=== PATIENT | male | born 1995 | race Caucasian/White ===

== ENCOUNTER 2019-08-15 15:42 | Emergency (ER) | payer OTHER ==
--- OUTSIDE RECORDS SUMMARY | 2019-08-15 15:51 | XMS REPORT | Continuity of Care Document ---
:1995 Author Organization [facility] Care Team Providers Name Role Phone [facility] Unavailable Unavailable Problems Problem Status Onset Classification Date Comments Source Date Reported Pseudomonas Active Problem 01/19/2016 Pedi infection in Infect conditions Disease of classified [place] elsewhere and of unspecified site Methicillin Active Problem 01/19/2016 Pedi resistant Infect Staphylococcus Disease of aureus [place] Pilonidal cyst Active Problem 01/19/2016 Pedi with abscess [facility] [place] Other chronic Active Problem 01/19/2016 Pedi postoperative pain [facility] [place] Other atopic Active Problem 01/19/2016 Pedi dermatitis and Infect related conditions [facility] of [place] Open wound of Active Problem 01/19/2016 Pedi buttock, Infect complicated [facility] of [place] Cutaneous abscess Active Problem 01/19/2016 Pedi of buttock Infect [facility] [place] Open wound of Active Problem 01/19/2016 Pedi buttock, without Infect mention of Disease of complication [place] Pilonidal cyst Active Problem 01/19/2016 Pedi with abscess Infect [facility] [place] Klebsiella Active Problem 01/19/2016 Pedi pneumoniae Infect infection [facility] [place] Cellulitis and Active Problem 01/19/2016 Pedi abscess of buttock Infect [facility] [place] Medications Medication Details Route Status Patient Ordering Order Source Instructions Provider Date Augmentin 1 tablet PO Active 500 mg PO Three [facility] 09/17/20 Pedi times a day 14 [facility] [place] Paxil Unknown NA Active [facility] [place] Celexa Unknown NA Active [facility] [place] Seroquel Unknown NA Active [facility] [place] Augmentin Unknown NA Active [facility] [place] Clonidine HCl Unknown NA Active [facility] [place] Citalopram Unknown NA Active [facility] Hydrobromide [facility] [place] Doxepin HCl Unknown NA Active [facility] [place] BuPROPion HCl Unknown NA Active [facility] [place] Quetiapine Unknown NA Active [facility] Fumarate [facility] [place] Allergies, Adverse Reactions, Alerts Substance Category Reaction Severity Reaction Status Date Comments Source type Reported N.K.D.A. Adverse Info Not Adverse Active Pedi Reaction Available Reaction 6 [facility] [place] Immunizations No Data Provided for This Section Results No Data Provided for This Section Pathology Reports No Data Provided for This Section Diagnostic Reports No Data Provided for This Section Consultation Notes No Data Provided for This Section Discharge Summaries No Data Provided for This Section History and Physicals No Data Provided for This Section Vital Signs Vital Sign Value Date Comments Source Weight 323 01/16/2016 Pedi [facility] [place] Height 68 01/16/2016 Pedi [facility] [place] Temperature Oral (F) 98 F 01/16/2016 Pedi [facility] [place] Heart Rate 128 01/16/2016 Pedi [facility] [place] Weight 295 08/07/2015 Pedi [facility] [place] Height 68 08/07/2015 Pedi [facility] [place] Temperature Oral (F) 98 F 08/07/2015 Pedi [facility] [place] Heart Rate 108 08/07/2015 Pedi [facility] [place] Weight 263 01/13/2015 Pedi [facility] [place] Height 68 01/13/2015 Pedi [facility] [place] Temperature Oral (F) 97.6 F 01/13/2015 Pedi [facility] [place] Heart Rate 101 01/13/2015 Pedi [facility] [place] Weight 260 01/02/2015 Pedi [facility] [place] Height 68 01/02/2015 Pedi [facility] [place] Temperature Oral (F) 97.8 F 01/02/2015 Pedi [facility] [place] Heart Rate 102 01/02/2015 Pedi [facility] [place] Weight 247.2 10/22/2014 Pedi [facility] [place] Height 66 10/22/2014 Pedi [facility] [place] Temperature Oral (F) 97.5 F 10/22/2014 Pedi [facility] [place] Weight 248 10/09/2014 Pedi [facility] [place] Height 66 10/09/2014 Pedi [facility] [place] Temperature Oral (F) 97.6 F 10/09/2014 Pedi [facility] [place] Heart Rate 77 10/09/2014 Pedi [facility] [place] Weight 245 09/24/2014 Pedi [facility] [place] Height 66 09/24/2014 Pedi [facility] [place] Temperature Oral (F) 98.9 F 09/24/2014 Pedi [facility] [place] Heart Rate 91 09/24/2014 Pedi [facility] [place] Weight 241 09/18/2014 Pedi [facility] [place] Height 66 09/18/2014 Pedi [facility] [place] Temperature Oral (F) 97.6 F 09/18/2014 Pedi [facility] [place] Heart Rate 89 09/18/2014 Pedi [facility] [place] Weight 241 09/11/2014 Pedi [facility] [place] Height 66 09/11/2014 Pedi [facility] [place] Temperature Oral (F) 97.5 F 09/11/2014 Pedi [facility] [place] Heart Rate 81 09/11/2014 Pedi [facility] [place] Encounters Location Location Encounter Encounter Reason Attending ADM DC Status Source Details Type Number For Provider Date Date Visit Pediatric Unknown [id number] 09/11 09/11 Pedi Infectious ef6-4ba4- Infect Disease [id number] [facility] [id number] [facility] Unknown [id number] 09/11 09/11 Pedi Infectious p7n-7l87-3 Infect Disease [id number] [facility] [id number] of [facility] Unknown [id number] 09/11 09/11 Pedi Infectious 8i8-8zdr-2 Infect Disease d75-2sip3g [facility] [id number] of [facility] Unknown [id number] 09/11 09/11 Pedi Infectious 930-4e88- Infect Disease [id number] [facility] [id number] of [facility] Unknown [id number] 09/11 09/11 Pedi Infectious 10f-4643-a /2013 Infect Disease 00f-7bab3c [facility] [id number] of [facility] Unknown [id number] 09/11 09/11 Pedi Infectious dfa-488e- Infect Disease 686-a84a04 [facility] [id number] of [facility] Unknown [id number] 09/11 09/11 Pedi Infectious 9h8-0909-f /2013 Infect Disease ff1-92b48f [facility] [id number] of [facility] Unknown [id number] 09/11 09/11 Pedi Infectious 7r0-94kb-7 Infect Disease p87-b2p44f [facility] 210cda of [facility] Unknown [id number] 09/11 09/11 Pedi Infectious 7w0-76s2-b /2013 Infect Disease p05-m6rl34 [facility] [id number] of [facility] Unknown [id number] 09/11 09/11 Pedi Infectious 3r4-4368-1 /2013 Infect Disease z25-9457uz [facility] [id number] of [facility] Unknown [id number] 09/11 09/11 Pedi Infectious 391-4f25-a /2013 Infect Disease 285-uq0011 [facility] [id number] of [facility] Unknown [id number] 09/11 09/11 Pedi Infectious 971-446c-8 Infect Disease 814-4dbacf [facility] [id number] of [facility] Unknown [id number] 09/11 09/11 Pedi Infectious 0j9-8x90-f /2013 Infect Disease 35a-xe315a [facility] [id number] of [facility] Unknown [id number] 09/11 09/11 Pedi Infectious 56e-4a56-a /2013 Infect Disease 714-g0o139 [facility] [id number] of [facility] Provider [id number] 09/17 09/17 Pedi Infectious told 740-4185- /2013 Infect Disease patient to fc7-5c1330 [facility] call [id number] of [facility] Provider [id number] 09/17 09/17 Pedi Infectious told q71-0n1n-8 Infect Disease patient to c7s-64kj50 [facility] call [id number] of [facility] Provider [id number] 09/17 09/17 Pedi Infectious told z55-1941-h /2013 Infect Disease patient to 215-b796e2 [facility] call [id number] of [facility] Provider [id number] 09/17 09/17 Pedi Infectious told y50-0kdb-1 /2013 Infect Disease patient to 2fd-4ag458 [facility] call [id number] of [facility] Test [id number] 09/17 09/17 Pedi Infectious results 940-4cf0-b /2013 Infect Disease bbd-052dd4 [facility] [id number] of [facility] Test [id number] 09/17 09/17 Pedi Infectious results 39a-4529-a /2013 Infect Disease j5x-27c6dx [facility] [id number] of [facility] Test [id number] 09/17 09/17 Pedi Infectious results 298-418a-a /2013 Infect Disease 45d-qm4195 [facility] [id number] of [facility] Test [id number] 09/17 09/17 Pedi Infectious results 4c9-06i3-v /2013 Infect Disease fd6-4906f2 [facility] [id number] [facility] Provider [id number] 09/17 09/17 Pedi Infectious told bd5-4b86-8 /2013 Infect Disease patient to 650-4ad6f4 [facility] call [id number] of [facility] Provider [id number] 09/17 09/17 Pedi Infectious told 868-4bf8- Infect Disease patient to 5be-4t1779 [facility] call [id number] of [facility] Provider [id number] 09/17 09/17 Pedi Infectious told 824-463f-a /2013 Infect Disease patient to 30f-8e64cb [facility] call [id number] of [facility] Provider [id number] 09/17 09/17 Pedi Infectious told 40f-4dfa-9 /2013 Infect Disease patient to 567-91f06a [facility] call [id number] of [facility] Provider [id number] 09/17 09/17 Pedi Infectious told 513-46d1-a /2013 Infect Disease patient to 147-9g0793 [facility] call [id number] of [facility] Provider [id number] 09/17 09/17 Pedi Infectious told c81-43r7-k /2013 Infect Disease patient to 558-[id number] [facility] call [id number] of [facility] Provider [id number] 09/17 09/17 Pedi Infectious told m0j-8q0b-2 /2013 Infect Disease patient to cb5-5o4105 [facility] call [id number] of [facility] Provider [id number] 09/17 09/17 Pedi Infectious told g7u-635c-f /2013 Infect Disease patient to be5-5241a1 [facility] call 8caceb of [facility] Provider [id number] 09/17 09/17 Pedi Infectious told 6ea-4f71-b /2013 Infect Disease patient to 54b-010c78 [facility] call [id number] of [facility] Provider [id number] 09/17 09/17 Pedi Infectious told 439-49f6- Infect Disease patient to fe3-k1470u [facility] call [id number] of [facility] Test [id number] 09/17 09/17 Pedi Infectious results r71-1835-p /2013 Infect Disease afa-0ef54a [facility] [id number] [facility] Test [id number] 09/17 09/17 Pedi Infectious results 744-4d7f-a /2013 Infect Disease 509-7350cc [facility] [id number] of [facility] Test [id number] 09/17 09/17 Pedi Infectious results 321-4105-a /2013 Infect Disease 033-5fc2a4 [facility] [id number] [facility] Test [id number] 09/17 09/17 Pedi Infectious results fd7-4768-b /2013 Infect Disease 34c-5314cd [facility] [id number] [facility] Test [id number] 09/17 09/17 Pedi Infectious results 747-490c-8 /2013 Infect Disease c0d-595233 [facility] [id number] [facility] Test [id number] 09/17 09/17 Pedi Infectious results 7o5-0090-1 /2013 Infect Disease i60-9tw4x8 [facility] [id number] [facility] Test [id number] 09/17 09/17 Pedi Infectious results r15-8c8n-g /2013 Infect Disease 432-849e0f [facility] [id number] [facility] Test [id number] 09/17 09/17 Pedi Infectious results 7r9-8447-2 /2013 Infect Disease cca-59edf5 [facility] [id number] [facility] Test [id number] 09/17 09/17 Pedi Infectious results dd1-4c00-8 /2013 Infect Disease 23e-70d07e [facility] [id number] of [facility] Test [id number] 09/17 09/17 Pedi Infectious results c42-29l0-f /2013 Infect Disease 8n0-f6w076 [facility] [id number] [facility] Follow-Up [id number] 09/18 09/18 Pedi Infectious Pilonidal 00b-4b97-a /2013 Infect Disease Cyst 34f-bc1cc5 [facility] [id number] [facility] Follow-Up [id number] 09/18 09/18 Pedi Infectious [place] ca6-471b-a /2013 Infect Disease Cyst 8c2-dr092o [facility] [id number] of [facility] Follow-Up [id number] 09/18 09/18 Pedi Infectious [place] c9d-0qav-4 /2013 Infect Disease Cyst 3k3-g09f32 [facility] [id number] [facility] Follow-Up [id number] 09/18 09/18 Pedi Infectious [place] r8r-517e-r /2013 Infect Disease Cyst 433-75cb33 [facility] [id number] [facility] Follow-Up [id number] 09/18 09/18 Pedi Infectious [place] g40-6271-1 /2013 Infect Disease Cyst 846-70492s [facility] [id number] [facility] Follow-Up [id number] 09/18 09/18 Pedi Infectious [place] 5z8-0689-7 /2013 Infect Disease Cyst eb2-a2d1d4 [facility] [id number] [facility] Follow-Up [id number] 09/18 09/18 Pedi Infectious [place] 709-41ab-b /2013 Infect Disease Cyst 690-a2a3e7 [facility] [id number] [facility] Follow-Up [id number] 09/18 09/18 Pedi Infectious [place] 145-41c4-b /2013 Infect Disease Cyst 98c-82c78f [facility] [id number] [facility] Follow-Up [id number] 09/18 09/18 Pedi Infectious [place] 16f-4422-a /2013 Infect Disease Cyst 53a-3b5dfc [facility] [id number] [facility] Follow-Up [id number] 09/18 09/18 Pedi Infectious [place] 98d-4b19-b /2013 Infect Disease Cyst 846-f15e95 [facility] [id number] [facility] Follow-Up [id number] 09/18 09/18 Pedi Infectious [place] cf3-4a2f-b /2013 Infect Disease Cyst aa5-48a13b [facility] [id number] [facility] Follow-Up [id number] 09/24 09/24 Pedi Infectious [place] v7e-9x50-j /2013 Infect Disease Cyst 1s1-3ng143 [facility] [id number] [facility] Follow-Up [id number] 09/24 09/24 Pedi Infectious [place] bc0-4c7b-9 /2013 Infect Disease Cyst 83a-439572 [facility] [id number] [facility] Follow-Up [id number] 09/24 09/24 Pedi Infectious [place] 786-4d38-b /2013 Infect Disease Cyst 00a-9f5fa2 [facility] [id number] [facility] Follow-Up [id number] 09/24 09/24 Pedi Infectious [place] 171-4d6a-b /2013 Infect Disease Cyst 922-589061 [facility] [id number] [facility] Follow-Up [id number] 09/24 09/24 Pedi Infectious [place] 2k2-4za7-3 /2013 Infect Disease Cyst 528-7f2ac2 [facility] [id number] [facility] Follow-Up [id number] 09/24 09/24 Pedi Infectious [place] 0g6-306j-q /2013 Infect Disease Cyst 80e-1bbfcb [facility] [id number] [facility] Follow-Up [id number] 09/24 09/24 Pedi Infectious [place] 994-4c53-9 /2013 Infect Disease Cyst 6de-f4ed9e [facility] [id number] [facility] Follow-Up [id number] 09/24 09/24 Pedi Infectious [place] ed8-4e55-b /2013 Infect Disease Cyst 376-777cde [facility] [id number] [facility] Follow-Up [id number] 09/24 09/24 Pedi Infectious [place] 24b-451a-8 /2013 Infect Disease Cyst 82c-662bd2 [facility] [id number] of [facility] Follow-Up [id number] 09/24 09/24 Pedi Infectious [place] 8ed-4898-b /2013 Infect Disease Cyst cee-oaf504 [facility] [id number] of [facility] Follow-Up [id number] 09/24 09/24 Pedi Infectious [place] 26d-400d-a /2013 Infect Disease Cyst 7z8-4486aq [facility] [id number] [facility] Follow-Up [id number] 10/09 10/09 Pedi Infectious [place] ca5-4f38-8 /2013 Infect Disease Cyst 73a-1b7d56 [facility] [id number] of [facility] Follow-Up [id number] 10/09 10/09 Pedi Infectious [place] 636-40e6-9 /2013 Infect Disease Cyst 947-e3748q [facility] [id number] [facility] Follow-Up [id number] 10/09 10/09 Pedi Infectious [place] 66c-4459-a /2013 Infect Disease Cyst p51-175975 [facility] [id number] of [facility] Follow-Up [id number] 10/09 10/09 Pedi Infectious [place] u8t-116f-1 /2013 Infect Disease Cyst w20-l75967 [facility] [id number] of [facility] Follow-Up [id number] 10/09 10/09 Pedi Infectious [place] 2dd-467d-8 Infect Disease Cyst 6i2-751174 [facility] [id number] of [facility] Follow-Up [id number] 10/09 10/09 Pedi Infectious [place] 201-45fb-b /2013 Infect Disease Cyst 2b1-2n7t36 [facility] [id number] [facility] Follow-Up [id number] 10/09 10/09 Pedi Infectious [place] u4w-9v07-r /2013 Infect Disease Cyst bed-8fceb1 [facility] [id number] [facility] Follow-Up [id number] 10/09 10/09 Pedi Infectious [place] 0h7-7h5b-4 Infect Disease Cyst x2p-xo1278 [facility] [id number] of [facility] Follow-Up [id number] 10/09 10/09 Pedi Infectious [place] o8c-2705-h /2013 Infect Disease Cyst bc1-612e32 [facility] [id number] [facility] Follow-Up [id number] 10/09 10/09 Pedi Infectious [place] 9ed-4f4b-8 /2013 Infect Disease Cyst 2fb-43eadf [facility] [id number] of [facility] Follow-Up [id number] 10/09 10/09 Pedi Infectious [place] 3g6-8z91-9 /2013 Infect Disease Cyst c46-59158a [facility] [id number] [facility] WOUNDCARE [id number] 10/22 10/22 Pedi Infectious 5z8-7c01-6 /2013 Infect Disease 48c-693443 [facility] [id number] [facility] [id number] 10/22 10/22 Pedi Infectious 442-4426-9 /2013 Infect Disease u4p-1k6hw4 [facility] [id number] [facility] [id number] 10/22 10/22 Pedi Infectious ba4-494c-b /2013 Infect Disease 92f-341790 [facility] [id number] [facility] [id number] 10/22 10/22 Pedi Infectious afc-4b99-b /2013 Infect Disease 449-4770ae [facility] [id number] [facility] [id number] 10/22 10/22 Pedi Infectious cf9-4283-a /2013 Infect Disease ee3-f10d09 [facility] [id number] [facility] [id number] 10/22 10/22 Pedi Infectious q76-9681-d /2013 Infect Disease 6ad-048b69 [facility] [id number] [facility] [id number] 10/22 10/22 Pedi Infectious ec0-4282-8 /2013 Infect Disease c5m-6sq0m7 [facility] [id number] [facility] [id number] 10/22 10/22 Pedi Infectious bad-4c5d-a /2013 Infect Disease 731-w3138z [facility] [id number] [facility] FU - [id number] 11/19 11/19 Pedi Infectious PILONIDAL 9h3-06zp-9 /2013 Infect Disease CYST 7b8-02a550 [facility] [id number] [facility] FU - [id number] 11/19 11/19 Pedi Infectious PILONIDAL fa6-4c63-8 /2013 Infect Disease CYST 573-fbe18e [facility] [id number] [facility] FU - [id number] 11/19 11/19 Pedi Infectious PILONIDAL 2ac-4955-a /2013 Infect Disease CYST 318-2e93c3 [facility] [id number] [facility] FU - [id number] 11/19 11/19 Pedi Infectious PILONIDAL f46-9j97-j /2013 Infect Disease CYST 5v6-7v6458 [facility] [id number] [facility] FU - [id number] 11/19 11/19 Pedi Infectious PILONIDAL 7o0-4m93-k /2013 Infect Disease CYST 093-a1a61a [facility] [id number] [facility] FU - [id number] 11/19 11/19 Pedi Infectious PILONIDAL 115-444f-b /2013 Infect Disease CYST 1bc-f1s429 [facility] [id number] [facility] FU - [id number] 11/19 11/19 Pedi Infectious PILONIDAL 6ea-40c8-b /2013 Infect Disease CYST 754-37b94e [facility] [id number] [facility] FU - [id number] 11/19 11/19 Pedi Infectious PILONIDAL 643-4d47-b /2013 Infect Disease CYST 8y5-5l6rh0 [facility] [id number] [facility] Unknown [id number] 12/11 12/11 Pedi Infectious 490-456d-9 /2014 Infect Disease e95-83k4h2 [facility] [id number] [facility] Unknown [id number] 12/11 12/11 Pedi Infectious 50b-42a1-a /2014 Infect Disease 995-za159r [facility] [id number] [facility] Unknown [id number] 01/14 01/14 Pedi Infectious de7-4c4f- Infect Disease 945-2aebd0 [facility] [id number] [facility] Unknown [id number] 12/11 12/11 Pedi Infectious 4r4-02n9-0 Infect Disease 920-4oi157 [facility] [id number] [facility] Unknown [id number] 12/11 12/11 Pedi Infectious f2m-610f-4 Infect Disease ab2-8e65d9 [facility] [id number] [facility] Unknown [id number] 12/11 12/11 Pedi Infectious 459-43f5- Infect Disease aee-33b8fd [facility] [id number] [facility] Follow-Up [id number] 01/02 01/02 Pedi Infectious [place] af5-4ef1-b /2014 Infect Disease cyst 55f-37b0d6 [facility] [id number] [facility] Follow-Up [id number] 01/02 01/02 Pedi Infectious [place] 140-43fd- Infect Disease cyst 364-2311e8 [facility] [id number] [facility] Follow-Up [id number] 01/02 01/02 Pedi Infectious [place] ddb-4f8b- Infect Disease cyst j9t-q482t9 [facility] [id number] of [facility] Follow-Up [id number] 01/02 01/02 Pedi Infectious [place] cad-4517-9 /2014 Infect Disease cyst n29-ha7y41 [facility] [id number] [facility] Follow-Up [id number] 01/02 01/02 Pedi Infectious [place] 766-43da-a /2014 Infect Disease cyst c23-3ed4e4 [facility] [id number] of [facility] Follow-Up [id number] 01/13 01/13 Pedi Infectious [place] s98-296t-o /2014 Infect Disease cyst 9w9-406070 [facility] [id number] of [facility] Follow-Up [id number] 01/13 01/13 Pedi Infectious [place] 7j6-4a09-i /2014 Infect Disease cyst z5k-2f4ji7 [facility] [id number] [facility] Follow-Up [id number] 01/13 01/13 Pedi Infectious [place] 614-46ec-b /2014 Infect Disease cyst 01b-79ea4a [facility] [id number] [facility] Follow-Up [id number] 01/13 01/13 Pedi Infectious [place] 51e-414e-8 /2014 Infect Disease cyst 7k8-456i77 [facility] [id number] of [facility] Follow-Up [id number] 01/13 01/13 Pedi Infectious [place] 876-4809-b /2014 Infect Disease cyst a80-18hm52 [facility] [id number] of [facility] Follow-Up [id number] 01/21 01/21 Pedi Infectious ea9-4042-a /2014 Infect Disease z29-10756b [facility] [id number] [facility] Follow-Up [id number] 01/21 01/21 Pedi Infectious 05f-4638-9 /2014 Infect Disease k5k-vb16v6 [facility] [id number] [facility] Follow-Up [id number] 02/04 02/04 Pedi Infectious [place] daf-45f8-9 /2014 Infect Disease cyst 4fe-656efd [facility] [id number] of [facility] Follow-Up [id number] 02/04 02/04 Pedi Infectious [place] ba7-4a1b-b /2014 Infect Disease cyst 32e-bsj698 [facility] [id number] [facility] Follow-Up [id number] 02/18 02/18 Pedi Infectious [place] m58-3886-w /2014 Infect Disease cyst and 904-d7331t [facility]ists [facility] [id number] of [facility] Follow-Up [id number] 02/18 02/18 Pedi Infectious [place] 52c-475a-8 /2014 Infect Disease cyst and 91d-448a54 [facility] Laser hair [id number] of [facility] Pediatric Follow-Up [id number] 05/06 05/06 Pedi Infectious Pilonidal [id number] /2014 Infect Disease cyst [id number] [facility] [id number] of [facility] Pediatric Follow-Up [id number] 05/06 05/06 Pedi Infectious Pilonidal [id number] /2014 Infect Disease cyst [id number] [facility] [id number] of [facility] Pediatric Test [id number] 05/12 05/12 Pedi Infectious results [id number] /2014 Infect Disease [id number] [facility] [id number] of [facility] Pediatric Test [id number] 05/12 05/12 Pedi Infectious results [id number] /2014 Infect Disease [id number] [facility] [id number] of [facility] Pediatric Follow-Up [id number] 05/16 05/16 Pedi Infectious Pilonidal [id number] /2014 Infect Disease Cyst [id number] [facility] [id number] of [facility] Pediatric Follow-Up [id number] 05/16 05/16 Pedi Infectious Pilonidal [id number] /2014 Infect Disease Cyst [id number] [facility] [id number] of [facility] Pediatric Follow-Up [id number] 05/26 05/26 Pedi Infectious Pilonidal [id number] /2014 Infect Disease cyst [id number] [facility] [id number] of [facility] Pediatric Follow-Up [id number] 05/26 05/26 Pedi Infectious Pilonidal [id number] /2014 Infect Disease cyst [id number] [facility] [id number] of [facility] Pediatric Follow-Up [id number] 07/10 07/10 Pedi Infectious Pilonidal [id number] /2014 Infect Disease cyst [id number] [facility] [id number] of [facility] Pediatric Follow-Up [id number] 07/10 07/10 Pedi Infectious Pilonidal [id number]- Infect Disease cyst [id number] [facility] [id number] of [facility] Pediatric Follow-Up [id number] 08/07 08/07 Pedi Infectious Pilonidal [id number]- Infect Disease cyst [id number] [facility] [id number] of [facility] Pediatric Follow-Up [id number] 08/07 08/07 Pedi Infectious Pilonidal [id number] /2014 Infect Disease cyst [id number] [facility] [id number] [facility] Pediatric Test [id number] 08/11 08/11 Pedi Infectious results [id number] Infect Disease [id number] [facility] [id number] of [facility] Pediatric Test [id number] 08/11 08/11 Pedi Infectious results [id number]- Infect Disease [id number] [facility] [id number] of [facility] Pediatric Follow-Up [id number] 01/16 01/16 Pedi Infectious - Check [id number] /2015 Infect Disease wound [id number] [facility] [id number] of [facility] Procedures No Data Provided for This Section Assessment and Plan No Data Provided for This Section Plan of Care No Data Provided for This Section Social History Social History Date Source Social History ElementQualifiersDate Reported 01/18/2016 Pedi Infect Disease of Tobacco Use: [place] . Are you a: never smoker Jan 18, 2016 Family History Value Date Source QualifierDescriptionCommentDate Reported 08/09/2015 Pedi Infect Disease of Maternal Grandmother [place] Comment not available Aug 07, 2015 Paternal Grandmother Comment not available Aug 07, 2015 Siblings Comment not available Aug 07, 2015 Maternal Grandfather Comment not available Aug 07, 2015 Children Comment not available Aug 07, 2015 Father Comment not available Aug 07, 2015 Paternal Grandfather Comment not available Aug 07, 2015 Mother Comment not available Aug 07, 2015 Other: Comment not available Aug 07, 2015 Advance Directives No Data Provided for This Section Functional Status No Data Provided for This Section
--- OUTSIDE RECORDS SUMMARY | 2019-08-15 15:52 | XMS REPORT ---
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 Are you a: never smoker Sep 24, 2014 Summary Purpose eClinicalWorks Submission
--- OUTSIDE RECORDS SUMMARY | 2019-08-15 15:52 | XMS REPORT ---
:1995 Author Organization eClinicalWorks Care Team Providers Name Role Phone Raphael Lacey Provider Role Unavailable Allergies, Adverse Reactions, Alerts Substance Reaction Event Type N.K.D.A. Info Not Available Non Drug Allergy Encounters Encounter Location Date Follow-Up Pilonidal Cyst [facility] Sep 24, 2014 of [facility] Follow-Up Pilonidal Cyst [facility] Sep 18, 2014 of [facility] Follow-Up Pilonidal Cyst [facility] Oct 09, 2014 of [facility] Unknown [facility] Sep 11, 2014 of [facility] Provider told patient to call [facility] Aug of [facility] Test results [facility] Sep 17, 2014 of [facility] Problems Problem Type Condition ICD-9 Code Onset Dates Condition Status Assessment Other atopic dermatitis and 691.8 Active related conditions Assessment Methicillin resistant 041.12 Active Staphylococcus aureus Assessment Other chronic postoperative pain 338.28 Active Problem Pilonidal cyst with abscess 685.0 Active Problem Pseudomonas infection in 041.7 Active conditions classified elsewhere and of unspecified site Problem Other atopic dermatitis and 691.8 Active related conditions Assessment Pilonidal cyst with abscess 685.0 Active Assessment Pseudomonas infection in 041.7 Active conditions classified elsewhere and of unspecified site Problem Methicillin resistant 041.12 Active Staphylococcus aureus Problem Other chronic postoperative pain 338.28 Active Medications Medication Code System Code Instructions Start Date End Date Status Dosage Paxil MEDISPAN [id number] Active Unknown Celexa MEDISPAN [id number] Active Unknown Augmentin MEDISPAN [id number] Active Unknown Seroquel MEDISPAN [id number] Active Unknown Social History Social History Element Qualifiers Date Reported Tobacco Use: . Are you a: never smoker Oct 10, 2014 Vital Signs Date/Time: Sep 18, 2014 Weight 241 lbs Height 66 in Temperature 97.6 F Cardiac Monitoring Heart Rate 89 /min Summary Purpose eClinicalWorks Submission
--- OUTSIDE RECORDS SUMMARY | 2019-08-15 15:52 | XMS REPORT ---
:1995 Author Organization eClinicalWorks Care Team Providers Name Role Phone Deepthi Raphael Provider Role Unavailable Encounters Encounter Location [...] Problem Other chronic postoperative pain 338.28 Active Social History Social History Element Qualifiers Date Reported Tobacco Use: . Are you a: never smoker Sep 24, 2014 Summary Purpose eClinicalWorks Submission
--- OUTSIDE RECORDS SUMMARY | 2019-08-15 15:52 | XMS REPORT ---
:1995 Author Organization eClinicalWorks Care Team Providers Name Role Phone LaceyRaphael hilario Provider Role Unavailable Allergies, Adverse Reactions, Alerts Substance Reaction Event Type N.K.D.A. Info Not Available Non Drug Allergy Encounters Encounter Location Date Follow-Up Pilonidal Cyst [facility] Sep 24, 2014 of [facility] Follow-Up Pilonidal Cyst [facility] Sep 18, 2014 of [facility] Follow-Up Pilonidal Cyst [facility] Oct 09, 2014 of [facility] FU - PILONIDAL CYST [facility] Nov 19, 2014 of [facility] Unknown [facility] Sep 11, 2014 of [facility] Provider told patient to call [facility] Aug of [facility] Test results [facility] Sep 17, 2014 of [facility] Oct 22, 2014 of [facility] Problems Problem Type Condition ICD-9 Code Onset Dates Condition Status Assessment Pilonidal cyst with abscess 685.0 Active Social History Social History Element Qualifiers Date Reported Tobacco Use: . Are you a: never smoker Nov 24, 2014 Summary Purpose eClinicalWorks Submission
--- OUTSIDE RECORDS SUMMARY | 2019-08-15 15:52 | XMS REPORT ---
[...] ICD-9 Code Onset Dates Condition Status Problem Pilonidal cyst with abscess 685.0 Active Problem Pseudomonas infection in 041.7 Active conditions classified elsewhere and of unspecified site Problem Other atopic dermatitis and 691.8 Active related conditions Assessment Pilonidal cyst with abscess 685.0 Active Assessment Other chronic postoperative pain 338.28 Active Problem Methicillin resistant 041.12 Active Staphylococcus aureus Problem Other chronic postoperative pain 338.28 Active Medications Medication Code System Code Instructions Start Date End Date Status Dosage Paxil MEDISPAN [id number] Active Unknown Celexa MEDISPAN [id number] Active Unknown Seroquel MEDISPAN [id number] Active Unknown Social History Social History Element Qualifiers Date Reported Tobacco Use: . Are you a: never smoker Oct 10, 2014 Vital Signs Date/Time: Oct 09, 2014 Weight 248 lbs Height 66 in Temperature 97.6 F Cardiac Monitoring Heart Rate 77 /min Summary Purpose eClinicalWorks Submission
--- OUTSIDE RECORDS SUMMARY | 2019-08-15 15:52 | XMS REPORT ---
[...] atopic dermatitis and 691.8 Active related conditions Problem Pilonidal cyst with abscess 685.0 Active [...] Instructions Start Date End Date Status Dosage Celexa MEDISPAN [id number] Active Unknown -01 Paxil MEDISPAN [address] Active Unknown -13 Augmentin MEDISPAN [address] 500 mg PO Three Sep 17, Oct 01, Active 1 tablet -20 times a day 2013 2013 Seroquel MEDISPAN [address] Active Unknown -10 Social History Social History Element Qualifiers Date Reported Tobacco Use: . Are you a: never smoker Oct 10, 2014 Vital Signs Date/Time: Sep 24, 2014 Weight 245 lbs Height 66 in Temperature 98.9 F Cardiac Monitoring Heart Rate 91 /min Summary Purpose eClinicalWorks Submission
--- OUTSIDE RECORDS SUMMARY | 2019-08-15 15:52 | XMS REPORT ---
[...] you a: never smoker Nov 24, 2014 Vital Signs Date/Time: Oct 22, 2014 Weight 247.2 lbs Height 66 in Temperature 97.5 F Summary Purpose eClinicalWorks Submission
--- OUTSIDE RECORDS SUMMARY | 2019-08-15 15:52 | XMS REPORT ---
:1995 Author Organization eClinicalWorks Care Team Providers Name Role Phone Raphael Lacey Provider Role Unavailable Allergies, Adverse Reactions, Alerts Substance Reaction Event Type N.K.D.A. Info Not Available Non Drug Allergy Encounters Encounter Location Date Unknown [facility] Sep 11, 2014 of [facility] Provider told patient to call [facility] Aug of [facility] Test results [facility] Sep 17, 2014 of [facility] Problems Problem Type Condition ICD-9 Code Onset Dates Condition Status Assessment Other chronic postoperative pain 338.28 Active Problem Pseudomonas infection in 041.7 Active conditions classified elsewhere and of unspecified site Problem Methicillin resistant 041.12 Active Staphylococcus aureus Problem Pilonidal cyst with abscess 685.0 Active Assessment Pseudomonas infection in 041.7 Active conditions classified elsewhere and of unspecified site Assessment Methicillin resistant 041.12 Active Staphylococcus aureus Problem Other chronic postoperative pain 338.28 Active Assessment Pilonidal cyst with abscess 685.0 Active Medications Medication Code System Code Instructions Start Date End Date Status Dosage Paxil MEDISPAN [id number] Active Unknown Celexa MEDISPAN [address]-57 Active Unknown Seroquel MEDISPAN [id number] Active Unknown Social History Social History Element Qualifiers Date Reported Tobacco Use: . Are you a: never smoker Sep 24, 2014 Vital Signs Date/Time: Sep 11, 2014 Weight 241 lbs Height 66 in Temperature 97.5 F Cardiac Monitoring Heart Rate 81 /min Summary Purpose eClinicalWorks Submission
--- OUTSIDE RECORDS SUMMARY | 2019-08-15 15:52 | XMS REPORT ---
:1995 Author Organization [employer] Care Team Providers Name Role Phone Raphael Lacey Provider Role Unavailable Encounters Encounter Location Date Follow-Up Pilonidal Cyst [...] Specialists Oct 22, 2014 of [facility] Unknown [facility] Dec 11, 2014 of [facility] Social History Social History Element Qualifiers Date Reported Tobacco Use: . Are you a: never smoker Nov 24, 2014 Summary Purpose [employer] Submission
--- OUTSIDE RECORDS SUMMARY | 2019-08-15 15:53 | XMS REPORT ---
:1995 Author Organization eClinicalWorks Care Team Providers Name Role Phone Raphael Lacey Provider Role Unavailable Allergies, Adverse Reactions, Alerts Substance Reaction Event Type N.K.D.A. Info Not Available Non Drug Allergy Encounters Encounter Location Date Follow-Up Pilonidal Cyst Pediatric Infect[facility] Sep 24, 2014 [facility] Follow-Up Pilonidal Cyst [facility] Oct 09, 2014 [facility] FU - PILONIDAL CYST Pediatric Infectious [facility] Nov 19, 2014 [facility] Pediatric Infectious Disease Oct 22, 2014 [facility] Unknown Pediatric Infectious Disease Sep 11, 2014 [facility] Provider told patient to call Pediatric Infectious Disease Sep 17, 2014 [facility] Test results Pediatric Infectious Disease Sep 17, 2014 [facility] Follow-Up Pilonidal cyst Pediatric Infectious Disease Jan 13, 2015 [facility]ists [facility] Test results Pediatric Infectious Disease Aug 11, 2015 [facility] Follow-Up Pilonidal cyst Pediatric Infectious Disease Aug 07, 2015 Specialists [facility] Unknown Pediatric Infectious Disease Dec 11, 2014 [facility] Follow-Up Pilonidal Cyst Pediatric Infectious Disease Sep 18, 2014 [facility] Follow-Up Pilonidal Cyst Pediatric Infectious Disease May 16, 2015 [facility] Follow-Up Pilonidal cyst Pediatric Infectious Disease May 26, 2015 [facility] Follow-Up Pilonidal cyst Pediatric Infectious Disease May 06, 2015 [facility]ists [facility] Test results Pediatric Infectious Disease May 12, 2015 [facility] Follow-Up Pilonidal cyst Pediatric Infectious Disease February 04, 2015 [facility]ists [facility] Follow-Up Pilonidal cyst and Laser Pediatric Infectious Disease February 18, 2015 hair removal tx [facility] Follow-Up Pilonidal cyst Pediatric Infectious Disease Jan 02, 2015 [facility] Follow-Up Pediatric Infectious Disease Jan 21, 2015 [facility] Follow-Up Pilonidal cyst Pediatric Infectious Disease Jul 10, 2015 Specialists [facility] Problems Problem Type Condition ICD-9 Code Onset Dates Condition Status Problem Methicillin resistant 041.12 Active Staphylococcus aureus Problem Pilonidal cyst with abscess 685.0 Active Problem Pseudomonas infection in 041.7 Active conditions classified elsewhere and of unspecified site Problem Cutaneous abscess of buttock L02.31 Active Problem Open wound of buttock, without 877.0 Active mention of complication Problem Pilonidal cyst with abscess L05.01 Active Problem Open wound of buttock, 877.1 Active complicated Problem Other atopic dermatitis and 691.8 Active related conditions Problem Klebsiella pneumoniae infection 041.3 Active Problem Cellulitis and abscess of 682.5 Active buttock Assessment Cutaneous abscess of buttock L02.31 Active Assessment Open wound of buttock, 877.1 Active complicated Assessment Pilonidal cyst with abscess L05.01 Active Problem Other chronic postoperative pain 338.28 Active Medications Medication Code System Code Instructions Start Date End Date Status Dosage Paxil MEDISPAN [address]- Active Unknown 13 Clonidine HCl MEDISPAN [address]- Active Unknown 10 Celexa MEDISPAN [address]- Active Unknown 01 Seroquel MEDISPAN [address]- Active Unknown 10 Social History Social History Element Qualifiers Date Reported Tobacco Use: . Are you a: never smoker Aug 08, 2015 Family history Qualifier Description Comment Date Reported Maternal Grandmother Comment not available Aug 07, 2015 Paternal [...] Other: Comment not available Aug 07, 2015 Vital Signs Date/Time: Aug 07, 2015 Weight 295 lbs Height 68 in Temperature 98 F Cardiac Monitoring Heart Rate 108 /min Summary Purpose eClinicalWorks Submission
--- OUTSIDE RECORDS SUMMARY | 2019-08-15 15:53 | XMS REPORT ---
:1995 Author [facility] Address [address] [place] [address] [address] Care Team Providers Name Role Phone ISI AMATO Unavailable Unavailable Problems This patient has no known problems. Allergies, Adverse Reactions, Alerts This patient has no known allergies or adverse reactions. Medications This patient has no known medications. Encounters Start End Encounter Admission Attending Care Care Encounter Date/Time Date/Time Type Type Clinicians Facility Department ID 2018-01-02 2018-02-11 Outpatient ISI CATES [facility] [id number] 12:57:00 23:59:00 PT
--- OUTSIDE RECORDS SUMMARY | 2019-08-15 15:53 | XMS REPORT ---
[...] Specialists Nov 19, 2014 of [facility] Oct 22, 2014 of [facility] Unknown [facility] Sep 11, 2014 of [facility] Follow-Up Pilonidal cyst [facility] Jan 02, 2015 of [facility] Provider told patient to call [facility] Aug of [facility] Test results [facility] Sep 17, 2014 of [facility] Follow-Up Pilonidal cyst [facility] Jan 13, 2015 of [facility] Unknown [facility] Dec 11, 2014 of [facility] Follow-Up Pilonidal Cyst [facility] Sep 18, 2014 of [facility] Problems Problem Type [...] Date End Date Status Dosage Paxil MEDISPAN [id number] Active Unknown Celexa MEDISPAN [address]-10 Active Unknown Augmentin MEDISPAN [address]-87 Active Unknown Seroquel MEDISPAN [address]-13 Active Unknown Social History Social History Element Qualifiers Date Reported Tobacco Use: . Are you a: never smoker Jan 13, 2015 Vital Signs Date/Time: Sep 18, 2014 Weight 241 lbs Height 66 in Temperature 97.6 F Cardiac Monitoring Heart Rate 89 /min Summary Purpose eClinicalWorks Submission
--- OUTSIDE RECORDS SUMMARY | 2019-08-15 15:53 | XMS REPORT ---
[...] May 12, 2015 [facility] Follow-Up - Check wound Pediatric Infectious Disease Jan 16, 2016 [facility] Follow-Up Pilonidal cyst Pediatric [...] Pediatric Infectious Disease Jul 10, 2015 [facility]ists [facility] Problems Problem Type Condition [...] and abscess of 682.5 Active buttock Assessment Open wound of buttock, 877.1 Active complicated Assessment Pilonidal cyst with abscess L05.01 Active Problem Other chronic postoperative pain 338.28 Active Medications Medication Code System Code Instructions Start Date End Date Status D[facility] [address] Unknown 8[facility]10 [facility] 76461-861 Active Unknown Hydrobromide 1-01 Doxepin HCl [facility] 00289-774 Active Unknown 3-00 BuPROPion HCl [facility] 84530-588 Active Unknown 3-01 Quetiapine [facility] 70981-333 Active Unknown Fumarate 1-20 Social History Social History Element Qualifiers Date Reported Tobacco Use: . Are you a: never smoker Jan 18, 2016 Vital Signs Date/Time: Jan 16, 2016 Weight 323 lbs Height 68 in Temperature 98 F Cardiac Monitoring Heart Rate 128 /min Summary Purpose eClinicalWorks Submission
--- OUTSIDE RECORDS SUMMARY | 2019-08-15 15:53 | XMS REPORT ---
[...] Pilonidal cyst with abscess 685.0 Active Assessment Open wound of buttock, 877.1 Active complicated Problem Methicillin resistant 041.12 Active Staphylococcus aureus Problem Other chronic postoperative pain 338.28 Active Medications Medication Code System Code Instructions Start Date End Date Status Dosage Seroquel MEDISPAN [address]- Active Unknown 10 Clonidine HCl MEDISPAN [address]- Active Unknown 10 Celexa MEDISPAN [address]- Active Unknown 01 Paxil MEDISPAN [address]- Active Unknown 13 Social History Social History Element Qualifiers Date Reported Tobacco Use: . Are you a: never smoker Jan 13, 2015 Vital Signs Date/Time: Jan 02, 2015 Weight 260 lbs Height 68 in Temperature 97.8 F Cardiac Monitoring Heart Rate 102 /min Summary Purpose eClinicalWorks Submission
--- OUTSIDE RECORDS SUMMARY | 2019-08-15 15:53 | XMS REPORT ---
[...] ICD-9 Code Onset Dates Condition Status Assessment Open wound of buttock, 877.1 Active complicated Problem Other atopic dermatitis and 691.8 Active related conditions Problem Pilonidal cyst with abscess 685.0 Active Problem Open wound of buttock, 877.1 Active complicated Problem Other chronic postoperative pain 338.28 Active Assessment Pilonidal cyst with abscess 685.0 Active Problem Pseudomonas infection in 041.7 Active conditions classified elsewhere and of unspecified site Problem Methicillin resistant 041.12 Active Staphylococcus aureus Medications Medication Code System Code Instructions Start Date End Date Status Dosage Clonidine HCl MEDISPAN [address]- Active Unknown 10 Paxil MEDISPAN [address]- Active Unknown 13 Seroquel MEDISPAN [address]- Active Unknown 10 Celexa MEDISPAN [address]- Active Unknown 01 Social History Social History Element Qualifiers Date Reported Tobacco Use: . Are you a: never smoker Jan 13, 2015 Vital Signs Date/Time: Jan 13, 2015 Weight 263 lbs Height 68 in Temperature 97.6 F Cardiac Monitoring Heart Rate 101 /min Summary Purpose eClinicalWorks Submission
[2019-08-15] MEDS ORDERED: NA CHLORIDE 0.9% 1,000 ML ONE (17:33)
[2019-08-15] MEDS ORDERED: KETOROLAC 30 MG/ML INJ ONE (17:33)
[2019-08-15 17:48] LABS: Absolute Lymphocytes (CBC) 1.3 K/uL (0.7-4.9); Basophils % 0.9 % (0-1.3); Hematocrit 40.3 % (39.6-49.0); Lymphocytes % 27.2 % (15.3-44.8); MPV 7.3 fL (7.6-11.3); RBC Red Blood Cell Count 4.84 M/uL (4.33-5.43)
[2019-08-15 17:50] LABS: Protime INR 1.04
[2019-08-15 18:00] LABS: ALT/SGPT 70 U/L (12-78); AST/SGOT 23 U/L (15-37); Albumin 3.8 g/dL (3.4-5.0); Alkaline Phosphatase 126 U/L (45-117); BUN Blood Urea Nitrogen 10 mg/dL (7-18); Bicarbonate 28 mmol/L (21-32); Bilirubin Direct 0.2 mg/dL (0-0.2); Bilirubin Total 0.6 mg/dL (0.2-1.0); Glucose Level 92 mg/dL (74-106); NT PRO-BNP 170 pg/mL (<125); Potassium 4.2 mmol/L (3.5-5.1); Protein, Total 7.1 g/dL (6.4-8.2); Sodium Level 141 mmol/L (136-145); Troponin (Emerg Dept Use Only) < 0.02 ng/mL (0.0-0.045)
[2019-08-15] MEDS ORDERED: ONDANSETRON 4 MG/2 ML VIAL ONE (18:06)
[2019-08-15] MEDS ORDERED: MORPHINE 4 MG/ML SYR ONE (18:06)
[2019-08-15] MEDS ORDERED: FENTANYL CITR 100 MCG/2 ML ONE (19:07)
--- NOTE | 2019-08-15 19:13 | RAD REPORT ---
EXAM DESCRIPTION: RAD - Chest Pa And Lat (2 Views) - 08/15/2019 6:20 pm CLINICAL HISTORY: back pain;Chest pain COMPARISON: July 2017 TECHNIQUE: PA and lateral views of the chest were obtained. FINDINGS: The lungs are clear. Heart size is normal and central vasculature is within normal limit s. No pleural effusion or pneumothorax seen. No acute bony finding noted. No aortic abnormality. IMPRESSION: No acute cardiopulmonary process.
--- NOTE | 2019-08-15 19:16 | RAD REPORT ---
EXAM DESCRIPTION: CT - Thorax W/ Con - 08/15/2019 7:09 pm CLINICAL HISTORY: Back pain, chest pain COMPARISON: Chest exam same date TECHNIQUE: Dynamically enhanced 5 mm thick images of the chest were obtained during administration o f 100 mL non-ionic IV contrast. All CT scans are performed using dose optimization technique as appropriate and may include automated exposure control or mA/KV adjustment according to patient size. FINDINGS: No mass or infiltrate in the lung parenchyma. No pleural thickening or pleural effusion. N o pneumothorax. No chest wall mass or abnormal axillary lymphadenopathy. No abnormal mediastinal or hilar mass or lymphadenopathy seen. No acute bone finding. No soft tissue abnormality seen. IMPRESSION: Negative contrast enhanced CT chest examination.
--- NOTE | 2019-08-15 19:32 | ER ---
Nurse's Notes [facility] Name: Keo Hardin Age: 24 yrs Sex: Male : 1995 Arrival Date: 08/15/2019 Time: 15:44 Bed 13 Private MD: Adam Nicolas R Diagnosis: Other chest pain;Pain in thoracic spine Presentation: 08/15 16:07 Presenting complaint: Mid back pain x 6 months, worse over last 3 days. Denies injury. hb Transition of care: patient was not received from another setting of care. Onset of symptoms is unknown. Risk Assessment: Do you want to hurt yourself or someone else? Patient reports no desire to harm self or others. Initial Sepsis Screen: Does the patient meet any 2 criteria? No. Patient's initial sepsis screen is negative. Does the patient have a suspected source of infection? No. Patient's initial sepsis screen is negative. Care prior to arrival: None. 16:07 Method Of Arrival: Ambulatory hb 16:07 Acuity: ROBERTH 4 hb 17:18 Acuity: ROBERTH 3 iw Historical: - Allergies: 16:08 Haldol; hb - Immunization history:: Adult Immunizations up to date. - Social history:: Smoking status: Patient/guardian denies using tobacco. - Ebola Screening: : No symptoms or risks identified at this time. Screenin:03 Abuse screen: Denies threats or abuse. Denies injuries from another. Nutritional iw screening: No deficits noted. Tuberculosis screening: No symptoms or risk factors identified. Fall Risk None identified. Assessment: 17:01 General: Appears uncomfortable, Behavior is cooperative, anxious. Pain: Complains of iw pain in thoracic area. Neuro: Level of Consciousness is awake, alert, obeys commands, Oriented to person, place, time, situation, Moves all extremities. Full function. Cardiovascular: Patient's skin is warm and dry. Respiratory: Respiratory effort is even, unlabored, Respiratory pattern is regular. Derm: Skin is intact, is healthy with good turgor. Musculoskeletal: Range of motion: intact in all extremities, Reports pain in back Denies weakness in right leg and left leg. 17:01 Cardiovascular: Reports chest pain, shortness of breath, Heart tones S1 S2 present. iw 17:19 Reassessment: pt c/o pain to upper mid back, denies chest pain at this time, states he iw had chest pain two nights ago and was seen at [facility] and had labs and EKG done, was told that his heart was fine and that he was having a panic attack, pt has hx of anxiety and panic attacks, when asked about his pain pt repeatedly states to me that he has pain radiating from top of back to mid back along spine, states that he was seen at Dr. Lechuga's office today and had out patient xray ordered but he could not take the pain any longer, states that Dr. Lechuga refused to write home a prescription for methocarbamol because it was a narcotic so patient decided to sign into ER. 18:30 Reassessment: Patient appears in no apparent distress at this time. Patient and/or ph family updated on plan of care and expected duration. Pain level reassessed. Patient is alert, oriented x 3, equal unlabored respirations, skin warm/dry/pink. Pt continues to c/o pain in back radiating to chest, ERP notified, see MAR. 19:20 Reassessment: Patient returned from CT, states pain to mid back. General: Behavior is lp1 anxious. Pain: Complains of pain in back Pain currently is 8 out of 10 on a pain scale. Respiratory: Respiratory effort is even, unlabored. 20:05 Reassessment: Patient states immediate relief from medication administered; Mother lp1 arriving to take patient home Patient states feeling better. Patient states symptoms have improved. Vital Signs: 16:08 BP 158 / 105; Pulse 104; Resp 18; Temp 97.7; Pulse Ox 100% on R/A; Weight 149.69 kg; hb Height 5 ft. 8 in. (172.72 cm); Pain 9/10; 17:24 BP 153 / 103; Pulse 102; Resp 18 S; iw 17:25 BP 158 / 83; Pulse 98; Resp 18 S; Pulse Ox 98% on R/A; Pain 9/10; iw 18:53 BP 102 / 68; Pulse 104; Resp 20; Temp 98.6(O); Pulse Ox 97% on R/A; mh5 19:20 BP 135 / 75; Pulse 104; Resp 18; Pulse Ox 97% on R/A; Pain 8/10; lp1 20:05 BP 143 / 77; Pulse 101; Resp 17; Pulse Ox 96% on R/A; Pain 2/10; lp1 16:08 Body Mass Index 50.18 (149.69 kg, 172.72 cm) hb ED Course: 15:44 Patient arrived in ED. rg4 15:44 Adam Nicolas MD is Private Physician. rg4 16:08 Triage completed. hb 16:08 Arm band placed on. hb 16:55 Wilber Whaley PA is PHCP. cp 16:55 Hema Bradford MD is Attending Physician. cp 17:01 Quita Pablo, WILL is Primary Nurse. iw 17:24 Patient has correct armband on for positive identification. Bed in low position. Call mh5 light in reach. Side rails up X2. desk monitor on. Pulse ox on. NIBP on. 17:24 Missed attempt(s): 20 gauge in right antecubital area. mh5 17:30 EKG done, by registered veterinary technician. reviewed by Wilber HIGGINBOTHAM. sm3 18:21 XRAY Chest Pa And Lat (2 Views) In Process Unspecified. EDMS 18:[address] via wheelchair. jg6 19:09 CT completed. Patient tolerated procedure well. Patient moved back from CT. vm2 19:17 CT Chest W/ Con In Process Unspecified. EDMS 19:30 Adam Nicolas MD is Referral Physician. cp 20:07 No provider procedures requiring assistance completed. IV discontinued, No lp1 redness/swelling at site. Pressure dressing applied. Administered Medications: 17:38 Drug: NS 0.9% 1000 ml Route: IV; Rate: 1 bolus; Site: right antecubital; iw 20:08 Follow up: IV Status: IV converted to saline lock; IV Intake: 800ml lp1 17:38 Drug: TORadol 30 mg Route: IVP; Site: right antecubital; iw 18:19 Follow up: Response: No adverse reaction; Pain is unchanged, physician notified ph 18:10 Drug: Zofran 4 mg Route: IVP; Site: right antecubital; ph 19:21 Follow up: Response: No adverse reaction; Nausea is decreased ph 18:12 Drug: morphine 4 mg {Note: RASS 1.} Route: IVP; Site: right antecubital; ph 18:40 Follow up: Response: No adverse reaction; Pain is unchanged, physician notified; RASS: ph Restless (+1) 19:18 Drug: fentaNYL (PF) 25 mcg {Note: RASS 1.} Route: IVP; Site: right antecubital; lp1 20:07 Follow up: Response: Marked relief of symptoms; Pain is decreased; RASS: Alert and Calm lp1 (0) Intake: 20:08 IV: 800ml; Total: 800ml. lp1 Outcome: 19:31 Discharge ordered by MD. cp 20:07 Discharged to home ambulatory, with family. lp1 20:07 Condition: good 20:07 Discharge instructions given to patient, Instructed on discharge instructions, follow up and referral plans. medication usage, Demonstrated understanding of instructions, follow-up care, medications, Prescriptions given X 2. 20:08 Patient left the ED. lp1 Signatures: Dispatcher [employer] EDMS Quita Pablo RN RN iw Rebeca Wilde RN RN lp1 Leslie Albarado RN RN ph Wilber Whaley, Victoria Flores cp, RN RN hb Garcia, Rubi rg4 Nina Moncada 5 Emilie Michele 2 Josy Raymundo 3 Silviano, Mariel zaidi6 Corrections: (The following items were deleted from the chart) 17:19 17:01 Musculoskeletal: Range of motion: intact in all extremities, Reports pain in back iw iw 17:19 17:18 Cardiovascular: Reports chest pain, shortness of breath, Heart tones S1 S2 iw present iw 17:39 17:25 BP 158 / 83; Pulse 101bpm; Resp 21bpm; Pulse Ox 98% RA; mh5 iw 18:19 18:12 morphine 4 mg IVP in right antecubital ph ph 18:55 18:53 BP 102 / 68; Pulse 104bpm; Resp 20bpm; Pulse Ox 97% RA; mh5 mh5
--- NOTE | 2019-08-15 19:33 | EDPHYS ---
Physician Documentation [facility] Name: Keo Hardin Age: 24 yrs Sex: Male : 1995 Arrival Date: 08/15/2019 Time: 15:44 Bed 13 Private MD: Adam Nicolas R ED Physician Hema Bradford HPI: 08/15 17:05 This 24 yrs old Male presents to ER via Ambulatory with complaints of Back cp Pain. 17:05 The patient presents with pain pain. The symptoms are located in the right subscapular cp area and right mid back. Onset: The symptoms/episode began/occurred 6 month(s) ago, and became worse 3 day(s) ago. The pain radiates to the right lower chest. Associated signs and symptoms: Pertinent negatives: abdominal pain, fever, weakness. Modifying factors: the patient symptoms are aggravated by movement, deep inspiration. Historical: - Allergies: 16:08 Haldol; hb - Immunization history:: Adult Immunizations up to date. - Social history:: Smoking status: Patient/guardian denies using tobacco. - Ebola Screening: : No symptoms or risks identified at this time. ROS: 17:10 Constitutional: Negative for body aches, chills, fever, poor PO intake. cp 17:10 Eyes: Negative for injury, pain, redness, and discharge. cp 17:10 ENT: Negative for drainage from ear(s), ear pain, sore throat, difficulty swallowing, difficulty handling secretions. 17:10 Cardiovascular: Positive for chest pain, Negative for edema. 17:10 Respiratory: Negative for cough, wheezing. 17:10 Abdomen/GI: Negative for abdominal pain, nausea, vomiting, and diarrhea. 17:10 Back: Positive for pain at rest, pain with movement, of the right subscapular area and right mid back. 17:10 : Negative for urinary symptoms. 17:10 Skin: Negative for cellulitis, rash. 17:10 Neuro: Negative for altered mental status, headache, syncope, weakness. 17:10 All other systems are negative. Exam: 17:15 Constitutional: The patient appears in no acute distress, alert, awake, cp non-diaphoretic, non-toxic, well developed, well nourished, obese, uncomfortable. 17:15 Head/Face: Normocephalic, atraumatic. cp 17:15 Eyes: Periorbital structures: appear normal, Conjunctiva: normal, no exudate, no injection, Sclera: no appreciated abnormality, Lids and lashes: appear normal, bilaterally. 17:15 ENT: External ear(s): are unremarkable, Ear canal(s): are normal, clear, TM's: are normal, no evidence of bulging, no erythema, Nose: is normal, Mouth: is normal, Posterior pharynx: is normal, airway is patent, no erythema, no exudate. 17:15 Chest/axilla: Inspection: normal, Palpation: is normal, no crepitus, no tenderness. 17:15 Cardiovascular: Rate: tachycardic, Rhythm: regular, Edema: is not appreciated, JVD: is not appreciated. 17:15 Respiratory: the patient does not display signs of respiratory distress, Respirations: labored breathing, is not present, shallow respirations, that is moderate, Breath sounds: decreased breath sounds, are not appreciated, stridor, is not appreciated, wheezing: is not appreciated. 17:15 Abdomen/GI: Inspection: obese Bowel sounds: active, all quadrants, Palpation: abdomen is soft and non-tender, in all quadrants, rebound tenderness, is not appreciated, voluntary guarding, is not appreciated, involuntary guarding, is not appreciated. 17:15 Back: pain, that is severe, of the right subscapular area and right mid back, ROM is painful, with all movement. 17:15 Skin: no rash present. 17:15 Neuro: Orientation: to person, place \T\ time. Mentation: is normal, Cerebellar function: is grossly normal, Motor: moves all fours, strength is normal, Sensation: is normal. 17:35 ECG was reviewed by the Attending Physician. cp Vital Signs: 16:08 BP 158 / 105; Pulse 104; Resp 18; Temp 97.7; Pulse Ox 100% on R/A; Weight 149.69 kg; hb Height 5 ft. 8 in. (172.72 cm); Pain 9/10; 17:24 BP 153 / 103; Pulse 102; Resp 18 S; iw 17:25 BP 158 / 83; Pulse 98; Resp 18 S; Pulse Ox 98% on R/A; Pain 9/10; iw 18:53 BP 102 / 68; Pulse 104; Resp 20; Temp 98.6(O); Pulse Ox 97% on R/A; mh5 19:20 BP 135 / 75; Pulse 104; Resp 18; Pulse Ox 97% on R/A; Pain 8/10; lp1 20:05 BP 143 / 77; Pulse 101; Resp 17; Pulse Ox 96% on R/A; Pain 2/10; lp1 16:08 Body Mass Index 50.18 (149.69 kg, 172.72 cm) hb MDM: 17:00 Patient medically screened. cp 18:00 Differential diagnosis: ruptured disc, spinal injury, sprain, Ureterolithiasis cp vertebral fracture, pulmonary embolism, pneumonia, pleurisy. 19:30 Data reviewed: vital signs, nurses notes, lab test result(s), EKG, radiologic studies, cp CT scan, plain films. 19:30 Test interpretation: by ED physician or midlevel provider: ECG, plain radiologic cp studies, chest xray negative for infiltrates. 08/15 17:02 Order name: NT PRO-BNP; Complete Time: 18:03 cp 08/15 17:02 Order name: Basic Metabolic Panel; Complete Time: 18:03 cp 08/15 17:02 Order name: CBC with Diff; Complete Time: 18:03 cp 18 18:03 Interpretation: Normal except: MPV 7.3. cp 08/15 17:02 Order name: LFT's; Complete Time: 18:03 cp 08/15 17:02 Order name: PT-INR; Complete Time: 18:03 cp 18 17:02 Order name: Troponin (emerg Dept Use Only); Complete Time: 18:03 cp 08/15 17:02 Order name: D-Dimer; Complete Time: 18:03 cp 18 18:04 Order name: XRAY Chest Pa And Lat (2 Views); Complete Time: 19:51 cp 08/15 18:51 Order name: CT Chest W/ Con; Complete Time: 19:51 cp 08/15 17:02 Order name: EKG; Complete Time: 17:04 cp 18 17:02 Order name: Cardiac monitoring; Complete Time: 17:27 cp 18 17:02 Order name: EKG - Nurse/Tech; Complete Time: 17:39 cp 08/15 17:02 Order name: IV Saline Lock; Complete Time: 17:39 cp 09/18 17:02 Order name: Labs collected and sent; Complete Time: 17:39 cp /18 17:02 Order name: O2 Per Protocol; Complete Time: 17:39 cp 09/18 17:02 Order name: O2 Sat Monitoring; Complete Time: 17:39 cp EC:35 Rate is 101 beats/min. Rhythm is regular. KS interval is normal. QRS interval is cp normal. QT interval is normal. T waves are Inverted in lead III. Interpreted by me. Reviewed by me. Administered Medications: 17:38 Drug: NS 0.9% 1000 ml Route: IV; Rate: 1 bolus; Site: right antecubital; iw 20:08 Follow up: IV Status: IV converted to saline lock; IV Intake: 800ml lp1 17:38 Drug: TORadol 30 mg Route: IVP; Site: right antecubital; iw 18:19 Follow up: Response: No adverse reaction; Pain is unchanged, physician notified ph 18:10 Drug: Zofran 4 mg Route: IVP; Site: right antecubital; ph 19:21 Follow up: Response: No adverse reaction; Nausea is decreased ph 18:12 Drug: morphine 4 mg {Note: RASS 1.} Route: IVP; Site: right antecubital; ph 18:40 Follow up: Response: No adverse reaction; Pain is unchanged, physician notified; RASS: ph Restless (+1) 19:18 Drug: fentaNYL (PF) 25 mcg {Note: RASS 1.} Route: IVP; Site: right antecubital; lp1 20:07 Follow up: Response: Marked relief of symptoms; Pain is decreased; RASS: Alert and Calm lp1 (0) Disposition: 08/16 08:56 Co-signature as Attending Physician, Hema Bradford MD I agree with the assessment and kdr plan of care. Disposition: 08/15/19 19:31 Discharged to Home. Impression: Other chest pain, Pain in thoracic spine. - Condition is Stable. - Discharge Instructions: Back Pain, Adult, Nonspecific Chest Pain. - Prescriptions for Cyclobenzaprine 10 mg Oral Tablet - take 1 tablet by ORAL route every 8 hours As needed no driving while taking medication; 20 tablet. Diclofenac Sodium 75 mg Oral Tablet Sustained Release - take 1 tablet by ORAL route 2 times per day; 30 tablet. - Medication Reconciliation Form, Thank You Letter, Antibiotic Education, Prescription Opioid Use form. - Follow up: Adam Nicolas MD; When: 1 - 2 days; Reason: Recheck today's complaints. - Problem is an ongoing problem. - Symptoms have improved. Signatures: Dispatcher [employer] EDMS Hema Bradford MD MD [facility] Quita Pablo RN RN iw Rebeca Wilde RN RN lp1 Leslie Albarado RN RN ph Wilber Whaley PA PA cp Victoria Magana RN RN Corrections: (The following items were deleted from the chart) 08/15 20:08 19:31 08/15/2019 19:31 Discharged to Home. Impression: Other chest pain; Pain in lp1 thoracic spine. Condition is Stable. Forms are Medication Reconciliation Form, Thank You Letter, Antibiotic Education, Prescription Opioid Use. Follow up: Adam Nicolas; When: 1 - 2 days; Reason: Recheck today's complaints. Problem is an ongoing problem. Symptoms have improved. cp
[2019-08-16 00:54] VITALS: TEMP 98.6
[2019-08-16 00:56] VITALS: BP 143/77; O2SAT 96
--- NOTE | 2019-08-17 10:38 | EKG ---
Test Date: 2019-08-15 Test Time: 17:26:40 County Judge: N[place]ST[place] MEASUREMENT RESULTS: Intervals: Rate: 101 MN: 122 QRSD: 94 QT: 354 QTc: 459 [place]: P: 30 MN: 122 QRS: 116 T: -12 INTERPRETIVE STATEMENTS: Sinus tachycardia Right axis deviation Cannot rule out Inferior infarct, age undetermined Abnormal ECG Compared to ECG 01/15/2018 18:12:29 Myocardial infarct finding now present Sinus rhythm no longer present Electronically Signed On 08-17-19 10:32:15 CDT by Kelechi Banegas
== END 2019-08-15 20:08 | disposition home or self-care (01) ==
LOC: ER 15:42
DX: R07.89 Other chest pain (principal); Z88.5 Allergy status to narcotic agent
CPT/HCPCS: 96361; 93005; 85025; 80048; 36415; 85610; 85379; 80076; 84484; 83880; 71260; 71046; 96375; 96374; 99285; Q9967; J3010; J7030; J2405

== ENCOUNTER 2019-08-17 19:51 | Emergency (ER) | payer OTHER ==
--- OUTSIDE RECORDS SUMMARY | 2019-08-17 19:55 | XMS REPORT ---
[...] Date End Date Status Dosage Paxil MEDISPAN [id number] Active Unknown Celexa MEDISPAN [id number] Active Unknown Seroquel MEDISPAN [id number] Active Unknown Social History Social History Element Qualifiers Date Reported Tobacco Use: . Are you a: never smoker Sep 24, 2014 Vital Signs Date/Time: Sep 11, 2014 Weight 241 lbs Height 66 in Temperature 97.5 F Cardiac Monitoring Heart Rate 81 /min Summary Purpose eClinicalWorks Submission
--- OUTSIDE RECORDS SUMMARY | 2019-08-17 19:55 | XMS REPORT | Continuity of Care Document ---
:1995 Author Organization [facility] Care Team Providers Name Role Phone [facility] Unavailable Unavailable Problems Problem Status Onset Classification Date Comments Source Date Reported Pseudomonas Active Problem 01/19/2016 Pedi infection in Infect conditions Disease of classified [place] elsewhere and of unspecified site Methicillin Active Problem 01/19/2016 Pedi resistant Infect Staphylococcus Disease of aureus [place] Pilonidal cyst Active Problem 01/19/2016 Pedi with abscess [facility] [place] Other chronic Active Problem 01/19/2016 Pedi postoperative pain [facility] [place] Other atopic Active Problem 01/19/2016 Pedi dermatitis and Infect related conditions [facility] [place] Open wound of Active Problem 01/19/2016 Pedi buttock, Infect complicated [facility] [place] Cutaneous abscess Active Problem 01/19/2016 Pedi of buttock [facility] [place] Open wound of Active Problem 01/19/2016 Pedi buttock, without Infect mention of Disease of complication [place] Pilonidal cyst Active Problem 01/19/2016 Pedi with abscess [facility] [place] Klebsiella Active Problem 01/19/2016 Pedi pneumoniae Infect infection [facility] [place] Cellulitis and Active Problem 01/19/2016 Pedi abscess of buttock [facility] [place] Medications Medication Details Route Status Patient Ordering Order Source Instructions Provider Date Augmentin 1 tablet PO Active 500 mg PO Three Lacey 09/17/20 Pedi times a day 14 [facility] [place] Paxil Unknown NA Active [facility] [place] Celexa Unknown NA Active [facility] [place] Seroquel Unknown NA Active [facility] [place] Augmentin Unknown NA Active [facility] [place] Clonidine HCl Unknown NA Active [facility] [place] Citalopram Unknown NA Active [facility] Hydrobromide [facility] [place] Doxepin HCl Unknown NA Active [facility] [place] BuPROPion HCl Unknown NA Active [facility] [place] Quetiapine Unknown NA Active [facility] Fumarate [facility] [place] Allergies, Adverse Reactions, Alerts Substance Category Reaction Severity Reaction Status Date Comments Source type Reported N.K.D.A. Adverse Info Not Adverse Active Pedi Reaction Available Reaction 6 [facility] [place] Immunizations No Data Provided for This Section [...] Weight 323 01/16/2016 Pedi [facility] [place] Height 68 01/16/2016 Pedi [facility] [place] Temperature Oral (F) 98 F 01/16/2016 Pedi [facility] [place] Heart Rate 128 01/16/2016 Pedi [facility] [place] Weight 295 08/07/2015 Pedi [facility] [place] Height 68 08/07/2015 Pedi [facility] [place] Temperature Oral (F) 98 F 08/07/2015 Pedi [facility] [place] Heart Rate 108 08/07/2015 Pedi [facility] [place] Weight 263 01/13/2015 Pedi [facility] [place] Height 68 01/13/2015 Pedi [facility] [place] Temperature Oral (F) 97.6 F 01/13/2015 Pedi [facility] [place] Heart Rate 101 01/13/2015 Pedi [facility] [place] Weight 260 01/02/2015 Pedi [facility] [place] Height 68 01/02/2015 Pedi [facility] [place] Temperature Oral (F) 97.8 F 01/02/2015 Pedi [facility] [place] Heart Rate 102 01/02/2015 Pedi [facility] [place] Weight 247.2 10/22/2014 Pedi [facility] [place] Height 66 10/22/2014 Pedi [facility] [place] Temperature Oral (F) 97.5 F 10/22/2014 Pedi [facility] [place] Weight 248 10/09/2014 Pedi [facility] [place] Height 66 10/09/2014 Pedi [facility] [place] Temperature Oral (F) 97.6 F 10/09/2014 Pedi [facility] [place] Heart Rate 77 10/09/2014 Pedi [facility] [place] Weight 245 09/24/2014 Pedi [facility] [place] Height 66 09/24/2014 Pedi [facility] [place] Temperature Oral (F) 98.9 F 09/24/2014 Pedi [facility] [place] Heart Rate 91 09/24/2014 Pedi [facility] [place] Weight 241 09/18/2014 Pedi [facility] [place] Height 66 09/18/2014 Pedi [facility] [place] Temperature Oral (F) 97.6 F 09/18/2014 Pedi [facility] [place] Heart Rate 89 09/18/2014 Pedi [facility] [place] Weight 241 09/11/2014 Pedi [facility] [place] Height 66 09/11/2014 Pedi [facility] [place] Temperature Oral (F) 97.5 F 09/11/2014 Pedi [facility] [place] Heart Rate 81 09/11/2014 Pedi [facility] [place] Encounters Location Location Encounter Encounter Reason Attending ADM DC Status Source Details Type Number For Provider Date Date Visit Pediatric Unknown [id number] 09/11 09/11 Pedi Infectious ef6-4ba4- Infect Disease [id number] [facility] [id number] [facility] Unknown [id number] 09/11 09/11 Pedi Infectious q5h-2o79-5 Infect Disease [id number] [facility] [id number] of [facility] Unknown [id number] 09/11 09/11 Pedi Infectious 6w9-2nzi-5 Infect Disease [id number] [facility] [id number] [facility] Unknown [id number] 09/11 09/11 Pedi Infectious 930-4e88- Infect Disease [id number] [facility] [id number] of [facility] Unknown [id number] 09/11 09/11 Pedi Infectious 10f-4643-a /2013 Infect Disease 00f-7bab3c [facility] [id number] of [facility] Unknown [id number] 09/11 09/11 Pedi Infectious dfa-488e- Infect Disease 686-a84a04 [facility] [id number] of [facility] Unknown [id number] 09/11 09/11 Pedi Infectious 3h3-1030-q /2013 Infect Disease ff1-92b48f [facility] [id number] of [facility] Unknown [id number] 09/11 09/11 Pedi Infectious 7d8-98kv-9 Infect Disease a40-c4g77y [facility] 210cda of [facility] Unknown [id number] 09/11 09/11 Pedi Infectious 6a2-49h9-x /2013 Infect Disease q80-e2pw17 [facility] [id number] [facility] Unknown [id number] 09/11 09/11 Pedi Infectious 8u5-9866-6 /2013 Infect Disease d16-5897im [facility] [id number] [facility] Unknown [id number] 09/11 09/11 Pedi Infectious 391-4f25-a /2013 Infect Disease 285-zj2746 [facility] 005af3 of [facility] Unknown [id number] 09/11 09/11 Pedi Infectious 971-446c-8 Infect Disease 814-4dbacf [facility] [id number] [facility] Unknown [id number] 09/11 09/11 Pedi Infectious 5x7-6r14-y /2013 Infect Disease 35a-tp309i [facility] [id number] of [facility] Unknown [id number] 09/11 09/11 Pedi Infectious 56e-4a56-a /2013 Infect Disease 714-z2u739 [facility] [id number] of [facility] Provider [id number] 09/17 09/17 Pedi Infectious told [id number]- /2013 Infect Disease patient to fc7-6o9427 [facility] call [id number] of [facility] Provider [id number] 09/17 09/17 Pedi Infectious told m74-5k2f-4 Infect Disease patient to m8q-09ne53 [facility] call [id number] of [facility] Provider [id number] 09/17 09/17 Pedi Infectious told a91-9279-v /2013 Infect Disease patient to 215-b796e2 [facility] call [id number] of [facility] Provider [id number] 09/17 09/17 Pedi Infectious told r65-5mcu-7 /2013 Infect Disease patient to 2fd-9ll848 [facility] call [id number] of [facility] Test [id number] 09/17 09/17 Pedi Infectious results 940-4cf0-b /2013 Infect Disease bbd-052dd4 [facility] d0018d [facility] Test [id number] 09/17 09/17 Pedi Infectious results 39a-4529-a /2013 Infect Disease z1h-42r4ma [facility] [id number] of [facility] Test [id number] 09/17 09/17 Pedi Infectious results 298-418a-a /2013 Infect Disease 45d-ea6300 [facility] [id number] [facility] Test [id number] 09/17 09/17 Pedi Infectious results 8y8-55a2-w /2013 Infect Disease fd6-4906f2 [facility] [id number] of [facility] Provider [id number] 09/17 09/17 Pedi Infectious told bd5-4b86-8 /2013 Infect Disease patient to 650-4ad6f4 [facility] call [id number] of [facility] Provider [id number] 09/17 09/17 Pedi Infectious told 868-4bf8- Infect Disease patient to 5be-3u1697 [facility] call [id number] of [facility] Provider [id number] 09/17 09/17 Pedi Infectious told 824-463f-a /2013 Infect Disease patient to 30f-8e64cb [facility] call [id number] of [facility] Provider [id number] 09/17 09/17 Pedi Infectious told 40f-4dfa-9 /2013 Infect Disease patient to 567-91f06a [facility] call [id number] of [facility] Provider [id number] 09/17 09/17 Pedi Infectious told 513-46d1-a /2013 Infect Disease patient to 147-3w8949 [facility] call [id number] of [facility] Provider [id number] 09/17 09/17 Pedi Infectious told x13-07y1-c /2013 Infect Disease patient to 558-j9292c [facility] call a884af of [facility] Provider [id number] 09/17 09/17 Pedi Infectious told s5y-5f2s-9 /2013 Infect Disease patient to cb5-0z9548 [facility] call [id number] of [facility] Provider [id number] 09/17 09/17 Pedi Infectious told j4w-081u-c /2013 Infect Disease patient to be5-5241a1 [facility] call 8caceb of [facility] Provider [id number] 09/17 09/17 Pedi Infectious told 6ea-4f71-b /2013 Infect Disease patient to 54b-010c78 [facility] call [id number] of [facility] Provider [id number] 09/17 09/17 Pedi Infectious told 439-49f6- Infect Disease patient to fe3-x7156h [facility] call [id number] of [facility] Test [id number] 09/17 09/17 Pedi Infectious results j38-3800-w /2013 Infect Disease afa-0ef54a [facility] c30f53 [facility] Test [id number] 09/17 09/17 Pedi Infectious results 744-4d7f-a /2013 Infect Disease 509-7350cc [facility] 1c6b2b of [facility] Test [id number] 09/17 09/17 Pedi Infectious results 321-4105-a /2013 Infect Disease 033-5fc2a4 [facility] [id number] [facility] Test [id number] 09/17 09/17 Pedi Infectious results fd7-4768-b /2013 Infect Disease 34c-5314cd [facility] [id number] [facility] Test [id number] 09/17 09/17 Pedi Infectious results 747-490c-8 /2013 Infect Disease y6x-275828 [facility] 76e9dc [facility] Test [id number] 09/17 09/17 Pedi Infectious results 3i3-9064-1 /2013 Infect Disease w90-9ta0w6 [facility] 30c1bf [facility] Test [id number] 09/17 09/17 Pedi Infectious results l95-5v9v-d /2013 Infect Disease 432-849e0f [facility] [id number] [facility] Test [id number] 09/17 09/17 Pedi Infectious results 0y3-3460-8 /2013 Infect Disease cca-59edf5 [facility] [id number] [facility] Test [id number] 09/17 09/17 Pedi Infectious results dd1-4c00-8 /2013 Infect Disease 23e-70d07e [facility] [id number] of [facility] Test [id number] 09/17 09/17 Pedi Infectious results t62-43p9-q /2013 Infect Disease 4x6-o2s533 [facility] [id number] of [facility] Follow-Up [id number] 09/18 09/18 Pedi Infectious Pilonidal 00b-4b97-a /2013 Infect Disease Cyst 34f-bc1cc5 [facility] [id number] [facility] Follow-Up [id number] 09/18 09/18 Pedi Infectious [place] ca6-471b-a /2013 Infect Disease Cyst 9i1-db542l [facility] [id number] of [facility] Follow-Up [id number] 09/18 09/18 Pedi Infectious [place] h6f-0rat-1 /2013 Infect Disease Cyst 8b0-r35l40 [facility] [id number] [facility] Follow-Up [id number] 09/18 09/18 Pedi Infectious [place] f9j-318d-j /2013 Infect Disease Cyst 433-75cb33 [facility] [id number] [facility] Follow-Up [id number] 09/18 09/18 Pedi Infectious [place]ilon[place] f74-5546-1 /2013 Infect Disease Cyst 846-46606g [facility] [id number] [facility] Follow-Up [id number] 09/18 09/18 Pedi Infectious [place]ilon[place] 9m0-6789-4 /2013 Infect Disease Cyst eb2-a2d1d4 [facility] [id number] [facility] Follow-Up [id number] 09/18 09/18 Pedi Infectious Pilon[place] 709-41ab-b /2013 Infect Disease Cyst 690-a2a3e7 [facility] [id number] [facility] Follow-Up [id number] 09/18 09/18 Pedi Infectious [place]ilon[place] 145-41c4-b /2013 Infect Disease Cyst 98c-82c78f [facility] a78b9c [facility] Follow-Up [id number] 09/18 09/18 Pedi Infectious Pilonidal 16f-4422-a /2013 Infect Disease Cyst 53a-3b5dfc [facility] [id number] [facility] Follow-Up [id number] 09/18 09/18 Pedi Infectious [place]ilon[place] 98d-4b19-b /2013 Infect Disease Cyst 846-f15e95 [facility] [id number] [facility] Follow-Up [id number] 09/18 09/18 Pedi Infectious [place] cf3-4a2f-b /2013 Infect Disease Cyst aa5-48a13b [facility] [id number] [facility] Follow-Up [id number] 09/24 09/24 Pedi Infectious [place]ilon[place] n7x-5r25-g /2013 Infect Disease Cyst 4j8-2kv319 [facility] [id number] [facility] Follow-Up [id number] 09/24 09/24 Pedi Infectious [place] bc0-4c7b-9 /2013 Infect Disease Cyst 83a-363810 [facility] [id number] of [facility] Follow-Up [id number] 09/24 09/24 Pedi Infectious Pilonidal 786-4d38-b /2013 Infect Disease Cyst 00a-9f5fa2 [facility] [id number] [facility] Follow-Up [id number] 09/24 09/24 Pedi Infectious Pilonidal 171-4d6a-b /2013 Infect Disease Cyst 922-217610 [facility] 0667fa [facility] Follow-Up [id number] 09/24 09/24 Pedi Infectious [place]ilon[place] 6j6-1hu5-6 /2013 Infect Disease Cyst 528-7f2ac2 [facility] [id number] [facility] Follow-Up [id number] 09/24 09/24 Pedi Infectious [place] 0a5-226n-u /2013 Infect Disease Cyst 80e-1bbfcb [facility] [id number] [facility] Follow-Up [id number] 09/24 09/24 Pedi Infectious [place]ilon[place] 994-4c53-9 /2013 Infect Disease Cyst 6de-f4ed9e [facility] [id number] [facility] Follow-Up [id number] 09/24 09/24 Pedi Infectious [place] ed8-4e55-b /2013 Infect Disease Cyst 376-777cde [facility] [id number] [facility] Follow-Up [id number] 09/24 09/24 Pedi Infectious [place] 24b-451a-8 /2013 Infect Disease Cyst 82c-662bd2 [facility] [id number] of [facility] Follow-Up [id number] 09/24 09/24 Pedi Infectious [place]ilon[place] 8ed-4898-b /2013 Infect Disease Cyst cee-ckr726 [facility] [id number] of [facility] Follow-Up [id number] 09/24 09/24 Pedi Infectious Pilon[place] 26d-400d-a /2013 Infect Disease Cyst 5w3-5318ky [facility] [address] [facility] Follow-Up [id number] 10/09 10/09 Pedi Infectious [place] ca5-4f38-8 /2013 Infect Disease Cyst 73a-1b7d56 [facility] [id number] of [facility] Follow-Up [id number] 10/09 10/09 Pedi Infectious [place] 636-40e6-9 /2013 Infect Disease Cyst 947-l0293f [facility] [id number] of [facility] Follow-Up [id number] 10/09 10/09 Pedi Infectious [place]ilon[place] 66c-4459-a /2013 Infect Disease Cyst n59-195155 [facility] 77d7f1 [facility] Follow-Up [id number] 10/09 10/09 Pedi Infectious [place] k9n-073e-6 /2013 Infect Disease Cyst x12-z86079 [facility] [id number] of [facility] Follow-Up [id number] 10/09 10/09 Pedi Infectious [place] 2dd-467d-8 Infect Disease Cyst 3b6-495190 [facility] [id number] [facility] Follow-Up [id number] 10/09 10/09 Pedi Infectious [place]ilon[place] 201-45fb-b /2013 Infect Disease Cyst 7h6-8r8y36 [facility] [id number] [facility] Follow-Up [id number] 10/09 10/09 Pedi Infectious [place] f3i-3u59-t /2013 Infect Disease Cyst bed-8fceb1 [facility] [id number] [facility] Follow-Up [id number] 10/09 10/09 Pedi Infectious [place] 0l9-2k9p-1 Infect Disease Cyst b2c-dn8066 [facility] [id number] of [facility] Follow-Up [id number] 10/09 10/09 Pedi Infectious [place] e4l-0618-x /2013 Infect Disease Cyst bc1-612e32 [facility] [id number] [facility] Follow-Up [id number] 10/09 10/09 Pedi Infectious [place] 9ed-4f4b-8 /2013 Infect Disease Cyst 2fb-43eadf [facility] [id number] [facility] Follow-Up [id number] 10/09 10/09 Pedi Infectious [place] 1z8-6o57-3 /2013 Infect Disease Cyst u82-83350o [facility] [id number] [facility] [id number] 10/22 10/22 Pedi Infectious 8b2-2f82-1 /2013 Infect Disease 48c-736909 [facility] [id number] [facility] [id number] 10/22 10/22 Pedi Infectious 442-4426-9 /2013 Infect Disease l2r-5s2js0 [facility] [id number] of [facility] [id number] 10/22 10/22 Pedi Infectious ba4-494c-b /2013 Infect Disease 92f-702132 [facility] [id number] [facility] [id number] 10/22 10/22 Pedi Infectious afc-4b99-b /2013 Infect Disease 449-4770ae [facility] [id number] [facility] [id number] 10/22 10/22 Pedi Infectious cf9-4283-a /2013 Infect Disease ee3-f10d09 [facility] [id number] [facility] [id number] 10/22 10/22 Pedi Infectious c34-6410-j /2013 Infect Disease 6ad-048b69 [facility] [id number] [facility] [id number] 10/22 10/22 Pedi Infectious ec0-4282-8 /2013 Infect Disease d2t-1pu1h5 [facility] [id number] [facility] [id number] 10/22 10/22 Pedi Infectious bad-4c5d-a /2013 Infect Disease 731-i9284v [facility] [id number] [facility] FU - [id number] 11/19 11/19 Pedi Infectious PILONIDAL 3i1-90qz-2 /2013 Infect Disease CYST 9u9-14n762 [facility] [id number] [facility] FU - [id number] 11/19 11/19 Pedi Infectious PILONIDAL fa6-4c63-8 /2013 Infect Disease CYST 573-fbe18e [facility] [id number] [facility] FU - [id number] 11/19 11/19 Pedi Infectious PILONIDAL 2ac-4955-a /2013 Infect Disease CYST 318-2e93c3 [facility] [id number] [facility] FU - [id number] 11/19 11/19 Pedi Infectious PILONIDAL d08-6y93-u /2013 Infect Disease CYST 6v5-6n7089 [facility] [id number] [facility] FU - [id number] 11/19 11/19 Pedi Infectious PILONIDAL 2r3-0n56-u /2013 Infect Disease CYST 093-a1a61a [facility] [id number] [facility] FU - [id number] 11/19 11/19 Pedi Infectious PILONIDAL 115-444f-b /2013 Infect Disease CYST 1bc-i9o129 [facility] [id number] [facility] FU - [id number] 11/19 11/19 Pedi Infectious PILONIDAL 6ea-40c8-b /2013 Infect Disease CYST 754-37b94e [facility] [id number] [facility] FU - [id number] 11/19 11/19 Pedi Infectious PILONIDAL 643-4d47-b /2013 Infect Disease CYST 4d8-5e3bq6 [facility] [id number] [facility] Unknown [id number] 12/11 12/11 Pedi Infectious 490-456d-9 /2014 Infect Disease w10-62c4i0 [facility] [id number] [facility] Unknown [id number] 12/11 12/11 Pedi Infectious 50b-42a1-a /2014 Infect Disease 995-bp769o [facility] eda22c [facility] Unknown [id number] 01/14 01/14 Pedi Infectious de7-4c4f- Infect Disease 945-2aebd0 [facility] [id number] [facility] Unknown [id number] 12/11 12/11 Pedi Infectious 2r9-56i4-5 Infect Disease 920-4pk526 [facility] [id number] [facility] Unknown [id number] 12/11 12/11 Pedi Infectious b3e-241n-5 Infect Disease ab2-8e65d9 [facility] [id number] [facility] Unknown [id number] 12/11 12/11 Pedi Infectious 459-43f5- Infect Disease aee-33b8fd [facility] [id number] [facility] Follow-Up [id number] 01/02 01/02 Pedi Infectious [place]ilon[place] af5-4ef1-b /2014 Infect Disease cyst 55f-37b0d6 [facility] [id number] of [facility] Follow-Up [id number] 01/02 01/02 Pedi Infectious [place] 140-43fd- Infect Disease cyst 364-2311e8 [facility] [id number] [facility] Follow-Up [id number] 01/02 01/02 Pedi Infectious [place] ddb-4f8b- Infect Disease cyst q8x-r780o9 [facility] [id number] of [facility] Follow-Up [id number] 01/02 01/02 Pedi Infectious [place] cad-4517-9 /2014 Infect Disease cyst c54-ef3r18 [facility] fcf10e of [facility] Follow-Up [id number] 01/02 01/02 Pedi Infectious [place] 766-43da-a /2014 Infect Disease cyst c99-0mp2p4 [facility] [id number] of [facility] Follow-Up [id number] 01/13 01/13 Pedi Infectious [place] n52-134i-a /2014 Infect Disease cyst 5u6-473502 [facility] [id number] of [facility] Follow-Up [id number] 01/13 01/13 Pedi Infectious [place] 3f2-9g35-q /2014 Infect Disease cyst i6a-4q4kg1 [facility] 86d7be [facility] Follow-Up [id number] 01/13 01/13 Pedi Infectious [place] 614-46ec-b /2014 Infect Disease cyst 01b-79ea4a [facility] d88ab6 [facility] Follow-Up [id number] 01/13 01/13 Pedi Infectious [place] 51e-414e-8 /2014 Infect Disease cyst 1y1-632s18 [facility] [id number] of [facility] Follow-Up [id number] 01/13 01/13 Pedi Infectious [place] 876-4809-b /2014 Infect Disease cyst q40-46nr00 [facility] [id number] of [facility] Follow-Up [id number] 01/21 01/21 Pedi Infectious ea9-4042-a /2014 Infect Disease n63-75346a [facility] [id number] [facility] Follow-Up [id number] 01/21 01/21 Pedi Infectious 05f-4638-9 /2014 Infect Disease a9u-up94y7 [facility] [id number] [facility] Follow-Up [id number] 02/04 02/04 Pedi Infectious [place] daf-45f8-9 /2014 Infect Disease cyst 4fe-656efd [facility] [id number] of [facility] Follow-Up [id number] 02/04 02/04 Pedi Infectious [place] ba7-4a1b-b /2014 Infect Disease cyst 32e-egn827 [facility] [id number] [facility] Follow-Up [id number] 02/18 02/18 Pedi Infectious [place] l58-1501-w /2014 Infect Disease cyst and 904-k7596y [facility] [id number] of [facility] Follow-Up [id number] 02/18 02/18 Pedi Infectious [place] 52c-475a-8 /2014 Infect Disease cyst and 91d-448a54 [facility] 82bc6e of [facility] Follow-Up [id number] 05/06 05/06 Pedi Infectious [place] db3-4de1-9 /2014 Infect Disease cyst 1ad-46327u [facility] [id number] [facility] Follow-Up [id number] 05/06 05/06 Pedi Infectious [place] acd-4a74-b /2014 Infect Disease cyst w5t-4j5huj [facility] a7d91b of [facility] Test [id number] 05/12 05/12 Pedi Infectious results h9r-3nqx-5 /2014 Infect Disease 4u1-9fo660 [facility] [id number] [facility] Test [id number] 05/12 05/12 Pedi Infectious results 456-4523-a /2014 Infect Disease 2a8-8a78u4 [facility] b4d2ca of [facility] Follow-Up [id number] 05/16 05/16 Pedi Infectious [place] z1n-221a-b /2014 Infect Disease Cyst 5j4-vv4j20 [facility] [id number] of [facility] Follow-Up [id number] 05/16 05/16 Pedi Infectious [place] bc3-451c-a /2014 Infect Disease Cyst 4s3-3lv88o [facility] 768ba6 [facility] [facility] [id number] 05/26 05/26 Pedi Infectious Pilonidal [id number] /2014 Infect Disease cyst [id number] [facility] [id number] of [facility] [id number] 05/26 05/26 Pedi Infectious Pilonidal [id number] /2014 Infect Disease cyst [id number] [facility] [id number] of [facility] [id number] 07/10 07/10 Pedi Infectious Pilonidal [id number] /2014 Infect Disease cyst [id number] [facility] [id number] of [facility] [id number] 07/10 07/10 Pedi Infectious Pilonidal [id number]- Infect Disease cyst [id number] [facility] [id number] of [facility] [id number] 08/07 08/07 Pedi Infectious Pilonidal [id number] Infect Disease cyst [id number] [facility] [id number] of [facility] [id number] 08/07 08/07 Pedi Infectious Pilonidal [id number] /2014 Infect Disease cyst [id number] [facility] [id number] [facility] Test [id number] 08/11 08/11 Pedi Infectious results [id number] Infect Disease [id number] [facility] [id number] of [facility] Test [id number] 08/11 08/11 Pedi Infectious results [id number]- Infect Disease [id number] [facility] [id number] of [facility] [id number] 01/16 01/16 Pedi Infectious - Check [id number] /2015 Infect Disease wound [id number] [facility] [id number] of [facility] Procedures No Data Provided for This Section Assessment and Plan No Data Provided for This Section Plan of Care No Data Provided for This Section Social History Social History Date Source Social History ElementQualifiersDate Reported 01/18/2016 Pedi Infect Disease of Tobacco Use: [place] . Are you a: never smoker Jan 18, 2016 Family History Value Date Source QualifierDescriptionCommentDate Reported 08/09/2015 Pedi Infect Disease of Maternal Grandmother [place] Comment not available Aug 07, 2015 Paternal [...]
--- OUTSIDE RECORDS SUMMARY | 2019-08-17 19:55 | XMS REPORT ---
[...] Date End Date Status Dosage Paxil MEDISPAN [id number] Active Unknown Celexa MEDISPAN [id number] Active Unknown Augmentin MEDISPAN [id number] Active Unknown Seroquel MEDISPAN [id number] Active Unknown Social History Social History Element Qualifiers Date Reported Tobacco Use: . Are you a: never smoker Oct 10, 2014 Vital Signs Date/Time: Sep 18, 2014 Weight 241 lbs Height 66 in Temperature 97.6 F Cardiac Monitoring Heart Rate 89 /min Summary Purpose eClinicalWorks Submission
--- OUTSIDE RECORDS SUMMARY | 2019-08-17 19:55 | XMS REPORT ---
[...] Date End Date Status Dosage Paxil MEDISPAN [id number] Active Unknown Celexa MEDISPAN [id number] Active Unknown Seroquel MEDISPAN [id number] Active Unknown Social History Social History Element Qualifiers Date Reported Tobacco Use: . Are you a: never smoker Oct 10, 2014 Vital Signs Date/Time: Oct 09, 2014 Weight 248 lbs Height 66 in Temperature 97.6 F Cardiac Monitoring Heart Rate 77 /min Summary Purpose eClinicalWorks Submission
--- OUTSIDE RECORDS SUMMARY | 2019-08-17 19:55 | XMS REPORT ---
[...] Date End Date Status Dosage Celexa MEDISPAN [id number] Active Unknown -01 Paxil MEDISPAN [id number] Active Unknown -13 Augmentin MEDISPAN [address] 500 mg PO Three Sep 17, Oct 01, Active 1 tablet -20 times a day 2013 2013 Seroquel MEDISPAN [address] Active Unknown -10 Social History Social History Element Qualifiers Date Reported Tobacco Use: . Are you a: never smoker Oct 10, 2014 Vital Signs Date/Time: Sep 24, 2014 Weight 245 lbs Height 66 in Temperature 98.9 F Cardiac Monitoring Heart Rate 91 /min Summary Purpose eClinicalWorks Submission
--- OUTSIDE RECORDS SUMMARY | 2019-08-17 19:55 | XMS REPORT ---
[...] Date End Date Status Dosage Augmentin MEDISPAN [id number] 500 mg PO Three Sep 17, Oct 01, Active 1 tablet -20 times a day 2013 2013 Social History Social History Element Qualifiers Date Reported Tobacco Use: . Are you a: never smoker Sep 24, 2014 Summary Purpose eClinicalWorks Submission
--- OUTSIDE RECORDS SUMMARY | 2019-08-17 19:56 | XMS REPORT ---
[...] Date End Date Status Dosage Clonidine HCl [facility] [id number] Active Unknown 8-10 [facility] 47242-341 Active Unknown Hydrobromide 1-01 Doxepin HCl [facility] 86222-786 Active Unknown 3-00 BuPROPion HCl [facility] 69619-139 Active Unknown 3-01 Quetiapine [facility] 25684-870 Active Unknown Fumarate 1-20 Social History Social History Element Qualifiers Date Reported Tobacco Use: . Are you a: never smoker Jan 18, 2016 Vital Signs Date/Time: Jan 16, 2016 Weight 323 lbs Height 68 in Temperature 98 F Cardiac Monitoring Heart Rate 128 /min Summary Purpose eClinicalWorks Submission
--- OUTSIDE RECORDS SUMMARY | 2019-08-17 19:56 | XMS REPORT ---
[...] Date End Date Status Dosage Seroquel MEDISPAN [address]- Active Unknown 10 Clonidine HCl MEDISPAN [address]- Active Unknown 10 Celexa MEDISPAN [address]- Active Unknown 01 Paxil MEDISPAN [address]- Active Unknown 13 Social History Social History Element Qualifiers Date Reported Tobacco Use: . Are you a: never smoker Jan 13, 2015 Vital Signs Date/Time: Jan 02, 2015 Weight 260 lbs Height 68 in Temperature 97.8 F Cardiac Monitoring Heart Rate 102 /min Summary Purpose eClinicalWorks Submission
--- OUTSIDE RECORDS SUMMARY | 2019-08-17 19:56 | XMS REPORT ---
:1995 Author Organization [employer] Care Team Providers Name Role Phone Raphael [...] never smoker Nov 24, 2014 Summary Purpose [employer] Submission
--- OUTSIDE RECORDS SUMMARY | 2019-08-17 19:56 | XMS REPORT ---
:1995 [facility] Address [address] [place] [address] [address] Care Team Providers Name Role Phone ISI AMTAO Unavailable Unavailable Problems This patient has no known problems. Allergies, Adverse Reactions, Alerts This patient has no known allergies or adverse reactions. Medications This patient has no known medications. Encounters Start End Encounter Admission Attending Care Care Encounter Date/Time Date/Time Type Type Clinicians Facility Department ID 2018-01-02 2018-02-11 Outpatient ISI [facility] [id number] 12:57:00 23:59:00 PT
--- OUTSIDE RECORDS SUMMARY | 2019-08-17 19:56 | XMS REPORT ---
[...] Date End Date Status Dosage Paxil MEDISPAN [id number] Active Unknown Celexa MEDISPAN [id number] Active Unknown Augmentin MEDISPAN [id number] Active Unknown Seroquel MEDISPAN [id number] Active Unknown Social History Social History Element Qualifiers Date Reported Tobacco Use: . Are you a: never smoker Jan 13, 2015 Vital Signs Date/Time: Sep 18, 2014 Weight 241 lbs Height 66 in Temperature 97.6 F Cardiac Monitoring Heart Rate 89 /min Summary Purpose eClinicalWorks Submission
--- OUTSIDE RECORDS SUMMARY | 2019-08-17 19:56 | XMS REPORT ---
[...] End Date Status Dosage Clonidine HCl MEDISPAN [address]- Active Unknown 10 Paxil MEDISPAN [address]- Active Unknown 13 Seroquel MEDISPAN [address]- Active Unknown 10 Celexa MEDISPAN [address]- Active Unknown 01 Social History Social History Element Qualifiers Date Reported Tobacco Use: . Are you a: never smoker Jan 13, 2015 Vital Signs Date/Time: Jan 13, 2015 Weight 263 lbs Height 68 in Temperature 97.6 F Cardiac Monitoring Heart Rate 101 /min Summary Purpose eClinicalWorks Submission
--- OUTSIDE RECORDS SUMMARY | 2019-08-17 19:56 | XMS REPORT ---
[...] Date End Date Status Dosage Paxil MEDISPAN [address]- Active Unknown 13 Clonidine HCl MEDISPAN [address]- Active Unknown 10 Celexa MEDISPAN [address]- Active Unknown 01 Seroquel MEDISPAN [address]- Active Unknown 10 Social History Social History [...]
[2019-08-17] MEDS ORDERED: FENTANYL CITR 100 MCG/2 ML ONE ×2 (20:33→21:03)
--- NOTE | 2019-08-17 20:48 | ER ---
Nurse's Notes [facility] Name: Keo Hardin Age: 24 yrs Sex: Male : 1995 Arrival Date: 08/17/2019 Time: 19:52 Bed 5 Private MD: Diagnosis: Back Pain Presentation: 08/17 20:06 Presenting complaint: Patient states: Back pain for the past months. States he was seen aj1 in this ER for the same complaint 2 night ago. He followed up with his PCP who said he was going to check with his insurance to try to schedule a MRI but he is still having pain. Denies any injury to his back. Transition of care: patient was not received from another setting of care. Onset of symptoms was 2018. Risk Assessment: Do you want to hurt yourself or someone else? Patient reports no desire to harm self or others. Initial Sepsis Screen: Does the patient meet any 2 criteria? No. Patient's initial sepsis screen is negative. Does the patient have a suspected source of infection? No. Patient's initial sepsis screen is negative. Care prior to arrival: None. 20:06 Method Of Arrival: Ambulatory aj1 20:06 Acuity: ROBERTH 4 aj1 Triage Assessment: 20:08 General: Appears uncomfortable, Behavior is anxious, crying, restless. Pain: Complains aj1 of pain in back. Neuro: Level of Consciousness is awake, alert, obeys commands. Cardiovascular: Patient's skin is warm and dry. Respiratory: Airway is patent Respiratory effort is even, unlabored, Respiratory pattern is regular, symmetrical. Musculoskeletal: Range of motion: intact in all extremities. Historical: - Allergies: 20:08 Haldol; aj1 - Home Meds: 20:08 Clonazepam Oral [Active]; clonidine HCl 0.2 mg Oral tab 1 tab nightly [Active]; doxepin aj1 100 mg Oral cap 2 cap once daily [Active]; Effexor Oral [Active]; lisinopril Oral [Active]; Omeprazole Oral [Active]; Seroquel 100 mg Oral tab 1 tab daily [Active]; Wellbutrin 450 mg Oral tab 1 tab daily [Active]; - PMHx: 20:08 Anxiety; Depression; MRSA; aj1 - Immunization history:: Flu vaccine is up to date. - Social history:: Smoking status: Patient/guardian denies using tobacco. - Ebola Screening: : Patient denies travel to an Ebola-affected area in the 21 days before illness onset. Screenin:19 Abuse screen: Denies threats or abuse. Denies injuries from another. Nutritional cc3 screening: No deficits noted. Tuberculosis screening: No symptoms or risk factors identified. Fall Risk Ambulatory Aid- None/Bed Rest/Nurse Assist (0 pts). Gait- Normal/Bed Rest/Wheelchair (0 pts) Mental Status- Oriented to own ability (0 pts). Assessment: 20:19 General: Appears in no apparent distress. uncomfortable, Behavior is cooperative, cc3 appropriate for age, anxious. Pain: Complains of pain in left mid back and thoracic area Quality of pain is described as aching. Neuro: Level of Consciousness is awake, alert, obeys commands, Oriented to person, place, time, situation, Appropriate for age. Cardiovascular: Denies chest pain, Capillary refill < 3 seconds Patient's skin is warm and dry. Respiratory: Airway is patent Respiratory effort is even, unlabored, Respiratory pattern is regular, symmetrical. GI: Abdomen is round obese. : No signs and/or symptoms were reported regarding the genitourinary system. EENT: No signs and/or symptoms were reported regarding the EENT system. Derm: Skin is intact, is healthy with good turgor, Skin is pink, warm \T\ dry. normal. Musculoskeletal: Circulation, motion, and sensation intact. Range of motion: intact in all extremities. 20:45 Reassessment: Patient and/or family updated on plan of care and expected duration. Pain cc3 level reassessed. Patient is alert, oriented x 3, equal unlabored respirations, skin warm/dry/pink. CADY Galvan already spoke with the patient's father over the phone and discharged the patient home but when explained to the patient that he's being discharged he became agitated threw his phone on wall and he moved and picked up his bed, charge nurse Hazel and CADY Galvan aware. CADY Galvan said he'll order for another Fentanyl shot. 21:14 Reassessment: Patient appears in no apparent distress at this time. Patient and/or cc3 family updated on plan of care and expected duration. Pain level reassessed. Patient is alert, oriented x 3, equal unlabored respirations, skin warm/dry/pink. Patient discharged home, no prescriptions given. No IV cannula in situ. Patient left ER vitally stable and ambulatory in steady gait. When asked how is his pain the patient didn't answer and walked out, FOOTBALL SCOUT Mandy informed. Vital Signs: 20:08 BP 148 / 108; Pulse 106; Resp 20; Temp 97.6; Pulse Ox 99% on R/A; Weight 149.69 kg (R); aj1 Height 5 ft. 8 in. (172.72 cm) (R); Pain 10/10; 21:00 BP 140 / 87; Pulse 98; Resp 18 S; Pulse Ox 99% on R/A; cc3 20:08 Body Mass Index 50.18 (149.69 kg, 172.72 cm) aj1 ED Course: 19:52 Patient arrived in ED. cl3 20:08 Triage completed. aj1 20:08 Arm band placed on Patient placed in an exam room. aj1 20:11 Rafat Galvan NP is PHCP. pm1 20:11 Wilber Blake MD is Attending Physician. pm1 20:19 Yomaira Lopes is Primary Nurse. cc3 20:19 Patient has correct armband on for positive identification. Bed in low position. Call cc3 light in reach. Side rails up X 1. Pulse ox on. NIBP on. 20:40 Adam Nicolas MD is Referral Physician. pm1 21:15 No provider procedures requiring assistance completed. Patient did not have IV access cc3 during this emergency room visit. Administered Medications: 20:30 Drug: fentaNYL (PF) 25 mcg {Note: RASS 0.} Route: IM; Site: right deltoid; cc3 20:45 Follow up: Response: No adverse reaction; Pain is unchanged, physician notified cc3 20:45 Follow up: Response: RASS: Alert and Calm (0) cc3 20:50 Drug: fentaNYL (PF) 25 mcg Route: IM; Site: left deltoid; cc3 21:14 Follow up: Response: No adverse reaction; Pain is decreased cc3 21:14 Follow up: Response: RASS: Alert and Calm (0) cc3 Outcome: 20:47 Discharge ordered by . pm1 21:14 Patient left the ED. cc3 21:14 Discharged to home ambulatory. cc3 21:14 Condition: stable 21:14 Discharge instructions given to patient, Instructed on discharge instructions, follow up and referral plans. Demonstrated understanding of instructions, follow-up care. Signatures: Sandra Oh RN RN aj1 Rafat Galvan, CADY FOOTBALL SCOUT pm1 Yomaira Lopes cc3 Alex Villalba cl3 Corrections: (The following items were deleted from the chart) 23:18 20:45 Reassessment: Patient and/or family updated on plan of care and expected cc3 duration. Pain level reassessed. Patient is alert, oriented x 3, equal unlabored respirations, skin warm/dry/pink. CADY Galvan already spoke with the patient's father over the phone and discharged the patient home but when explained to the patient that he's being discharged he became agitated, charge nurse Hazel and CADY Galvan aware. CADY Galvan said he'll order for another Fentanyl shot cc3 23:21 21:15 Reassessment: Patient appears in no apparent distress at this time. Patient cc3 and/or family updated on plan of care and expected duration. Pain level reassessed. Patient is alert, oriented x 3, equal unlabored respirations, skin warm/dry/pink. Patient discharged home, no prescriptions given. No IV cannula in situ. Patient left ER vitally stable and ambulatory in steady gait. When asked how is his pain the patient didn't answer and walked out, CADY Galvan informed. cc3
--- NOTE | 2019-08-17 20:48 | EDPHYS ---
Physician Documentation [facility] Name: Keo Hardin Age: 24 yrs Sex: Male : 1995 Arrival Date: 08/17/2019 Time: 19:52 Bed 5 Private MD: ED Physician Wilber Blake HPI: 08/17 20:27 This 24 yrs old Male presents to ER via Ambulatory with complaints of Back pm1 Pain. 20:27 The patient presents with pain to middle of his back. The symptoms are located in the pm1 thoracic area. Onset: The symptoms/episode began/occurred 6 month(s) ago. The pain does not radiate. Associated signs and symptoms: Pertinent negatives: chest pain, fever, nausea, numbness, tingling, weakness, shortness of breath. The problem was sustained from unknown cause. Modifying factors: The patient symptoms are alleviated by fentanyl at last ER visit. Reports that it made him feel like a new man. Severity of symptoms: in the emergency department the symptoms are actually worse. The patient has been recently seen by a physician: the patient's primary care provider, Dr. Nicolas earlier today, with similar presenting complaints, Ordered MRI of back. Patient was seen by his PCP today for thoracic back pain for the past 6 months. Reports worse the past few days. Was seen here in the ER 2 days ago for the same complaint and discharged to home. Patient followed up with PCP today and MRI of back was ordered. Historical: - Allergies: 20:08 Haldol; aj1 - Home Meds: 20:08 Clonazepam Oral [Active]; clonidine HCl 0.2 mg Oral tab 1 tab nightly [Active]; doxepin aj1 100 mg Oral cap 2 cap once daily [Active]; Effexor Oral [Active]; lisinopril Oral [Active]; Omeprazole Oral [Active]; Seroquel 100 mg Oral tab 1 tab daily [Active]; Wellbutrin 450 mg Oral tab 1 tab daily [Active]; - PMHx: 20:08 Anxiety; Depression; MRSA; aj1 - Immunization history:: Flu vaccine is up to date. - Social history:: Smoking status: Patient/guardian denies using tobacco. - Ebola Screening: : Patient denies travel to an Ebola-affected area in the 21 days before illness onset. ROS: 20:27 Constitutional: Negative for fever, chills, and weight loss, Eyes: Negative for injury, pm1 pain, redness, and discharge, ENT: Negative for injury, pain, and discharge, Neck: Negative for injury, pain, and swelling, Cardiovascular: Negative for chest pain, palpitations, and edema, Respiratory: Negative for shortness of breath, cough, wheezing, and pleuritic chest pain, Abdomen/GI: Negative for abdominal pain, nausea, vomiting, diarrhea, and constipation. 20:27 : Negative for injury, bleeding, discharge, and swelling, MS/Extremity: Negative for injury and deformity, Skin: Negative for injury, rash, and discoloration, Neuro: Negative for headache, weakness, numbness, tingling, and seizure. 20:27 Back: Positive for of the thoracic area, pain. Exam: 20:27 Constitutional: This is a well developed, well nourished patient who is awake, alert, pm1 and in no acute distress. Head/Face: Normocephalic, atraumatic. Neck: Trachea midline, no thyromegaly or masses palpated, and no cervical lymphadenopathy. Supple, full range of motion without nuchal rigidity, or vertebral point tenderness. No Meningismus. Chest/axilla: Normal chest wall appearance and motion. Nontender with no deformity. No lesions are appreciated. Cardiovascular: Regular rate and rhythm with a normal S1 and S2. No gallops, murmurs, or rubs. Normal PMI, no JVD. No pulse deficits. Respiratory: Lungs have equal breath sounds bilaterally, clear to auscultation and percussion. No rales, rhonchi or wheezes noted. No increased work of breathing, no retractions or nasal flaring. Abdomen/GI: Soft, non-tender, with normal bowel sounds. No distension or tympany. No guarding or rebound. No evidence of tenderness throughout. Skin: Warm, dry with normal turgor. Normal color with no rashes, no lesions, and no evidence of cellulitis. 20:27 MS/ Extremity: Pulses equal, no cyanosis. Neurovascular intact. Full, normal range of motion. 20:27 Back: normal spinal alignment noted, muscle spasm, is appreciated in the left mid back, no vertebral spinous tenderness present. 20:27 Neuro: Orientation: is normal, Motor: is normal, strength is normal, bilateral great toe plantar and dorsiflexion intact with 5/5 strength, Sensation: is normal, no obvious gross deficits. Vital Signs: 20:08 BP 148 / 108; Pulse 106; Resp 20; Temp 97.6; Pulse Ox 99% on R/A; Weight 149.69 kg (R); aj1 Height 5 ft. 8 in. (172.72 cm) (R); Pain 10/10; 21:00 BP 140 / 87; Pulse 98; Resp 18 S; Pulse Ox 99% on R/A; cc3 20:08 Body Mass Index 50.18 (149.69 kg, 172.72 cm) aj1 MDM: 20:15 Patient medically screened. [facility] 20:30 Data reviewed: vital signs. Data interpreted: Pulse oximetry: on room air is 99 %. pm1 Interpretation: normal. 20:39 Counseling: I had a detailed discussion with the patient and/or guardian regarding: the pm1 historical points, exam findings, and any diagnostic results supporting the discharge/admit diagnosis, the need for outpatient follow up, PCP or neurosurgery for MRI and further evaluation and treatment. 21:00 ED course: Patient ordered additional pain medication because he reported no pm1 improvement. Patient was frustrated with initial fentanyl not providing any pain relief so he lifted the stretcher off the ground and threw it to the side . 23:49 ED course: Patient called the ER and talked to the charge nurse after being discharge a pm1 few hours ago complaining that the pain medications were given intramuscularly instead of intravenous and "are slowly seeping into his system" as a result. Administered Medications: 20:30 Drug: fentaNYL (PF) 25 mcg {Note: RASS 0.} Route: IM; Site: right deltoid; cc3 20:45 Follow up: Response: No adverse reaction; Pain is unchanged, physician notified cc3 20:45 Follow up: Response: RASS: Alert and Calm (0) cc3 20:50 Drug: fentaNYL (PF) 25 mcg Route: IM; Site: left deltoid; cc3 21:14 Follow up: Response: No adverse reaction; Pain is decreased cc3 21:14 Follow up: Response: RASS: Alert and Calm (0) cc3 Disposition: 08/17/19 20:47 Discharged to Home. Impression: Back Pain. - Condition is Stable. - Discharge Instructions: Back Pain, Adult. - Medication Reconciliation Form, Thank You Letter, Antibiotic Education, Prescription Opioid Use form. - Follow up: Emergency Department; When: As needed; Reason: Worsening of condition. Follow up: Adam Nicolas MD; When: 2 - 3 days; Reason: Recheck today's complaints, Continuance of care, Re-evaluation by your physician. - Problem is new. - Symptoms have improved. Addendum: 08/20/2019 09:16 Co-signature as Attending Physician, Wilber Blake MD I agree with the assessment and c dunne plan of care. Signatures: Sandra Oh, RN RN aj1 Wilber Blake MD MD cha Marinas, Patrick, UNDERGROUND ROOF BOLTER UNDERGROUND ROOF BOLTER pm1 Yomaira Lopes cc3 Corrections: (The following items were deleted from the chart) 08/17 21:14 20:47 08/17/2019 20:47 Discharged to Home. Impression: Back Pain. Condition is Stable. cc3 Forms are Medication Reconciliation Form, Thank You Letter, Antibiotic Education, Prescription Opioid Use. Follow up: Emergency Department; When: As needed; Reason: Worsening of condition. Follow up: Adam Nicolas; When: 2 - 3 days; Reason: Recheck today's complaints, Continuance of care, Re-evaluation by your physician. Problem is new. Symptoms have improved. pm1
[2019-08-17 22:07] VITALS: BP 148/108; TEMP 97.6; O2SAT 99
== END 2019-08-17 21:14 | disposition home or self-care (01) ==
LOC: ER 19:51
DX: M54.9 Dorsalgia, unspecified (principal); F41.9 Anxiety disorder, unspecified; F32.9 Major depressive disorder, single episode, unspecified; Z88.5 Allergy status to narcotic agent
CPT/HCPCS: 96372; 99283; J3010

== ENCOUNTER 2019-08-20 08:57 | Observation (INO) | payer OTHER ==
--- OUTSIDE RECORDS SUMMARY | 2019-08-20 09:07 | XMS REPORT | Continuity of Care Document ---
:1995 Author Organization [facility] Care Team Providers Name Role Phone [facility] Unavailable Unavailable Problems Problem Status Onset Classification Date Comments Source Date Reported Pseudomonas Active Problem 01/19/2016 Pedi infection in Infect conditions Disease of classified [place] elsewhere and of unspecified site Methicillin Active Problem 01/19/2016 Pedi resistant Infect Staphylococcus Disease of aureus [place] Pilonidal cyst Active Problem 01/19/2016 Pedi with abscess [facility] [place] Other chronic Active Problem 01/19/2016 Pedi postoperative pain [facility] [place] Other atopic Active Problem 01/19/2016 Pedi dermatitis and Infect related conditions [facility] of [place] Open wound of Active Problem 01/19/2016 Pedi buttock, Infect complicated [facility] [place] Cutaneous abscess Active Problem 01/19/2016 Pedi of buttock Infect [facility] [place] Open wound of Active Problem 01/19/2016 Pedi buttock, without Infect mention of Disease of complication [place] Pilonidal cyst Active Problem 01/19/2016 Pedi with abscess [facility] [place] Klebsiella Active Problem 01/19/2016 Pedi pneumoniae Infect infection [facility] [place] Cellulitis and Active Problem 01/19/2016 Pedi abscess of buttock [facility] [place] Medications Medication Details Route Status Patient Ordering Order Source Instructions Provider Date Augmentin 1 tablet PO Active 500 mg PO Three L[facility] 09/17/20 Pedi times a day 14 [facility] [place] Paxil Unknown NA Active [facility] [place] Celexa Unknown NA Active [facility] [place] Seroquel Unknown NA Active [facility] [place] Augmentin Unknown NA Active [facility] [place] Clonidine HCl Unknown NA Active [facility] [place] Citalopram Unknown NA Active [facility] Hydrobromide [facility] [place] Doxepin HCl Unknown NA Active [facility] [place] BuPROPion HCl Unknown NA Active [facility] [place] Quetiapine Unknown NA Active [facility] Fumarate [facility] [place] Allergies, Adverse Reactions, Alerts Substance Category Reaction Severity Reaction Status Date Comments Source type Reported N.K.D.A. Adverse Info Not Adverse Active Pedi Reaction Available Reaction 6 [facility] [place] Immunizations No Data Provided for This Section [...] Weight 323 01/16/2016 Pedi [facility] [place] Height 68 01/16/2016 [facility] [place] Temperature Oral (F) 98 F 01/16/2016 [facility] [place] Heart Rate 128 01/16/2016 [facility] [place] Weight 295 08/07/2015 [facility]i [facility] [place] Height 68 08/07/2015 Pedi [facility] [place] Temperature Oral (F) 98 F 08/07/2015 Ped[facility] [place] Heart Rate 108 08/07/2015 Ped[facility] [place] Weight 263 01/13/2015 Ped[facility] [place] Height 68 01/13/2015 Ped[facility] [place] Temperature Oral (F) 97.6 F 01/13/2015 Pedi [facility] [place] Heart Rate 101 01/13/2015 Ped[facility] [place] Weight 260 01/02/2015 Pedi [facility] [place] Height 68 01/02/2015 [facility] [place] Temperature Oral (F) 97.8 F 01/02/2015 Pedi [facility] [place] Heart Rate 102 01/02/2015 Pedi [facility] [place] Weight 247.2 10/22/2014 Pedi [facility] [place] Height 66 10/22/2014 Pedi [facility] [place] Temperature Oral (F) 97.5 F 10/22/2014 Pedi [facility] [place] Weight 248 10/09/2014 Pedi [facility] [place] Height 66 10/09/2014 Pedi [facility] [place] Temperature Oral (F) 97.6 F 10/09/2014 Pedi [facility] [place] Heart Rate 77 10/09/2014 Pedi [facility] [place] Weight 245 09/24/2014 Pedi [facility] [place] Height 66 09/24/2014 Pedi [facility] [place] Temperature Oral (F) 98.9 F 09/24/2014 Pedi [facility] [place] Heart Rate 91 09/24/2014 Pedi [facility] [place] Weight 241 09/18/2014 Pedi [facility] [place] Height 66 09/18/2014 Pedi [facility] [place] Temperature Oral (F) 97.6 F 09/18/2014 Pedi [facility] [place] Heart Rate 89 09/18/2014 Pedi [facility] [place] Weight 241 09/11/2014 Pedi [facility] [place] Height 66 09/11/2014 Pedi [facility] [place] Temperature Oral (F) 97.5 F 09/11/2014 Pedi [facility] [place] Heart Rate 81 09/11/2014 Pedi [facility] [place] Encounters Location Location Encounter Encounter Reason Attending ADM DC Status Source Details Type Number For Provider Date Date Visit Pediatric Unknown [id number] 09/11 09/11 Pedi Infectious ef6-4ba4- Infect Disease [id number] [facility] [id number] [facility] Pediatric Unknown [id number] 09/11 09/11 Pedi Infectious d9k-4u05-3 Infect Disease [id number] [facility] [id number] of [facility] Pediatric Unknown [id number] 09/11 09/11 Pedi Infectious 6x4-5viq-9 Infect Disease k35-2cxv1g [facility] [id number] [facility] Pediatric Unknown [id number] 09/11 09/11 Pedi Infectious 930-4e88- Infect Disease [id number] [facility] [id number] [facility] Unknown [id number] 09/11 09/11 Pedi Infectious 10f-4643-a /2013 Infect Disease 00f-7bab3c [facility] [id number] of [facility] Unknown [id number] 09/11 09/11 Pedi Infectious dfa-488e- Infect Disease 686-a84a04 [facility] [id number] of [facility] Pediatric Unknown [id number] 09/11 09/11 Pedi Infectious 1b4-7091-k /2013 Infect Disease ff1-92b48f [facility] [id number] of [facility] Unknown [id number] 09/11 09/11 Pedi Infectious 8n8-59dg-1 Infect Disease r60-f8z58c [facility] 210cda [facility] Unknown [id number] 09/11 09/11 Pedi Infectious 0j5-63d5-n /2013 Infect Disease o96-i0iu17 [facility] [id number] of [facility] Pediatric Unknown [id number] 09/11 09/11 Pedi Infectious 8y2-8338-9 /2013 Infect Disease m46-1008cc [facility] [id number] [facility] Pediatric Unknown [id number] 09/11 09/11 Pedi Infectious 391-4f25-a /2013 Infect Disease 285-zb9664 [facility] [id number] [facility] Pediatric Unknown [id number] 09/11 09/11 Pedi Infectious 971-446c-8 Infect Disease 814-4dbacf [facility] [id number] [facility] Pediatric Unknown [id number] 09/11 09/11 Pedi Infectious 9l8-7h80-b /2013 Infect Disease 35a-th800x [facility] [id number] [facility] Unknown [id number] 09/11 09/11 Pedi Infectious 56e-4a56-a /2013 Infect Disease 714-k1d083 [facility] [id number] [facility] Pediatric Provider [id number] 09/17 09/17 Pedi Infectious told 740-4185- /2013 Infect Disease patient to fc7-7i1573 [facility] call [id number] of [facility] Pediatric Provider [id number] 09/17 09/17 Pedi Infectious told r25-7l4t-2 Infect Disease patient to i3y-40iw25 [facility] call [id number] of [facility] Provider [id number] 09/17 09/17 Pedi Infectious told i32-5005-h /2013 Infect Disease patient to 215-b796e2 [facility] call [id number] of [facility] Provider [id number] 09/17 09/17 Pedi Infectious told f86-6wcz-0 /2013 Infect Disease patient to 2fd-5oq064 [facility] call [id number] of [facility] Pediatric Test [id number] 09/17 09/17 Pedi Infectious results 940-4cf0-b /2013 Infect Disease bbd-052dd4 [facility] [id number] [facility] Test [id number] 09/17 09/17 Pedi Infectious results 39a-4529-a /2013 Infect Disease y4c-71f4jx [facility] [id number] of [facility] Test [id number] 09/17 09/17 Pedi Infectious results 298-418a-a /2013 Infect Disease 45d-nf4207 [facility] is833b [facility] Pediatric Test [id number] 09/17 09/17 Pedi Infectious results 9m7-00f7-u /2013 Infect Disease fd6-4906f2 [facility] [id number] [facility] Provider [id number] 09/17 09/17 Pedi Infectious told bd5-4b86-8 /2013 Infect Disease patient to 650-4ad6f4 [facility] call [id number] of [facility] Provider [id number] 09/17 09/17 Pedi Infectious told 868-4bf8- Infect Disease patient to 5be-3v9426 [facility] call [id number] of [facility] Provider [id number] 09/17 09/17 Pedi Infectious told 824-463f-a /2013 Infect Disease patient to 30f-8e64cb [facility] call [id number] [facility] Provider [id number] 09/17 09/17 Pedi Infectious told 40f-4dfa-9 /2013 Infect Disease patient to 567-91f06a [facility] call [id number] of [facility] Provider [id number] 09/17 09/17 Pedi Infectious told 513-46d1-a /2013 Infect Disease patient to 147-3e3951 [facility] call [id number] of [facility] Provider [id number] 09/17 09/17 Pedi Infectious told w05-77s7-l /2013 Infect Disease patient to 558-x8925f [facility] call [id number] of [facility] Provider [id number] 09/17 09/17 Pedi Infectious told m5p-5m6w-2 /2013 Infect Disease patient to cb5-4m2606 [facility] call [id number] [facility] Provider [id number] 09/17 09/17 Pedi Infectious told g8r-453g-h /2013 Infect Disease patient to be5-5241a1 [facility] call 8caceb of [facility] Provider [id number] 09/17 09/17 Pedi Infectious told 6ea-4f71-b /2013 Infect Disease patient to 54b-010c78 [facility] call [id number] of [facility] Provider [id number] 09/17 09/17 Pedi Infectious told 439-49f6- Infect Disease patient to fe3-c8242m [facility] call [id number] of [facility] Test [id number] 09/17 09/17 Pedi Infectious results z44-3140-c /2013 Infect Disease afa-0ef54a [facility] c30f53 [facility] Pediatric Test [id number] 09/17 09/17 Pedi Infectious results 744-4d7f-a /2013 Infect Disease 509-7350cc [facility] 1c6b2b of [facility] Pediatric Test [id number] 09/17 09/17 Pedi Infectious results 321-4105-a /2013 Infect Disease 033-5fc2a4 [facility] [id number] [facility] Pediatric Test [id number] 09/17 09/17 Pedi Infectious results fd7-4768-b /2013 Infect Disease 34c-5314cd [facility] [id number] [facility] Pediatric Test [id number] 09/17 09/17 Pedi Infectious results 747-490c-8 /2013 Infect Disease z2r-994623 [facility] 76e9dc [facility] Pediatric Test [id number] 09/17 09/17 Pedi Infectious results 3c6-4234-3 /2013 Infect Disease t22-1po2m4 [facility] 30c1bf [facility] Pediatric Test [id number] 09/17 09/17 Pedi Infectious results h83-5h4x-j /2013 Infect Disease 432-849e0f [facility] [id number] [facility] Pediatric Test [id number] 09/17 09/17 Pedi Infectious results 4y1-6808-8 /2013 Infect Disease cca-59edf5 [facility] [id number] [facility] Test [id number] 09/17 09/17 Pedi Infectious results dd1-4c00-8 /2013 Infect Disease 23e-70d07e [facility] [id number] [facility] Pediatric Test [id number] 09/17 09/17 Pedi Infectious results q85-50p6-c /2013 Infect Disease 7l0-l5g468 [facility] [id number] [facility] Pediatric Follow-Up [id number] 09/18 09/18 Pedi Infectious Pilonidal 00b-4b97-a /2013 Infect Disease Cyst 34f-bc1cc5 [facility] [id number] [facility] Follow-Up [id number] 09/18 09/18 Pedi Infectious Pilonidal ca6-471b-a /2013 Infect Disease Cyst 8g4-cl589q [facility] [id number] of [facility] Pediatric Follow-Up [id number] 09/18 09/18 Pedi Infectious [place] y1e-0hno-1 /2013 Infect Disease Cyst 7m6-s28j97 [facility] [id number] [facility] Pediatric Follow-Up [id number] 09/18 09/18 Pedi Infectious [place]ilon[place] u1e-316c-f /2013 Infect Disease Cyst 433-75cb33 [facility] [id number] [facility] Pediatric Follow-Up [id number] 09/18 09/18 Pedi Infectious Pilon[place] p61-2704-4 /2013 Infect Disease Cyst 846-21051i [facility] [id number] [facility] Follow-Up [id number] 09/18 09/18 Pedi Infectious [place] 0k0-8380-4 /2013 Infect Disease Cyst eb2-a2d1d4 [facility] [id number] [facility] Follow-Up [id number] 09/18 09/18 Pedi Infectious [place]ilon[place] 709-41ab-b /2013 Infect Disease Cyst 690-a2a3e7 [facility] [id number] [facility] Follow-Up [id number] 09/18 09/18 Pedi Infectious [place]ilon[place] 145-41c4-b /2013 Infect Disease Cyst 98c-82c78f [facility] a78b9c [facility] Follow-Up [id number] 09/18 09/18 Pedi Infectious Pilonidal 16f-4422-a /2013 Infect Disease Cyst 53a-3b5dfc [facility] [id number] [facility] Follow-Up [id number] 09/18 09/18 Pedi Infectious [place] 98d-4b19-b /2013 Infect Disease Cyst 846-f15e95 [facility] 3fe27a [facility] Follow-Up [id number] 09/18 09/18 Pedi Infectious [place] cf3-4a2f-b /2013 Infect Disease Cyst aa5-48a13b [facility] 3abe4f [facility] Follow-Up [id number] 09/24 09/24 Pedi Infectious [place] l9e-6k96-v /2013 Infect Disease Cyst 3q2-4ff290 [facility] [id number] [facility] Follow-Up [id number] 09/24 09/24 Pedi Infectious [place] bc0-4c7b-9 /2013 Infect Disease Cyst 83a-375529 [facility] [id number] [facility] Follow-Up [id number] 09/24 09/24 Pedi Infectious [place]ilon[place] 786-4d38-b /2013 Infect Disease Cyst 00a-9f5fa2 [facility] 79d40a [facility] Follow-Up [id number] 09/24 09/24 Pedi Infectious Pilonidal 171-4d6a-b /2013 Infect Disease Cyst 922-417528 [facility] 0667fa [facility] Follow-Up [id number] 09/24 09/24 Pedi Infectious [place] 8q6-9mh9-3 /2013 Infect Disease Cyst 528-7f2ac2 [facility] [id number] [facility] Follow-Up [id number] 09/24 09/24 Pedi Infectious [place] 6u2-452d-r /2013 Infect Disease Cyst 80e-1bbfcb [facility] [id number] [facility] Follow-Up [id number] 09/24 09/24 Pedi Infectious [place]ilon[place] 994-4c53-9 /2013 Infect Disease Cyst 6de-f4ed9e [facility] 8ae54d [facility] Follow-Up [id number] 09/24 09/24 Pedi Infectious [place] ed8-4e55-b /2013 Infect Disease Cyst 376-777cde [facility] [id number] [facility] Follow-Up [id number] 09/24 09/24 Pedi Infectious [place]ilon[place] 24b-451a-8 /2013 Infect Disease Cyst 82c-662bd2 [facility] [id number] [facility] Follow-Up [id number] 09/24 09/24 Pedi Infectious [place]ilon[place] 8ed-4898-b /2013 Infect Disease Cyst cee-qwp137 [facility] [id number] [facility] Follow-Up [id number] 09/24 09/24 Pedi Infectious [place]ilon[place] 26d-400d-a /2013 Infect Disease Cyst 3s5-8471xg [facility] 6596ce [facility] Pediatric Follow-Up [id number] 10/09 10/09 Pedi Infectious [place]ilon[place] ca5-4f38-8 /2013 Infect Disease Cyst 73a-1b7d56 [facility] [id number] of [facility] Follow-Up [id number] 10/09 10/09 Pedi Infectious [place]ilon[place] 636-40e6-9 /2013 Infect Disease Cyst 947-p6867i [facility] [id number] [facility] Follow-Up [id number] 10/09 10/09 Pedi Infectious [place]ilon[place] 66c-4459-a /2013 Infect Disease Cyst a75-182952 [facility] 77d7f1 [facility] Follow-Up [id number] 10/09 10/09 Pedi Infectious [place] p5b-221r-8 /2013 Infect Disease Cyst d57-m25433 [facility] c8f2cd of [facility] Follow-Up [id number] 10/09 10/09 Pedi Infectious [place] 2dd-467d-8 Infect Disease Cyst 3o6-199246 [facility] [id number] [facility] Follow-Up [id number] 10/09 10/09 Pedi Infectious [place]ilon[place] 201-45fb-b /2013 Infect Disease Cyst 9u6-7x9x01 [facility] [id number] [facility] Pediatric Follow-Up [id number]-8 10/09 10/09 Pedi Infectious [place] q8g-9r56-e /2013 Infect Disease Cyst bed-8fceb1 [facility] [id number] [facility] Pediatric Follow-Up deedeae2-4 10/09 10/09 Pedi Infectious [place] 9e7-2v1j-3 Infect Disease Cyst g1k-qe1254 [facility] [id number] [facility] Follow-Up [id number] 10/09 10/09 Pedi Infectious [place] j5h-3876-h /2013 Infect Disease Cyst bc1-612e32 [facility] [id number] [facility] Pediatric Follow-Up [id number] 10/09 10/09 Pedi Infectious [place] 9ed-4f4b-8 /2013 Infect Disease Cyst 2fb-43eadf [facility] [id number] [facility] Pediatric Follow-Up [id number] 10/09 10/09 Pedi Infectious [place] 7t2-8k74-9 /2013 Infect Disease Cyst w03-53498g [facility] [id number] [facility] WOUNDCARE [id number] 10/22 10/22 Pedi Infectious 8g3-4m76-6 /2013 Infect Disease 48c-334692 [facility] [id number] [facility] WOUNDCARE [id number] 10/22 10/22 Pedi Infectious 442-4426-9 /2013 Infect Disease w8c-0s4be4 [facility] [id number] [facility] WOUNDCARE [id number] 10/22 10/22 Pedi Infectious ba4-494c-b /2013 Infect Disease 92f-571784 [facility] [id number] [facility] WOUNDCARE [id number] 10/22 10/22 Pedi Infectious afc-4b99-b /2013 Infect Disease 449-4770ae [facility] [id number] [facility] WOUNDCARE [id number] 10/22 10/22 Pedi Infectious cf9-4283-a /2013 Infect Disease ee3-f10d09 [facility] [id number] [facility] WOUNDCARE [id number] 10/22 10/22 Pedi Infectious k54-4717-d /2013 Infect Disease 6ad-048b69 [facility] [id number] [facility] WOUNDCARE [id number] 10/22 10/22 Pedi Infectious ec0-4282-8 /2013 Infect Disease f3a-1wm4q7 [facility] [id number] [facility] WOUNDCARE [id number] 10/22 10/22 Pedi Infectious bad-4c5d-a /2013 Infect Disease 731-g4080c [facility] [id number] [facility] FU - [id number] 11/19 11/19 Pedi Infectious PILONIDAL 0b3-81az-3 /2013 Infect Disease CYST 6q7-30k483 [facility] [id number] [facility] FU - [id number] 11/19 11/19 Pedi Infectious PILONIDAL fa6-4c63-8 /2013 Infect Disease CYST 573-fbe18e [facility] [id number] [facility] FU - [id number] 11/19 11/19 Pedi Infectious PILONIDAL 2ac-4955-a /2013 Infect Disease CYST 318-2e93c3 [facility] [id number] [facility] FU - [id number] 11/19 11/19 Pedi Infectious PILONIDAL t83-3c01-q /2013 Infect Disease CYST 2a4-8m5568 [facility] [id number] [facility] FU - [id number] 11/19 11/19 Pedi Infectious PILONIDAL 2d4-9w87-k /2013 Infect Disease CYST 093-a1a61a [facility] [id number] [facility] FU - [id number] 11/19 11/19 Pedi Infectious PILONIDAL 115-444f-b /2013 Infect Disease CYST 1bc-g1e581 [facility] [id number] [facility] FU - [id number] 11/19 11/19 Pedi Infectious PILONIDAL 6ea-40c8-b /2013 Infect Disease CYST 754-37b94e [facility] [id number] [facility] FU - [id number]-6 11/19 11/19 Pedi Infectious PILONIDAL 643-4d47-b /2013 Infect Disease CYST 4s7-0x7cl8 [facility] [id number] [facility] Unknown [id number] 12/11 12/11 Pedi Infectious 490-456d-9 /2014 Infect Disease d65-80n4a9 [facility] [id number] [facility] Unknown [id number] 12/11 12/11 Pedi Infectious 50b-42a1-a /2014 Infect Disease 995-gy375g [facility] [id number] [facility] Unknown [id number] 01/14 01/14 Pedi Infectious de7-4c4f- Infect Disease 945-2aebd0 [facility] [id number] [facility] Unknown [id number] 12/11 12/11 Pedi Infectious 9c1-56f3-4 Infect Disease 920-6cr602 [facility] [id number] [facility] Unknown [id number] 12/11 12/11 Pedi Infectious n8s-949z-5 Infect Disease ab2-8e65d9 [facility] [id number] [facility] Unknown [id number] 12/11 12/11 Pedi Infectious 459-43f5- Infect Disease aee-33b8fd [facility] [id number] [facility] Follow-Up [id number] 01/02 01/02 Pedi Infectious [place]ilon[place] af5-4ef1-b /2014 Infect Disease cyst 55f-37b0d6 [facility] [id number] [facility] Follow-Up [id number] 01/02 01/02 Pedi Infectious [place] 140-43fd- Infect Disease cyst 364-2311e8 [facility] [id number] [facility] Pediatric Follow-Up [id number] 01/02 01/02 Pedi Infectious [place] ddb-4f8b- Infect Disease cyst c6x-k469j3 [facility] [id number] [facility] Follow-Up [id number] 01/02 01/02 Pedi Infectious [place] cad-4517-9 /2014 Infect Disease cyst s80-fz2w95 [facility] fcf10e [facility] Follow-Up [id number] 01/02 01/02 Pedi Infectious [place] 766-43da-a /2014 Infect Disease cyst u01-6wn4y8 [facility] [id number] [facility] Follow-Up [id number] 01/13 01/13 Pedi Infectious [place] q99-620x-t /2014 Infect Disease cyst 4u1-153707 [facility] [id number] [facility] Follow-Up [id number] 01/13 01/13 Pedi Infectious [place] 1k9-8h68-q /2014 Infect Disease cyst p5r-2h2ve7 [facility] 86d7be [facility] Follow-Up [id number] 01/13 01/13 Pedi Infectious [place] 614-46ec-b /2014 Infect Disease cyst 01b-79ea4a [facility] [id number] [facility] Follow-Up [id number] 01/13 01/13 Pedi Infectious [place] 51e-414e-8 /2014 Infect Disease cyst 8i5-163w72 [facility] [id number] [facility] Follow-Up [id number] 01/13 01/13 Pedi Infectious [place] 876-4809-b /2014 Infect Disease cyst n36-21xs93 [facility] [id number] [facility] Follow-Up [id number] 01/21 01/21 Pedi Infectious ea9-4042-a /2014 Infect Disease b92-61035n [facility] [id number] [facility] Follow-Up [id number] 01/21 01/21 Pedi Infectious 05f-4638-9 /2014 Infect Disease s8l-ja12d4 [facility] [id number] [facility] Follow-Up [id number] 02/04 02/04 Pedi Infectious [place] daf-45f8-9 /2014 Infect Disease cyst 4fe-656efd [facility] 4dbae2 [facility] Follow-Up [id number] 02/04 02/04 Pedi Infectious [place] ba7-4a1b-b /2014 Infect Disease cyst 32e-kbs665 [facility] [id number] [facility] Follow-Up [id number] 02/18 02/18 Pedi Infectious Pilonidal [id number] /2014 Infect Disease cyst and [id number] [facility] [id number] of [facility] Pediatric Follow-Up [id number] 02/18 02/18 Pedi Infectious Pilonidal [id number] /2014 Infect Disease cyst and [id number] [facility] Laser hair [id number] of [facility] Pediatric Follow-Up [id number] 05/06 05/06 Pedi Infectious Pilonidal [id number] /2014 Infect Disease cyst [id number] [facility] [id number] of [facility] Pediatric Follow-Up [id number] 05/06 05/06 Pedi Infectious Pilonidal [id number] /2014 Infect Disease cyst [id number] [facility] [id number] of [facility] Pediatric Test [id number] 05/12 05/12 Pedi Infectious results [id number] /2014 Infect Disease [id number] [facility] [id number] of [facility] Pediatric Test [id number] 05/12 05/12 Pedi Infectious results [id number] /2014 Infect Disease [id number] [facility] [id number] of [facility] Pediatric Follow-Up [id number] 05/16 05/16 Pedi Infectious Pilonidal [id number] /2014 Infect Disease Cyst [id number] [facility] [id number] of [facility] Pediatric Follow-Up [id number] 05/16 05/16 Pedi Infectious Pilonidal [id number] /2014 Infect Disease Cyst [id number] [facility] [id number] of [facility] Pediatric Follow-Up [id number] 05/26 05/26 Pedi Infectious Pilonidal [id number] /2014 Infect Disease cyst [id number] [facility] [id number] of [facility] Pediatric Follow-Up [id number] 05/26 05/26 Pedi Infectious Pilonidal [id number] /2014 Infect Disease cyst [id number] [facility] [id number] of [facility] Pediatric Follow-Up [id number] 07/10 07/10 Pedi Infectious Pilonidal [id number] /2014 Infect Disease cyst [id number] [facility] [id number] of [facility] Pediatric Follow-Up [id number] 07/10 07/10 Pedi Infectious Pilonidal 025-4066- Infect Disease cyst [id number] [facility] [id number] of [facility] Pediatric Follow-Up [id number] 08/07 08/07 Pedi Infectious Pilonidal [id number]- Infect Disease cyst [id number] [facility] [id number] of [facility] Pediatric Follow-Up [id number] 08/07 08/07 Pedi Infectious Pilonidal [id number] /2014 Infect Disease cyst [id number] [facility] [id number] [facility] Pediatric Test [id number] 08/11 08/11 Pedi Infectious results [id number] Infect Disease [id number] [facility] [id number] of [facility] Pediatric Test [id number] 08/11 08/11 Pedi Infectious results [id number]- Infect Disease [id number] [facility] [id number] of [facility] Pediatric Follow-Up [id number] 01/16 01/16 Pedi Infectious - Check [id number] /2015 Infect Disease wound [id number] [facility] [id number] of [facility] Procedures No Data Provided for This Section Assessment and Plan No Data Provided for This Section Plan of Care No Data Provided for This Section Social History Social History Date Source Social History ElementQualifiersDate Reported 01/18/2016 Pedi Infect Disease of Tobacco Use: [place] . Are you a: never smoker Jan 18, 2016 Family History Value Date Source QualifierDescriptionCommentDate Reported 08/09/2015 Pedi Infect Disease of Maternal Grandmother [place] Comment not available Aug 07, 2015 Paternal [...]
--- OUTSIDE RECORDS SUMMARY | 2019-08-20 09:07 | XMS REPORT ---
[...] Date End Date Status Dosage Paxil MEDISPAN [id number] Active Unknown Celexa MEDISPAN [id number] Active Unknown Seroquel MEDISPAN [id number] Active Unknown Social History Social History Element Qualifiers Date Reported Tobacco Use: . Are you a: never smoker Oct 10, 2014 Vital Signs Date/Time: Oct 09, 2014 Weight 248 lbs Height 66 in Temperature 97.6 F Cardiac Monitoring Heart Rate 77 /min Summary Purpose eClinicalWorks Submission
--- OUTSIDE RECORDS SUMMARY | 2019-08-20 09:07 | XMS REPORT ---
[...] Date End Date Status Dosage Paxil MEDISPAN [id number] Active Unknown Celexa MEDISPAN [id number] Active Unknown Augmentin MEDISPAN [id number] Active Unknown Seroquel MEDISPAN [address]-10 Active Unknown Social History Social History Element Qualifiers Date Reported Tobacco Use: . Are you a: never smoker Oct 10, 2014 Vital Signs Date/Time: Sep 18, 2014 Weight 241 lbs Height 66 in Temperature 97.6 F Cardiac Monitoring Heart Rate 89 /min Summary Purpose eClinicalWorks Submission
--- OUTSIDE RECORDS SUMMARY | 2019-08-20 09:08 | XMS REPORT ---
[...] call [facility] Aug of [facility] [place] Test results [facility] [...] Date End Date Status Dosage Celexa MEDISPAN [id number] Active Unknown -01 Paxil MEDISPAN [phone] Active Unknown -13 Augmentin MEDISPAN [address] 500 mg PO Three Sep 17, Oct 01, Active 1 tablet -20 times a day 2013 2013 Seroquel MEDISPAN [address] Active Unknown -10 Social History Social History Element Qualifiers Date Reported Tobacco Use: . Are you a: never smoker Oct 10, 2014 Vital Signs Date/Time: Sep 24, 2014 Weight 245 lbs Height 66 in Temperature 98.9 F Cardiac Monitoring Heart Rate 91 /min Summary Purpose eClinicalWorks Submission
--- OUTSIDE RECORDS SUMMARY | 2019-08-20 09:08 | XMS REPORT ---
[...] Date End Date Status [facility]osage [facility] [id number] Active Unknown 8-10 [facility]italopram [facility] 21662-256 Active Unknown Hydrobromide 1-01 Doxepin HCl [facility] 27500-423 Active Unknown 3-00 BuPROPion HCl [facility] 13991-263 Active Unknown 3-01 Quetiapine [facility] 22009-740 Active Unknown Fumarate 1-20 Social History Social History Element Qualifiers Date Reported Tobacco Use: . Are you a: never smoker Jan 18, 2016 Vital Signs Date/Time: Jan 16, 2016 Weight 323 lbs Height 68 in Temperature 98 F Cardiac Monitoring Heart Rate 128 /min Summary Purpose eClinicalWorks Submission
--- OUTSIDE RECORDS SUMMARY | 2019-08-20 09:08 | XMS REPORT ---
[...] Date End Date Status Dosage Paxil MEDISPAN [id number] Active Unknown Celexa MEDISPAN [id number] Active Unknown Seroquel MEDISPAN [address]-91 Active Unknown Social History Social History Element Qualifiers Date Reported Tobacco Use: . Are you a: never smoker Sep 24, 2014 Vital Signs Date/Time: Sep 11, 2014 Weight 241 lbs Height 66 in Temperature 97.5 F Cardiac Monitoring Heart Rate 81 /min Summary Purpose eClinicalWorks Submission
--- OUTSIDE RECORDS SUMMARY | 2019-08-20 09:08 | XMS REPORT ---
[...] Date End Date Status Dosage Paxil MEDISPAN [id number] Active Unknown Celexa MEDISPAN [address]-64 Active Unknown Augmentin MEDISPAN [address]-82 Active Unknown Seroquel MEDISPAN [address]-10 Active Unknown Social History Social History Element Qualifiers Date Reported Tobacco Use: . Are you a: never smoker Jan 13, 2015 Vital Signs Date/Time: Sep 18, 2014 Weight 241 lbs Height 66 in Temperature 97.6 F Cardiac Monitoring Heart Rate 89 /min Summary Purpose eClinicalWorks Submission
--- OUTSIDE RECORDS SUMMARY | 2019-08-20 09:08 | XMS REPORT ---
[...] Date End Date Status Dosage Seroquel MEDISPAN [address]- Active Unknown 10 Clonidine HCl MEDISPAN [address]- Active Unknown 10 Celexa MEDISPAN [address]- Active Unknown 01 Paxil MEDISPAN [address]- Active Unknown 13 Social History Social History Element Qualifiers Date Reported Tobacco Use: . Are you a: never smoker Jan 13, 2015 Vital Signs Date/Time: Jan 02, 2015 Weight 260 lbs Height 68 in Temperature 97.8 F Cardiac Monitoring Heart Rate 102 /min Summary Purpose eClinicalWorks Submission
--- OUTSIDE RECORDS SUMMARY | 2019-08-20 09:08 | XMS REPORT ---
[...] Date End Date Status Dosage Paxil MEDISPAN [phone]- Active Unknown 13 Clonidine HCl MEDISPAN [address]- Active Unknown 10 Celexa MEDISPAN [address]- Active Unknown 01 Seroquel MEDISPAN [address]- Active Unknown 10 Social History Social History [...]
--- OUTSIDE RECORDS SUMMARY | 2019-08-20 09:08 | XMS REPORT ---
[...] Date End Date Status Dosage Augmentin MEDISPAN [phone] 500 mg PO Three Sep 17, Oct 01, Active 1 tablet -20 times a day 2013 2013 Social History Social History Element Qualifiers Date Reported Tobacco Use: . Are you a: never smoker Sep 24, 2014 Summary Purpose eClinicalWorks Submission
--- OUTSIDE RECORDS SUMMARY | 2019-08-20 09:08 | XMS REPORT ---
:1995 Author Organization [employer] Care Team Providers Name Role Phone Raphael [...] never smoker Nov 24, 2014 Summary Purpose eClinicaleRALOS3 Submission
--- OUTSIDE RECORDS SUMMARY | 2019-08-20 09:08 | XMS REPORT ---
[...] End Date Status Dosage Clonidine HCl MEDISPAN [address]- Active Unknown 10 Paxil MEDISPAN [address]- Active Unknown 13 Seroquel MEDISPAN [address]- Active Unknown 10 Celexa MEDISPAN [address]- Active Unknown 01 Social History Social History Element Qualifiers Date Reported Tobacco Use: . Are you a: never smoker Jan 13, 2015 Vital Signs Date/Time: Jan 13, 2015 Weight 263 lbs Height 68 in Temperature 97.6 F Cardiac Monitoring Heart Rate 101 /min Summary Purpose eClinicalWorks Submission
--- OUTSIDE RECORDS SUMMARY | 2019-08-20 09:09 | XMS REPORT ---
:1995 [facility] Address [address] [place] [address] [address] Care Team Providers Name Role Phone ISI AMATO Unavailable Unavailable Problems This patient has no known problems. Allergies, Adverse Reactions, Alerts This patient has no known allergies or adverse reactions. Medications This patient has no known medications. Encounters Start End Encounter Admission Attending Care Care Encounter Date/Time Date/Time Type Type Clinicians Facility Department ID 2018-01-02 2018-02-11 Outpatient ISI CATES [facility] [id number] 12:57:00 23:59:00 PT
[2019-08-20] MEDS ORDERED: FENTANYL CITR 100 MCG/2 ML ONE ×3 (09:13→17:30)
[2019-08-20] MEDS ORDERED: ONDANSETRON 4 MG/2 ML VIAL ONE ×3 (09:13→14:46)
[2019-08-20] MEDS ORDERED: NA CHLORIDE 0.9% 1,000 ML ONE (09:14)
--- NOTE | 2019-08-20 10:17 | RAD REPORT ---
EXAM DESCRIPTION: CTAbdomen Pelvis W Contrast - 08/20/2019 9:49 am CLINICAL HISTORY: Abdominal pain. ABD PAIN COMPARISON: Abdomen Exam Limited dated 08/20/2019 TECHNIQUE: Biphasic CT imaging of the abdomen and pelvis was performed with 100 ml non-ionic IV cont rast. All CT scans are performed using dose optimization technique as appropriate and may include automated exposure control or mA/KV adjustment according to patient size. FINDINGS: The lung bases are clear.Cholelithiasis. The liver, spleen, pancreas, adrenal glands and kidneys are within normal limits. No bowel obstruction, free air, free fluid or abscess. The appendix is not identified as a discrete structure, however, no secondary findings of appendicitis are identified. No evidence of significan t lymphadenopathy. No suspicious bony findings. IMPRESSION: No acute intra-abdominal or pelvic finding. Cholelithiasis.
[2019-08-20] MEDS ORDERED: NA CHLORIDE 0.9% 100 ML IV ONE (10:20)
[2019-08-20] MEDS ORDERED: METOCLOPRAMIDE 10 MG/2mL INJ ONE (10:20)
[2019-08-20] MEDS ORDERED: DIPHENHYDRAMINE 50 MG/ML VIAL ONE ×3 (10:20→17:50)
[2019-08-20] MEDS ORDERED: DIAZEPAM 10 MG/2 ML INJ SYRINGE ONE (10:25)
[2019-08-20 10:38] LABS: Absolute Lymphocytes (CBC) 2.8 K/uL (0.7-4.9); Basophils % 1.7 % (0-1.3); Hematocrit 40.4 % (39.6-49.0); Lymphocytes % 42.2 % (15.3-44.8); MPV 7.3 fL (7.6-11.3); RBC Red Blood Cell Count 4.83 M/uL (4.33-5.43)
[2019-08-20 10:39] LABS: ALT/SGPT 58 U/L (12-78); AST/SGOT 22 U/L (15-37); Alkaline Phosphatase 146 U/L (45-117); BUN Blood Urea Nitrogen 6 mg/dL (7-18); Bicarbonate 32 mmol/L (21-32); Bilirubin Direct 0.1 mg/dL (0-0.2); Bilirubin Total 0.5 mg/dL (0.2-1.0); Glucose Level 100 mg/dL (74-106); Lipase 82 U/L (73-393); Protein, Total 7.1 g/dL (6.4-8.2); Sodium Level 140 mmol/L (136-145)
[2019-08-20] MEDS ORDERED: PIPER/TAZO/NS 3.375gm 3.375 GM/100 ML BAG ONE (10:40)
[2019-08-20] MEDS ORDERED: KETOROLAC 30 MG/ML INJ ONE ×2 (10:45→14:46)
--- NOTE | 2019-08-20 11:02 | RAD REPORT ---
EXAM DESCRIPTION: US - Abdomen Exam Limited - 08/20/2019 10:07 am CLINICAL HISTORY: EPIGASTRIC PAIN COMPARISON: No comparisons FINDINGS: The gallbladder demonstrates a large shadowing gallstone in the gallbladder neck region. N o pericholecystic fluid or gallbladder wall thickening. The common bile duct is normal measuring 5 mm . The liver demonstrates no findings of intrahepatic biliary dilatation. IMPRESSION: Cholelithiasis.
--- NOTE | 2019-08-20 11:19 | ER ---
Nurse's Notes [facility] Name: Keo Hardin Age: 24 yrs Sex: Male : 1995 Arrival Date: 08/20/2019 Time: 08:59 Bed 7 Private MD: Wesley Lechuga V Diagnosis: Unspecified abdominal pain;Back Pain;Cholelithiasis Presentation: 08/20 09:00 Presenting complaint: EMS states: Upper abdominal pain began 3 days ago, went to [facility] yesterday and they told him he's been taking too much ibuprofen. Pt reports epigastric pain radiates straight through to the back that started 3 days ago, and it feels like stabbing, had been taking ibuprofen for back pain that started 3 weeks ago. Transition of care: patient was not received from another setting of care. Onset of symptoms was August 17, 2019. Risk Assessment: Do you want to hurt yourself or someone else? Patient reports no desire to harm self or others. Initial Sepsis Screen: Does the patient meet any 2 criteria? No. Patient's initial sepsis screen is negative. Does the patient have a suspected source of infection? No. Patient's initial sepsis screen is negative. Care prior to arrival: None. 09:00 Method Of Arrival: EMS: [place] [address] 09:00 Acuity: ROBERTH 3 jl7 Triage Assessment: 09:10 General: Appears comfortable, unkempt, well developed, well nourished, Behavior is sg cooperative, appropriate for age, crying. Pain: Complains of pain in lumbar area, epigastric area and umbilical area Quality of pain is described as "hot knife stabbing". EENT: No signs and/or symptoms were reported regarding the EENT system. Neuro: Level of Consciousness is awake, alert, obeys commands, Oriented to person, place, time, Chief Radiologic Technologist are equal bilaterally Moves all extremities. Gait is steady, Speech is normal, Facial symmetry appears normal. Cardiovascular: Patient's skin is warm and dry. Chest pain is denied. Respiratory: Airway is patent Respiratory effort is even, unlabored, Respiratory pattern is regular, symmetrical. GI: Abdomen is round non-distended, obese, Reports Pain is 10 out of 10 on a pain scale. : No signs and/or symptoms were reported regarding the genitourinary system. Derm: Skin is pink, warm \\T\\ dry. Musculoskeletal: Circulation, motion, and sensation intact. Range of motion: intact in all extremities. Historical: - Allergies: 09:07 Haldol; jl7 - Home Meds: 09:07 Omeprazole Oral [Active]; doxepin 100 mg Oral cap 2 cap once daily [Active]; Clonazepam jl7 Oral [Active]; lisinopril Oral [Active]; Seroquel 100 mg Oral tab 1 tab daily [Active]; Wellbutrin 450 mg Oral tab 1 tab daily [Active]; atorvastatin oral oral [Active]; - PMHx: 09:07 Anxiety; Depression; MRSA; Hypertension; Hyperlipidemia; jl7 - Immunization history:: Adult Immunizations unknown. - Social history:: Smoking status: Patient/guardian denies using tobacco. - Ebola Screening: : No symptoms or risks identified at this time. Screenin:28 Abuse screen: Denies threats or abuse. Denies injuries from another. Nutritional [facility] screening: No deficits noted. Tuberculosis screening: No symptoms or risk factors identified. Fall Risk IV access (20 points). Total Charles Fall Scale indicates No Risk (0-24 pts). Assessment: 09:09 Reassessment: pt reports " my dad is on the way, he told me to tell yall to call sg . Im not sure who that is but apparently that's my new pcp." Sarah HIGGINBOTHAM notified. 09:35 Reassessment: Victoria SOLIS charge at bedside for IV attempt. sg 10:00 Reassessment: Pt reports no change in pain, ERP notified, no new orders received at [facility] this time. Explained to pt that we are waiting for results to see how best to treat him. Pt verbalized understanding. 10:15 Reassessment: Pt heard yelling at his Dad, pt states "Get the fuck out of my room Dad! [facility] You'd be yelling too if you were in the worse pain of your life!" ERP notified, see [facility] for orders. 10:40 Reassessment: NEFTALY Dillon at bedside discussing plan of care. [facility] 11:00 Reassessment: Pt States "They only gave me Toradol." Explained to pt that we [facility] administered Fentanyl, Valium, and Toradol. Pt states "Well they only gave me a half dose today, they always give me 100 mcg of Fentanyl." Explained to pt that in the past they have administered 25 mcg doses of Fentanyl. Pt now reports the fentanyl brought his pain level down to a 7/10 at this time. 11:08 Reassessment: NEFTALY Dillon at bedside. jl7 11:23 Reassessment: Pt states "Is there anything you can give me for pain please?" ERP jl7 notified, see MAR for orders. 11:45 Reassessment: Patient appears in no apparent distress at this time. Pain rated 4/10 at jl7 this time Patient states feeling better. Patient states symptoms have improved. 12:45 Reassessment: pt reports mild itching, requesting Benadryl, ERP notified, see MAR for jl7 orders. 13:00 Reassessment: Pt reports slight increase in back pain, rated 4/10 at this time. jl7 Vital Signs: 09:07 BP 133 / 80; Pulse 97; Resp 16 S; Temp 97.9(O); Pulse Ox 97% on R/A; Weight 149.69 kg jl7 (R); Pain 9/10; 10:30 BP 128 / 85; Pulse 76; Resp 16 S; Pulse Ox 98% on R/A; jl7 11:14 BP 116 / 59; Pulse 79; Resp 16 S; Pulse Ox 98% on R/A; Pain 7/10; jl7 11:45 BP 148 / 99; Pulse 81; Resp 16 S; Pulse Ox 100% on R/A; Pain 4/10; jl7 13:19 BP 133 / 95; Pulse 89; Resp 16 S; Pulse Ox 100% on R/A; Pain 5/10; jl7 ED Course: 08:59 Patient arrived in ED. jl7 09:03 Triage completed. jl7 09:04 [facility] Pond [facility] jm 09:04 Wilber Blake MD is Attending Physician. jmm 09:05 Missed attempt(s): 22 gauge in right forearm. Bleeding controlled, band aid applied, sg catheter tip intact. 09:07 Arm band placed on right wrist. jl7 09:09 Wesley Lechuga MD is Private Physician. sg 09:30 Missed attempt(s): 22 gauge in left forearm. Bleeding controlled, band aid applied, jl7 catheter tip intact. 09:32 Missed attempt(s): 20 gauge in left antecubital area. Bleeding controlled, band aid jl7 applied, catheter tip intact. 09:34 Missed attempt(s): 22 gauge in right wrist. Bleeding controlled, band aid applied, sg catheter tip intact. 09:34 Initial lab(s) drawn, by me, sent to lab. sg 09:49 CT Abd/Pelvis - IV Contrast Only In Process Unspecified. EDMS 09:55 CT completed. Patient tolerated procedure well. Patient taken to ultrasound. Patient mw3 moved back from CT. 10:00 Lab(s) recollected, by ED staff, sent to lab. Inserted saline lock: 22 gauge in left jl7 antecubital area, using aseptic technique. Blood collected. 10:09 US Abdomen Limited In Process Unspecified. EDMS 10:09 Molina Mccall, RN is Primary Nurse. sg 10:28 Patient has correct armband on for positive identification. Bed in low position. Call jl7 light in reach. Side rails up X 1. Adult w/ patient. Pulse ox on. NIBP on. 10:29 Lab(s) recollected, by me, by ED staff, sent to lab. sg 11:15 Wesley Lechuga MD is Hospitalizing Provider. [facility] Administered Medications: 09:39 Drug: fentaNYL (PF) 50 mcg Route: IVP; Site: left antecubital; sg 10:00 Follow up: Response: No adverse reaction; Pain is unchanged, physician notified [facility] 09:39 Drug: Zofran 4 mg Route: IVP; Site: left antecubital; sg 10:27 Follow up: Response: No adverse reaction [facility] 10:21 CANCELLED (different medication used): diphenhydrAMINE 25 mg IVP once [facility] 10:27 Drug: Valium 5 mg Route: IVP; Site: left antecubital; jl7 11:28 Follow up: Response: No adverse reaction jl7 10: Drug: NS 0.9% 1000 ml Route: IV; Rate: 1 bolus; Site: left antecubital; jl7 10:52 Drug: Zosyn 3.375 grams Route: IVPB; Infused Over: 60 mins; Site: left antecubital; jl7 10:52 Drug: Ketorolac 30 mg Route: IVP; Site: left antecubital; jl7 11:15 Follow up: Response: No adverse reaction; Pain is unchanged, physician notified jl7 11:28 Drug: Dilaudid 0.5 mg Route: IVP; Site: left antecubital; jl7 11:45 Follow up: Response: No adverse reaction; Pain is decreased jl7 13:13 Drug: Benadryl 50 mg Route: IVP; Site: left antecubital; jl7 13:14 Drug: Pepcid 20 mg Route: IVP; Site: left antecubital; jl7 13:15 Drug: Zofran 4 mg Route: IVP; Site: left antecubital; jl7 13:17 Drug: fentaNYL (PF) 50 mcg Route: IVP; Site: left antecubital; jl7 Outcome: 11:17 Decision to Hospitalize by Provider. shahab 14:00 Admitted to OR accompanied by nurse, family with patient, via wheelchair, with chart. sg 14:00 Condition: stable 14:00 Instructed on the need for admit, safety practices. 14:02 Patient left the ED. sg Signatures: Dispatcher [employer] Molina Gonzalez, RN RN Santana Cook PA PA Tea Cornejo RN RN jl7 Myla Moctezuma mw3
--- NOTE | 2019-08-20 11:21 | EDPHYS ---
Physician Documentation [facility] Name: Keo Hardin Age: 24 yrs Sex: Male : 1995 Arrival Date: 08/20/2019 Time: 08:59 Bed 7 Private MD: Wesley Lechuga V ED Physician Wilber Blake HPI: 08/20 09:19 This 24 yrs old Male presents to ER via EMS with complaints of Abdominal Pain.jmm 09:19 The patient presents with abdominal pain in the epigastric area. Onset: The jmm symptoms/episode began/occurred gradually, 3 day(s) ago. The symptoms radiate to Associated signs and symptoms: Pertinent positives: vomiting. Modifying factors: The symptoms are alleviated by nothing, the symptoms are aggravated by nothing. This is a 24 year old male with a history of depression, MRSA, HTN, HLP that presents to the ED with complaints of epigastric abdominal pain beginning 3 days ago. Evaluated at [place] yesterday with elevated LFTS. Pain has worsened today. . Historical: - Allergies: 09:07 Haldol; jl7 - Home Meds: 09:07 Omeprazole Oral [Active]; doxepin 100 mg Oral cap 2 cap once daily [Active]; Clonazepam jl7 Oral [Active]; lisinopril Oral [Active]; Seroquel 100 mg Oral tab 1 tab daily [Active]; Wellbutrin 450 mg Oral tab 1 tab daily [Active]; atorvastatin oral oral [Active]; - PMHx: 09:07 Anxiety; Depression; MRSA; Hypertension; Hyperlipidemia; jl7 - Immunization history:: Adult Immunizations unknown. - Social history:: Smoking status: Patient/guardian denies using tobacco. - Ebola Screening: : No symptoms or risks identified at this time. ROS: 09:19 Constitutional: Negative for fever, chills, and weight loss, Cardiovascular: Negative jmm for chest pain, palpitations, and edema, Respiratory: Negative for shortness of breath, cough, wheezing, and pleuritic chest pain. 09:19 Abdomen/GI: Positive for abdominal pain, nausea and vomiting. 09:19 Back: Positive for radiated pain. 09:19 All other systems are negative. Exam: 09:19 Head/Face: atraumatic. Eyes: EOMI, no conjunctival erythema appreciated ENT: Moist jmm Mucus Membranes Neck: Trachea midline, Supple Chest/axilla: Normal chest wall appearance and motion. Cardiovascular: Regular rate and rhythm. No edema appreciated Respiratory: Normal respirations, no respiratory distress appreciated 09:19 Constitutional: The patient appears alert, awake, in obvious pain. 09:19 Abdomen/GI: Inspection: obese Bowel sounds: normal, Palpation: soft, mild abdominal tenderness, in the right upper quadrant and left upper quadrant. 09:19 Musculoskeletal/extremity: ROM: intact in all extremities. 09:19 Skin: Appearance: Color: normal in color. 09:19 Neuro: Orientation: is normal, Mentation: is normal, Memory: is normal. 09:19 Psych: Behavior/mood is pleasant, cooperative. Vital Signs: 09:07 BP 133 / 80; Pulse 97; Resp 16 S; Temp 97.9(O); Pulse Ox 97% on R/A; Weight 149.69 kg jl7 (R); Pain 9/10; 10:30 BP 128 / 85; Pulse 76; Resp 16 S; Pulse Ox 98% on R/A; jl7 11:14 BP 116 / 59; Pulse 79; Resp 16 S; Pulse Ox 98% on R/A; Pain 7/10; jl7 11:45 BP 148 / 99; Pulse 81; Resp 16 S; Pulse Ox 100% on R/A; Pain 4/10; jl7 13:19 BP 133 / 95; Pulse 89; Resp 16 S; Pulse Ox 100% on R/A; Pain 5/10; jl7 MDM: 09:04 Patient medically screened. [facility] 10:57 Data reviewed: vital signs, nurses notes. Counseling: I had a detailed discussion with [facility] the patient and/or guardian regarding: the historical points, exam findings, and any diagnostic results supporting the discharge/admit diagnosis. 11:13 ED course: I discussed the patient with Dr. Lechuga whom accepted admission. I discussed [facility] the patient with Dr. Jett whom will consult on admission. . 08/20 09:08 Order name: Basic Metabolic Panel; Complete Time: 10:42 [facility] 08/20 09:08 Order name: CBC with Diff; Complete Time: 10:42 [facility] 08/20 10:56 Interpretation: WBC 6.6. [facility] 08/20 09:08 Order name: Creatinine for Radiology; Complete Time: 10:38 [facility] 08/20 09:08 Order name: Hepatic Function; Complete Time: 10:42 [facility] 08/20 09:08 Order name: Lipase; Complete Time: 10:42 [facility] 08/20 11:45 Order name: Basic Metabolic Panel [facility] 08/20 11:45 Order name: Basic Metabolic Panel [facility] 08/20 11:45 Order name: CBC with Automated Diff [facility] 08/20 11:45 Order name: CBC with Automated Diff [facility] 08/20 11:45 Order name: Lipase [facility] 08/20 11:45 Order name: Lipase [facility] 08/20 11:45 Order name: Liver (Hepatic) Function [facility] 08/20 11:45 Order name: Liver (Hepatic) Function [facility] 08/20 13:02 Order name: Urine Dipstick--Ancillary (enter results) 08/20 09:08 Order name: IV Saline Lock; Complete Time: 09:44 [facility] 08/20 09:08 Order name: US Abdomen Limited; Complete Time: 11:55 [facility] 08/20 09:09 Order name: CT Abd/Pelvis - IV Contrast Only; Complete Time: 11:55 [facility] 08/20 11:39 Order name: NPO [facility] 08/20 09:08 Order name: Labs collected and sent; Complete Time: 09:44 [facility] 08/20 09:08 Order name: Urine Dipstick-Ancillary (obtain specimen); Complete Time: 13:38 [facility] 08/20 09:52 Order name: Labs - recollect needed; Complete Time: 10:21 bd Administered Medications: 09:39 Drug: fentaNYL (PF) 50 mcg Route: IVP; Site: left antecubital; sg 10:00 Follow up: Response: No adverse reaction; Pain is unchanged, physician notified jl7 09:39 Drug: Zofran 4 mg Route: IVP; Site: left antecubital; sg 10:27 Follow up: Response: No adverse reaction jl7 10:21 CANCELLED (different medication used): diphenhydrAMINE 25 mg IVP once [facility] 10:27 Drug: Valium 5 mg Route: IVP; Site: left antecubital; jl7 11:28 Follow up: Response: No adverse reaction jl7 10:28 Drug: NS 0.9% 1000 ml Route: IV; Rate: 1 bolus; Site: left antecubital; jl7 10:52 Drug: Zosyn 3.375 grams Route: IVPB; Infused Over: 60 mins; Site: left antecubital; jl7 10:52 Drug: Ketorolac 30 mg Route: IVP; Site: left antecubital; jl7 11:15 Follow up: Response: No adverse reaction; Pain is unchanged, physician notified jl7 11:28 Drug: Dilaudid 0.5 mg Route: IVP; Site: left antecubital; jl7 11:45 Follow up: Response: No adverse reaction; Pain is decreased jl7 13:13 Drug: Benadryl 50 mg Route: IVP; Site: left antecubital; jl7 13:14 Drug: Pepcid 20 mg Route: IVP; Site: left antecubital; jl7 13:15 Drug: Zofran 4 mg Route: IVP; Site: left antecubital; jl7 13:17 Drug: fentaNYL (PF) 50 mcg Route: IVP; Site: left antecubital; jl7 Disposition: 08/21 08:32 Co-signature as Attending Physician, Wilber Blake MD I agree with the assessment and jameel plan of care. Disposition: 08/20/19 11:17 Hospitalization ordered by Wesley Lechuga for Inpatient Admission. Preliminary diagnosis are Unspecified abdominal pain, Back Pain, Cholelithiasis. - Bed requested for Telemetry/MedSurg (Inpatient). - Status is Inpatient Admission. sg - Condition is Stable. - Problem is new. - Symptoms are unchanged. UTI on Admission? No Signatures: Dispatcher [employer] EDMS Tracey Bowen Steven, RN Wilber Stevens MD MD cha Mickail, Joel, PA PA Tea Cornejo, RN RN jl7 Corrections: (The following items were deleted from the chart) 08/20 10:21 10:18 diphenhydrAMINE 25 mg IVP once ordered. shahab gudino 14:02 11:17 Hospitalization Ordered by Wesley Lechuga MD for Inpatient Admission. Preliminary sg diagnosis is Unspecified abdominal pain; Back Pain; Cholelithiasis. Bed requested for Telemetry/MedSurg (Inpatient). Status is Inpatient Admission. Condition is Stable. Problem is new. Symptoms are unchanged. UTI on Admission? No. shahab
[2019-08-20] MEDS ORDERED: HYDROMORPHONE HCL 0.5 MG/0.5 ML INJ ONE (11:23)
[2019-08-20] MEDS ORDERED: ONDANSETRON 4 MG/2 ML VIAL IV PRN (11:28)
[2019-08-20] MEDS ORDERED: ACETAMINOPHEN 500 MG TAB PO PRN (11:28)
[2019-08-20] MEDS ORDERED: HYDROMORPHONE HCL 1 MG/ML INJ IV PRN (11:28)
[2019-08-20] MEDS ORDERED: FAMOTIDINE 20 MG/2 ML VIAL IV ONE (13:11)
[2019-08-20] MEDS: Ringers Lactate 1,000 ML IV ONE ×2 (14:20→14:30)
[2019-08-20] MEDS ORDERED: DIAZEPAM 5 MG TABLET ONE (14:39)
[2019-08-20] MEDS ORDERED: ROCURONIUM 50 MG/5 ML VIAL IV ONE (14:45)
[2019-08-20] MEDS ORDERED: PROPOFOL 200 MG/20 ML VIAL IV ONE (14:45)
[2019-08-20] MEDS ORDERED: LIDOCAINE 2% MPF 5 ML VIAL ONE (14:45)
[2019-08-20] MEDS ORDERED: dexAMETHasone 10 MG/ML VIAL ONE (14:46)
[2019-08-20] MEDS ORDERED: CEFOXITIN 1 GM/10 ML SYR ONE (14:51)
[2019-08-20] MEDS ORDERED: SUCCINYLCHOLINE 20 MG/ML (10 ML) IV ONE ×2 (14:53→14:56)
[2019-08-20] MEDS ORDERED: SCOPOLAMINE HYDROBROMIDE PATCH TD ONE (15:01)
[2019-08-20] MEDS ORDERED: MIDAZOLAM HCL 2 MG/2 ML INJ ONE (15:26)
[2019-08-20 16:34] LABS: Urine Blood NEGATIVE (NEG); Urine Glucose NEGATIVE (NEG); Urine Protein NEGATIVE (NEG)
[2019-08-20] MEDS ORDERED: Ringers Lactate 1,000 ML IV ONE (16:34)
[2019-08-20] MEDS ORDERED: GLYCOPYRROLATE 0.2 MG/ML SYR ONE (16:40)
[2019-08-20] MEDS ORDERED: NEOSTIGMINE 1 MG/ML -10 ML VIAL ONE (16:48)
[2019-08-20] MEDS: PIPER/TAZO/NS 3.375gm 3.375 GM/100 ML BAG IVPB SCH (17:00)
[2019-08-20] MEDS ORDERED: HYDROCODONE/APAP 7.5/325 MG TAB PO PRN (17:08)
--- NOTE | 2019-08-20 17:10 | P.OP ---
Dance Master: Pita HARPER Preoperative diagnosis: Acute Cholecystitis and Cholelithiasis Postoperative diagnosis: same Primary procedure: Lap Luana Anesthesia: General Estimated blood loss: min Specimen: GB Findings: as above Complications: None Transferred to: Recovery Room Condition: Good
[2019-08-20] MEDS: FENTANYL CITR 100 MCG/2 ML ONE ×2 (17:20→17:50)
[2019-08-20 18:12] VITALS: BMI 50.1
--- NOTE | 2019-08-20 19:15 | PREOPCON ---
Date of Consultation: 08/20/2019 Reason For Consultation: Abdominal pain. History Of Present Illness: The patient is a 24-year-old gentleman, who comes in with a 6-month hist ory of back pain, epigastric pain, right upper quadrant pain occasionally associated with vomiting. No nausea. No diarrhea or constipation. Occasional bloating, belching, and heartburn. No diarrhea, constipation, blood in his stool, dysuria, or hematuria. No sore throat, runny nose, cough, headach es, or dizziness. No chest pain. No fever or chills. Review of Systems: Otherwise unremarkable. Past Medical History: Significant for hypertension, hyperlipidemia, depression, anxiety, bipolar dis order. Past Surgical History: Pilonidal cystectomy, oral surgery. Allergies: HALDOL. Social History: He does not smoke or drink alcohol. Family History: Noncontributory. Physical Examination: Vital Signs: Stable. He is currently afebrile. Patient weight is 149.69 kg. General: He is awake, alert, and oriented x3. Head and Neck: No evidence of icterus. Cranial nerves 2 through 12 are grossly within normal limits . No neck masses. No JVD. Throat clear. Neck is supple. Chest: Clear. Heart: S1, S2. Abdomen: Soft, nondistended. Positive right upper quadrant tenderness. No rebound, rigidity, or gu arding. Extremities: Adequately perfused. Nontender. Neuro: Nonfocal. Imaging: Abdomen and pelvis CT and abdominal ultrasound reviewed, consistent with cholelithiasis. Laboratory Data: Laboratory data reviewed. His white count is normal. LFTs are normal except for a lkaline phosphatase is slightly up at 146. Assessment: Acute cholecystitis and cholelithiasis. Plan: Admit, n.p.o., IV fluid, IV antibiotic, to the OR for lap-nancy possible open. Patient unders tands the risks, benefits, and alternatives and agrees to procedure. /MODL Voice ID: [id number] Report ID: [id number]
[2019-08-20] MEDS: HYDROMORPHONE HCL 1 MG/ML INJ IV PRN (19:32)
[2019-08-20] MEDS ORDERED: TEMAZEPAM 15 MG CAP PO SCH (21:00)
[2019-08-20] MEDS ORDERED: DIVALPROEX DR 250 MG TAB PO SCH (21:00)
--- NOTE | 2019-08-20 21:17 | P.SSS ---
Patient History Date of Service: 08/20/19 Reason for admission: BACK PAIN, ABDOMEN PAIN, VOMITING. History of Present Illness: MR RICHARDS HAS ANXIETY, HTN AND OBESITY HIS MEDICAL ISSUES. FOR LAST ONE WEEK HE HAS HAD 4 ER VISITS FOR BACK PAIN THAT RADIATED FROM SIDE TO SIDE. THEY RULED OUT BACK AND LUNG ISSUES. TODAY HIS FATHER CALLED OFFICE URGING ME TO TAKE HIM A NEW PATIENT TODAY URGENTLY. I GAVE HIM AN APT THIS PM. HE STARTED TO VOMIT WITH SEVERE PAIN IN ABDOMEN ALSO SO HE WAS BROUGHT BACK TO ER BEFORE I SEE HIM. ON SONOGRAM HE HAS CHOLELITHIASIS AND CYSTIC DUCT STONE. I SAW HIM AT LUNCH TIME AND DR. LINDO TOOK HIM FOR SURGERY THIS PM FOR CHOLECYSTECTOMY. Allergies haloperidol [From Haldol] Allergy (Verified 08/20/19 18:41) Unknown Home Medications: ALPRAZolam [Alprazolam] 1 mg PO Q8HP PRN 08/20/19 ALPRAZolam [Xanax*] 1 mg PO Q8HP PRN 08/20/19 Divalproex Sodium [Depakote] 250 mg PO BEDTIME 08/20/19 Lisinopril [Zestril] 10 mg PO DAILY 08/20/19 Omeprazole [Prilosec] 40 mg PO DAILY 08/20/19 Temazepam 30 mg PO BEDTIME 08/20/19 buPROPion HCl [Wellbutrin] 300 mg PO DAILY 08/20/19 - Past Medical/Surgical History Has patient received pneumonia vaccine in the past: No -: ANXIETY -: HTN -: DEPRESSION -: OBESITY Past Surgical History: Patient denies surgical history - Social History Smoking Status: Never smoker Review of Systems 10-point ROS is otherwise unremarkable General: Weakness Gastrointestinal: Nausea, Vomiting, Abdominal Pain Physical Examination - Vital Signs Temperature: 97.4 F Blood Pressure: 138/75 Pulse: 86 Respirations: 18 Pulse Ox (%): 97 - Physical Exam General: Alert, Mild distress, Moderate distress HEENT: Atraumatic, PERRLA, Mucous membr. moist/pink, EOMI, Sclerae nonicteric Neck: Supple, 2+ carotid pulse no bruit, No LAD, Without JVD or thyroid abnormality Respiratory: Clear to auscultation bilaterally, Normal air movement Cardiovascular: Regular rate/rhythm, Normal S1 S2 Gastrointestinal: Non-distended, Tenderness Musculoskeletal: No tenderness Integumentary: No rashes Neurological: Normal gait, Normal speech, Normal strength at 5/5 x4 extr, Normal tone, Normal affect Lymphatics: No axilla or inguinal lymphadenopathy - Studies Laboratory Data (last 24 hrs) 08/20/19 10:00: Creatinine 0.84 08/20/19 10:00: WBC 6.6 D, Hgb 13.6, Hct 40.4, Plt Count 406 D 08/20/19 10:00: Sodium 140, Potassium 4.0, BUN 6 L, Creatinine 0.82, Glucose 100 , Total Bilirubin 0.5, AST 22, ALT 58, Alkaline Phosphatase 146 H, Lipase 82 - Diagnosis (Problem(s)) (1) Cholelithiases Current Visit: Yes Status: Acute Plan: SURGERY WENT WELL. MAY GO HOME IN AM. Qualifiers: Cholelithiasis location: gallbladder Cholecystitis presence: with cholecystitis Cholecystitis acuity: acute (2) Acute cholecystitis Current Visit: Yes Status: Acute Plan: ABOVE NOTED. (3) Anxiety disorder Current Visit: Yes Status: Acute Plan: HAS BEEN TO PSYCH MD. ON MEDS - MULTIPLE HE SHOULD NOT TAKE XANAX AND TEMAZEPAM TOGETHER. HE IS AWARE. Qualifiers: Anxiety disorder type: generalized anxiety disorder Qualified Code(s): F41.1 - Generalized anxiety disorder (4) Morbid obesity Current Visit: Yes Status: Chronic Plan: WEIGHT LOSS HAS BEEN ADVISED. I WILL PROVIDE DIETS AND COUNSELLING. (5) HTN (hypertension) Current Visit: Yes Status: Chronic Plan: STABLE FOR NOW. WEIGHT LOSS WILL HELP GET OFF MEDS. Qualifiers: Hypertension type: essential hypertension Qualified Code(s): I10 - Essential (primary) hypertension - Disposition Disposition: ROUTINE DISCHARGE
[2019-08-21] MEDS: HYDROMORPHONE HCL 1 MG/ML INJ IV PRN (00:57)
[2019-08-21] MEDS: PIPER/TAZO/NS 3.375gm 3.375 GM/100 ML BAG IVPB SCH ×2 (02:17→08:25)
[2019-08-21] MEDS ORDERED: DIPHENHYDRAMINE 50 MG/ML VIAL IV ONE (02:17)
[2019-08-21 02:30] VITALS: O2SAT 96
[2019-08-21] MEDS ORDERED: KETOROLAC 30 MG/ML INJ IV PRN (02:42)
--- NOTE | 2019-08-21 02:51 | OP ---
Date of Procedure: 08/20/2019 Surgeon: James Jett MD Equities Analyst: LEROY Moody Preoperative Diagnoses: Acute cholecystitis and cholelithiasis. Postoperative Diagnoses: Acute cholecystitis and cholelithiasis. Procedure: Laparoscopic cholecystectomy. Estimated Blood Loss: Minimal. Specimen: Gallbladder. Findings: As above. Anesthesia: General. Complications: None. Disposition: The patient tolerated the procedure in stable condition and taken to Recovery in good g eneral condition. Procedure In Detail: The patient was brought to the OR, placed in supine position. General anesthes ia begun. Patient was prepped and draped in the usual sterile fashion. Marcaine 0.5% was infiltrate d locally. A 15-blade was used to make a 2 cm supraumbilical midline incision. Subcutaneous tissue was divided. The fascia was identified and divided. A #1 Vicryl stay suture was placed. Peritoneal cavity was entered with blunt dissection. A 12 mm trocar was placed into the peritoneal cavity unde r direct vision. Pneumoperitoneum was established and then three 5 trocars placed, 1 in the epigastr ium just to the right of midline and 2 in the right subcostal region. Laparoscopy revealed a markedl y distended gallbladder with omental adhesions. The gallbladder had to be aspirated of bile and then fundus was identified and was retracted superiorly. The wall was thickened and it was acutely infla med. Then, omental adhesions taken down with sharp and blunt dissection. Bleeding controlled with c autery. Then, infundibulum was identified and retracted inferolaterally. Cystic duct and cystic art eileen were clearly identified with blunt dissection. Clips placed. Both structures were divided. Cau radha was used to remove the gallbladder from the liver bed. Bleeding on the liver bed controlled wit h cautery. Gallbladder was retrieved through the umbilicus via EndoCatch bag. Right upper quadrant was irrigated. Effluent was clear. No evidence of bleeding or bile leakage appreciated. Subsequent ly, all trocars were removed under direct vision. Stay sutures were tied to each other across the fa scial defect. An extra stitch was necessary because the fascial defect had to be extended to take th e gallbladder out and this was done with complete closure of the fascia. Wound irrigated, bleeding c ontrolled with cautery. 3-0 chromic used to approximate the subcutaneous tissue and laurence used to close skin. Sterile dressing was applied. Patient was awakened and taken to Recovery in good genera l condition. /MODUrban Voice ID: [id number] Report ID: [id number]
[2019-08-21] MEDS: ALPRAZOLAM 1 MG TABLET PO PRN ×2 (03:30→15:27)
[2019-08-21] MEDS ORDERED: DIPHENHYDRAMINE 25 MG TAB/CAP PO PRN (04:10)
[2019-08-21] MEDS: HYDROCODONE/APAP 7.5/325 MG TAB PO PRN ×3 (04:24→14:15)
[2019-08-21 06:04] LABS: Absolute Lymphocytes (CBC) 0.7 K/uL (0.7-4.9); Basophils % 0.3 % (0-1.3); Hematocrit 36.4 % (39.6-49.0); Lymphocytes % 7.1 % (15.3-44.8); MPV 6.9 fL (7.6-11.3); RBC Red Blood Cell Count 4.38 M/uL (4.33-5.43)
[2019-08-21 06:20] LABS: ALT/SGPT 167 U/L (12-78); AST/SGOT 126 U/L (15-37); Albumin 3.6 g/dL (3.4-5.0); Alkaline Phosphatase 150 U/L (45-117); BUN Blood Urea Nitrogen 6 mg/dL (7-18); Bicarbonate 28 mmol/L (21-32); Bilirubin Direct 0.1 mg/dL (0-0.2); Bilirubin Total 0.5 mg/dL (0.2-1.0); Glucose Level 129 mg/dL (74-106); Lipase 49 U/L (73-393); Magnesium 2.2 mg/dL (1.8-2.4); Phosphorus 3.7 mg/dL (2.5-4.9); Potassium 4.8 mmol/L (3.5-5.1); Protein, Total 6.9 g/dL (6.4-8.2); Sodium Level 137 mmol/L (136-145)
[2019-08-21] MEDS ORDERED: PANTOPRAZOLE 40MG TABLET PO SCH (06:30)
[2019-08-21] MEDS ORDERED: FENTANYL CITR 100 MCG/2 ML IV ONE (08:06)
[2019-08-21] MEDS: D5 0.45 NS 1,000 ML IV SCH ×2 (08:29→12:00)
[2019-08-21 08:43] LABS: Blood Morphology Comment NOT SEEN (NOT SEEN); Platelet Estimate ADEQ
[2019-08-21] MEDS ORDERED: buPROPion HCl 100 MG TAB PO SCH (09:00)
[2019-08-21] MEDS ORDERED: LISINOPRIL 10 MG TAB PO SCH (09:00)
--- NOTE | 2019-08-21 12:30 | PN ---
Date of Progress Note: 08/21/2019 Subjective: Patient is awake, alert, complaining of pain, is managed with oral analgesics, toleratin g diet, ambulating, afebrile. Objective: Vital Signs: Stable. Afebrile. Abdomen: Benign. Assessment: Status post laparoscopic cholecystectomy. Recommendations: Patient will be discharged home this morning. Instructions given. Follow up in my office in a week. CARMELLA/BISI Voice ID: [id number] Report ID: [id number]
[2019-08-21] MEDS ORDERED: LORazepam 2 MG/ML VIAL IV ONE (16:28)
[2019-08-21 16:37] VITALS: BP 137/70; TEMP 97.6
[2019-08-21] MEDS ORDERED: LORazepam 2 MG/ML VIAL ONE (16:41)
--- NOTE | 2019-08-21 17:39 | RAD REPORT ---
EXAM DESCRIPTION: MRI - Cholangiogram - 08/21/2019 5:25 pm CLINICAL HISTORY: elevated liver enzymes Abdominal pain COMPARISON: Abdomen Exam Limited dated 08/20/2019; Abdomen Pelvis W Contrast dated 08/20/2019 FINDINGS: Three-dimensional MRCP was performed using maximum intensity projection reconstruction on the same work station. No intrahepatic biliary tree dilatation is seen. The common bile duct is normal caliber without evide nce of retained stone, stricture or mass. The pancreatic duct is not pathologically dilated. Cholecystectomy. Trace amount of fluid is seen about the inferior right hepatic edge and in the gallb ladder fossa. Limited T2 sequences through the abdomen demonstrates no bulky adenopathy, bowel obstruction or absce ss. IMPRESSION: Negative MR cholangiogram.
--- NOTE | 2019-08-21 18:57 | PN ---
Subjective: Patient is stable. He complains lot of pain. Last time he woke me up 3 times because h e wanted narcotics. He has chronic anxiety disorder, panic attacks, and so his pain tolerance is pro bably very poor. He has no fever, nausea, vomiting any longer. His pain is in surgical site, which is expected. Physical Examination: Vital Signs: Blood pressure 131/68, pulse is 95, temperature 98.6. HEENT: No JVD. No carotid bruits. Abdomen: Morbidly obese abdomen. No guarding. There is minimal tenderness right upper quadrant. H is pain is 7/10. Laboratory Data: I saw going up was his liver profile, SGOT, SGPT, and alkaline phosphatase is raise d to 150 from 145 and OT and PT raised from 22 to 126 and 58 to 167. Assessment And Plan: Status post cholecystectomy. I want to make sure he does not have choledocholi thiasis. If he does, he will be back in the hospital with the pain and cholangitis, which is why I a m holding the discharge at this point ordering stat MRCP and may have to get GI specialist if we need to. Discussed with patient's mother. KASEY/BISI Voice ID: [id number] Report ID: [id number]
== END 2019-08-21 18:20 | disposition home or self-care (01) ==
LOC: ER 08:57 → ERHOLD 11:26 → INTOOBSV 11:26 → 2ND 16:00
PROVIDERS: ADMIT Internal Medicine; ATTEND Internal Medicine
PROC: 0FT44ZZ Resection of Gallbladder, Percutaneous Endoscopic Approach (ICD-10-PCS; principal; 2019-08-20 12:00)
DX: K80.00 Calculus of gallbladder with acute cholecystitis without obstruction (principal); I10 Essential (primary) hypertension; E78.5 Hyperlipidemia, unspecified; F41.8 Other specified anxiety disorders; F31.9 Bipolar disorder, unspecified; E66.01 Morbid (severe) obesity due to excess calories; Z68.43 Body mass index [BMI] 50.0-59.9, adult
CPT/HCPCS: 85025 ×2; 80048 ×2; 36415; 83735; 84100; 80076 ×2; 88304; 81003; 83690 ×2; 74177; 74181; 76705; 96375; 96372; 96374; 99283; 99285; 47562; Q9967; J2704; J2710; J0330; J2250; J3360; J3010 ×7; J2543 ×2; J1100; J1170 ×3; J7030; J2405 ×4; G0378 ×3; J2765

== ENCOUNTER 2019-09-26 09:15 | Emergency (ER) | payer OTHER ==
--- NOTE | 2019-09-26 10:38 | RAD REPORT ---
EXAM DESCRIPTION: RAD - Chest Pa And Lat (2 Views) - 09/26/2019 10:33 am CLINICAL HISTORY: Cough;Chest pain Chest pain. COMPARISON: Chest Pa And Lat (2 Views) dated 08/15/2019; Chest Single View dated 08/22/2017; Chest Pa And Lat (2 Views) dated 12/07/2016 FINDINGS: The lungs are clear. The heart is normal in size. No displaced fractures. IMPRESSION: No acute or concerning finding suspected.
[2019-09-26] MEDS ORDERED: clonazePAM 0.5 MG TAB ONE (10:53)
[2019-09-26] MEDS ORDERED: ALPRAZOLAM 1 MG TABLET ONE (10:53)
--- NOTE | 2019-09-26 10:53 | ER ---
Nurse's Notes Formerly [facility] Name: Keo Hardin Age: 24 yrs Sex: Male : 1995 Arrival Date: 09/26/2019 Time: 09:16 Bed 14 Private MD: Shaun Manzo C Diagnosis: Anxiety disorder, unspecified Presentation: 09/26 09:28 Presenting complaint: Patient states: Pt reports he has been trying to self medicate ss with Kratom at home to wean himself off of his Xanax. Since then, patient reports flu like symptoms and severe anxiety. Mother keeps medications locked away and would not give patient any of his PRN medications for anxiety. C/o nausea, CP and anxiety x "a few days". Transition of care: patient was not received from another setting of care. Onset of symptoms was September 21, 2019. Risk Assessment: Do you want to hurt yourself or someone else? Patient reports no desire to harm self or others. Initial Sepsis Screen: Does the patient meet any 2 criteria? No. Patient's initial sepsis screen is negative. Does the patient have a suspected source of infection? No. Patient's initial sepsis screen is negative. Care prior to arrival: None. 09:28 Method Of Arrival: Ambulatory ss 09:28 Acuity: ROBERTH 3 ss Triage Assessment: 10:00 General: Appears. ca1 10:00 General: Behavior is. ca1 Historical: - Allergies: 09:34 Haldol; ss - Home Meds: 09:34 lisinopril Oral [Active]; Effexor Oral [Active]; Xanax 2mg PRN anxiety [Active]; ss Wellbutrin 450 mg Oral tab 1 tab daily [Active]; atorvastatin Oral [Active]; Ambien Oral [Active]; Omeprazole Oral [Active]; Depakote ER Oral [Active]; - PMHx: 09:34 Anxiety; Depression; Hyperlipidemia; Hypertension; MRSA; GERD; insomnia; Bipolar ss disorder; Panic Attacks; - PSHx: 09:34 Cholecystectomy; ss - Immunization history:: Adult Immunizations up to date. - Social history:: Smoking status: Patient/guardian denies using tobacco. - Ebola Screening: : Patient denies exposure to infectious person Patient denies travel to an Ebola-affected area in the 21 days before illness onset. - Family history:: not pertinent. Screenin:40 Abuse screen: Denies threats or abuse. Nutritional screening: No deficits noted. aa5 Tuberculosis screening: No symptoms or risk factors identified. Fall Risk None identified. Assessment: 09:40 General: Appears uncomfortable, obese, Behavior is anxious. Pain: Complains of pain in aa5 anterior aspect of left upper chest Pain radiates to left arm Pain currently is 7 out of 10 on a pain scale. Quality of pain is described as pressure, Pain began today. Pt states "I am having a panic attack and my mom forgot to leave me any Xanax at home so that's why I came here" Is continuous. Neuro: Level of Consciousness is awake, alert, obeys commands, Oriented to person, place, time, situation. Cardiovascular: Heart tones S1 S2 present Rhythm is regular. Respiratory: Reports shortness of breath Airway is patent Respiratory effort is even, unlabored, Respiratory pattern is regular, symmetrical, Breath sounds are clear bilaterally. GI: No signs and/or symptoms were reported involving the gastrointestinal system. : No signs and/or symptoms were reported regarding the genitourinary system. EENT: No signs and/or symptoms were reported regarding the EENT system. Derm: Skin is pink, warm \\T\\ dry. Musculoskeletal: Range of motion: intact in all extremities. 11:15 Reassessment: Patient appears in no apparent distress at this time. Patient is alert, ca1 oriented x 3, equal unlabored respirations, skin warm/dry/pink. Pt appears calm at this time. Pt states, "I feel more relaxed now, there is still occasional chest tightness but I am feeling better". 11:21 Reassessment: Pt waiting for his ride. Will be here in 10 minutes. ca1 Vital Signs: 09:34 BP 132 / 80; Pulse 100; Resp 18; Temp 97.5(TE); Pulse Ox 97% on R/A; Weight 145.15 kg; ss Height 5 ft. 8 in. (172.72 cm); Pain 7/10; 11:17 BP 143 / 78; Pulse 88; Resp 15 S; Pulse Ox 98% on R/A; ca1 09:34 Body Mass Index 48.66 (145.15 kg, 172.72 cm) ED Course: 09:16 Patient arrived in ED. mr 09:16 Shaun Manzo MD is Private Physician. mr 09:27 Wilber Blake MD is Attending Physician. jameel 09:29 Triage completed. ss 09:30 EKG done, by ED staff, reviewed by Wilber Blake MD. jb1 09:34 Arm band placed on right wrist. ss 09:40 Patient has correct armband on for positive identification. Bed in low position. Call aa5 light in reach. Side rails up X 1. Pulse ox on. NIBP on. 09:40 Patient maintains SpO2 saturation greater than 95% on room air. aa5 09:48 Iveth Quigley, RN is Primary Nurse. aa5 10:00 Report given to WILL Gray. aa5 10:27 Primary Nurse role handed off by Iveth Quigley RN ca1 10:27 Marina Young RN is Primary Nurse. ca1 10:34 Chest Pa And Lat (2 Views) XRAY In Process Unspecified. EDMS 10:52 Shaun Manzo MD is Referral Physician. jameel 11:37 No provider procedures requiring assistance completed. Patient did not have IV access ca1 during this emergency room visit. Administered Medications: 10:55 Drug: XANax Tablet 2 mg Route: PO; ca1 11:22 Follow up: Response: No adverse reaction; Anxiety decreased ca1 11:05 Drug: KLONopin 1 mg Route: PO; ca1 11:22 Follow up: Response: No adverse reaction; Anxiety decreased ca1 Outcome: 10:52 Discharge ordered by . jameel 11:37 Discharged to home ambulatory, with friend. ca1 11:37 Condition: stable 11:37 Discharge instructions given to patient, Instructed on discharge instructions, follow up and referral plans. no drinking with medication, no driving heavy equipment, medication usage, Demonstrated understanding of instructions, follow-up care, medications, Prescriptions given X 2. 11:40 Patient left the ED. ss Signatures: Dispatcher [employer] EDMS Marla Mario jb1 Wilber Blake MD MD cha Rivera, Mary mr Iveth Quigley RN RN aaCathie Gracia RN RN ss aMrina Young RN RN ca1
--- NOTE | 2019-09-26 10:53 | EDPHYS ---
Physician Documentation [facility] Name: Keo Hardin Age: 24 yrs Sex: Male : 1995 Arrival Date: 09/26/2019 Time: 09:16 Bed 14 Private MD: Shaun Manzo C ED Physician Wilber Blake HPI: 09/26 10:49 This 24 yrs old Male presents to ER via Ambulatory with complaints of Chest jameel Tightness. 10:49 The patient or guardian reports chest pain that is located primarily in the anterior jameel chest wall, bilaterally. The pain does not radiate. Associated signs and symptoms: The patient has no apparent associated signs or symptoms. The chest pain is described as aching. Duration: The patient or guardian reports multiple episodes, with no pattern. Severity of pain: At its worst the pain was mild in the emergency department the pain is unchanged. The patient has experienced similar episodes in the past, multiple times. Historical: - Allergies: 09:34 Haldol; ss - Home Meds: 09:34 lisinopril Oral [Active]; Effexor Oral [Active]; Xanax 2mg PRN anxiety [Active]; ss Wellbutrin 450 mg Oral tab 1 tab daily [Active]; atorvastatin Oral [Active]; Ambien Oral [Active]; Omeprazole Oral [Active]; Depakote ER Oral [Active]; - PMHx: 09:34 Anxiety; Depression; Hyperlipidemia; Hypertension; MRSA; GERD; insomnia; Bipolar ss disorder; Panic Attacks; - PSHx: 09:34 Cholecystectomy; ss - Immunization history:: Adult Immunizations up to date. - Social history:: Smoking status: Patient/guardian denies using tobacco. - Ebola Screening: : Patient denies exposure to infectious person Patient denies travel to an Ebola-affected area in the 21 days before illness onset. - Family history:: not pertinent. ROS: 10:49 Constitutional: Negative for fever, chills, and weight loss, Eyes: Negative for injury, jameel pain, redness, and discharge, ENT: Negative for injury, pain, and discharge, Neck: Negative for injury, pain, and swelling, Respiratory: Negative for shortness of breath, cough, wheezing, and pleuritic chest pain, Abdomen/GI: Negative for abdominal pain, nausea, vomiting, diarrhea, and constipation, Back: Negative for injury and pain, : Negative for injury, bleeding, discharge, and swelling, MS/Extremity: Negative for injury and deformity, Skin: Negative for injury, rash, and discoloration, Neuro: Negative for headache, weakness, numbness, tingling, and seizure, Allergy/Immunology: Negative for hives, rash, and allergies, Endocrine: Negative for neck swelling, polydipsia, polyuria, polyphagia, and marked weight changes, Hematologic/Lymphatic: Negative for swollen nodes, abnormal bleeding, and unusual bruising. 10:49 Cardiovascular: Positive for chest pain. Exam: 10:49 Constitutional: This is a well developed, well nourished patient who is awake, alert, jameel and in no acute distress. Head/Face: Normocephalic, atraumatic. Eyes: Pupils equal round and reactive to light, extra-ocular motions intact. Lids and lashes normal. Conjunctiva and sclera are non-icteric and not injected. Cornea within normal limits. Periorbital areas with no swelling, redness, or edema. ENT: Nares patent. No nasal discharge, no septal abnormalities noted. Tympanic membranes are normal and external auditory canals are clear. Oropharynx with no redness, swelling, or masses, exudates, or evidence of obstruction, uvula midline. Mucous membranes moist. Neck: Trachea midline, no thyromegaly or masses palpated, and no cervical lymphadenopathy. Supple, full range of motion without nuchal rigidity, or vertebral point tenderness. No Meningismus. Chest/axilla: Normal chest wall appearance and motion. Nontender with no deformity. No lesions are appreciated. Cardiovascular: Regular rate and rhythm with a normal S1 and S2. No gallops, murmurs, or rubs. Normal PMI, no JVD. No pulse deficits. Respiratory: Lungs have equal breath sounds bilaterally, clear to auscultation and percussion. No rales, rhonchi or wheezes noted. No increased work of breathing, no retractions or nasal flaring. Abdomen/GI: Soft, non-tender, with normal bowel sounds. No distension or tympany. No guarding or rebound. No evidence of tenderness throughout. Back: No spinal tenderness. No costovertebral tenderness. Full range of motion. Male : Normal genitalia with no discharge or lesions. Skin: Warm, dry with normal turgor. Normal color with no rashes, no lesions, and no evidence of cellulitis. MS/ Extremity: Pulses equal, no cyanosis. Neurovascular intact. Full, normal range of motion. Neuro: Awake and alert, GCS 15, oriented to person, place, time, and situation. Cranial nerves II-XII grossly intact. Motor strength 5/5 in all extremities. Sensory grossly intact. Cerebellar exam normal. Normal gait. Psych: Awake, alert, with orientation to person, place and time. Behavior, mood, and affect are within normal limits. 10:49 Musculoskeletal/extremity: DVT Exam: No signs of deep vein thrombosis. no pain, no swelling, no tenderness, negative Homans' sign noted on exam, no appreciated bluish discoloration, no erythema, no increased warmth. Vital Signs: 09:34 BP 132 / 80; Pulse 100; Resp 18; Temp 97.5(TE); Pulse Ox 97% on R/A; Weight 145.15 kg; ss Height 5 ft. 8 in. (172.72 cm); Pain 7/10; 11:17 BP 143 / 78; Pulse 88; Resp 15 S; Pulse Ox 98% on R/A; ca1 09:34 Body Mass Index 48.66 (145.15 kg, 172.72 cm) ss MDM: 09:27 Patient medically screened. [facility] 10:51 Data reviewed: vital signs, nurses notes, lab test result(s), radiologic studies, plain jameel films. 09/26 09:28 Order name: Chest Pa And Lat (2 Views) XRAY; Complete Time: 10:48 [facility] 09/26 09:28 Order name: EKG; Complete Time: 09:29 [facility] 09/26 09:28 Order name: EKG - Nurse/Tech; Complete Time: 09:48 [facility] Administered Medications: 10:55 Drug: XANax Tablet 2 mg Route: PO; ca1 11:22 Follow up: Response: No adverse reaction; Anxiety decreased ca1 11:05 Drug: KLONopin 1 mg Route: PO; ca1 11:22 Follow up: Response: No adverse reaction; Anxiety decreased ca1 Disposition: 09/26/19 10:52 Discharged to Home. Impression: Anxiety disorder, unspecified. - Condition is Stable. - Discharge Instructions: Panic Attacks, Panic Attacks, [id number]. - Prescriptions for Benadryl 25 mg Oral Capsule - take 1 capsule by ORAL route every 6 hours As needed; 30 tablet. Klonopin 1 mg Oral Tablet - take 1 tablet by ORAL route every 12 hours As needed; 20 tablet. - Medication Reconciliation Form, Thank You Letter, Antibiotic Education, Prescription Opioid Use form. - Follow up: Shaun Manzo MD; When: 2 - 3 days; Reason: Recheck today's complaints, Continuance of care, Re-evaluation by your physician. - Problem is new. - Symptoms have improved. Signatures: Dispatcher [employer] EDOR Wilber Blake MD MD cha Smirch, Shelby, RN RN ss Marina Young RN RN ca1 Corrections: (The following items were deleted from the chart) 11:40 10:52 09/26/2019 10:52 Discharged to Home. Impression: Anxiety disorder, unspecified. ss Condition is Stable. Forms are Medication Reconciliation Form, Thank You Letter, Antibiotic Education, Prescription Opioid Use. Follow up: Shaun Manzo; When: 2 - 3 days; Reason: Recheck today's complaints, Continuance of care, Re-evaluation by your physician. Problem is new. Symptoms have improved. jameel
--- NOTE | 2019-09-26 10:56 | EKG ---
Test Date: 2019-09-26 Test Time: 09:43:43 Charm Filter Operator Helper: GENNY MEASUREMENT RESULTS: Intervals: Rate: 113 IN: 160 QRSD: 94 QT: 320 QTc: 438 Donaldson: P: 39 IN: 160 QRS: 102 T: 37 INTERPRETIVE STATEMENTS: Sinus tachycardia Rightward axis Cannot rule out Anterior infarct, age undetermined Abnormal ECG Compared to ECG 08/15/2019 17:26:40 No significant changes Electronically Signed On 09-26-19 10:56:00 CDT by Aldair Campos
[2019-09-26 11:45] VITALS: TEMP 97.5
[2019-09-26 11:46] VITALS: BP 143/78; O2SAT 98
== END 2019-09-26 11:40 | disposition home or self-care (01) ==
LOC: ER 09:15
DX: F41.9 Anxiety disorder, unspecified (principal); K21.9 Gastro-esophageal reflux disease without esophagitis; E78.5 Hyperlipidemia, unspecified
CPT/HCPCS: 71046; 93005; 99284

== ENCOUNTER 2020-04-16 13:55 | Emergency (ER) | payer OTHER ==
[2020-04-16] MEDS ORDERED: LORazepam 2 MG/ML VIAL ONE (14:33)
[2020-04-16] MEDS ORDERED: NA CHLORIDE 0.9% 1,000 ML ONE (14:33)
[2020-04-16 14:53] LABS: Basophils % 1.3 % (0-1.3); Lymphocytes % 24.6 % (15.3-44.8); MPV 7.4 fL (7.6-11.3); RBC Red Blood Cell Count 5.43 M/uL (4.33-5.43)
[2020-04-16 14:56] LABS: Protime INR 1.1
--- OUTSIDE RECORDS SUMMARY | 2020-04-16 15:00 | XMS REPORT ---
:1995 Author Organization e[employer] Care Team Providers Name Role Phone Raphael Lacey Provider Role Unavailable Allergies, Adverse Reactions, Alerts Substance Reaction Event Type N.K.D.A. Info Not Available Non Drug Allergy Encounters Encounter Location Date Follow-Up Pilonidal Cyst [facility] Sep [facility], 2014 [facility] Sep 18, 2014 [facility] Oct 09, 2014 [facility] Sep 11, 2014 [facility] Provider told patient to call [facility] Sep 17, 2014 [facility] Test results [facility] Sep 17, 2014 [facility] Problems Problem Type Condition ICD-9 Code Onset Dates Condition Statu s Assessment Other atopic dermatitis and 691.8 Active related conditions Assessment Methicillin resistant 041.12 Active Staphylococcus aureus Assessment Other chronic postoperative pain 338.28 Active Problem Pilonidal cyst with abscess 685.0 Active Problem Pseudomonas infection in 041.7 Act isaak conditions classified elsewhere and of unspecified site Problem Other atopic dermatitis and 691.8 Active related conditions Assessment Pilonidal cyst with abscess 685.0 Active Assessment Pseudomonas infection in 041.7 Act isaak conditions classified elsewhere and of unspecified site Problem Methicillin resistant 041.12 Active Staphylococcus aureus Problem Other chronic postoperative pain 338.28 Active Medications Medication Code System Code Instructions Start Date End Date Status Dosage Paxil MEDISPAN [id number] Active Unknown Celexa MEDISPAN [id number] Active Unknown Augmentin MEDISPAN [id number] Active Unknown Seroquel MEDISPAN [id number] Active Unknown Social History Social History Element Qualifiers Date Reported Tobacco Use: . Are you a: never smoker Oct 10, 2014 Vital Signs Date/Time: Sep 18, 2014 Weight 241 lbs Height 66 in Temperature 97.6 F Cardiac Monitoring Heart Rate 89 /min Summary Purpose [employer]ClinicalWorks Submission
--- OUTSIDE RECORDS SUMMARY | 2020-04-16 15:00 | XMS REPORT ---
[...] [facility] Sep 18, 2014 [facility] [place] Follow-Up Pilonidal Cyst [facility] [...] Date End Date Status Dosage Celexa MEDISPAN [id number] Active Unknown -01 Paxil MEDISPAN [id number] Active Unknown -13 Augmentin MEDISPAN [id number] 500 mg PO Three Sep 17, Oct 01, Active 1 tablet -20 times a day 2013 2013 Seroquel MEDISPAN [id number] Active Unknown -10 Social History Social History Element Qualifiers Date Reported Tobacco Use: . Are you a: never smoker Oct 10, 2014 Vital Signs Date/Time: Sep 24, 2014 Weight 245 lbs Height 66 in Temperature 98.9 F Cardiac Monitoring Heart Rate 91 /min Summary Purpose eClinicalWorks Submission
--- OUTSIDE RECORDS SUMMARY | 2020-04-16 15:00 | XMS REPORT | Continuity of Care Document ---
:1995 Author Organization [employer] Care Team Providers Name Role Phone [employer] Unavailable Un available Problems Problem Status Onset Classification Date Comments Sourc e Date Reported Pseudomonas Active Problem 01/19/2016 Pedi infection in Infect conditions Disease o f classified [place] elsewhere and of unspecified site Methicillin Active Problem 01/19/2016 Pedi resistant Infect Staphylococcus Disea se of aureus [place] Pilonidal cyst Active Problem 01/19/2016 Pedi with abscess Infect Disease of [place] Other chronic Active Problem 01/19/2016 Pedi postoperative pain I nfect Disease of [place] Other atopic Active Problem 01/19/2016 Pedi dermatitis and Infec t related conditions D isease of [place] Open wound of Active Problem 01/19/2016 Pedi buttock, Infect complicated Disease of [place] Cutaneous abscess Active Problem 01/19/2016 P luis carlos of buttock Infect Disease of [place] Open wound of Active Problem 01/19/2016 Pedi buttock, without Inf ect mention of Disease o f complication [place] Pilonidal cyst Active Problem 01/19/2016 Pedi with abscess Infect Disease of [place] Klebsiella Active Problem 01/19/2016 Pedi pneumoniae Infect infection Disease of [place] Cellulitis and Active Problem 01/19/2016 Pedi abscess of buttock I nfect Disease of [place] Medications Medication Details Route Status Patient Ordering Order Source Instructions Provider Date Augmentin 1 tablet PO Active 500 mg PO Three Lacey 09/17/20 Pedi times a day 14 Infect [facility] of [place] Paxil Unknown NA Active [facility] Pedi Infect [facility] [place] Celexa Unknown NA Active Lacey Pedi Infect [facility] [place] Seroquel Unknown NA Active Lacey Pedi Infect [facility] of [place] Augmentin Unknown NA Active Lacey Pedi Infect [facility] of [place] Clonidine HCl Unknown NA Active Lacey Pedi Infect [facility] of [place] Citalopram Unknown NA Active Lacey Pedi Hydrobromide Infect [facility] of [place] Doxepin HCl Unknown NA Active Lacey Pedi Infect [facility] of [place] BuPROPion HCl Unknown NA Active Lacey Pedi Infect [facility] of [place] Quetiapine Unknown NA Active Lacey Pedi Fumarate Infect Disease of [place] Allergies, Adverse Reactions, Alerts Substance Category Reaction Severity Reaction Status Date Comments S ource type Reported N.K.D.A. Adverse Info Not Adverse Active Pedi Reaction Available Reaction [address]fe [address] Disease of [place] Immunizations No Data Provided for This Section [...] Weight 323 01/16/2016 Pedi Infect Disease of [place] Height 68 01/16/2016 Pedi Infect [facility] of [place] Temperature Oral (F) 98 F 01/16/2016 Pedi In fect Disease of [place] Heart Rate 128 01/16/2016 Pedi Infect Disease of [place] Weight 295 08/07/2015 Pedi Infect [facility] of [place] Height 68 08/07/2015 Pedi Infect [facility] of [place] Temperature Oral (F) 98 F 08/07/2015 Pedi In fect Disease of [place] Heart Rate 108 08/07/2015 Pedi Infect Disease of [place] Weight 263 01/13/2015 Pedi Infect [facility] of [place] Height 68 01/13/2015 Pedi Infect Disease of [place] Temperature Oral (F) 97.6 F 01/13/2015 Pedi In fect Disease of [place] Heart Rate 101 01/13/2015 Pedi Infect Disease of [place] Weight 260 01/02/2015 Pedi Infect [facility] of [place] Height 68 01/02/2015 Pedi Infect Disease of [place] Temperature Oral (F) 97.8 F 01/02/2015 Pedi In fect Disease of [place] Heart Rate 102 01/02/2015 Pedi Infect Disease of [place] Weight 247.2 10/22/2014 Pedi Infect Disease of [place] Height 66 10/22/2014 Pedi Infect [facility] of [place] Temperature Oral (F) 97.5 F 10/22/2014 Pedi In fect Disease of [place] Weight 248 10/09/2014 Pedi Infect [facility] of [place] Height 66 10/09/2014 Pedi Infect Disease of [place] Temperature Oral (F) 97.6 F 10/09/2014 Pedi In fect Disease of [place] Heart Rate 77 10/09/2014 Pedi Infect Disease of [place] Weight 245 09/24/2014 Pedi Infect [facility] of [place] Height 66 09/24/2014 Pedi Infect Disease of [place] Temperature Oral (F) 98.9 F 09/24/2014 Pedi In fect Disease of [place] Heart Rate 91 09/24/2014 Pedi Infect [facility] of [place] Weight 241 09/18/2014 Pedi Infect [facility] of [place] Height 66 09/18/2014 Pedi Infect Disease of [place] Temperature Oral (F) 97.6 F 09/18/2014 Pedi In fect Disease of [place] Heart Rate 89 09/18/2014 Pedi Infect Disease of [place] Weight 241 09/11/2014 Pedi Infect [facility] of [place] Height 66 09/11/2014 Pedi Infect [facility] of [place] Temperature Oral (F) 97.5 F 09/11/2014 Pedi In fect Disease of [place] Heart Rate 81 09/11/2014 Pedi Infect Disease of [place] Encounters Location Location Encounter Encounter Reason Attending ADM [facility] Source Details Type Number For Provider Date Date Visit Pediatric Unknown [id number] 09/11 09/11 Pe di Infectious [id number]-[id number] In fect Disease [id number] [facility] [id number] [facility] [place] Unknown [id number] 09/11 09/11 Pe di Infectious ef6-4ba4- In fect Disease [id number] [facility] [id number] [facility] [place] Unknown [id number] 09/11 09/11 Pe di Infectious 1l2-7zwh-2 In fect Disease [id number] [facility] [id number] [id number] 09/11 09/11 Pe di Infectious 930-4e88- In fect Disease [id number] [facility] [id number] of [facility] [place] Pediatric Unknown [id number] 09/11 09/11 Pe di Infectious 10f-4643-a /2013 In fect Disease 00f-7bab3c [facility] [id number] [facility] [place] Pediatric Unknown [id number] 09/11 09/11 Pe di Infectious 5q8-3701-m /2013 In fect Disease ff1-92b48f [facility] [id number] [facility] [place] Unknown [id number] 09/11 09/11 Pe di Infectious dfa-488e-8 In fect Disease [id number] [facility] [id number] of [facility] [place] Pediatric Unknown [id number] 09/11 09/11 Pe di Infectious 4a0-82lp-4 In fect Disease [id number]-[id number] [facility] [id number] of [facility] [place] Unknown [id number] 09/11 09/11 Pe di Infectious 4v2-24n4-k In fect Disease b20-e9hg76 [facility] [id number] of [facility] [place] Unknown [id number] 09/11 09/11 Pe di Infectious 4o1-8396-1 In fect Disease b67-1565yt [facility] [id number] of [facility] [place] Pediatric Unknown [id number] 09/11 09/11 Pe di Infectious 971-446c- In fect Disease 814-4dbacf [facility] [id number] of [facility] [place] Pediatric Unknown [id number] 09/11 09/11 Pe di Infectious 391-4f25-a In fect Disease [id number] [facility] [id number] of [facility] [place] Unknown [id number] 09/11 09/11 Pe di Infectious 8d2-4j10-f In fect Disease 35a-ll304j [facility] [id number] of [facility] [place] Unknown [id number] 09/11 09/11 Pe di Infectious 56e-4a56-a In fect Disease 714-[id number] [facility] [id number] of [facility] [place] Provider [id number] 09/17 09/17 P luis carlos Infectious told [id number] In fect Disease patient to [id number]-36sx64 [facility] call [id number] of [facility] [place] Provider [id number] 09/17 09/17 P luis carlos Infectious told [id number] /2013 In fect Disease patient to fc7-6p9917 [facility] [id number] [facility] [id number] 09/17 09/17 P luis carlos Infectious told q27-3311-x In fect Disease patient to [id number]-[id number] [facility] [id number] [facility] [id number] 09/17 09/17 P luis carlos Infectious told q71-2jsp-1 In fect Disease patient to 2fd-7km039 [facility] [id number] [facility] Test [id number] 09/17 09/17 Ped i Infectious results 39a-4529-a /2013 I nfect Disease x4b-96e3sj [facility] [id number] [facility] [place] [facility] [id number] 09/17 09/17 Ped i Infectious results 940-4cf0-b /2013 I nfect Disease bbd-052dd4 [facility] [id number] [facility] [place] [facility] [id number] 09/17 09/17 Ped i Infectious results 298-418a-a /2013 I nfect Disease 45d-et7838 [facility] [id number] [facility] [place] [facility] [id number] 09/17 09/17 Ped i Infectious results 0l7-71d2-s /2013 I nfect Disease fd6-4906f2 [facility] [id number] [facility] [id number] 09/17 09/17 P luis carlos Infectious told bd5-4b86- In fect Disease patient to [id number] [facility] [id number] [facility] [id number] 09/17 09/17 P luis carlos Infectious told [id number]-a In fect Disease patient to 30f-8e64cb [facility] [id number] [facility] [id number] 09/17 09/17 P luis carlos Infectious told 868-4bf8- In fect Disease patient to [id number]-[id number] [facility] [id number] [facility] [id number] 09/17 09/17 P luis carlos Infectious told 40f-4dfa- In fect Disease patient to [id number] [facility] [id number] [facility] [id number] 09/17 09/17 P luis carlos Infectious told 513-46d1- In fect Disease patient to [id number] [id number] [facility] [id number] 09/17 09/17 P luis carlos Infectious told g00-56s9-k In fect Disease patient to [id number] [facility] [id number] [facility] [id number] 09/17 09/17 P luis carlos Infectious told [id number]-[id number] In fect Disease patient to [id number] [id number] [facility] [id number] 09/17 09/17 P luis carlos Infectious told k8c-0w9c-7 In fect Disease patient to [id number] [facility] [id number] [facility] [id number] 09/17 09/17 P luis carlos Infectious told 6ea-4f71- In fect Disease patient to [id number]-[id number] [facility] [id number] [facility] [place] [facility] [id number] 09/17 09/17 P luis carlos Infectious told 439-49f6- In fect Disease patient to fe3-[id number] [facility] call [id number] [facility] [place] Test [id number] 09/17 09/17 Ped i Infectious results s36-1852-g /2013 I nfect Disease afa-0ef54a [facility] [id number] of [facility] [place] Test [id number] 09/17 09/17 Ped i Infectious results 321-4105-a /2013 I nfect Disease 033-5fc2a4 [facility] [id number] of [facility] [place] Test [id number] 09/17 09/17 Ped i Infectious results 744-4d7f-a /2013 I nfect Disease 509-7350cc [facility] [id number] of [facility] [place] Test [id number] 09/17 09/17 Ped i Infectious results fd7-4768-b /2013 I nfect Disease 34c-5314cd [facility] [id number] of [facility] [place] Test [id number] 09/17 09/17 Ped i Infectious results 747-490c-8 I nfect Disease d2a-573906 [facility] [id number] of [facility] [place] Test [id number] 09/17 09/17 Ped i Infectious results 1x6-7165-2 /2013 I nfect Disease w20-7ys6a8 [facility] [id number] of [facility] [place] Test [id number] 09/17 09/17 Ped i Infectious results 0o8-8026-5 /2013 I nfect Disease cca-59edf5 [facility] [id number] of [facility] [place] Test [id number] 09/17 09/17 Ped i Infectious results [id number]-y /2013 I nfect Disease 432-849e0f [facility] [id number] of [facility] [place] Test [id number] 09/17 09/17 Ped i Infectious results dd1-4c00-8 I nfect Disease 23e-70d07e [facility] [id number] of [facility] [place] Test [id number] 09/17 09/17 Ped i Infectious results z51-65j6-g /2013 I nfect Disease 2a7-s2v489 [facility] [id number] [facility] [place] [facility] [id number] 09/18 09/18 Pedi Infectious Pilonidal 00b-4b97-a /2013 Infect Disease Cyst 34f-bc1cc5 [facility] [id number] [facility] [place] [facility] [id number] 09/18 09/18 Pedi Infectious Pilonidal ca6-471b-a /2013 Infect Disease Cyst 5p0-yy709s [facility] [id number] [facility] [place] [facility] [id number] 09/18 09/18 Pedi Infectious Pilon[place] t2q-941v-o /2013 Infect Disease Cyst 433-75cb33 [facility] [id number] [facility] [place] [facility] [id number] 09/18 09/18 Pedi Infectious [place]ilon[place] t9e-2ibx-7 /2013 Infect Disease Cyst 1r5-x46e85 [facility] [id number] [facility] [place] [facility] [id number] 09/18 09/18 Pedi Infectious [place]ilon[place] f11-0159-2 /2013 Infect Disease Cyst 846-53753t [facility] [id number] [facility] [place] [facility] [id number] 09/18 09/18 Pedi Infectious Pilon[place] 6h7-7913-4 /2013 Infect Disease Cyst eb2-a2d1d4 [facility] [id number] [facility] [place] [facility] [id number] 09/18 09/18 Pedi Infectious Pilon[place] 709-41ab-b /2013 Infect Disease Cyst 690-a2a3e7 [facility] [id number] [facility] [place] [facility] [id number] 09/18 09/18 Pedi Infectious [place]ilon[place] 16f-4422-a /2013 Infect Disease Cyst 53a-3b5dfc [facility] [id number] of [facility] [place] Follow-Up [id number] 09/18 09/18 Pedi Infectious [place]ilon[place] 145-41c4-b /2013 Infect Disease Cyst 98c-82c78f [facility] [id number] of [facility] [place] Follow-Up [id number] 09/18 09/18 Pedi Infectious [place]ilon[place] 98d-4b19-b /2013 Infect Disease Cyst 846-f15e95 [facility] [id number] of [facility] [place] Follow-Up [id number] 09/18 09/18 Pedi Infectious [place] cf3-4a2f-b /2013 Infect Disease Cyst aa5-48a13b [facility] [id number] of [facility] [place] Follow-Up [id number] 09/24 09/24 Pedi Infectious [place]ilon[place] n7p-1w25-k /2013 Infect Disease Cyst 6y0-2da948 [facility] [id number] of [facility] [place] Follow-Up [id number] 09/24 09/24 Pedi Infectious [place] bc0-4c7b-9 /2013 Infect Disease Cyst 83a-409000 [facility] [id number] of [facility] [place] Follow-Up [id number] 09/24 09/24 Pedi Infectious Pilon[place] 171-4d6a-b /2013 Infect Disease Cyst 922-479975 [facility] [id number] of [facility] [place] Follow-Up [id number] 09/24 09/24 Pedi Infectious [place]ilon[place] 786-4d38-b /2013 Infect Disease Cyst 00a-9f5fa2 [facility] [id number] of [facility] [place] Follow-Up [id number] 09/24 09/24 Pedi Infectious [place]ilon[place] 4v4-2qt9-9 /2013 Infect Disease Cyst 528-7f2ac2 [facility] [id number] [facility] [place] [facility] [id number] 09/24 09/24 Pedi Infectious [place]ilon[place] 0t7-476l-n /2013 Infect Disease Cyst 80e-1bbfcb [facility] [id number] [facility] [place] [facility] [id number] 09/24 09/24 Pedi Infectious [place]ilon[place] 994-4c53-9 /2013 Infect Disease Cyst 6de-f4ed9e [facility] [id number] [facility] [place] [facility] [id number] 09/24 09/24 Pedi Infectious [place]ilon[place] 24b-451a-8 /2013 Infect Disease Cyst 82c-662bd2 [facility] [id number] [facility] [place] [facility] [id number] 09/24 09/24 Pedi Infectious [place]ilon[place] ed8-4e55-b /2013 Infect Disease Cyst 376-777cde [facility] [id number] [facility] [place] [facility] [id number] 09/24 09/24 Pedi Infectious [place] 8ed-4898-b /2013 Infect Disease Cyst cee-gez706 [facility] [id number] [facility] [place] [facility] [id number] 09/24 09/24 Pedi Infectious [place] 26d-400d-a /2013 Infect Disease Cyst 6s1-5331wj [facility] [id number] [facility] [place] [facility] [id number] 10/09 10/09 Pedi Infectious [place] ca5-4f38-8 /2013 Infect Disease Cyst 73a-1b7d56 [facility] [id number] [facility] [place] [facility] [id number] 10/09 10/09 Pedi Infectious [place] 636-40e6-9 Infect Disease Cyst 947-w5626v [facility] [id number] [facility] [place] [facility] [id number] 10/09 10/09 Pedi Infectious [place] g3g-320j-1 /2013 Infect Disease Cyst h86-l45005 [facility] [id number] of [facility] [place] Follow-Up [id number] 10/09 10/09 Pedi Infectious [place]ilon[place] 66c-4459-a /2013 Infect Disease Cyst d72-470012 [facility] [id number] of [facility] [place] Follow-Up [id number] 10/09 10/09 Pedi Infectious [place] 2dd-467d-8 /2013 Infect Disease Cyst 4p0-617362 [facility] [id number] of [facility] [place] Follow-Up [id number] 10/09 10/09 Pedi Infectious [place]ilon[place] 201-45fb-b /2013 Infect Disease Cyst 2e6-4n6x95 [facility] [id number] of [facility] [place] Follow-Up [id number] 10/09 10/09 Pedi Infectious [place] i4t-7k82-v /2013 Infect Disease Cyst bed-8fceb1 [facility] [id number] of [facility] [place] Follow-Up [id number] 10/09 10/09 Pedi Infectious [place]ilon[place] o4s-8108-i /2013 Infect Disease Cyst bc1-612e32 [facility] [id number] of [facility] [place] Follow-Up [id number] 10/09 10/09 Pedi Infectious [place] 7d4-2m9i-9 /2013 Infect Disease Cyst d6l-qb1237 [facility] [id number] of [facility] [place] Follow-Up [id number] 10/09 10/09 Pedi Infectious [place] 9ed-4f4b-8 /2013 Infect Disease Cyst 2fb-43eadf [facility] [id number] of [facility] [place] Follow-Up [id number] 10/09 10/09 Pedi Infectious [place] 0k5-4c73-5 /2013 Infect Disease Cyst r12-84655n [facility] [id number] of [facility] [place] WOUNDCARE [id number] 10/22 10/22 Pedi Infectious 9n9-9z03-4 /2013 In fect Disease 48c-026024 [facility] [id number] of [facility] [place] [facility] [id number] 10/22 10/22 Pedi Infectious 442-4426-9 /2013 In fect Disease b3c-3w4di0 [facility] [id number] of [facility] [place] [facility] [id number] 10/22 10/22 Pedi Infectious ba4-494c-b /2013 In fect Disease 92f-431662 [facility] [id number] of [facility] [place] [facility]ARE [id number] 10/22 10/22 Pedi Infectious afc-4b99-b /2013 In fect Disease 449-4770ae [facility] [id number] of [facility] [place] [facility] WOUNDCARE [id number] 10/22 10/22 Pedi Infectious b42-4444-s /2013 In fect Disease 6ad-048b69 [facility] [id number] of [facility] [place] [facility]OUND[facility] [id number] 10/22 10/22 Pedi Infectious cf9-4283-a /2013 In fect Disease ee3-f10d09 [facility] [id number] of [facility] [place] [facility] WOUNDCARE [id number] 10/22 10/22 Pedi Infectious ec0-4282-8 /2013 In fect Disease q3s-6ac1v4 [facility] [id number] of [facility] [place] [facility] WOUNDCARE [id number] 10/22 10/22 Pedi Infectious bad-4c5d-a /2013 In fect Disease 731-c8082m [facility] [id number] of [facility] [place] FU - [id number] 11/19 11/19 Ped i Infectious PILONIDAL 1t3-94np-1 /2013 Infect Disease CYST 5f4-77f677 [facility] [id number] of [facility] [place] FU - [id number] 11/19 11/19 Ped i Infectious PILONIDAL fa6-4c63-8 /2013 Infect Disease CYST 573-fbe18e [facility] [id number] of [facility] [place] FU - [id number] 11/19 11/19 Ped i Infectious PILONIDAL 2ac-4955-a /2013 Infect Disease CYST 318-2e93c3 [facility] [id number] of [facility] [place] FU - [id number] 11/19 11/19 Ped i Infectious PILONIDAL k97-3d77-e /2013 Infect Disease CYST 4u2-0w6500 [facility] [id number] [facility] - [id number] 11/19 11/19 Ped i Infectious PILONIDAL 115-444f-b /2013 Infect Disease CYST 1bc-n4t985 [facility] [id number] [facility] - [id number] 11/19 11/19 Ped i Infectious PILONIDAL 0r1-3i57-j /2013 Infect Disease CYST 093-a1a61a [facility] [id number] [facility] - [id number] 11/19 11/19 Ped i Infectious PILONIDAL 6ea-40c8-b /2013 Infect Disease CYST [id number] [facility] [id number] of [facility] [place] FU - [id number] 11/19 11/19 Ped i Infectious PILONIDAL 643-4d47-b /2013 Infect Disease CYST 2t0-5a7xk6 [facility] [id number] of [facility] [place] Unknown [id number] 12/11 12/11 Pe di Infectious 490-456d-9 In fect Disease z03-52q2s3 [facility] [id number] of [facility] [place] Unknown [id number] 12/11 12/11 Pe di Infectious 50b-42a1-a /2014 In fect Disease 995-xy217b [facility] [id number] of [facility] [place] Unknown [id number] 12/11 12/11 Pe di Infectious 6m4-44r5-0 In fect Disease 920-4iv320 [facility] [id number] of [facility] [place] Unknown [id number] 12/11 12/11 Pe di Infectious de7-4c4f- In fect Disease 945-2aebd0 [facility] [id number] of [facility] [place] [facility] Unknown [id number] 12/11 12/11 Pe di Infectious e2z-585j-8 In fect Disease ab2-8e65d9 [facility] [id number] of [facility] [place] Unknown [id number] 12/11 12/11 Pe di Infectious 459-43f5- In fect Disease aee-33b8fd [facility] [id number] of [facility] [place] Follow-Up [id number] 01/02 01/02 Pedi Infectious Pilon[place] af5-4ef1-b /2014 Infect Disease cyst 55f-37b0d6 [facility] [id number] of [facility] [place] Follow-Up [id number] 01/02 01/02 Pedi Infectious [place] ddb-4f8b- Infect Disease cyst g5z-k679x2 [facility] [id number] of [facility] [place] Follow-Up [id number] 01/02 01/02 Pedi Infectious [place] 140-43fd- Infect Disease cyst 364-2311e8 [facility] [id number] of [facility] [place] Follow-Up [id number] 01/02 01/02 Pedi Infectious [place] cad-4517- Infect Disease cyst f89-wd6e50 [facility] [id number] [facility] [place] Follow-Up [id number] 01/02 01/02 Pedi Infectious Pilon[place] 766-43da-a /2014 Infect Disease cyst [id number] [facility] [id number] of [facility] [place]Up [id number] 01/13 01/13 Pedi Infectious Pilonidal [id number] /2014 Infect Disease cyst [id number] [facility] [id number] of [facility] [place] [id number] 01/13 01/13 Pedi Infectious Pilonidal [id number] /2014 Infect Disease cyst [id number] [facility] se [facility] [id number] of [facility] [place] [id number] 01/13 01/13 Pedi Infectious Pilonidal [id number] /2014 Infect Disease cyst [id number] [facility] se [facility] [id number] of [facility] [place] [id number] 01/13 01/13 Pedi Infectious Pilonidal [id number] /2014 Infect Disease cyst [id number] [facility] se [facility] [id number] of [facility] [id number] 01/13 01/13 Pedi Infectious Pilonidal [id number] /2014 Infect Disease cyst [id number] [facility] [id number] of [facility] [place] [id number] 01/21 01/21 Pedi Infectious [id number] /2014 In fect Disease [id number] [facility] [id number] [facility] [id number] 01/21 01/21 Pedi Infectious [id number] /2014 In fect Disease [id number] [facility] [id number] [facility] [id number] 02/04 02/04 Pedi Infectious Pilonidal [id number] /2014 Infect Disease cyst [id number] [facility] [id number] [facility] [id number] 02/04 02/04 Pedi Infectious Pilonidal [id number] /2014 Infect Disease cyst [id number] [facility] [id number] of [facility] [place] Follow[place] [id number] 02/18 02/18 Pedi Infectious Pilonidal [id number] Infect Disease cyst and [id number] Dis ease Specialists Laser hair [id number] o f of [place], [facility] [place] Pediatric Follow-Up [id number] 02/18 02/18 Pedi Infectious Pilonidal [id number]- Infect Disease cyst and [id number] Dis ease [facility] Laser hair [id number] o f of [place], [facility] [place] Follow-Up [id number] 05/06 05/06 Pedi Infectious Pilonidal [id number] Infect Disease cyst [id number] [facility] [id number] [facility] [id number] 05/06 05/06 Pedi Infectious Pilonidal [id number] /2014 Infect Disease cyst [id number] [id number] [facility] Test [id number] 05/12 05/12 Ped i Infectious results [id number] I nfect Disease [id number] [facility] [id number] [facility] [place] [facility] [id number] 05/12 05/12 Ped i Infectious results [id number] /2014 I nfect Disease [id number] [facility] [id number] [facility] [id number] 05/16 05/16 Pedi Infectious Pilonidal [id number] /2014 Infect Disease Cyst [id number] [facility] [id number] [facility] [id number] 05/16 05/16 Pedi Infectious Pilonidal [id number] /2014 Infect Disease Cyst [id number] [facility] [id number] of [facility] [place] Follow[place] [id number] 05/26 05/26 Pedi Infectious Pilonidal [id number] /2014 Infect Disease cyst [id number] [facility] [id number] of [facility] [place] Follow[place] [id number] 05/26 05/26 Pedi Infectious Pilonidal [id number] /2014 Infect Disease cyst [id number] [facility] [id number] of [facility] [place] Follow[place] [id number] 07/10 07/10 Pedi Infectious Pilonidal [id number] Infect Disease cyst [id number] [facility] [id number] of [facility] [place] Follow[place] [id number] 07/10 07/10 Pedi Infectious Pilonidal [id number] /2014 Infect Disease cyst [id number] [facility] [id number] of [facility] [place] [id number] 08/07 08/07 Pedi Infectious Pilonidal [id number] /2014 Infect Disease cyst [id number] [facility] [id number] of [facility] [place] [id number] 08/07 08/07 Pedi Infectious Pilonidal [id number] /2014 Infect Disease cyst [id number] [facility] [id number] of [facility] [place] Test [id number] 08/11 08/11 Ped i Infectious results [id number] I nfect Disease [id number] [facility] se [facility] [id number] of [facility] [place] Test [id number] 08/11 08/11 Ped i Infectious results [id number] I nfect Disease [id number] [facility] [id number] [place] [id number] 01/16 01/16 Pedi Infectious - Check [id number] /2015 I nfect Disease wound [id number] [facility] [id number] [facility] [place] Procedures No Data Provided for This Section Assessment and Plan No Data Provided for This Section Plan of Care No Data Provided for This Section Social History Social History Date Source Social History ElementQualifiersDate Reported 01/18/2016 Pedi Infect Disease of Tobacco Use: [place] . Are you a: never smoker Jan 18, 2016 Family History Value Date Source QualifierDescriptionCommentDate Reported 08/09/2015 Pedi Infect Disease of Maternal Grandmother [place] Comment not available Aug 07, 2015 Paternal [...]
--- OUTSIDE RECORDS SUMMARY | 2020-04-16 15:00 | XMS REPORT ---
:1995 Author Organization eClinicalWorks Care Team Providers Name Role Phone LaceyRaphael hilario Provider Role Unavailable Encounters Encounter Location Date Unknown [facility] Infectious Disease [facility] Sep 11, 2014 of [facility] Provider told patient to call Pediatric Infectious Disease S [facility]ists Sep 17, 2014 of [facility] Test results Pediatric Infectious Disease Specialists Sep 17, 2014 of [facility] [place] Problems Problem Type Condition ICD-9 Code Onset Dates Condition Statu s Problem Pseudomonas infection in 041.7 Act isaak conditions classified elsewhere and of unspecified site Problem Methicillin resistant 041.12 Active Staphylococcus aureus Problem Pilonidal cyst with abscess 685.0 Active Problem Other chronic postoperative pain 338.28 Active Medications Medication Code System Code Instructions Start Date End Date Status Dosage Augmentin MEDISPAN [address] 500 mg PO Three Sep 17, Oct 01, Active 1 tablet -20 times a day 2013 2013 Social History Social History Element Qualifiers Date Reported Tobacco Use: . Are you a: never smoker Sep 24, 2014 Summary Purpose eClinicalWorks Submission
--- OUTSIDE RECORDS SUMMARY | 2020-04-16 15:00 | XMS REPORT ---
[...] Code Onset Dates Condition Statu s Problem Pilonidal cyst with abscess 685.0 Active [...] Date End Date Status Dosage Paxil MEDISPAN [id number] Active Unknown Celexa MEDISPAN [address]-87 Active Unknown Seroquel MEDISPAN [id number] Active Unknown Social History Social History Element Qualifiers Date Reported Tobacco Use: . Are you a: never smoker Oct 10, 2014 Vital Signs Date/Time: Oct 09, 2014 Weight 248 lbs Height 66 in Temperature 97.6 F Cardiac Monitoring Heart Rate 77 /min Summary Purpose eClinicalWorks Submission
--- OUTSIDE RECORDS SUMMARY | 2020-04-16 15:01 | XMS REPORT ---
[...] lists Oct 09, 2014 of [facility] FU - PILONIDAL CYST [facility] Nov 19, 2014 of [facility] Disease [facility] Oct 22, 2014 of [facility] Unknown Pediatric Infectious Disease Specialists Sep 11, 2014 of [facility] Follow-Up Pilonidal cyst Pediatric Infectious Disease Specia lists Jan 02, 2015 of [facility] Provider told patient to call Pediatric Infectious Disease S pecialists Sep 17, 2014 of [facility] Test results Pediatric Infectious Disease [facility] Sep 17, 2014 of [facility] Follow-Up Pilonidal cyst Pediatric Infectious Disease Specia lists Jan 13, 2015 of [facility] [place] Unknown Pediatric Infectious Disease [facility]ists Dec 11, 2014 of [facility] Follow-Up Pilonidal Cyst Pediatric Infectious Disease Specia lists Sep 18, 2014 of [facility] Problems Problem Type Condition ICD-9 Code Onset Dates Condition Statu s Problem Pilonidal cyst with abscess 685.0 Active Problem Pseudomonas infection in 041.7 Act isaak conditions classified elsewhere and of unspecified site Problem Other atopic dermatitis and 691.8 Active related conditions Assessment Pilonidal cyst with abscess 685.0 Active Assessment Open wound of buttock, 877.1 Activ e complicated Problem Methicillin resistant 041.12 Active Staphylococcus aureus Problem Other chronic postoperative pain 338.28 Active Medications Medication Code System Code Instructions Start Date End Date Status Dosage Seroquel MEDISPAN [address]- Active Unknown 10 Clonidine HCl MEDISPAN [address]- Active Unkno wn 10 Celexa MEDISPAN [address]- Active Unknown 01 Paxil MEDISPAN [address]- Active Unknown 13 Social History Social History Element Qualifiers Date Reported Tobacco Use: . Are you a: never smoker Jan 13, 2015 Vital Signs Date/Time: Jan 02, 2015 Weight 260 lbs Height 68 in Temperature 97.8 F Cardiac Monitoring Heart Rate 102 /min Summary Purpose eClinicalWorks Submission
--- OUTSIDE RECORDS SUMMARY | 2020-04-16 15:01 | XMS REPORT ---
[...] Date End Date Status Dosage Paxil MEDISPAN [id number] Active Unknown Celexa MEDISPAN [address]-09 Active Unknown Augmentin MEDISPAN [id number] Active Unknown Seroquel [facility] [address]-36 Active Unknown Social History Social History Element Qualifiers Date Reported Tobacco Use: . Are you a: never smoker Jan 13, 2015 Vital Signs Date/Time: Sep 18, 2014 Weight 241 lbs Height 66 in Temperature 97.6 F Cardiac Monitoring Heart Rate 89 /min Summary Purpose eClinicalWorks Submission
--- OUTSIDE RECORDS SUMMARY | 2020-04-16 15:01 | XMS REPORT ---
[...] Code Onset Dates Condition Statu s Assessment Pilonidal cyst with abscess 685.0 Active Social History Social History Element Qualifiers Date Reported Tobacco Use: . Are you a: never smoker Nov 24, 2014 Vital Signs Date/Time: Oct 22, 2014 Weight 247.2 lbs Height 66 in Temperature 97.5 F Summary Purpose eClinicalWorks Submission
--- OUTSIDE RECORDS SUMMARY | 2020-04-16 15:01 | XMS REPORT ---
:1995 Author Organization [employer]ClinicalWorks Care Team Providers Name Role Phone Raphael Lacey Provider Role Unavailable Allergies, Adverse Reactions, Alerts Substance Reaction Event Type N.K.D.A. Info Not Available Non Drug Allergy Encounters Encounter Location Date Follow-Up Pilonidal Cyst Pediatric Infectious Disease Aug [facility] Follow-Up Pilonidal Cyst Pediatric Infectious Disease Sep [facility] FU - PILONIDAL CYST Pediatric Infectious Disease Nov 19 4 Specialists [facility] Pediatric Infectious Disease Oct 22 4 Specialists [facility] Unknown Pediatric Infectious Disease Sep 11 4 Specialists [facility] Provider told patient to call Pediatric Infectious Disease O 2013 [facility] Test results Pediatric Infectious Disease Sep 17 4 Specialists [facility] Follow-Up Pilonidal cyst Pediatric Infectious Disease Dec [facility] Test results Pediatric Infectious Disease Aug 11 15 Specialists [facility] Follow-Up Pilonidal cyst Pediatric Infectious Disease Jul 292014 Specialists [facility] Unknown Pediatric Infectious Disease Dec 11 5 Specialists [facility] Follow-Up Pilonidal Cyst Pediatric Infectious Disease Aug [facility] Follow-Up Pilonidal Cyst Pediatric Infectious Disease April 282014 [facility]ists [facility] Follow-Up Pilonidal cyst Pediatric Infectious Disease April 292014 Specialists [facility] Follow-Up Pilonidal cyst Pediatric Infectious Disease April [facility] Test results Pediatric Infectious Disease May 12 15 Specialists [facility] Follow-Up Pilonidal cyst Pediatric Infectious Disease February 04, 2015 Specialists [facility] Follow-Up Pilonidal cyst and Laser Pediatric Infectious Dise ase February 18, 2015 hair removal tx Specialists [facility] Follow-Up Pilonidal cyst Pediatric Infectious Disease Dec [facility] Follow-Up Pediatric Infectious Disease Jan 21 5 Specialists [facility] Follow-Up Pilonidal cyst Pediatric Infectious Disease Jun [facility]ists of [facility] Problems Problem Type Condition ICD-9 Code Onset Dates Condition Statu s Problem Methicillin resistant 041.12 Active Staphylococcus aureus Problem Pilonidal cyst with abscess 685.0 Active Problem Pseudomonas infection in 041.7 Act isaak conditions classified elsewhere and of unspecified site Problem Cutaneous abscess of buttock L02.31 Active Problem Open wound of buttock, without 877.0 Active mention of complication Problem Pilonidal cyst with abscess L05.01 Active Problem Open wound of buttock, 877.1 Activ e complicated Problem Other atopic dermatitis and 691.8 Active related conditions Problem Klebsiella pneumoniae infection 041.3 Active Problem Cellulitis and abscess of 682.5 Ac tive buttock Assessment Cutaneous abscess of buttock L02.31 Active Assessment Open wound of buttock, 877.1 Activ e complicated Assessment Pilonidal cyst with abscess L05.01 Active Problem Other chronic postoperative pain 338.28 Active Medications Medication Code System Code Instructions Start Date End Date Status Dosage Paxil MEDISPAN [address]- Active Unknown 13 Clonidine HCl MEDISPAN [address]- Active Unkno wn 10 Celexa MEDISPAN [address]- Active Unknown 01 Seroquel MEDISPAN [address]- Active Unknown 10 Social History Social History Element Qualifiers Date Reported Tobacco Use: . Are you a: never smoker Aug 08, 2015 Family history Qualifier Description Comment Date Reported Maternal Grandmother Comment not available Aug 07, 2015 Paternal Grandmother Comment not available Aug 07, 2015 Siblings Comment not available Aug 07 Maternal Grandfather Comment not available Aug 07, 2015 Children Comment not available Aug 07 Father Comment not available Aug 07 Paternal Grandfather Comment not available Aug 07, 2015 Mother Comment not available Aug 07 Other: Comment not available Aug 07 Vital Signs Date/Time: Aug 07, 2015 Weight 295 lbs Height 68 in Temperature 98 F Cardiac Monitoring Heart Rate 108 /min Summary Purpose eClinicalWorks Submission
--- OUTSIDE RECORDS SUMMARY | 2020-04-16 15:01 | XMS REPORT ---
[...] Onset Dates Condition Statu s Assessment Other chronic postoperative pain 338.28 Active Problem Pseudomonas infection in 041.7 Act [...] Date End Date Status Dosage Paxil MEDISPAN [id number] Active Unknown Celexa MEDISPAN [address]-74 Active Unknown Seroquel MEDISPAN [address]-63 Active Unknown Social History Social History Element Qualifiers Date Reported Tobacco Use: . Are you a: never smoker Sep 24, 2014 Vital Signs Date/Time: Sep 11, 2014 Weight 241 lbs Height 66 in Temperature 97.5 F Cardiac Monitoring Heart Rate 81 /min Summary Purpose eClinicalWorks Submission
--- OUTSIDE RECORDS SUMMARY | 2020-04-16 15:01 | XMS REPORT ---
[...] Code Onset Dates Condition Statu s Assessment Open wound of buttock, 877.1 Activ e complicated Problem Other atopic dermatitis and 691.8 Active related conditions Problem Pilonidal cyst with abscess 685.0 Active Problem Open wound of buttock, 877.1 Activ e complicated Problem Other chronic postoperative pain 338.28 Active Assessment Pilonidal cyst with abscess 685.0 Active Problem Pseudomonas infection in 041.7 Act isaak conditions classified elsewhere and of unspecified site Problem Methicillin resistant 041.12 Active Staphylococcus aureus Medications Medication Code System Code Instructions Start Date End Date Status Dosage Clonidine HCl MEDISPAN [address]- Active Unkno wn 10 Paxil MEDISPAN [address]- Active Unknown 13 Seroquel MEDISPAN [address]- Active Unknown 10 [facility] [address]- Active Unknown 01 Social History Social History Element Qualifiers Date Reported Tobacco Use: . Are you a: never smoker Jan 13, 2015 Vital Signs Date/Time: Jan 13, 2015 Weight 263 lbs Height 68 in Temperature 97.6 F Cardiac Monitoring Heart Rate 101 /min Summary Purpose eClinicalWorks Submission
--- OUTSIDE RECORDS SUMMARY | 2020-04-16 15:02 | XMS REPORT ---
[...] patient to call Pediatric Infectious Disease O ct 2013 [facility] Test results Pediatric Infectious [...] May 12 15 Specialists [facility] Follow-Up - Check wound [...] Pediatric Infectious Disease Jan 21 5 [facility]ists of [facility] Follow-Up Pilonidal cyst Pediatric Infectious Disease Jun [...] abscess of 682.5 Ac tive buttock Assessment Open wound of buttock, 877.1 Activ e complicated Assessment Pilonidal cyst with abscess L05.01 Active Problem Other chronic postoperative pain 338.28 Active Medications Medication Code System Code Instructions Start Date End Date Status Dosage [facility] [address] [address]18[facility]-803 Active Unknown Hydrobromide 1-[address] [facility] 02917-138 Active Unknown 3-[address] Bu[address] [facility] 93500-807 Active Unknown 3-[address] 24818-086 Active Unknown Fumarate 1-20 Social History Social History Element Qualifiers Date Reported Tobacco Use: . Are you a: never smoker Jan 18, 2016 Vital Signs Date/Time: Jan 16, 2016 Weight 323 lbs Height 68 in Temperature 98 F Cardiac Monitoring Heart Rate 128 /min Summary Purpose eClinicalWorks Submission
[2020-04-16 15:14] LABS: ALT/SGPT 39 U/L (12-78); AST/SGOT 16 U/L (15-37); Albumin 4.2 g/dL (3.4-5.0); Alkaline Phosphatase 111 U/L (45-117); BUN Blood Urea Nitrogen 12 mg/dL (7-18); Bicarbonate 26 mmol/L (21-32); Bilirubin Direct 0.1 mg/dL (0-0.2); Bilirubin Total 0.5 mg/dL (0.2-1.0); Glucose Level 147 mg/dL (74-106); Magnesium 2.1 mg/dL (1.8-2.4); NT PRO-BNP 21 pg/mL (<125); Potassium 4.1 mmol/L (3.5-5.1); Sodium Level 136 mmol/L (136-145); Troponin (Emerg Dept Use Only) < 0.02 ng/mL (0.0-0.045)
--- NOTE | 2020-04-16 16:07 | EDPHYS ---
Physician Documentation [facility] Name: Keo Hardin Age: 24 yrs Sex: Male : 1995 Arrival Date: 04/16/2020 Time: 13:56 Bed 19 Private MD: ED Physician Hema Bradford HPI: 04/16 15:27 This 24 yrs old Male presents to ER via Ambulatory with complaints of kb Overdose, Anxiety. 15:27 The patient presents to the emergency department after a known overdose, that was kb accidental. Context: Method: the patient has a confirmed or suspected ingestion, Time: 3 day(s) ago, Extent: the OD/poisoning occurred at at home, and was witnessed no one, Psychiatric history: the patient has a known psychiatric disorder, Previous OD/poisoning history: none. Associated signs and symptoms: Pertinent positives: palpitations, tremors/muscle spasms, sweating, decreased appetite, insomnia. Severity of symptoms: At their worst the symptoms were moderate in the emergency department the symptoms are unchanged. The patient has not experienced similar symptoms in the past. The patient has not recently seen a physician. Pt states "I have anxiety and am a hypochondriac. Since I've been cooped up at home with all this COVID stuff going on I started getting anxious about it and convinced myself I had the symptoms. I started taking cough medication 3 days ago and I just kept taking them because my symptoms wouldn't stop. I ended up taking 20 waltussins and 3 days later I'm still shaking, can't eat or sleep, and sweating. I didn't have any COVID symptoms, I just convinced myself I did." Pt denies suicidal or homicidal ideations. Pt takes wellbutrin and seroquel daily for anxiety. Historical: - Allergies: 17:01 Haldol; ls4 - PMHx: 14:10 Anxiety; Bipolar disorder; Depression; GERD; Hyperlipidemia; Hypertension; insomnia; ls4 MRSA; Panic Attacks; - PSHx: 14:10 Cholecystectomy; ls4 - Immunization history:: Adult Immunizations up to date. - Social history:: Smoking status: Patient denies any tobacco usage or history of. ROS: 15:24 Constitutional: Negative for fever, chills, and weight loss, ENT: Negative for injury, kb pain, and discharge, Neck: Negative for injury, pain, and swelling, Respiratory: Negative for shortness of breath, cough, wheezing, and pleuritic chest pain, Abdomen/GI: Negative for abdominal pain, nausea, vomiting, diarrhea, and constipation, Back: Negative for injury and pain, MS/Extremity: Negative for injury and deformity, Skin: Negative for injury, rash, and discoloration, Neuro: Negative for headache, weakness, numbness, tingling, and seizure. 15:24 Cardiovascular: Positive for palpitations. 15:24 MS/extremity: Positive for spasms. 15:24 Psych: Positive for anxiety, Negative for depression, drug dependence, alcohol dependence, auditory hallucinations, visual hallucinations, homicidal ideation, insomnia, suicide gesture, suicidal ideation. Exam: 15:26 Constitutional: This is a well developed, well nourished patient who is awake, alert, kb and in no acute distress. Head/Face: Normocephalic, atraumatic. ENT: Nares patent. No nasal discharge, no septal abnormalities noted. Tympanic membranes are normal and external auditory canals are clear. Oropharynx with no redness, swelling, or masses, exudates, or evidence of obstruction, uvula midline. Mucous membranes moist. Neck: Trachea midline, no thyromegaly or masses palpated, and no cervical lymphadenopathy. Supple, full range of motion without nuchal rigidity, or vertebral point tenderness. No Meningismus. Chest/axilla: Normal chest wall appearance and motion. Nontender with no deformity. No lesions are appreciated. Cardiovascular: Regular rate and rhythm with a normal S1 and S2. No gallops, murmurs, or rubs. Normal PMI, no JVD. No pulse deficits. Respiratory: Lungs have equal breath sounds bilaterally, clear to auscultation and percussion. No rales, rhonchi or wheezes noted. No increased work of breathing, no retractions or nasal flaring. Abdomen/GI: Soft, non-tender, with normal bowel sounds. No distension or tympany. No guarding or rebound. No evidence of tenderness throughout. Skin: Warm, dry with normal turgor. Normal color with no rashes, no lesions, and no evidence of cellulitis. MS/ Extremity: Pulses equal, no cyanosis. Neurovascular intact. Full, normal range of motion. Neuro: Awake and alert, GCS 15, oriented to person, place, time, and situation. Cranial nerves II-XII grossly intact. Motor strength 5/5 in all extremities. Sensory grossly intact. Cerebellar exam normal. Normal gait. 15:26 ECG was reviewed by the Attending Physician. 15:26 Psych: Behavior/mood is cooperative, anxious, Affect is calm, Oriented to person, place, time, Patient has no thoughts/intents to harm self or others. Judgement / Insight is normal. Memory is normal. Delusions/hallucinations are not present. Vital Signs: 14:03 BP 163 / 76; Pulse 115; Resp 22; Temp 100.6; Pulse Ox 98% on R/A; Weight 145.15 kg; dm5 Height 5 ft. 8 in. (172.72 cm); 15:50 BP 129 / 63; Pulse 97; Resp 18; Temp 99.4; Pulse Ox 96% ; Pain 0/10; ls4 14:03 Body Mass Index 48.66 (145.15 kg, 172.72 cm) dm5 MDM: 14:10 Patient medically screened. kb 15:24 Data reviewed: vital signs, nurses notes. Data interpreted: Pulse oximetry: on room air kb is 98 %. Interpretation: normal. Counseling: I had a detailed discussion with the patient and/or guardian regarding: the historical points, exam findings, and any diagnostic results supporting the discharge/admit diagnosis, lab results, the need for outpatient follow up, a family practitioner, to return to the emergency department if symptoms worsen or persist or if there are any questions or concerns that arise at home. 16:07 ED course: Vital signs normal, labs wnl, ekg normal, mental status normal. Will dc kb home. Pt to return for worsening symptoms. 04/16 14:20 Order name: Basic Metabolic Panel; Complete Time: 15:18 kb 04/16 14:20 Order name: CBC with Diff; Complete Time: 14:58 kb 04/16 14:20 Order name: LFT's; Complete Time: 15:18 kb 04/16 14:20 Order name: Magnesium; Complete Time: 15:18 kb 04/16 14:20 Order name: NT PRO-BNP; Complete Time: 15:18 kb 04/16 14:20 Order name: PT-INR; Complete Time: 15:08 kb 04/16 14:20 Order name: Troponin (emerg Dept Use Only); Complete Time: 15:18 kb 04/16 14:20 Order name: EKG; Complete Time: 14:20 kb 04/16 14:20 Order name: Cardiac monitoring; Complete Time: 16:24 kb 04/16 14:20 Order name: EKG - Nurse/Tech; Complete Time: 16:24 kb 04/16 14:20 Order name: IV Saline Lock; Complete Time: 14:43 kb 04/16 14:20 Order name: Labs collected and sent; Complete Time: 14:43 kb 04/16 14:20 Order name: O2 Per Protocol; Complete Time: 14:43 kb 04/16 14:20 Order name: O2 Sat Monitoring; Complete Time: 14:43 kb 04/16 15:37 Order name: Vital Signs; Complete Time: 16:23 kb EC:26 Rate is 99 beats/min. Rhythm is regular. QRS [place] is Normal. NE interval is normal at kb 156 msec. QRS interval is normal at 98 msec. QT interval is normal at 350 msec. Administered Medications: 14:42 Drug: NS 0.9% 1000 ml Route: IV; Rate: 1000 ml; Site: right hand; ls4 15:45 Follow up: IV Status: Completed infusion; IV Intake: 1000ml ls4 14:42 Drug: Ativan 1 mg Route: IVP; Site: right wrist; ls4 15:02 Follow up: Response: No adverse reaction; Marked relief of symptoms ls4 Disposition: 04/17 09:13 Co-signature as Attending Physician, Hema Bradford MD I agree with the assessment and kdr plan of care. Disposition: 04/16/20 16:07 Discharged to Home. Impression: Serotonin syndrome, Anxiety disorder, unspecified. - Condition is Stable. - Discharge Instructions: Serotonin Syndrome. - Medication Reconciliation Form, Thank You Letter, Antibiotic Education, Prescription Opioid Use form. - Follow up: Emergency Department; When: As needed; Reason: Worsening of condition. Follow up: Private Physician; When: 2 - 3 days; Reason: Recheck today's complaints, Continuance of care, Re-evaluation by your physician. Signatures: Dispatcher [employer] EDNettie Horton, Hema Helton MD MD kdr Stewart, Lisa, RN RN ls4 Corrections: (The following items were deleted from the chart) 04/16 17:12 16:07 04/16/2020 16:07 Discharged to Home. Impression: Serotonin syndrome; Anxiety ls4 disorder, unspecified. Condition is Stable. Forms are Medication Reconciliation Form, Thank You Letter, Antibiotic Education, Prescription Opioid Use. Follow up: Emergency Department; When: As needed; Reason: Worsening of condition. Follow up: Private Physician; When: 2 - 3 days; Reason: Recheck today's complaints, Continuance of care, Re-evaluation by your physician. kb
--- NOTE | 2020-04-16 16:07 | ER ---
Nurse's Notes [facility] Name: Keo Hardin Age: 24 yrs Sex: Male : 1995 Arrival Date: 04/16/2020 Time: 13:56 Bed 19 Private MD: Diagnosis: Serotonin syndrome;Anxiety disorder, unspecified Presentation: 04/16 14:03 Chief complaint: Patient states: took 20 pills for coughing at 1 time 3 days ago. dm5 Hasn't been able to stop shaking, sleep, or eat. Feels weak and is having palpitations. Coronavirus screen: Surgical mask placed on patient. Patient moved to private room, placed in contact and droplet isolation with eye protection until further assessment. Patient denies a cough. Patient denies shortness of breath or difficulty breathing. Patient reports a measured and/or subjective temperature greater than 100.4F. Patient reports travel on a cruise ship or to a country the [facility] currently lists as an affected area. Patient reports contact with known and/or suspected case of COVID-19. Ebola Screen: Patient negative for fever greater than or equal to 101.5 degrees Fahrenheit, and additional compatible Ebola Virus Disease symptoms Patient denies exposure to infectious person. Patient denies travel to an Ebola-affected area in the 21 days before illness onset. No symptoms or risks identified at this time. Initial Sepsis Screen: Does the patient meet any 2 criteria? RR > 20 per min. No. Patient's initial sepsis screen is negative. Does the patient have a suspected source of infection? No. Patient's initial sepsis screen is negative. Risk Assessment: Do you want to hurt yourself or someone else? Other: denies wanting to hurt himself, took pills because he felt he had symptoms. Onset of symptoms was April 13, 2020. 14:03 Method Of Arrival: Ambulatory dm5 14:03 Acuity: ROBERTH 2 dm5 Historical: - Allergies: 17:01 Haldol; ls4 - PMHx: 14:10 Anxiety; Bipolar disorder; Depression; GERD; Hyperlipidemia; Hypertension; insomnia; ls4 MRSA; Panic Attacks; - PSHx: 14:10 Cholecystectomy; ls4 - Immunization history:: Adult Immunizations up to date. - Social history:: Smoking status: Patient denies any tobacco usage or history of. Screenin:15 Abuse screen: Denies threats or abuse. Denies injuries from another. ls4 14:15 Nutritional screening: No deficits noted. Tuberculosis screening: No symptoms or risk ls4 factors identified. Fall Risk None identified. Assessment: 14:15 Pain: Denies pain. ls4 14:15 General: Appears uncomfortable, Behavior is anxious. Neuro: No deficits noted. ls4 Cardiovascular: Denies chest pain, shortness of breath. Respiratory: Airway is patent Respiratory effort is even, unlabored. GI: No deficits noted. : No deficits noted. EENT:. Derm: Skin is intact, is healthy with good turgor, Skin is dry, Skin is flushed, Skin temperature is warm. Musculoskeletal: No deficits noted. No signs and/or symptoms reported regarding the musculoskeletal system. 15:30 Reassessment: Patient appears in no apparent distress at this time. Patient and/or ls4 family updated on plan of care and expected duration. Pain level reassessed. Patient is alert, oriented x 3, equal unlabored respirations, skin warm/dry/pink. Patient states symptoms have improved. 16:30 Reassessment: Patient appears in no apparent distress at this time. Patient and/or ls4 family updated on plan of care and expected duration. Pain level reassessed. Patient is alert, oriented x 3, equal unlabored respirations, skin warm/dry/pink. Patient states feeling better. Patient states symptoms have improved. 17:00 Reassessment: Patient appears in no apparent distress at this time. Patient and/or ls4 family updated on plan of care and expected duration. Pain level reassessed. Patient is alert, oriented x 3, equal unlabored respirations, skin warm/dry/pink. Patient states feeling better. Vital Signs: 14:03 BP 163 / 76; Pulse 115; Resp 22; Temp 100.6; Pulse Ox 98% on R/A; Weight 145.15 kg; dm5 Height 5 ft. 8 in. (172.72 cm); 15:50 BP 129 / 63; Pulse 97; Resp 18; Temp 99.4; Pulse Ox 96% ; Pain 0/10; ls4 14:03 Body Mass Index 48.66 (145.15 kg, 172.72 cm) dm5 ED Course: 13:56 Patient arrived in ED. as 14:07 Triage completed. dm5 14:10 Nettie Mendoza FNP-C is [facility]. kb 14:10 Hema Bradford MD is Attending Physician. kb 14:11 Patient has correct armband on for positive identification. Bed in low position. Call ls4 light in reach. Side rails up X 1. counter pocket sewer on. Pulse ox on. NIBP on. 14:11 Verbal reassurance given. Diet: Patient given water. Tolerated well. ls4 14:11 No provider procedures requiring assistance completed. Inserted saline lock: 20 gauge ls4 in right hand, using aseptic technique. 14:42 Marisabel Chen, RN is Primary Nurse. ls4 14:46 POISON CONTROL CALLED. HALF LIFE OF DEXTROMORPHAN IS FOUR HOIURS. THIS DRUG CAN AFFECT ls4 THE METABOLISM OF OTHER DRUGS AND MAY BE AN EFFECT OF INABILITY TO ABSORB WELLBRUTIN AND SEROQUEL. 16:22 IV discontinued, intact, bleeding controlled, No redness/swelling at site. Pressure ls4 dressing applied. Administered Medications: 14:42 Drug: NS 0.9% 1000 ml Route: IV; Rate: 1000 ml; Site: right hand; ls4 15:45 Follow up: IV Status: Completed infusion; IV Intake: 1000ml ls4 14:42 Drug: Ativan 1 mg Route: IVP; Site: right wrist; ls4 15:02 Follow up: Response: No adverse reaction; Marked relief of symptoms ls4 Intake: 15:45 IV: 1000ml; Total: 1000ml. ls4 Outcome: 16:07 Discharge ordered by . kb 16:29 Discharged to home ambulatory. ls4 16:29 Condition: good 16:29 Discharge instructions given to patient, family, Instructed on discharge instructions, follow up and referral plans. medication usage, Demonstrated understanding of instructions, follow-up care, medications. 16:29 Patient left the ED. ls4 Signatures: Nettie Mendoza FNP-C FNP-Ckb Markwardt, Deana, RN RN Na Szymanski as Marisabel Chen, RN RN ls4 Corrections: (The following items were deleted from the chart) 04/17 01:02 05 17:12 Patient left the ED. ls4 ls4
[2020-04-16 17:52] VITALS: BP 129/63; TEMP 99.4; O2SAT 96
--- NOTE | 2020-04-17 06:30 | EKG ---
Test Date: 2020-04-16 Test Time: 15:10:10 Banquet Food Server: ERIN MEASUREMENT RESULTS: Intervals: Rate: 99 KS: 156 QRSD: 98 QT: 350 QTc: 449 [place]: P: 19 KS: 156 QRS: 87 T: 22 INTERPRETIVE STATEMENTS: Normal sinus rhythm Normal ECG Compared to ECG 09/26/2019 09:43:43 Sinus tachycardia no longer present Right-axis deviation no longer present Myocardial infarct finding no longer present Electronically Signed On 04-17-20 06:30:11 CDT by Kelechi Banegas
== END 2020-04-16 17:12 | disposition home or self-care (01) ==
LOC: ER 13:55
DX: G25.79 Other drug induced movement disorders (principal); I10 Essential (primary) hypertension; F31.9 Bipolar disorder, unspecified; Z88.5 Allergy status to narcotic agent
CPT/HCPCS: 96361; 93005; 85025; 80048; 36415; 83735; 85610; 80076; 84484; 83880; 96374; 99284; J7030

== ENCOUNTER 2020-05-08 23:24 | Emergency (ER) | payer OTHER ==
--- OUTSIDE RECORDS SUMMARY | 2020-05-08 23:28 | XMS REPORT | Continuity of Care Document ---
:1995 Author Organization [facility] Care Team Providers Name Role Phone [facility] Unavailable Un available Problems Problem Status Onset Classification Date Comments Sourc e Date Reported Pseudomonas Active Problem 01/19/2016 Pedi infection in Infect conditions Disease o f classified [place] elsewhere and of unspecified site Methicillin Active Problem 01/19/2016 Pedi resistant Infect Staphylococcus Disea se of aureus [place] Pilonidal cyst Active Problem 01/19/2016 Pedi with abscess Infect Disease of [place] Other chronic Active Problem 01/19/2016 Pedi postoperative pain I nfect Disease of [place] Other atopic Active Problem 01/19/2016 Pedi dermatitis and Infec t related conditions D isease of [place] Open wound of Active Problem 01/19/2016 Pedi buttock, Infect complicated Disease of [place] Cutaneous abscess Active Problem 01/19/2016 P luis carlos of buttock Infect Disease of [place] Open wound of Active Problem 01/19/2016 Pedi buttock, without Inf ect mention of Disease o f complication [place] Pilonidal cyst Active Problem 01/19/2016 Pedi with abscess Infect Disease of [place] Klebsiella Active Problem 01/19/2016 Pedi pneumoniae Infect infection Disease of [place] Cellulitis and Active Problem 01/19/2016 Pedi abscess of buttock I nfect Disease of [place] Medications Medication Details Route Status Patient Ordering Order Source Instructions Provider Date Augmentin 1 tablet PO Active 500 mg PO Three Lacey 09/17/20 Pedi times a day 14 Infect Disease of [place] Paxil Unknown NA Active Lacey Pedi Infect [facility] of [place] Celexa Unknown NA Active Lacey Pedi Infect Disease of [place] Seroquel Unknown NA Active Lacey Pedi Infect Disease of [place] Augmentin Unknown NA Active Lacey Pedi Infect Disease of [place] Clonidine HCl Unknown NA Active Lacey Pedi Infect Disease of [place] Citalopram Unknown NA Active Lacey Pedi Hydrobromide Infect Disease of [place] Doxepin HCl Unknown NA Active Lacey Pedi Infect Disease of [place] BuPROPion HCl Unknown NA Active Lacey Pedi Infect Disease of [place] Quetiapine Unknown NA Active Lacey Pedi Fumarate Infect Disease of [place] Allergies, Adverse Reactions, Alerts Substance Category Reaction Severity Reaction Status Date Comments S ource type Reported N.K.D.A. Adverse Info Not Adverse Active Pedi Reaction Available Reaction [address]fe [address] Disease of [place] Immunizations No Data Provided for This Section [...] Weight 323 01/16/2016 Pedi Infect Disease of [place] Height 68 01/16/2016 Pedi Infect Disease of [place] Temperature Oral (F) 98 F 01/16/2016 Pedi In fect Disease of [place] Heart Rate 128 01/16/2016 Pedi Infect Disease of [place] Weight 295 08/07/2015 Pedi Infect Disease of [place] Height 68 08/07/2015 Pedi Infect Disease of [place] Temperature Oral (F) 98 F 08/07/2015 Pedi In fect Disease of [place] Heart Rate 108 08/07/2015 Pedi Infect Disease of [place] Weight 263 01/13/2015 Pedi Infect Disease of [place] Height 68 01/13/2015 Pedi Infect Disease of [place] Temperature Oral (F) 97.6 F 01/13/2015 Pedi In fect Disease of [place] Heart Rate 101 01/13/2015 Pedi Infect Disease of [place] Weight 260 01/02/2015 Pedi Infect Disease of [place] Height 68 01/02/2015 Pedi Infect Disease of [place] Temperature Oral (F) 97.8 F 01/02/2015 Pedi In fect Disease of [place] Heart Rate 102 01/02/2015 Pedi Infect Disease of [place] Weight 247.2 10/22/2014 Pedi Infect Disease of [place] Height 66 10/22/2014 Pedi Infect Disease of [place] Temperature Oral (F) 97.5 F 10/22/2014 Pedi In fect Disease of [place] Weight 248 10/09/2014 Pedi Infect Disease of [place] Height 66 10/09/2014 Pedi Infect Disease of [place] Temperature Oral (F) 97.6 F 10/09/2014 Pedi In fect Disease of [place] Heart Rate 77 10/09/2014 Pedi Infect Disease of [place] Weight 245 09/24/2014 Pedi Infect Disease of [place] Height 66 09/24/2014 Pedi Infect Disease of [place] Temperature Oral (F) 98.9 F 09/24/2014 Pedi In fect Disease of [place] Heart Rate 91 09/24/2014 Pedi Infect Disease of [place] Weight 241 09/18/2014 Pedi Infect Disease of [place] Height 66 09/18/2014 Pedi Infect Disease of [place] Temperature Oral (F) 97.6 F 09/18/2014 Pedi In fect Disease of [place] Heart Rate 89 09/18/2014 Pedi Infect Disease of [place] Weight 241 09/11/2014 Pedi Infect Disease of [place] Height 66 09/11/2014 Pedi Infect Disease of [place] Temperature Oral (F) 97.5 F 09/11/2014 Pedi In fect Disease of [place] Heart Rate 81 09/11/2014 Pedi Infect Disease of [place] Encounters Location Location Encounter Encounter Reason Attending ADM [facility] Source Details Type Number For Provider Date Date Visit Pediatric Unknown [id number] 09/11 09/11 Pe di Infectious [id number] In fect Disease [id number] [facility] [id number] [facility] [place] Unknown [id number] 09/11 09/11 Pe di Infectious ef6-4ba4- In fect Disease [id number] [facility] [id number] [employer] [facility] [place] Unknown [id number] 09/11 09/11 Pe di Infectious 1d8-7ivf-1 In fect Disease [id number] [facility] [id number] [facility] [place] [facility] [id number] 09/11 09/11 Pe di Infectious 930-4e88- In fect Disease [id number] [facility] [id number] of [facility] [place] Unknown [id number] 09/11 09/11 Pe di Infectious 10f-4643-a /2013 In fect Disease 00f-7bab3c [facility] [id number] [employer] [place] Unknown [id number] 09/11 09/11 Pe di Infectious 8f9-6625-b /2013 In fect Disease ff1-92b48f [facility] [id number] [employer] [place] Unknown [id number] 09/11 09/11 Pe di Infectious dfa-[id number] In fect Disease [id number] [facility] [id number] of [facility] [place] Unknown [id number] 09/11 09/11 Pe di Infectious 3d4-78dc-9 In fect Disease [id number] [facility] [id number] of [facility] [place] Unknown [id number] 09/11 09/11 Pe di Infectious 6g1-77k1-k In fect Disease [id number]-[id number] [facility] [id number] of [facility] [place] Unknown [id number] 09/11 09/11 Pe di Infectious 9n5-8611-3 In fect Disease [id number] [facility] [id number] of [facility] [place] Unknown [id number] 09/11 09/11 Pe di Infectious 971-446c- In fect Disease [id number] [facility] [id number] of [facility] [place] Unknown [id number] 09/11 09/11 Pe di Infectious [id number]-a In fect Disease [id number] [facility] [id number] of [facility] [place] Unknown [id number] 09/11 09/11 Pe di Infectious 4t2-6q49-x In fect Disease 35a-[id number] [facility] [id number] of [facility] [place] Unknown [id number] 09/11 09/11 Pe di Infectious 56e-4a56-a In fect Disease [id number] [facility] [id number] of [facility] [place] Provider [id number] 09/17 09/17 P luis carlos Infectious told [id number] In fect Disease patient to [id number] [facility] call [id number] of [facility] [place] [id number] 09/17 09/17 P luis carlos Infectious told [id number] /2013 In fect Disease patient to [id number] [id number] [id number] 09/17 09/17 P luis carlos Infectious told [id number]-[id number] In fect Disease patient to [id number] [id number] [id number] 09/17 09/17 P luis carlos Infectious told a18-7kbx-4 In fect Disease patient to [id number]-4fi806 [id number] Test [id number] 09/17 09/17 Ped i Infectious results 39a-4529-a /2013 I nfect Disease b9i-[id number] [id number] [facility] [id number] 09/17 09/17 Ped i Infectious results 940-4cf0-b /2013 I nfect Disease bbd-[id number] [id number] [facility] [id number] 09/17 09/17 Ped i Infectious results 298-418a-a /2013 I nfect Disease 45d-wz4039 [facility] [id number] [facility] [id number] 09/17 09/17 Ped i Infectious results 7d4-11s0-u /2013 I nfect Disease [id number] [facility] [id number] [facility] [id number] 09/17 09/17 P luis carlos Infectious told bd5-4b86- In fect Disease patient to [id number] [id number] [facility] [id number] 09/17 09/17 P luis carlos Infectious told [id number] In fect Disease patient to [id number]-[id number] [facility] [id number] [facility] [id number] 09/17 09/17 P luis carlos Infectious told 868-4bf8- In fect Disease patient to [id number] [facility] [id number] [facility] [id number] 09/17 09/17 P luis carlos Infectious told 40f-4dfa- In fect Disease patient to [id number] [facility] [id number] [facility] [id number] 09/17 09/17 P luis carlos Infectious told 513-46d1- In fect Disease patient to [id number] [id number] [facility] [place] [facility] [id number] 09/17 09/17 P luis carlos Infectious told e73-41o3-[id number] In fect Disease patient to [id number] [id number] [facility] [id number] 09/17 09/17 P luis carlos Infectious told [id number]-[id number] In fect Disease patient to [id number] [facility]caceb [facility] [place] [facility] [id number] 09/17 09/17 P luis carlos Infectious told w3z-[id number]-3 In fect Disease patient to [id number] [facility] [id number] [facility] [place] [facility] [id number] 09/17 09/17 P luis carlos Infectious told 6ea-4f71- In fect Disease patient to [id number]-[id number] [facility] [id number] [facility] [place] [facility] [id number] 09/17 09/17 P luis carlos Infectious told 439-49f6- In fect Disease patient to [id number] [facility] call [id number] [employer] [place] Test [id number] 09/17 09/17 Ped i Infectious results s07-8472-y /2013 I nfect Disease afa-[id number] [facility] [id number] [facility] [place] Test [id number] 09/17 09/17 Ped i Infectious results 321-4105-a /2013 I nfect Disease 033-5fc2a4 [facility] [id number] [facility] [place] Test [id number] 09/17 09/17 Ped i Infectious results 744-4d7f-a /2013 I nfect Disease 509-7350cc [facility] [id number] of [facility] [place] Test [id number] 09/17 09/17 Ped i Infectious results fd7-4768-b /2013 I nfect Disease 34c-5314cd [facility] [id number] [facility] [place] Test [id number] 09/17 09/17 Ped i Infectious results 747-490c-8 I nfect Disease [id number]-[id number] [facility] [id number] [facility] [place] Test [id number] 09/17 09/17 Ped i Infectious results [id number] /2013 I nfect Disease [id number] [facility] [id number] [facility] [place] Test [id number] 09/17 09/17 Ped i Infectious results [id number] /2013 I nfect Disease cca-59edf5 [facility] [id number] [facility] [place] Test [id number] 09/17 09/17 Ped i Infectious results [id number] /2013 I nfect Disease [id number] [facility] [id number] [facility] [place] Test [id number] 09/17 09/17 Ped i Infectious results dd1-4c00-8 I nfect Disease 23e-70d07e [facility] [id number] [facility] [place] Test [id number] 09/17 09/17 Ped i Infectious results g08-09m7-c /2013 I nfect Disease [id number]-[id number] [id number] [facility] [id number] 09/18 09/18 Pedi Infectious Pilonidal 00b-4b97-a /2013 Infect Disease Cyst 34f-bc1cc5 [facility] [id number] [facility] [id number] 09/18 09/18 Pedi Infectious Pilonidal ca6-471b-a /2013 Infect Disease Cyst 0s5-pt747e [facility] [id number] [facility] [id number] 09/18 09/18 Pedi Infectious Pilonidal g2m-918l-j /2013 Infect Disease Cyst 433-75cb33 [facility] [id number] [facility] [place] [facility] [id number] 09/18 09/18 Pedi Infectious Pilonidal f6g-5mwk-5 /2013 Infect Disease Cyst 6c7-[id number] [facility] [id number] [facility] [id number] 09/18 09/18 Pedi Infectious Pilonidal [id number] /2013 Infect Disease Cyst [id number] [facility] [id number] [facility] [id number] 09/18 09/18 Pedi Infectious Pilonidal 7p5-6903-5 /2013 Infect Disease Cyst eb2-a2d1d4 [facility] [id number] [facility] [place] [facility] [id number] 09/18 09/18 Pedi Infectious Pilonidal 709-41ab-b /2013 Infect Disease Cyst 690-a2a3e7 [facility] [id number] [facility] [place] [facility] [id number] 09/18 09/18 Pedi Infectious Pilonidal 16f-4422-a /2013 Infect Disease Cyst 53a-3b5dfc [facility] [id number] [facility] [place] [id number] 09/18 09/18 Pedi Infectious Pilonidal 145-41c4-b /2013 Infect Disease Cyst 98c-82c78f [facility] [id number] [facility] [place] Follow-Up [id number] 09/18 09/18 Pedi Infectious Pilonidal 98d-4b19-b /2013 Infect Disease Cyst [id number]-[id number] [facility] [id number] [facility] [place] Follow[place]Up [id number] 09/18 09/18 Pedi Infectious [place]ilon[place] cf3-4a2f-b /2013 Infect Disease Cyst aa5-48a13b [facility] [id number] [facility] [place] [id number] 09/24 09/24 Pedi Infectious [place]ilon[place] i4i-5h58-b /2013 Infect Disease Cyst [id number] [facility] [id number] [facility] [place]Up [id number] 09/24 09/24 Pedi Infectious [place]ilon[place] bc0-4c7b-9 /2013 Infect Disease Cyst 83a-587116 [facility] [id number] [facility] [place] [id number] 09/24 09/24 Pedi Infectious Pilonidal 171-4d6a-b /2013 Infect Disease Cyst 922-291742 [facility] [id number] [facility] [place]Up [id number] 09/24 09/24 Pedi Infectious Pilonidal 786-4d38-b /2013 Infect Disease Cyst 00a-9f5fa2 [facility] [id number] [facility] [place]Up [id number] 09/24 09/24 Pedi Infectious Pilonidal 1y2-4mt9-7 /2013 Infect Disease Cyst 528-7f2ac2 [facility] [id number] [facility] [id number] 09/24 09/24 Pedi Infectious Pilonidal 0n4-732x-k /2013 Infect Disease Cyst 80e-1bbfcb [facility] [id number] [facility] [id number] 09/24 09/24 Pedi Infectious Pilonidal 994-4c53-9 /2013 Infect Disease Cyst 6de-f4ed9e [facility] [id number] [facility] [place] [facility] [id number] 09/24 09/24 Pedi Infectious Pilonidal 24b-451a-8 /2013 Infect Disease Cyst 82c-662bd2 [facility] [id number] [facility] [place] [facility] [id number] 09/24 09/24 Pedi Infectious Pilonidal ed8-4e55-b /2013 Infect Disease Cyst 376-777cde [facility] [id number] [facility] [id number] 09/24 09/24 Pedi Infectious Pilonidal 8ed-4898-b /2013 Infect Disease Cyst cee-szp951 [facility] [id number] [facility] [id number] 09/24 09/24 Pedi Infectious Pilonidal 26d-400d-a /2013 Infect Disease Cyst 8e2-3191mu [facility] [id number] [facility] [place] [facility] [id number] 10/09 10/09 Pedi Infectious Pilon[place] ca5-4f38-8 /2013 Infect Disease Cyst 73a-1b7d56 [facility] [id number] [facility] [id number] 10/09 10/09 Pedi Infectious Pilonidal 636-40e6-9 Infect Disease Cyst 947-[id number] [facility] [id number] [facility] [place] [facility] [id number] 10/09 10/09 Pedi Infectious [place]ilon[place] d7j-432s-6 /2013 Infect Disease Cyst y57-[id number] [facility] [id number] [facility] [place] Follow-Up [id number] 10/09 10/09 Pedi Infectious Pilonidal 66c-4459-a /2013 Infect Disease Cyst e40-389028 [facility] [id number] [facility] [place] Follow-Up [id number] 10/09 10/09 Pedi Infectious Pilon[place] 2dd-467d-8 /2013 Infect Disease Cyst 8l9-022671 [facility] [id number] [facility] [place] Follow-Up [id number] 10/09 10/09 Pedi Infectious Pilonidal 201-45fb-b /2013 Infect Disease Cyst 1v5-8e0b33 [facility] [id number] [facility] [place] Follow-Up [id number] 10/09 10/09 Pedi Infectious Pilon[place] t0h-7y49-r /2013 Infect Disease Cyst bed-8fceb1 [facility] [id number] [facility] [place] Follow-Up [id number] 10/09 10/09 Pedi Infectious Pilonidal s7y-1591-s /2013 Infect Disease Cyst bc1-612e32 [facility] [id number] [facility] [place] Follow-Up [id number] 10/09 10/09 Pedi Infectious Pilonidal 9d1-1h8a-3 /2013 Infect Disease Cyst e8a-fv1063 [facility] [id number] [facility] [place] Follow-Up [id number] 10/09 10/09 Pedi Infectious Pilonidal 9ed-4f4b-8 /2013 Infect Disease Cyst 2fb-43eadf [facility] [id number] [facility] [place] Follow-Up [id number] 10/09 10/09 Pedi Infectious Pilonidal 2j8-7a46-6 /2013 Infect Disease Cyst [id number] [facility] [id number] [facility] [place]CARE [id number] 10/22 10/22 Pedi Infectious 4r9-4c91-1 /2013 In fect Disease 48c-181282 [facility] [id number] [facility] [place] [id number] 10/22 10/22 Pedi Infectious 442-4426-9 /2013 In fect Disease k8y-3t1qo7 [facility] [id number] [facility] [place] [id number] 10/22 10/22 Pedi Infectious ba4-494c-b /2013 In fect Disease 92f-282645 [facility] [id number] [facility] [place] [id number] 10/22 10/22 Pedi Infectious afc-4b99-b /2013 In fect Disease 449-4770ae [facility] [id number] [facility] [place] [id number] 10/22 10/22 Pedi Infectious m44-3716-y /2013 In fect Disease 6ad-048b69 [facility] [id number] [facility] [place] [facility] [place] [id number] 10/22 10/22 Pedi Infectious cf9-4283-a /2013 In fect Disease ee3-f10d09 [facility] [id number] [facility] [place] [facility] [place] [id number] 10/22 10/22 Pedi Infectious ec0-4282-8 /2013 In fect Disease [id number]-[id number] [facility] [id number] [facility] [place] [facility] [place] [id number] 10/22 10/22 Pedi Infectious bad-4c5d-a /2013 In fect Disease [id number]-[id number] [facility] [id number] [facility] [place] FU - [id number] 11/19 11/19 Ped i Infectious PILONIDAL 0g1-47hx-5 /2013 Infect Disease CYST [id number] [facility] [id number] [facility] [place] FU - [id number] 11/19 11/19 Ped i Infectious PILONIDAL [id number] /2013 Infect Disease CYST [id number]-[id number] [facility] [id number] [facility] [place] FU - [id number] 11/19 11/19 Ped i Infectious PILONIDAL 2ac-4955-a /2013 Infect Disease CYST [id number] [facility] [id number] of [facility] [place] FU - [id number] 11/19 11/19 Ped i Infectious PILONIDAL [id number]-d /2013 Infect Disease CYST [id number] [facility] [id number] [facility] - [id number] 11/19 11/19 Ped i Infectious PILONIDAL 115-444f-b /2013 Infect Disease CYST [id number] [facility] [id number] [facility] - [id number] 11/19 11/19 Ped i Infectious PILONIDAL 9p6-0g73-j /2013 Infect Disease CYST [id number] [facility] [id number] [facility] - [id number] 11/19 11/19 Ped i Infectious PILONIDAL 6ea-40c8-b /2013 Infect Disease CYST [id number] [facility] [id number] [facility] [place] FU - [id number] 11/19 11/19 Ped i Infectious PILONIDAL 643-4d47-b /2013 Infect Disease CYST [id number] [facility] [id number] [facility] [place] Unknown [id number] 12/11 12/11 Pe di Infectious 490-456d-9 In fect Disease b65-70e0c0 [facility] [id number] [facility] [place] Unknown [id number] 12/11 12/11 Pe di Infectious 50b-42a1-a /2014 In fect Disease 995-my203d [facility] [id number] of [facility] [place] Unknown [id number] 12/11 12/11 Pe di Infectious 1f7-34w4-9 In fect Disease 920-3bz252 [facility] [id number] [facility] [place] Unknown [id number] 12/11 12/11 Pe di Infectious de7-4c4f- In fect Disease 945-2aebd0 [facility] [id number] [facility] [place] Unknown [id number] 12/11 12/11 Pe di Infectious l9w-608e-4 In fect Disease [id number] [facility] [id number] [facility] [place] Unknown [id number] 12/11 12/11 Pe di Infectious 459-43f5- In fect Disease aee-33b8fd [facility] [id number] [facility] [place] Follow-Up [id number] 01/02 01/02 Pedi Infectious Pilonidal af5-4ef1-b /2014 Infect Disease cyst [id number]-37b0d6 [facility] [id number] [facility] [place] Follow-Up [id number] 01/02 01/02 Pedi Infectious Pilonidal ddb-4f8b- Infect Disease cyst [id number] [facility] [id number] [facility] [place] Follow-Up [id number] 01/02 01/02 Pedi Infectious Pilonidal 140-43fd- Infect Disease cyst 364-2311e8 [facility] [id number] [facility] [place] Follow-Up [id number] 01/02 01/02 Pedi Infectious Pilonidal cad-4517- Infect Disease cyst b09-jl6y49 [facility] [id number] [facility] [place] Follow-Up [id number] 01/02 01/02 Pedi Infectious Pilonidal 766-43da-a /2014 Infect Disease cyst w68-7fh0t6 [facility] [id number] [facility] [place] Follow-[place] [id number] 01/13 01/13 Pedi Infectious Pilonidal i50-675t-m /2014 Infect Disease cyst [id number] [facility] [id number] [facility] [place] Follow-Up [id number] 01/13 01/13 Pedi Infectious Pilonidal 614-46ec-b /2014 Infect Disease cyst 01b-79ea4a Dise[facility] se Specialists [id number] of [facility] Pediatric Follow-Up [id number] 01/13 01/13 Pedi Infectious Pilonidal [id number] /2014 Infect Disease cyst [id number] Disea se Specialists [id number] of [facility] [id number] 01/13 01/13 Pedi Infectious Pilonidal [id number] /2014 Infect Disease cyst [id number] Disea se Specialists [id number] of [facility] [id number] 01/13 01/13 Pedi Infectious Pilonidal [id number] /2014 Infect Disease cyst [id number] Disea se Specialists [id number] of [facility] [id number] 01/21 01/21 Pedi Infectious [id number] /2014 In fect Disease [id number] [facility] [id number] [facility] [id number] 01/21 01/21 Pedi Infectious [id number] /2014 In fect Disease [id number] Disea se [facility] [id number] [facility] [id number] 02/04 02/04 Pedi Infectious Pilonidal [id number] /2014 Infect Disease cyst [id number] [id number] [id number] 02/04 02/04 Pedi Infectious Pilonidal [id number] /2014 Infect Disease cyst [id number] Disea se Specialists [id number] of [facility] [id number] 02/18 02/18 Pedi Infectious Pilonidal [id number] Infect Disease cyst and [id number] Dis ease Specialists Laser hair [id number] o f of [place], [facility] [place] Pediatric Follow-Up [id number] 02/18 02/18 Pedi Infectious Pilonidal [id number] Infect Disease cyst and [id number] Dis ease Specialists Laser hair [id number] o f of [place], [facility] [place] Pediatric Follow-Up [id number] 05/06 05/06 Pedi Infectious Pilonidal [id number] Infect Disease cyst [id number] [id number] [facility] [id number] 05/06 05/06 Pedi Infectious Pilonidal [id number] /2014 Infect Disease cyst [id number] [id number] [facility] [place] [facility] [id number] 05/12 05/12 Ped i Infectious results [id number] I nfect Disease [id number] [facility] [id number] [facility] [place] [facility] [id number] 05/12 05/12 Ped i Infectious results [id number] /2014 I nfect Disease [id number] Disea se [id number] [facility] [id number] 05/16 05/16 Pedi Infectious Pilonidal [id number] /2014 Infect Disease Cyst [id number] [id number] [facility] [id number] 05/16 05/16 Pedi Infectious Pilonidal [id number] /2014 Infect Disease Cyst [id number] Disea se Specialists [id number] of [facility] [place] Follow[place] [id number] 05/26 05/26 Pedi Infectious Pilonidal [id number] /2014 Infect Disease cyst [id number] Disea se Specialists [id number] of [facility] [place] [id number] 05/26 05/26 Pedi Infectious Pilonidal [id number] /2014 Infect Disease cyst [id number] Disea se Specialists [id number] of [facility] [id number] 07/10 07/10 Pedi Infectious Pilonidal [id number] Infect Disease cyst [id number] Disea se Specialists [id number] of [facility] [id number] 07/10 07/10 Pedi Infectious Pilonidal [id number] /2014 Infect Disease cyst [id number] Disea se Specialists [id number] of [facility] [id number] 08/07 08/07 Pedi Infectious Pilonidal [id number] /2014 Infect Disease cyst [id number] Disea se Specialists [id number] of [facility] [id number] 08/07 08/07 Pedi Infectious Pilonidal [id number] /2014 Infect Disease cyst [id number] Disea se Specialists [id number] of [facility] Test [id number] 08/11 08/11 Ped i Infectious results [id number] I nfect Disease [id number] Disea se Specialists [id number] of [facility] Test [id number] 08/11 08/11 Ped i Infectious results [id number] I nfect Disease [id number] Disea se Specialists [id number] [place] [id number] 01/16 01/16 Pedi Infectious - Check [id number] /2015 I nfect Disease wound [id number] [place] se [facility] [id number] [facility] [place] Procedures No Data Provided for This Section Assessment and Plan No Data Provided for This Section Plan of Care No Data Provided for This Section Social History Social History Date Source Social History ElementQualifiersDate Reported 01/18/2016 Pedi Infect Disease of Tobacco Use: [place] . Are you a: never smoker Jan 18, 2016 Family History Value Date Source QualifierDescriptionCommentDate Reported 08/09/2015 Pedi Infect Disease of Maternal Grandmother [place] Comment not available Aug 07, 2015 Paternal [...]
[2020-05-09] MEDS ORDERED: NA CHLORIDE 0.9% 1,000 ML ONE (00:10)
[2020-05-09 00:24] LABS: Absolute Lymphocytes (CBC) 3.3 K/uL (0.7-4.9); Basophils % 1.3 % (0-1.3); Hematocrit 42.2 % (39.6-49.0); Lymphocytes % 33.6 % (15.3-44.8); MPV 7.5 fL (7.6-11.3); RBC Red Blood Cell Count 5.07 M/uL (4.33-5.43)
[2020-05-09 00:44] LABS: ALT/SGPT 44 U/L (12-78); AST/SGOT 16 U/L (15-37); Albumin 3.9 g/dL (3.4-5.0); Alkaline Phosphatase 109 U/L (45-117); BUN Blood Urea Nitrogen 14 mg/dL (7-18); Bicarbonate 30 mmol/L (21-32); Bilirubin Direct < 0.1 mg/dL (0-0.2); Bilirubin Total 0.3 mg/dL (0.2-1.0); Glucose Level 154 mg/dL (74-106); Lipase 74 U/L (73-393); Potassium 4.5 mmol/L (3.5-5.1); Protein, Total 7.3 g/dL (6.4-8.2); Sodium Level 139 mmol/L (136-145)
--- NOTE | 2020-05-09 02:22 | EDPHYS ---
Physician Documentation [facility] Name: Keo Hardin Age: 24 yrs Sex: Male : 1995 Arrival Date: 05/08/2020 Time: 23:29 Bed 6 Private MD: Shaun Manzo C ED Physician Ricardo Gonzalez HPI: 05/09 00:00 This 24 yrs old Male presents to ER via Ambulatory with complaints of rn Abdominal Pain, Chest Pain, Fever, CHILLS, Weakness. 00:01 Reports subjective fever/chills, intermittent chest pain and abd pain, assoc with rn fatigue, malaise, intermittent nausea. No urinary symptoms. No blood in stool. Has had gallbladder removed. States pain moves around from chest to abdomen, intermittent, and lasts for about a minute each episode. Has been happening on and off for about 2 weeks. No sick contacts. . Onset: The symptoms/episode began/occurred 2 week(s) ago. Severity of symptoms: At their worst the symptoms were mild in the emergency department the symptoms are unchanged. The patient has not experienced similar symptoms in the past. The patient has not recently seen a physician. Historical: - Allergies: 05/08 23:31 Haldol; sg - PMHx: 23:31 Anxiety; Bipolar disorder; Depression; GERD; Hyperlipidemia; Hypertension; insomnia; sg MRSA; Panic Attacks; - PSHx: 23:31 Cholecystectomy; sg - Immunization history:: Adult Immunizations up to date. - Social history:: Smoking status: Patient denies any tobacco usage or history of. - Family history:: not pertinent. - Hospitalizations: : No recent hospitalization is reported. ROS: 05/09 00:01 Constitutional: + fever and chills Eyes: Negative for injury, pain, redness, and rn military, ENT: Negative for injury, pain, and discharge, Neck: Negative for injury, pain, and swelling, Cardiovascular: Negative for palpitations, and edema, Respiratory: Negative for shortness of breath, cough, wheezing Abdomen/GI: Negative for vomiting, diarrhea, and constipation, Back: Negative for injury and pain, : Negative for injury, bleeding, discharge, and swelling, MS/Extremity: Negative for injury and deformity, Skin: Negative for injury, rash, and discoloration, Neuro: Negative for headache, numbness, tingling, and seizure. Exam: 00:01 Constitutional: Overweight male, no acute distress Head/Face: Normocephalic, rn atraumatic. ENT: dry MM Neck: Trachea midline, no thyromegaly or masses palpated, and no cervical lymphadenopathy. Supple, full range of motion without nuchal rigidity, or vertebral point tenderness. No Meningismus. Cardiovascular: Tachycardic, regular, intact distal pulses Respiratory: No increased work of breathing, no retractions or nasal flaring. Abdomen/GI: soft, mild RLQ tenderness, no rebound Skin: Warm, dry and no evidence of cellulitis. MS/ Extremity: Pulses equal, no cyanosis. Neuro: Awake and alert, GCS 15, oriented to person, place, time, and situation. Cranial nerves II-XII grossly intact. Motor strength 5/5 in all extremities. Sensory grossly intact. Cerebellar exam normal. Vital Signs: 00:00 BP 143 / 93; Pulse 114; Resp 20 S; Temp 98.7(O); Pulse Ox 98% on R/A; Weight 136.08 kg jd3 (R); Height 5 ft. 8 in. (172.72 cm) (R); Pain 2/10; 00:59 BP 143 / 80; Pulse 97; Resp 17 S; Pulse Ox 97% on R/A; jd3 01:59 BP 115 / 78; Pulse 96; Resp 17 S; Pulse Ox 94% on R/A; jd3 00:00 Body Mass Index 45.61 (136.08 kg, 172.72 cm) jd3 MDM: 05/08 23:50 Patient medically screened. rn 05/09 02:19 Differential Diagnosis no acute findings on bloodwork/cxr/ct abdomen, possible viral rn syndrome vs stress induced reactions. He states things like this happen in past with neg w/u, has even had ECHO with normal results. Will swab for COVID and dc home.. Data reviewed: vital signs, nurses notes, lab test result(s), radiologic studies, CT scan, plain films, and as a result, I will discharge patient. Test interpretation: by ED physician or midlevel provider: plain radiologic studies, CXR neg for acute finding. Counseling: I had a detailed discussion with the patient and/or guardian regarding: the historical points, exam findings, and any diagnostic results supporting the discharge/admit diagnosis, lab results, radiology results, the need for outpatient follow up, to return to the emergency department if symptoms worsen or persist or if there are any questions or concerns that arise at home. Response to treatment: the patient's symptoms have markedly improved after treatment, and as a result, I will discharge patient. Special discussion: I discussed with the patient/guardian in detail that at this point there is no indication for admission to the hospital. It is understood, however, that if the symptoms persist or worsen the patient needs to return immediately for re-evaluation. 05/09 00:00 Order name: Basic Metabolic Panel; Complete Time: 05/09 00:00 Order name: CBC with Diff; Complete Time: 05/09 00:00 Order name: Hepatic Function; Complete Time: 05/09 00:00 Order name: Lipase; Complete Time: 05/09 00:00 Order name: Flu; Complete Time: : 05/09 00:00 Order name: Strep; Complete Time: 05/09 00:00 Order name: IV Saline Lock; Complete Time: 05/09 00:00 Order name: Labs collected and sent; Complete Time: : 05/09 00:00 Order name: [place] Screen Profile; Complete Time: 05/09 00:00 Order name: XRAY Chest (1 view) 05/09 00:00 Order name: CT Abd/Pelvis - IV Contrast Only 05/09 01:10 Order name: Throat Culture [facility] 05/09 02:31 Order name: COVID-19 rn Administered Medications: 00:21 Drug: NS 0.9% 1000 ml Route: IV; Rate: 1000 ml; Site: left antecubital; jd3 01:20 Follow up: Response: No adverse reaction; IV Status: Completed infusion; IV Intake: jd3 1000ml Disposition: 05/09/20 02:21 Discharged to Home. Impression: Malaise and fatigue, Chest pain, unspecified, Unspecified abdominal pain. - Condition is Stable. - Discharge Instructions: Abdominal Pain, Adult, Nonspecific Chest Pain, Pain Without a Known Cause. - Medication Reconciliation Form, Thank You Letter, Antibiotic Education, Prescription Opioid Use form. - Follow up: Private Physician; When: As needed; Reason: Recheck today's complaints, Re-evaluation by your physician. - Problem is an ongoing problem. - Symptoms have improved. Signatures: Dispatcher [employer] EDMS Molina Mccall RN RN sg Nieto, Roman, MD MD rn Davies, Jonathon, RN RN jd3 Corrections: (The following items were deleted from the chart) 02:47 02:21 05/09/2020 02:21 Discharged to Home. Impression: Malaise and fatigue; Chest pain, jd3 unspecified; Unspecified abdominal pain. Condition is Stable. Forms are Medication Reconciliation Form, Thank You Letter, Antibiotic Education, Prescription Opioid Use. Follow up: Private Physician; When: As needed; Reason: Recheck today's complaints, Re-evaluation by your physician. Problem is an ongoing problem. Symptoms have improved. rn
--- NOTE | 2020-05-09 02:22 | ER ---
Nurse's Notes [facility] Name: Keo Hardin Age: 24 yrs Sex: Male : 1995 Arrival Date: 05/08/2020 Time: 23:29 Bed 6 Private MD: Shaun Manzo C Diagnosis: Malaise and fatigue;Chest pain, unspecified;Unspecified abdominal pain Presentation: 05/08 23:30 Initial Sepsis Screen: Does the patient meet any 2 criteria?. Risk Assessment: Do you sg want to hurt yourself or someone else? Patient reports no desire to harm self or others. Onset of symptoms was May 08, 2020. Care prior to arrival: None. 23:30 Acuity: ROBERTH 3 sg 23:30 Chief complaint: Patient states: Fever and chills for 1-2 days, states having chest sg pain worsening this evening, states abdominal pain x4 quadrants, denies V/D, states nausea that comes and goes. Coronavirus screen: Proceed with normal triage. Ebola Screen: Patient negative for fever greater than or equal to 101.5 degrees Fahrenheit, and additional compatible Ebola Virus Disease symptoms Patient denies exposure to infectious person. Patient denies travel to an Ebola-affected area in the 21 days before illness onset. No symptoms or risks identified at this time. Initial Sepsis Screen: Does the patient have a suspected source of infection? Yes: Acute abdominal pain. Transition of care: patient was not received from another setting of care. 23:30 Method Of Arrival: Ambulatory sg Historical: - Allergies: 23:31 Haldol; sg - PMHx: 23:31 Anxiety; Bipolar disorder; Depression; GERD; Hyperlipidemia; Hypertension; insomnia; sg MRSA; Panic Attacks; - PSHx: 23:31 Cholecystectomy; sg - Immunization history:: Adult Immunizations up to date. - Social history:: Smoking status: Patient denies any tobacco usage or history of. - Family history:: not pertinent. - Hospitalizations: : No recent hospitalization is reported. Screenin/12 00:05 Abuse screen: Denies threats or abuse. Nutritional screening: No deficits noted. jd3 Tuberculosis screening: No symptoms or risk factors identified. Fall Risk Ambulatory Aid- None/Bed Rest/Nurse Assist (0 pts). Gait- Normal/Bed Rest/Wheelchair (0 pts) Mental Status- Oriented to own ability (0 pts). Total Charles Fall Scale indicates No Risk (0-24 pts). Assessment: 00:01 General: Appears in no apparent distress. uncomfortable, Behavior is calm, cooperative, jd3 appropriate for age. Pain: Complains of pain in head, chest and abdomen Pain currently is 2 out of 10 on a pain scale. Quality of pain is described as aching. Neuro: Level of Consciousness is awake, alert, obeys commands, Oriented to person, place, time, situation. Cardiovascular: Capillary refill < 3 seconds Patient's skin is warm and dry. Respiratory: Airway is patent Respiratory effort is even, unlabored, Respiratory pattern is regular, symmetrical, Denies cough, shortness of breath. GI: Abdomen is round Abd is soft and non tender X 4 quads. Reports lower abdominal pain, diarrhea. : No signs and/or symptoms were reported regarding the genitourinary system. EENT: No signs and/or symptoms were reported regarding the EENT system. Derm: Skin is intact, Skin is dry, Skin is normal, Skin temperature is warm. Musculoskeletal: Circulation, motion, and sensation intact. Range of motion: intact in all extremities. 00:59 Reassessment: Patient appears in no apparent distress at this time. Patient and/or jd3 family updated on plan of care and expected duration. Pain level reassessed. Patient is alert, oriented x 3, equal unlabored respirations, skin warm/dry/pink. Patient states feeling better. 02:01 Reassessment: Patient appears in no apparent distress at this time. Patient and/or jd3 family updated on plan of care and expected duration. Pain level reassessed. Patient is alert, oriented x 3, equal unlabored respirations, skin warm/dry/pink. awaiting for discharge. 02:47 Reassessment: Patient appears in no apparent distress at this time. Patient and/or jd3 family updated on plan of care and expected duration. Pain level reassessed. Patient is alert, oriented x 3, equal unlabored respirations, skin warm/dry/pink. Patient states feeling better. Vital Signs: 00:00 BP 143 / 93; Pulse 114; Resp 20 S; Temp 98.7(O); Pulse Ox 98% on R/A; Weight 136.08 kg jd3 (R); Height 5 ft. 8 in. (172.72 cm) (R); Pain 2/10; 00:59 BP 143 / 80; Pulse 97; Resp 17 S; Pulse Ox 97% on R/A; jd3 01:59 BP 115 / 78; Pulse 96; Resp 17 S; Pulse Ox 94% on R/A; jd3 00:00 Body Mass Index 45.61 (136.08 kg, 172.72 cm) jd3 ED Course: 05/08 23:29 Patient arrived in ED. es 23:29 Shaun Manzo MD is Private Physician. es 23:30 Triage completed. sg 23:30 Arm band placed on. sg 23:50 Ricardo Gonzalez MD is Attending Physician. rn 05/09 00:05 Patient has correct armband on for positive identification. Bed in low position. Call jd3 light in reach. Side rails up X 1. Pulse ox on. NIBP on. 00:08 Ferny Parker RN is Primary Nurse. jd3 00:21 Inserted saline lock: 20 gauge in left antecubital area, using aseptic technique. Blood jd3 collected. [facility] tech. 00:38 XRAY Chest (1 view) In Process Unspecified. EDMS 01:52 CT Abd/Pelvis - IV Contrast Only In Process Unspecified. EDMS 02:46 No provider procedures requiring assistance completed. IV discontinued, intact, jd3 bleeding controlled, No redness/swelling at site. Pressure dressing applied. Administered Medications: 00:21 Drug: NS 0.9% 1000 ml Route: IV; Rate: 1000 ml; Site: left antecubital; jd3 01:20 Follow up: Response: No adverse reaction; IV Status: Completed infusion; IV Intake: jd3 1000ml Intake: 01:20 IV: 1000ml; Total: 1000ml. jd3 Outcome: 02:21 Discharge ordered by . rn 02:46 Discharged to home ambulatory, with family. jd3 02:46 Condition: stable 02:46 Discharge instructions given to patient, Instructed on discharge instructions, follow up and referral plans. Demonstrated understanding of instructions, follow-up care. 02:47 Patient left the ED. jd3 Addendum: 05/13/2020 13:22 Addendum: Other pt notified of negative COVID 19 swab results. Pt advised to remain in d m5 isolation until fever free for 3 days without medication and to return to the ED for worsening symptoms. Signatures: Dispatcher [employer] Leah Malone RN RN [id number] Molina Mccall RN RN Macy Tran Roman, MD MD rn Davies, Jonathon, RN RN jd3
[2020-05-09 02:58] VITALS: TEMP 98.7
[2020-05-09 03:00] VITALS: BP 115/78; O2SAT 94
--- NOTE | 2020-05-09 07:46 | RAD REPORT ---
EXAM DESCRIPTION: [facility] Single View05/09/2020 12:37 am CLINICAL HISTORY: Chest pain COMPARISON: 2018 FINDINGS: The lungs appear clear of acute infiltrate. The heart is normal size IMPRESSION: No acute abnormalities displayed
--- NOTE | 2020-05-09 11:12 | RAD REPORT ---
EXAM DESCRIPTION: CT - Abdomen Pelvis W Contrast - 05/09/2020 6:36 am CLINICAL HISTORY: 24 years Male fever; Abd pain TECHNIQUE: Contiguous axial images obtained through the abdomen and pelvis following intravenous con trast administration. Coronal and sagittal reformatted images provided. This CT exam was performed according to our departmental dose-optimization program, which includes on e or more of the following dose reduction techniques: automated exposure control, adjustment of the m A and/or kV according to patient size, and/or use of iterative reconstruction technique. COMPARISON: 08/20/2019 FINDINGS: Interval cholecystectomy. No biliary dilatation. Steatosis of the liver with mild hepatosplenomegaly. No focal lesion in either organ. The pancreas, adrenal glands, kidneys, urinary bladder, and osseous structures are normal. Mild rectal constipation. There is no bowel inflammation, obstruction, free intraperitoneal air, or a scites. No evidence of appendicitis. No abdominal aortic aneurysm or retroperitoneal hemorrhage. No abdominal or pelvic lymphadenopathy. IMPRESSION: Mild rectal constipation. Interval cholecystectomy without biliary dilatation. Steatosis of the liver with mild hepatosplenomegaly. Electronically signed by: Aide Nelson MD 05/09/2020 2:00 AM CDT Due to temporary technical issues with the PACS/Fluency reporting system, reports are being signed by the in house radiologist without review as a courtesy to ensure prompt reporting. The interpreting r adiologist is fully responsible for the content of the report
== END 2020-05-09 02:47 | disposition home or self-care (01) ==
LOC: ER 23:24
DX: R07.9 Chest pain, unspecified (principal); R53.81 Other malaise; R53.83 Other fatigue; I10 Essential (primary) hypertension; F31.9 Bipolar disorder, unspecified; Z88.5 Allergy status to narcotic agent
CPT/HCPCS: 87070; 85025; 80048; 36415; 86308; 80076; 87081; 83690; 87804 ×2; 74177; 71045; 96360; 99284; U0002; Q9967; J7030

== ENCOUNTER 2020-07-03 18:59 | Emergency (ER) | payer OTHER ==
--- OUTSIDE RECORDS SUMMARY | 2020-07-03 19:03 | XMS REPORT | Continuity of Care Document ---
:1995 Author Organization [email or web address] Care Team Providers Name Role Phone [email or web address] Unavailable Un available Problems Problem Status Onset Classification Date Comments Sourc e Date Reported Pseudomonas Active Problem 01/19/2016 Pedi infection in Infect conditions Disease o f classified [place] elsewhere and of unspecified site Methicillin Active Problem 01/19/2016 Pedi resistant Infect Staphylococcus Disea se of aureus [place] Pilonidal cyst Active Problem 01/19/2016 Pedi with abscess Infect Disease of [place] Other chronic Active Problem 01/19/2016 Pedi postoperative pain I nfect Disease of [place] Other atopic Active Problem 01/19/2016 Pedi dermatitis and Infec t related conditions D isease of [place] Open wound of Active Problem 01/19/2016 Pedi buttock, Infect complicated Disease of [place] Cutaneous abscess Active Problem 01/19/2016 P luis carlos of buttock Infect Disease of [place] Open wound of Active Problem 01/19/2016 Pedi buttock, without Inf ect mention of Disease o f complication [place] Pilonidal cyst Active Problem 01/19/2016 Pedi with abscess Infect Disease of [place] Klebsiella Active Problem 01/19/2016 Pedi pneumoniae Infect infection Disease of [place] Cellulitis and Active Problem 01/19/2016 Pedi abscess of buttock I nfect Disease of [place] Medications Medication Details Route Status Patient Ordering Order Source Instructions Provider Date Augmentin 1 tablet PO Active 500 mg PO Three Lacey 09/17/20 Pedi times a day 14 Infect Disease of [place] Paxil Unknown NA Active [facility] Pedi Infect Disease of [place] Celexa Unknown NA Active Lacey Pedi Infect Disease of [place] Seroquel Unknown NA Active [facility] Pedi Infect Disease of [place] Augmentin Unknown NA Active [facility] Pedi Infect Disease of [place] Clonidine HCl Unknown NA Active [facility] Pedi Infect Disease of [place] Citalopram Unknown NA Active Lacey Pedi Hydrobromide Infect Disease of [place] Doxepin HCl Unknown NA Active [facility] Pedi Infect Disease of [place] BuPROPion HCl Unknown NA Active [facility] Pedi Infect Disease of [place] Quetiapine Unknown NA Active Lacey Pedi Fumarate Infect Disease of [place] Allergies, Adverse Reactions, Alerts Substance Category Reaction Severity Reaction Status Date Comments S ource type Reported N.K.D.A. Adverse Info Not Adverse Active Pedi Reaction Available Reaction [address] Disease of [place] Immunizations No Data Provided for This Section [...] Weight 323 01/16/2016 Pedi Infect Disease of [place] Height 68 01/16/2016 Pedi Infect Disease of [place] Temperature Oral (F) 98 F 01/16/2016 Pedi In fect Disease of [place] Heart Rate 128 01/16/2016 Pedi Infect Disease of [place] Weight 295 08/07/2015 Pedi Infect Disease of [place] Height 68 08/07/2015 Pedi Infect Disease of [place] Temperature Oral (F) 98 F 08/07/2015 Pedi In fect Disease of [place] Heart Rate 108 08/07/2015 Pedi Infect Disease of [place] Weight 263 01/13/2015 Pedi Infect Disease of [facility] 68 01/13/2015 Pedi Infect Disease of [place] Temperature Oral (F) 97.6 F 01/13/2015 Pedi In fect Disease of [place] Heart Rate 101 01/13/2015 Pedi Infect Disease of [place] Weight 260 01/02/2015 Pedi Infect Disease of [place] Height 68 01/02/2015 Pedi Infect Disease of [place] Temperature Oral (F) 97.8 F 01/02/2015 Pedi In fect Disease of [place] Heart Rate 102 01/02/2015 Pedi Infect Disease of [place] Weight 247.2 10/22/2014 Pedi Infect Disease of [place] Height 66 10/22/2014 Pedi Infect Disease of [place] Temperature Oral (F) 97.5 F 10/22/2014 Pedi In fect Disease of [place] Weight 248 10/09/2014 Pedi Infect Disease of [place] Height 66 10/09/2014 Pedi Infect Disease of [place] Temperature Oral (F) 97.6 F 10/09/2014 Pedi In fect Disease of [place] Heart Rate 77 10/09/2014 Pedi Infect Disease of [place] Weight 245 09/24/2014 Pedi Infect Disease of [place] Height 66 09/24/2014 Pedi Infect Disease of [place] Temperature Oral (F) 98.9 F 09/24/2014 Pedi In fect Disease of [place] Heart Rate 91 09/24/2014 Pedi Infect Disease of [place] Weight 241 09/18/2014 Pedi Infect Disease of [place] Height 66 09/18/2014 Pedi Infect Disease of [place] Temperature Oral (F) 97.6 F 09/18/2014 Pedi In fect Disease of [place] Heart Rate 89 09/18/2014 Pedi Infect Disease of [place] Weight 241 09/11/2014 Pedi Infect Disease of [place] Height 66 09/11/2014 Pedi Infect Disease of [place] Temperature Oral (F) 97.5 F 09/11/2014 Pedi In fect Disease of [place] Heart Rate 81 09/11/2014 Pedi Infect Disease of [place] Encounters Location Location Encounter Encounter Reason Attending ADM [facility] Source Details Type Number For Provider Date Date Visit Pediatric Unknown [id number] 09/11 09/11 Pe di Infectious [id number] In fect Disease [id number] [facility] [id number] [facility] [place] Unknown [id number] 09/11 09/11 Pe di Infectious ef6-4ba4- In fect Disease [id number] [facility] [id number] [facility] [place] Pediatric Unknown [id number] 09/11 09/11 Pe di Infectious 4a4-3cmm-0 In fect Disease c23-4bmw6g [facility] [id number] of [facility] [place] Pediatric Unknown [id number] 09/11 09/11 Pe di Infectious 930-4e88- In fect Disease [id number] [facility] [id number] of [facility] [place] Pediatric Unknown [id number] 09/11 09/11 Pe di Infectious 10f-4643-a /2013 In fect Disease 00f-7bab3c [facility] [id number] of [facility] [place] Pediatric Unknown [id number] 09/11 09/11 Pe di Infectious 9l6-9611-v /2013 In fect Disease ff1-92b48f [facility] [id number] of [facility] [place] Unknown [id number] 09/11 09/11 Pe di Infectious dfa-488e-8 In fect Disease [id number]-[id number] [facility] [id number] of [facility] [place] Unknown [id number] 09/11 09/11 Pe di Infectious 6v0-68ty-8 In fect Disease l77-g0w28n [facility] [id number] of [facility] [place] Unknown [id number] 09/11 09/11 Pe di Infectious 0d2-02g4-a In fect Disease x78-p1yz22 [facility] [id number] of [facility] [place] Unknown [id number] 09/11 09/11 Pe di Infectious 8t7-2331-0 In fect Disease s01-3573wu [facility] [id number] of [facility] [place] Unknown [id number] 09/11 09/11 Pe di Infectious 971-446c- In fect Disease 814-4dbacf [facility] [id number] [facility] [place] Unknown [id number] 09/11 09/11 Pe di Infectious 391-4f25-a In fect Disease 285-st0839 [facility] [id number] of [facility] [place] Unknown [id number] 09/11 09/11 Pe di Infectious 1l5-2j04-r In fect Disease 35a-la496h [facility] [id number] of [facility] [place] Unknown [id number] 09/11 09/11 Pe di Infectious 56e-4a56-a In fect Disease [id number]-[id number] [facility] [id number] of [facility] [place] Provider [id number] 09/17 09/17 P luis carlos Infectious told m34-7r0d-6 In fect Disease patient to d9c-06sp69 [facility] call [id number] of [facility] [place] [id number] 09/17 09/17 P luis carlos Infectious told 740-4185-9 /2013 In fect Disease patient to [id number] [id number] [id number] 09/17 09/17 P luis carlos Infectious told q16-2685-m /2013 In fect Disease patient to 215-[id number] [id number] [id number] 09/17 09/17 P luis carlos Infectious told b99-3lhm-5 In fect Disease patient to 2fd-5am878 [id number] [id number] 09/17 09/17 Ped i Infectious results 39a-4529-a /2013 I nfect Disease j0a-89d9wn [id number] [facility] [place] [facility] [id number] 09/17 09/17 Ped i Infectious results 940-4cf0-b /2013 I nfect Disease bbd-052dd4 [facility] [id number] [facility] [place] [facility] [id number] 09/17 09/17 Ped i Infectious results 298-418a-a /2013 I nfect Disease 45d-mb9211 [facility] [id number] [facility] [id number] 09/17 09/17 Ped i Infectious results 2w2-64v3-r /2013 I nfect Disease fd6-4906f2 [facility] [id number] [facility] [id number] 09/17 09/17 P luis carlos Infectious told bd5-4b86- In fect Disease patient to 650-4ad6f4 [facility] [id number] [facility] [id number] 09/17 09/17 P luis carlos Infectious told 824-463f-a In fect Disease patient to 30f-8e64cb [facility] [id number] [facility] [id number] 09/17 09/17 P luis carlos Infectious told 868-4bf8- In fect Disease patient to 5be-[id number] [facility] [id number] [facility] [id number] 09/17 09/17 P luis carlos Infectious told 40f-4dfa- In fect Disease patient to 567-91f06a [id number] [facility] [id number] 09/17 09/17 P luis carlos Infectious told 513-46d1- In fect Disease patient to [id number] [id number] [id number] 09/17 09/17 P luis carlos Infectious told u43-62t2-z In fect Disease patient to 558-[id number] [facility] [id number] 09/17 09/17 P luis carlos Infectious told [id number]-204l-e In fect Disease patient to [id number] [facility] [id number] 09/17 09/17 P luis carlos Infectious told [id number] In fect Disease patient to cb5-5b9489 [id number] [facility] [id number] 09/17 09/17 P luis carlos Infectious told 6ea-4f71- In fect Disease patient to 54b-010c78 [id number] [id number] 09/17 09/17 P luis carlos Infectious told 439-49f6- In fect Disease patient to fe3-t3224r [id number] [id number] 09/17 09/17 Ped i Infectious results q62-2538-i /2013 I nfect Disease afa-0ef54a [facility] c30f53 [facility] [place] Test [id number] 09/17 09/17 Ped i Infectious results 321-4105-a /2013 I nfect Disease 033-5fc2a4 [facility] [id number] [facility] [place] Test [id number] 09/17 09/17 Ped i Infectious results 744-4d7f-a /2013 I nfect Disease 509-7350cc [facility] 1c6b2b [facility] [place] Test [id number] 09/17 09/17 Ped i Infectious results fd7-4768-b /2013 I nfect Disease 34c-5314cd [facility] [id number] [facility] [place] Test [id number] 09/17 09/17 Ped i Infectious results 747-490c-8 I nfect Disease [id number]-548315 [facility] [id number] [facility] [place] Test [id number] 09/17 09/17 Ped i Infectious results 2m5-5235-8 I nfect Disease k34-3jj6s9 [facility] [id number] [facility] [place] Test [id number] 09/17 09/17 Ped i Infectious results 7o1-2146-0 /2013 I nfect Disease cca-59edf5 [facility] [id number] of [facility] [place] Test [id number] 09/17 09/17 Ped i Infectious results y68-2x5j-x /2013 I nfect Disease 432-849e0f [facility] 45053t [facility] [place] Test [id number] 09/17 09/17 Ped i Infectious results dd1-4c00- I nfect Disease 23e-70d07e [facility] [id number] of [facility] [place] Test [id number] 09/17 09/17 Ped i Infectious results f96-15c2-n /2013 I nfect Disease 9a3-q2m502 [facility] [id number] [facility] [place] Follow-Up [id number] 09/18 09/18 Pedi Infectious Pilonidal 00b-4b97-a /2013 Infect Disease Cyst 34f-bc1cc5 [facility] [id number] [facility] [place] Follow-Up [id number] 09/18 09/18 Pedi Infectious Pilonidal ca6-471b-a /2013 Infect Disease Cyst 3r6-qo163l [facility] [id number] of [facility] [place] Follow-Up [id number] 09/18 09/18 Pedi Infectious Pilonidal z1o-606v-a /2013 Infect Disease Cyst 433-75cb33 [facility] [id number] [facility] [place] [facility] [id number] 09/18 09/18 Pedi Infectious Pilonidal f9q-4rql-3 /2013 Infect Disease Cyst 6c5-p23a47 [facility] [id number] [facility] [place] [facility] [id number] 09/18 09/18 Pedi Infectious Pilonidal s72-6105-7 /2013 Infect Disease Cyst 846-44738l [facility] [id number] [facility] [place] [facility] [id number] 09/18 09/18 Pedi Infectious Pilonidal 3l5-2934-2 /2013 Infect Disease Cyst eb2-a2d1d4 [facility] 14276l [facility] [place] [facility] [id number] 09/18 09/18 Pedi Infectious Pilonidal 709-41ab-b /2013 Infect Disease Cyst 690-a2a3e7 [facility] [id number] [facility] [place] [facility] [id number] 09/18 09/18 Pedi Infectious Pilonidal 16f-4422-a /2013 Infect Disease Cyst 53a-3b5dfc [facility] [id number] [facility] [place] Follow-Up [id number] 09/18 09/18 Pedi Infectious Pilonidal 145-41c4-b /2013 Infect Disease Cyst 98c-82c78f [facility] a78b9c of [facility] [place] Follow-Up [id number] 09/18 09/18 Pedi Infectious Pilonidal 98d-4b19-b /2013 Infect Disease Cyst 846-f15e95 [facility] [id number] [facility] [place] Follow-Up [id number] 09/18 09/18 Pedi Infectious Pilonidal cf3-4a2f-b /2013 Infect Disease Cyst aa5-48a13b [facility] 3abe4f [facility] [place] Follow-[place] [id number] 09/24 09/24 Pedi Infectious Pilonidal s1q-0y69-g /2013 Infect Disease Cyst 5s8-5hq893 [facility] [id number] [facility] [place] Follow-Up [id number] 09/24 09/24 Pedi Infectious Pilonidal bc0-4c7b-9 Infect Disease Cyst 83a-944449 [facility] [id number] [facility] [place] Follow-Up [id number] 09/24 09/24 Pedi Infectious Pilonidal 171-4d6a-b /2013 Infect Disease Cyst 922-057723 [facility] [id number] [facility] [place] Follow-Up [id number] 09/24 09/24 Pedi Infectious Pilonidal 786-4d38-b /2013 Infect Disease Cyst 00a-9f5fa2 [facility] [id number] [facility] [place] [facility] [id number] 09/24 09/24 Pedi Infectious Pilonidal 9h6-7bi2-4 Infect Disease Cyst 528-7f2ac2 [facility] [id number] [facility] [place] [facility] [id number] 09/24 09/24 Pedi Infectious Pilonidal 2t8-063r-z /2013 Infect Disease Cyst 80e-1bbfcb [facility] [id number] [facility] [place] [facility] [id number] 09/24 09/24 Pedi Infectious Pilonidal 994-4c53-9 /2013 Infect Disease Cyst 6de-f4ed9e [facility] 8ae54d [facility] [place] [facility] [id number] 09/24 09/24 Pedi Infectious Pilonidal 24b-451a-8 /2013 Infect Disease Cyst 82c-662bd2 [facility] [id number] [facility] [place] [facility] [id number] 09/24 09/24 Pedi Infectious Pilonidal ed8-4e55-b /2013 Infect Disease Cyst 376-777cde [facility] [id number] [facility] [place] [facility] [id number] 09/24 09/24 Pedi Infectious Pilonidal 8ed-4898-b /2013 Infect Disease Cyst cee-icu578 [facility] [id number] [facility] [place] [facility] [id number] 09/24 09/24 Pedi Infectious Pilonidal 26d-400d-a /2013 Infect Disease Cyst 5w0-5115mz [facility] 6596ce [facility] [place] [facility] [id number] 10/09 10/09 Pedi Infectious Pilonidal ca5-4f38- /2013 Infect Disease Cyst 73a-1b7d56 [facility] [id number] [facility] [place] [facility] [id number] 10/09 10/09 Pedi Infectious Pilonidal 636-40e6- Infect Disease Cyst 947-k8806u [facility] [id number] [facility] [place] [facility] [id number] 10/09 10/09 Pedi Infectious Pilonidal t5c-942e-6 /2013 Infect Disease Cyst i90-z42551 [facility] c8f2cd of [facility] [place] Follow-Up [id number] 10/09 10/09 Pedi Infectious Pilonidal 66c-4459-a /2013 Infect Disease Cyst r62-339125 [facility] 77d7f1 of [facility] [place] Follow-Up [id number] 10/09 10/09 Pedi Infectious Pilonidal 2dd-467d-8 /2013 Infect Disease Cyst 2p7-250961 [facility] [id number] [facility] [place] Follow-Up [id number] 10/09 10/09 Pedi Infectious Pilonidal 201-45fb-b /2013 Infect Disease Cyst 3v4-1u9o40 [facility] [id number] [facility] [place] Follow-Up [id number] 10/09 10/09 Pedi Infectious Pilonidal b1m-5a95-m /2013 Infect Disease Cyst bed-8fceb1 [facility] [id number] [facility] [place] Follow-Up [id number] 10/09 10/09 Pedi Infectious Pilonidal c8l-5588-d /2013 Infect Disease Cyst bc1-612e32 [facility] [id number] [facility] [place] Follow-Up [id number] 10/09 10/09 Pedi Infectious Pilonidal 6r2-5n8e-8 /2013 Infect Disease Cyst d3f-zo5837 [facility] [id number] of [facility] [place] Follow-Up [id number] 10/09 10/09 Pedi Infectious Pilonidal 9ed-4f4b-8 /2013 Infect Disease Cyst 2fb-43eadf [facility] 51ebb3 of [facility] [place] Follow-Up [id number] 10/09 10/09 Pedi Infectious Pilonidal 4e6-5k15-4 /2013 Infect Disease Cyst y31-42618p [facility] [id number] [facility] [place] [facility] WOUNDCARE [id number] 10/22 10/22 Pedi Infectious 4w9-6b00-4 /2013 In fect Disease 48c-867872 [facility] [id number] of [facility] [place] [facility] [id number] 10/22 10/22 Pedi Infectious 442-4426-9 /2013 In fect Disease b7c-4w9uw0 [facility] [id number] of [facility] [place] [facility] W[facility]ARE [id number] 10/22 10/22 Pedi Infectious ba4-494c-b /2013 In fect Disease 92f-099729 [facility] 068a71 [facility] [place] [facility] W[facility] [id number] 10/22 10/22 Pedi Infectious afc-4b99-b /2013 In fect Disease 449-4770ae [facility] 00d72a [facility] [place] [facility] W[facility] [id number] 10/22 10/22 Pedi Infectious q02-7940-l /2013 In fect Disease 6ad-048b69 [facility] a05af0 of [facility] [place] [facility] [id number] 10/22 10/22 Pedi Infectious cf9-4283-a /2013 In fect Disease ee3-f10d09 [facility] [id number] of [facility] [place] [facility]OUND[facility] [id number] 10/22 10/22 Pedi Infectious ec0-4282-8 /2013 In fect Disease n0j-1ag1q0 [facility] [id number] [facility] [place] [facility] WOUNDCARE [id number] 10/22 10/22 Pedi Infectious bad-4c5d-a /2013 In fect Disease 731-e6673j [facility] [id number] [facility] [place] FU - [id number] 11/19 11/19 Ped i Infectious PILONIDAL 5i0-82hd-3 /2013 Infect Disease CYST 2j7-47q525 [facility] 213e84 [facility] [place] FU - [id number] 11/19 11/19 Ped i Infectious PILONIDAL fa6-4c63-8 /2013 Infect Disease CYST 573-fbe18e [facility] 69a3c9 of [facility] [place] FU - [id number] 11/19 11/19 Ped i Infectious PILONIDAL 2ac-4955-a /2013 Infect Disease CYST 318-2e93c3 [facility] [id number] of [facility] [place] FU - [id number] 11/19 11/19 Ped i Infectious PILONIDAL i47-3g97-y /2013 Infect Disease CYST 3c2-1k1480 [facility] 7ba9da of [facility] [place] FU - [id number] 11/19 11/19 Ped i Infectious PILONIDAL 115-444f-b /2013 Infect Disease CYST 1bc-a2w600 [facility] [id number] of [facility] [place] FU - [id number] 11/19 11/19 Ped i Infectious PILONIDAL 0j9-1f84-x /2013 Infect Disease CYST 093-a1a61a [facility] [id number] [facility] [place] FU - [id number] 11/19 11/19 Ped i Infectious PILONIDAL 6ea-40c8-b /2013 Infect Disease CYST 754-37b94e [facility] c20cbd [facility] [place] FU - [id number] 11/19 11/19 Ped i Infectious PILONIDAL 643-4d47-b /2013 Infect Disease CYST 6i8-9t0yd8 [facility] [id number] [facility] [place] Unknown [id number] 12/11 12/11 Pe di Infectious 490-456d-9 /2014 In fect Disease g36-52n3p5 [facility] 8bb5f0 of [facility] [place] Unknown [id number] 12/11 12/11 Pe di Infectious 50b-42a1-a In fect Disease 995-wk870l [facility] eda22c of [facility] [place] Unknown [id number] 12/11 12/11 Pe di Infectious 3a3-81d3-6 In fect Disease 920-4yf099 [facility] 3596e3 of [facility] [place] Unknown [id number] 12/11 12/11 Pe di Infectious de7-4c4f- In fect Disease 945-2aebd0 [facility] [id number] [facility] [place] Unknown [id number] 12/11 12/11 Pe di Infectious j1d-253h-2 In fect Disease ab2-8e65d9 [facility] 71ac79 [facility] [place] Unknown [id number] 12/11 12/11 Pe di Infectious 459-43f5- In fect Disease aee-33b8fd [facility] 47fb4e [facility] [place] Follow-Up [id number] 01/02 01/02 Pedi Infectious Pilonidal af5-4ef1-b /2014 Infect Disease cyst 55f-37b0d6 [facility] [id number] of [facility] [place] Follow-Up [id number] 01/02 01/02 Pedi Infectious Pilonidal ddb-4f8b- Infect Disease cyst n7h-g657k8 [facility] 932b26 [facility] [place] Follow-Up [id number] 01/02 01/02 Pedi Infectious Pilonidal 140-43fd- Infect Disease cyst 364-2311e8 [facility] [id number] of [facility] [place] Follow-Up [id number] 01/02 01/02 Pedi Infectious Pilonidal cad-4517- Infect Disease cyst e21-sx5w86 [facility] fcf10e [facility] [place] Follow-Up [id number] 02/05 02/05 Pedi Infectious Pilonidal 766-43da-a /2014 Infect Disease cyst m21-8ah4v8 [facility] 5d8d08 [facility] [place] Follow-Up [id number] 01/13 01/13 Pedi Infectious Pilonidal [id number] /2014 Infect Disease cyst [id number] [facility] [id number] of [facility] [place] [facility] [place] [id number] 01/13 01/13 Pedi Infectious Pilonidal [id number] /2014 Infect Disease cyst [id number] [facility] [id number] of [facility] [place] [facility] [place] [id number] 01/13 01/13 Pedi Infectious Pilonidal [id number] /2014 Infect Disease cyst [id number] [facility] [id number] of [facility] [place] [facility] [place] [id number] 01/13 01/13 Pedi Infectious Pilonidal [id number] /2014 Infect Disease cyst [id number] [facility] [id number] of [facility] [place] [facility] [place] [id number] 01/13 01/13 Pedi Infectious Pilonidal [id number] /2014 Infect Disease cyst [id number] [facility] [id number] of [facility] [place] [facility] [place] [id number] 01/21 01/21 Pedi Infectious [id number] /2014 In fect Disease [id number] [facility] [id number] [facility] [id number] 01/21 01/21 Pedi Infectious [id number] /2014 In fect Disease [id number] [facility] [id number] [facility] [id number] 02/04 02/04 Pedi Infectious Pilonidal [id number] /2014 Infect Disease cyst [id number] [facility] [id number] [facility] [id number] 02/04 02/04 Pedi Infectious Pilonidal [id number] /2014 Infect Disease cyst [id number] [facility] [id number] [facility] [id number] 02/18 02/18 Pedi Infectious Pilonidal [id number] /2014 Infect Disease cyst and [id number] [facility] Laser hair [id number] o f of [place], [facility] [place] Pediatric Follow-Up [id number] 02/18 02/18 Pedi Infectious Pilonidal [id number] Infect Disease cyst and [id number] [facility] hair [id number] o f of [place] [place] [facility] Follow[place] [id number] 05/06 05/06 Pedi Infectious Pilonidal [id number] Infect Disease cyst [id number] [facility] [id number] [facility] [id number] 05/06 05/06 Pedi Infectious Pilonidal [id number] /2014 Infect Disease cyst [id number] [facility] [id number] [facility] [id number] 05/12 05/12 Ped i Infectious results [id number] I nfect Disease [id number] [facility] [id number] [facility] [id number] 05/12 05/12 Ped i Infectious results [id number] /2014 I nfect Disease [id number] [facility] [id number] [facility] [id number] 05/16 05/16 Pedi Infectious Pilonidal [id number] Infect Disease Cyst [id number] [facility] [id number] [facility] [id number] 05/16 05/16 Pedi Infectious Pilonidal [id number] /2014 Infect Disease Cyst [id number] [facility] [id number] [facility] [id number] 05/26 05/26 Pedi Infectious Pilonidal [id number] /2014 Infect Disease cyst [id number] [facility] [id number] [facility] [id number] 05/26 05/26 Pedi Infectious Pilonidal [id number] /2014 Infect Disease cyst [id number] [facility] [id number] [facility] [id number] 07/10 07/10 Pedi Infectious Pilonidal [id number]- Infect Disease cyst [id number] [facility] [id number] [facility] [id number] 07/10 07/10 Pedi Infectious Pilonidal [id number] /2014 Infect Disease cyst [id number] [facility] [id number] [facility] [id number] 08/07 08/07 Pedi Infectious Pilonidal [id number] /2014 Infect Disease cyst [id number] [facility] [id number] [facility] [id number] 08/07 08/07 Pedi Infectious Pilonidal [id number] /2014 Infect Disease cyst [id number] [facility] [id number] [facility] [id number] 08/11 08/11 Ped i Infectious results [id number] I nfect Disease [id number] [facility] [id number] [facility] [id number] 08/11 08/11 Ped i Infectious results [id number] I nfect Disease [id number] [facility] [id number] of [place] [facility] [place] [id number] 01/16 01/16 Pedi Infectious - Check [id number] /2015 I nfect Disease wound [id number] [facility] [id number] [place] Procedures No Data Provided for This Section Assessment and Plan No Data Provided for This Section Plan of Care No Data Provided for This Section Social History Social History Date Source Social History ElementQualifiersDate Reported 01/18/2016 Pedi Infect Disease of Tobacco Use: [place] . Are you a: never smoker Jan 18, 2016 Family History Value Date Source QualifierDescriptionCommentDate Reported 08/09/2015 Pedi Infect Disease of Maternal Grandmother [place] Comment not available Aug 07, 2015 Paternal [...]
[2020-07-03] MEDS ORDERED: ONDANSETRON 4 MG (ODT) TAB ONE (20:52)
[2020-07-03 21:24] LABS: Barbiturates NEGATIVE (NEGATIVE); Benzodiazepines NEGATIVE (NEGATIVE); Cocaine NEGATIVE (NEGATIVE); METHAMPHETAM NEGATIVE (NEGATIVE); Methadone NEGATIVE (NEGATIVE); Opiates NEGATIVE (NEGATIVE); Phencyclidine NEGATIVE (NEGATIVE); THC Cannibis NEGATIVE (NEGATIVE)
--- NOTE | 2020-07-03 21:33 | ER ---
Nurse's Notes [facility] Name: Keo Hardin Age: 24 yrs Sex: Male : 1995 Arrival Date: 07/03/2020 Time: 19:01 Bed 5 Private MD: Diagnosis: Nausea and vomiting-secondary to drug use Presentation: 07/03 19:08 Chief complaint: Patient states: New THC vape pen, started to have abd pain, ll1 nausea/vomiting, anxiety, not sleeping well. Reports visual hallucinations for 3 days. Coronavirus screen: Client denies travel out of the [place] in the last 14 days. At this time, the client does not indicate any symptoms associated with coronavirus-19. Ebola Screen: Patient denies travel to an Ebola-affected area in the 21 days before illness onset. Initial Sepsis Screen: Does the patient meet any 2 criteria? HR > 90 bpm. Risk Assessment: Do you want to hurt yourself or someone else? Patient reports no desire to harm self or others. Onset of symptoms was June 30, 2020. 19:08 Method Of Arrival: Ambulatory ll1 19:08 Acuity: ROBERTH 3 ll1 21:49 Initial Sepsis Screen: Does the patient have a suspected source of infection? No. bb Patient's initial sepsis screen is negative. Historical: - Allergies: 19:11 Haldol; ll1 - PMHx: 19:11 Hyperlipidemia; GERD; MRSA; insomnia; Hypertension; Depression; Bipolar disorder; ll1 Anxiety; Panic Attacks; - PSHx: 19:11 Cholecystectomy; ll1 - Immunization history:: Flu vaccine status is unknown. - Social history:: Smoking status: Patient/guardian denies using tobacco, Stopped _ months ago [address], marijuana, Patient/guardian denies using alcohol, IV drugs. Screenin:47 Abuse screen: Denies threats or abuse. Nutritional screening: No deficits noted. ll1 Tuberculosis screening: No symptoms or risk factors identified. Fall Risk Gait- Weak (10 pts.). Total Charles Fall Scale indicates No Risk (0-24 pts). Assessment: 20:45 General: Appears uncomfortable, Behavior is calm, cooperative. Pain: Denies pain. ll1 Neuro: Level of Consciousness is awake, alert, obeys commands, Oriented to person, place, time, situation, Appropriate for age Court Recording Monitor are equal bilaterally Moves all extremities. Full function Gait is steady, Speech is normal, Facial symmetry appears normal, Reports dizziness, headache. Cardiovascular: No deficits noted. GI: Abdomen is flat, Bowel sounds present X 4 quads. Abd is soft and non tender X 4 quads. Reports nausea, vomiting. : No deficits noted. 21:46 Reassessment: Patient is alert, oriented x 3, equal unlabored respirations, skin bb warm/dry/pink. pt verbalized understanding of and agrees to plan of care discharge instructions given pt ambulated with steady gait. Vital Signs: 19:08 BP 144 / 88; Pulse 94; Resp 18; Temp 98.9; Pulse Ox 99% ; Weight 136.08 kg; Height 5 ll1 ft. 8 in. (172.72 cm); Pain 6/10; 21:48 BP 142 / 77; Pulse 86; Resp 14 S; Temp 98.8(O); Pulse Ox 100% on R/A; bb 19:08 Body Mass Index 45.61 (136.08 kg, 172.72 cm) ll1 ED Course: 19:01 Patient arrived in ED. ds1 19:11 Triage completed. ll1 19:12 Arm band placed on Patient notified of wait time. ll1 19:44 [facility]ett[facility]endoza [facility]-C [facility] kb 19:44 Darien Watson MD is Attending Physician. kb 20:47 Patient has correct armband on for positive identification. Bed in low position. Call ll1 light in reach. Side rails up X 1. 20:51 John Villalba, WILL is Primary Nurse. ll1 20:55 UDS Sent. ll1 21:50 No provider procedures requiring assistance completed. Patient did not have IV access bb during this emergency room visit. Administered Medications: 20:45 Drug: Zofran (Ondansetron) 4 mg Route: PO; ll1 21:21 Follow up: Response: No adverse reaction; Nausea is decreased; RASS: Alert and Calm (0) ll1 Outcome: 21:33 Discharge ordered by . kb 21:50 Discharged to home ambulatory. bb 21:50 Condition: stable 21:50 Discharge instructions given to patient, Instructed on discharge instructions, follow up and referral plans. medication usage, Demonstrated understanding of instructions, follow-up care, medications, Prescriptions given X 1. 21:50 Patient left the ED. bb Signatures: Nettie Mendoza, [employer] TECHNICIAN-Rosi Hussein ds1 Sylvia Wilson RN RN bb John Villalba RN RN ll1 Corrections: (The following items were deleted from the chart) 21:48 21:46 Reassessment: Patient is alert, oriented x 3, equal unlabored respirations, skin bb warm/dry/pink. bb
--- NOTE | 2020-07-03 21:34 | EDPHYS ---
Physician Documentation [facility] Name: Keo Hardin Age: 24 yrs Sex: Male : 1995 Arrival Date: 07/03/2020 Time: 19:01 Bed 5 Private MD: ED Physician Darien Watson HPI: 07/03 20:42 This 24 yrs old Male presents to ER via Ambulatory with complaints of kb Abdominal Pain, Nausea, Hallucinations. 20:43 The patient presents to the emergency department with a possible poisoning. Context: kb Method: the patient has a confirmed or suspected inhalation, Time: over a couple of days, Extent: the OD/poisoning occurred at at home. Associated signs and symptoms: Pertinent positives: auditory hallucinations. Severity of symptoms: At their worst the symptoms were mild moderate in the emergency department the symptoms are unchanged. The patient has not experienced similar symptoms in the past. The patient has not recently seen a physician. "I bought a new marijuana vape cartridge a few days ago. When I started using it it made me nauseated, but I thought I just needed to get used to it so I used it for a few more days." Came in today because he is unable to tolerate anything by mouth. Is concerned that the cartridge had more than marijuana in it. States he did throw the cartridge away today. Also reports hallucinations yesterday, now resolved. Historical: - Allergies: 19:11 Haldol; ll1 - PMHx: 19:11 Hyperlipidemia; GERD; MRSA; insomnia; Hypertension; Depression; Bipolar disorder; ll1 Anxiety; Panic Attacks; - PSHx: 19:11 Cholecystectomy; ll1 - Immunization history:: Flu vaccine status is unknown. - Social history:: Smoking status: Patient/guardian denies using tobacco, Stopped _ months ago [address], marijuana, Patient/guardian denies using alcohol, IV drugs. ROS: 20:43 Constitutional: Negative for fever, chills, and weight loss, Neck: Negative for injury, kb pain, and swelling, Cardiovascular: Negative for chest pain, palpitations, and edema, Respiratory: Negative for shortness of breath, cough, wheezing, and pleuritic chest pain, Back: Negative for injury and pain, MS/Extremity: Negative for injury and deformity, Skin: Negative for injury, rash, and discoloration, Neuro: Negative for headache, weakness, numbness, tingling, and seizure. 20:43 Abdomen/GI: Positive for nausea and vomiting. 20:43 Psych: Positive for auditory hallucinations. Exam: 20:43 Constitutional: This is a well developed, well nourished patient who is awake, alert, kb and in no acute distress. Head/Face: Normocephalic, atraumatic. Chest/axilla: Normal chest wall appearance and motion. Nontender with no deformity. No lesions are appreciated. Cardiovascular: Regular rate and rhythm with a normal S1 and S2. No gallops, murmurs, or rubs. Normal PMI, no JVD. No pulse deficits. Respiratory: Lungs have equal breath sounds bilaterally, clear to auscultation and percussion. No rales, rhonchi or wheezes noted. No increased work of breathing, no retractions or nasal flaring. Abdomen/GI: Soft, non-tender, with normal bowel sounds. No distension or tympany. No guarding or rebound. No evidence of tenderness throughout. Skin: Warm, dry with normal turgor. Normal color with no rashes, no lesions, and no evidence of cellulitis. MS/ Extremity: Pulses equal, no cyanosis. Neurovascular intact. Full, normal range of motion. Neuro: Awake and alert, GCS 15, oriented to person, place, time, and situation. Cranial nerves II-XII grossly intact. Motor strength 5/5 in all extremities. Sensory grossly intact. Cerebellar exam normal. Normal gait. Psych: Awake, alert, with orientation to person, place and time. Behavior, mood, and affect are within normal limits. Vital Signs: 19:08 BP 144 / 88; Pulse 94; Resp 18; Temp 98.9; Pulse Ox 99% ; Weight 136.08 kg; Height 5 ll1 ft. 8 in. (172.72 cm); Pain 6/10; 21:48 BP 142 / 77; Pulse 86; Resp 14 S; Temp 98.8(O); Pulse Ox 100% on R/A; bb 19:08 Body Mass Index 45.61 (136.08 kg, 172.72 cm) ll1 MDM: 20:37 Patient medically screened. kb 20:43 Data reviewed: vital signs, nurses notes. Data interpreted: Pulse oximetry: on room air kb is 99 %. Interpretation: normal. Counseling: I had a detailed discussion with the patient and/or guardian regarding: the historical points, exam findings, and any diagnostic results supporting the discharge/admit diagnosis, lab results, the need for outpatient follow up, a family practitioner, to return to the emergency department if symptoms worsen or persist or if there are any questions or concerns that arise at home. 07/03 20:41 Order name: MARIELLE sexton 07/03 21:24 Order name: Urine Drug Screen; Complete Time: 21:33 EDMS Administered Medications: 20:45 Drug: Zofran (Ondansetron) 4 mg Route: PO; ll1 21:21 Follow up: Response: No adverse reaction; Nausea is decreased; RASS: Alert and Calm (0) ll1 Disposition: 07/04 04:33 Co-signature as Attending Physician, Darien Watson MD. [email or web address] Disposition: 07/03/20 21:33 Discharged to Home. Impression: Nausea and vomiting - secondary to drug use. - Condition is Stable. - Discharge Instructions: Nausea and Vomiting, Adult, [id number], What You Need To Know About Illegal Drug Use and Dependence, Youth. - Prescriptions for Zofran 4 mg Oral Tablet - take 1 tablet by ORAL route every 6 hours As needed; 20 tablet. - Medication Reconciliation Form, Thank You Letter, Antibiotic Education, Prescription Opioid Use form. - Follow up: Emergency Department; When: As needed; Reason: Worsening of condition. Follow up: Private Physician; When: 2 - 3 days; Reason: Recheck today's complaints, Continuance of care, Re-evaluation by your physician. Signatures: Dis[facility] Nettie Mendoza FNP-C FNP-Sylvia Melendez RN RN bb John Villalba RN RN 1 Darien Watson MD MD [email or web address] Corrections: (The following items were deleted from the chart) 07/03 21:50 21:33 07/03/2020 21:33 Discharged to Home. Impression: Nausea and vomiting - secondary bb to drug use. Condition is Stable. Discharge Instructions: Nausea and Vomiting, Adult, [id number], What You Need To Know About Illegal Drug Use and Dependence, Youth. Prescriptions for Zofran 4 mg Oral Tablet - take 1 tablet by ORAL route every 6 hours As needed; 20 tablet. and Forms are Medication Reconciliation Form, Thank You Letter, Antibiotic Education, Prescription Opioid Use. Follow up: Emergency Department; When: As needed; Reason: Worsening of condition. Follow up: Private Physician; When: 2 - 3 days; Reason: Recheck today's complaints, Continuance of care, Re-evaluation by your physician. kb
[2020-07-03 21:58] VITALS: BP 142/77; TEMP 98.8; O2SAT 100
== END 2020-07-03 21:50 | disposition home or self-care (01) ==
LOC: ER 18:59
DX: F12.90 Cannabis use, unspecified, uncomplicated (principal); I10 Essential (primary) hypertension; F31.9 Bipolar disorder, unspecified; Z88.5 Allergy status to narcotic agent
CPT/HCPCS: 80307; 99283

== ENCOUNTER 2020-10-19 12:26 | Emergency (ER) | payer OTHER ==
--- OUTSIDE RECORDS SUMMARY | 2020-10-19 12:29 | XMS REPORT | Continuity of Care Document ---
:1995 Author Organization [employer] Care Team Providers Name Role Phone [employer] Unavailable Un available Problems Problem Status Onset Classification Date Comments Sourc e Date Reported Pseudomonas Active Problem 01/19/2016 Pedi infection in Infect conditions Disease o f classified [place] elsewhere and of unspecified site Methicillin Active Problem 01/19/2016 Pedi resistant Infect Staphylococcus Disea se of aureus [place] Pilonidal cyst Active Problem 01/19/2016 Pedi with abscess Infect Disease of [place] Other chronic Active Problem 01/19/2016 Pedi postoperative pain I nfect Disease of [place] Other atopic Active Problem 01/19/2016 Pedi dermatitis and Infec t related conditions D isease of [place] Open wound of Active Problem 01/19/2016 Pedi buttock, Infect complicated Disease of [place] Cutaneous abscess Active Problem 01/19/2016 P luis carlos of buttock Infect Disease of [place] Open wound of Active Problem 01/19/2016 Pedi buttock, without Inf ect mention of Disease o f complication [place] Pilonidal cyst Active Problem 01/19/2016 Pedi with abscess Infect Disease of [place] Klebsiella Active Problem 01/19/2016 Pedi pneumoniae Infect infection Disease of [place] Cellulitis and Active Problem 01/19/2016 Pedi abscess of buttock I nfect Disease of [place] Medications Medication Details Route Status Patient Ordering Order Source Instructions Provider Date Augmentin 1 tablet PO Active 500 mg PO Three Lacey 09/17/20 Pedi times a day 14 Infect [facility] of [place] Paxil Unknown NA Active [facility] Pedi Infect [facility] [place] Celexa Unknown NA Active L[facility] Pedi Infect [facility] of [place] Seroquel Unknown NA Active Lacey Pedi Infect [facility] of [place] Augmentin Unknown NA Active Lacey Pedi Infect [facility] of [place] Clonidine HCl Unknown NA Active L[facility] Pedi Infect [facility] of [place] Citalopram Unknown NA Active Lacey Pedi Hydrobromide Infect [facility] of [place] Doxepin HCl Unknown NA Active [facility] Pedi Infect [facility] of [place] BuPROPion HCl Unknown NA Active [facility] Pedi Infect Disease of [place] Quetiapine Unknown NA Active Lacey Pedi Fumarate Infect Disease of [place] Allergies, Adverse Reactions, Alerts Substance Category Reaction Severity Reaction Status Date Comments S ource type Reported N.K.D.A. Adverse Info Not Adverse Active Pedi Reaction Available Reaction [address] Disease of [place] Immunizations No Data Provided for This Section [...] Weight 323 01/16/2016 Pedi Infect Disease of [place] Height 68 01/16/2016 Pedi Infect Disease of [place] Temperature Oral (F) 98 F 01/16/2016 Pedi In fect Disease of [place] Heart Rate 128 01/16/2016 Pedi Infect Disease of [place] Weight 295 08/07/2015 Pedi Infect Disease of [place] Height 68 08/07/2015 Pedi Infect Disease of [place] Temperature Oral (F) 98 F 08/07/2015 Pedi In fect Disease of [place] Heart Rate 108 08/07/2015 Pedi Infect Disease of [place] Weight 263 01/13/2015 Pedi Infect Disease of [facility] 68 01/13/2015 Pedi Infect Disease of [place] Temperature Oral (F) 97.6 F 01/13/2015 Pedi In fect Disease of [place] Heart Rate 101 01/13/2015 Pedi Infect Disease of [place] Weight 260 01/02/2015 Pedi Infect Disease of [place] Height 68 01/02/2015 Pedi Infect Disease of [place] Temperature Oral (F) 97.8 F 01/02/2015 Pedi In fect Disease of [place] Heart Rate 102 01/02/2015 Pedi Infect Disease of [place] Weight 247.2 10/22/2014 Pedi Infect Disease of [place] Height 66 10/22/2014 Pedi Infect Disease of [place] Temperature Oral (F) 97.5 F 10/22/2014 Pedi In fect Disease of [place] Weight 248 10/09/2014 Pedi Infect Disease of [place] Height 66 10/09/2014 Pedi Infect Disease of [place] Temperature Oral (F) 97.6 F 10/09/2014 Pedi In fect Disease of [place] Heart Rate 77 10/09/2014 Pedi Infect Disease of [place] Weight 245 09/24/2014 Pedi Infect Disease of [place] Height 66 09/24/2014 Pedi Infect Disease of [place] Temperature Oral (F) 98.9 F 09/24/2014 Pedi In fect Disease of [place] Heart Rate 91 09/24/2014 Pedi Infect Disease of [place] Weight 241 09/18/2014 Pedi Infect Disease of [place] Height 66 09/18/2014 Pedi Infect Disease of [place] Temperature Oral (F) 97.6 F 09/18/2014 Pedi In fect Disease of [place] Heart Rate 89 09/18/2014 Pedi Infect Disease of [place] Weight 241 09/11/2014 Pedi Infect Disease of [place] Height 66 09/11/2014 Pedi Infect Disease of [place] Temperature Oral (F) 97.5 F 09/11/2014 Pedi In fect Disease of [place] Heart Rate 81 09/11/2014 Pedi Infect Disease of [place] Encounters Location Location Encounter Encounter Reason Attending ADM [facility] Source Details Type Number For Provider Date Date Visit Pediatric Unknown [id number] 09/11 09/11 Pe di Infectious [id number] In fect Disease [id number] [facility] [id number] [facility] [place] Unknown [id number] 09/11 09/11 Pe di Infectious ef6-4ba4- In fect Disease [id number] [facility] [id number] [facility] [place] Unknown [id number] 09/11 09/11 Pe di Infectious 1q4-0rky-8 In fect Disease q57-5ylo6x [facility] [id number] [facility] [place] Unknown [id number] 09/11 09/11 Pe di Infectious 930-4e88- In fect Disease [id number] [facility] [id number] [facility] [place] Unknown [id number] 09/11 09/11 Pe di Infectious 10f-4643-a /2013 In fect Disease 00f-7bab3c [facility] [id number] [facility] [place] Unknown [id number] 09/11 09/11 Pe di Infectious 5q7-3660-p /2013 In fect Disease ff1-92b48f [facility] [id number] [facility] [place] Unknown [id number] 09/11 09/11 Pe di Infectious dfa-488e-8 In fect Disease [id number] [facility] [id number] [facility] [place] Unknown [id number] 09/11 09/11 Pe di Infectious 3t2-43ps-8 In fect Disease r34-g1m71e [facility] [id number] [facility] [place] Unknown [id number] 09/11 09/11 Pe di Infectious 8v5-52j9-k In fect Disease v52-g4tt43 [facility] [id number] [facility] [place] Unknown [id number] 09/11 09/11 Pe di Infectious 1q2-1515-7 In fect Disease c75-0151xo [facility] [id number] [facility] [place] Unknown [id number] 09/11 09/11 Pe di Infectious 971-446c- In fect Disease 814-4dbacf [facility] [id number] [facility] [place] Unknown [id number] 09/11 09/11 Pe di Infectious 391-4f25-a In fect Disease [id number]-qf0181 [facility] [id number] [facility] [place] Unknown [id number] 09/11 09/11 Pe di Infectious 2m4-2t43-k In fect Disease 35a-sp581o [facility] [id number] [facility] [place] Unknown [id number] 09/11 09/11 Pe di Infectious 56e-4a56-a In fect Disease [id number]-[id number] [facility] [id number] [facility] [place] Provider [id number] 09/17 09/17 P luis carlos Infectious told p44-2n9r-8 In fect Disease patient to [id number]-[id number] [facility] call [id number] [facility] [place] [id number] 09/17 09/17 P luis carlos Infectious told [id number] /2013 In fect Disease patient to [id number] [id number] [id number] 09/17 09/17 P luis carlos Infectious told h25-0592-k /2013 In fect Disease patient to [id number]-[id number] [id number] [id number] 09/17 09/17 P luis carlos Infectious told l96-7hlg-2 In fect Disease patient to 2fd-4nf616 [id number] Test [id number] 09/17 09/17 Ped i Infectious results 39a-4529-a /2013 I nfect Disease k1s-23h7hl [id number] [facility] [id number] 09/17 09/17 Ped i Infectious results 940-4cf0-b /2013 I nfect Disease bbd-052dd4 [facility] [id number] [facility] [id number] 09/17 09/17 Ped i Infectious results 298-418a-a /2013 I nfect Disease 45d-ov4625 [id number] [facility] [id number] 09/17 09/17 Ped i Infectious results 7n8-24j5-y /2013 I nfect Disease fd6-4906f2 [facility] [id number] [facility] [id number] 09/17 09/17 P luis carlos Infectious told bd5-4b86- In fect Disease patient to [id number] [id number] [facility] [id number] 09/17 09/17 P luis carlos Infectious told [phone] In fect Disease patient to 30f-8e64cb [id number] [facility] [id number] 09/17 09/17 P luis carlos Infectious told 868-4bf8- In fect Disease patient to 5be-2b6330 [facility] [id number] [facility] [id number] 09/17 09/17 P luis carlos Infectious told 40f-4dfa- In fect Disease patient to [id number] [facility] [id number] [facility] [id number] 09/17 09/17 P luis carlos Infectious told 513-46d1- In fect Disease patient to [id number] [id number] [id number] 09/17 09/17 P luis carlos Infectious told b61-47h5-f In fect Disease patient to [id number]-[id number] [id number] [facility] [id number] 09/17 09/17 P luis carlos Infectious told [id number]-597j-v In fect Disease patient to [id number] [id number] [facility] [id number] 09/17 09/17 P luis carlos Infectious told s6w-6a3a-4 In fect Disease patient to [id number] [facility] [id number] [facility] [id number] 09/17 09/17 P luis carlos Infectious told 6ea-4f71- In fect Disease patient to 54b-010c78 [id number] [facility] [id number] 09/17 09/17 P luis carlos Infectious told 439-49f6- In fect Disease patient to fe3-u8218h [id number] [facility] [id number] 09/17 09/17 Ped i Infectious results a17-9307-n /2013 I nfect Disease afa-0ef54a [facility] [id number] [facility] [place] Test [id number] 09/17 09/17 Ped i Infectious results 321-4105-a /2013 I nfect Disease 033-5fc2a4 [facility] [id number] [facility] [place] Test [id number] 09/17 09/17 Ped i Infectious results 744-4d7f-a /2013 I nfect Disease 509-7350cc [facility] [id number] [facility] [place] Test [id number] 09/17 09/17 Ped i Infectious results fd7-4768-b /2013 I nfect Disease 34c-5314cd [facility] [id number] [facility] [place] Test [id number] 09/17 09/17 Ped i Infectious results 747-490c-8 I nfect Disease [id number]-105326 [facility] [id number] [facility] [place] Test [id number] 09/17 09/17 Ped i Infectious results 9d1-8701-1 I nfect Disease d44-9dc7x7 [facility] [id number] [facility] [place] Test [id number] 09/17 09/17 Ped i Infectious results 5c6-1604-6 /2013 I nfect Disease cca-59edf5 [facility] [id number] [facility] [place] Test [id number] 09/17 09/17 Ped i Infectious results w12-3e5u-q /2013 I nfect Disease 432-849e0f [facility] [id number] [facility] [place] Test [id number] 09/17 09/17 Ped i Infectious results dd1-4c00- I nfect Disease 23e-70d07e [facility] [id number] [facility] [place] Test [id number] 09/17 09/17 Ped i Infectious results u61-90k8-w /2013 I nfect Disease 1h7-b1g992 [facility] [id number] [facility] [place] Follow-Up [id number] 09/18 09/18 Pedi Infectious Pilonidal 00b-4b97-a /2013 Infect Disease Cyst 34f-bc1cc5 [facility] [id number] [facility] [place] [id number] 09/18 09/18 Pedi Infectious Pilonidal ca6-471b-a /2013 Infect Disease Cyst 4d5-br339q [facility] [id number] [facility] [place] [id number] 09/18 09/18 Pedi Infectious Pilonidal f4d-468g-l /2013 Infect Disease Cyst 433-75cb33 [id number] [facility] [id number] 09/18 09/18 Pedi Infectious Pilonidal t3s-1qff-1 /2013 Infect Disease Cyst 7q7-k79c98 [facility] [id number] [facility] [id number] 09/18 09/18 Pedi Infectious Pilonidal z74-1662-2 /2013 Infect Disease Cyst 846-84996j [facility] [id number] [facility] [id number] 09/18 09/18 Pedi Infectious Pilonidal 2o1-4335-2 /2013 Infect Disease Cyst eb2-a2d1d4 [facility] [id number] [facility] [id number] 09/18 09/18 Pedi Infectious Pilonidal 709-41ab-b /2013 Infect Disease Cyst 690-a2a3e7 [facility] [id number] [facility] [id number] 09/18 09/18 Pedi Infectious Pilonidal 16f-4422-a /2013 Infect Disease Cyst 53a-3b5dfc [facility] [id number] [facility] [place] Follow-Up [id number] 09/18 09/18 Pedi Infectious Pilonidal 145-41c4-b /2013 Infect Disease Cyst 98c-82c78f [facility] [id number] [facility] [place] Follow-Up [id number] 09/18 09/18 Pedi Infectious Pilonidal 98d-4b19-b /2013 Infect Disease Cyst 846-f15e95 [facility] [id number] [facility] [place] Follow-Up [id number] 09/18 09/18 Pedi Infectious Pilonidal cf3-4a2f-b /2013 Infect Disease Cyst aa5-48a13b [facility] [id number] [facility] [place] [id number] 09/24 09/24 Pedi Infectious Pilon[place] q8i-3s98-j /2013 Infect Disease Cyst 5h4-6vz195 [facility] [id number] [facility] [place]Up [id number] 09/24 09/24 Pedi Infectious [place]ilon[place] bc0-4c7b-9 Infect Disease Cyst 83a-364576 [facility] [id number] [facility] [place] [id number] 09/24 09/24 Pedi Infectious Pilonidal 171-4d6a-b /2013 Infect Disease Cyst 922-029451 [facility] [id number] [facility] [place] [id number] 09/24 09/24 Pedi Infectious Pilonidal 786-4d38-b /2013 Infect Disease Cyst 00a-9f5fa2 [facility] [id number] [facility] [id number] 09/24 09/24 Pedi Infectious Pilonidal 3l9-1dy2-7 Infect Disease Cyst 528-7f2ac2 [facility] [id number] [facility] [id number] 09/24 09/24 Pedi Infectious Pilonidal 7q6-409k-x /2013 Infect Disease Cyst 80e-1bbfcb [facility] [id number] [facility] [place] [facility] [id number] 09/24 09/24 Pedi Infectious Pilonidal 994-4c53-9 /2013 Infect Disease Cyst 6de-f4ed9e [id number] [facility] [id number] 09/24 09/24 Pedi Infectious Pilonidal 24b-451a-8 /2013 Infect Disease Cyst 82c-662bd2 [id number] [facility] [id number] 09/24 09/24 Pedi Infectious Pilonidal ed8-4e55-b /2013 Infect Disease Cyst 376-777cde [facility] [id number] [facility] [place] [facility] [id number] 09/24 09/24 Pedi Infectious Pilonidal 8ed-4898-b /2013 Infect Disease Cyst cee-dus614 [facility] [id number] [facility] [id number] 09/24 09/24 Pedi Infectious Pilonidal 26d-400d-a /2013 Infect Disease Cyst 7v4-1926lp [facility] [id number] [facility] [id number] 10/09 10/09 Pedi Infectious Pilonidal ca5-4f38- /2013 Infect Disease Cyst 73a-1b7d56 [facility] [id number] [facility] [id number] 10/09 10/09 Pedi Infectious Pilonidal 636-40e6- Infect Disease Cyst 947-t5702r [facility] [id number] [facility] [id number] 10/09 10/09 Pedi Infectious Pilonidal g4v-470w-4 /2013 Infect Disease Cyst q32-m33446 [facility] [id number] [facility] [place] Follow-Up [id number] 10/09 10/09 Pedi Infectious Pilonidal 66c-4459-a /2013 Infect Disease Cyst e78-344655 [facility] [id number] [facility] [place] Follow-Up [id number] 10/09 10/09 Pedi Infectious Pilonidal 2dd-467d-8 /2013 Infect Disease Cyst 1d9-857577 [facility] [id number] [facility] [place] Follow-Up [id number] 10/09 10/09 Pedi Infectious Pilonidal 201-45fb-b /2013 Infect Disease Cyst 8w1-1t7l64 [facility] [id number] [facility] [place] Follow-Up [id number] 10/09 10/09 Pedi Infectious Pilonidal x8z-0a66-o /2013 Infect Disease Cyst bed-8fceb1 [facility] [id number] [facility] [place] Follow-Up [id number] 10/09 10/09 Pedi Infectious Pilonidal j1s-0532-c /2013 Infect Disease Cyst bc1-612e32 [facility] [id number] [facility] [place] Follow-Up [id number] 10/09 10/09 Pedi Infectious Pilonidal 2w3-4k2e-9 /2013 Infect Disease Cyst b1w-jy8045 [facility] [id number] [facility] [place] Follow-Up [id number] 10/09 10/09 Pedi Infectious Pilonidal 9ed-4f4b-8 /2013 Infect Disease Cyst 2fb-43eadf [facility] [id number] [facility] [place] Follow-Up [id number] 10/09 10/09 Pedi Infectious Pilonidal 3z2-3j60-2 /2013 Infect Disease Cyst g73-50166r [facility] [id number] [facility] [place] [facility] W[facility] [id number] 10/22 10/22 Pedi Infectious 7g6-9e30-9 /2013 In fect Disease 48c-222398 [facility] [id number] [facility] [place] [facility] [id number] 10/22 10/22 Pedi Infectious 442-4426-9 /2013 In fect Disease b0w-7k5vd9 [facility] [id number] [facility] [place] [facility] [id number] 10/22 10/22 Pedi Infectious ba4-494c-b /2013 In fect Disease 92f-150113 [facility] [id number] [facility] [place] [facility] [id number] 10/22 10/22 Pedi Infectious afc-4b99-b /2013 In fect Disease 449-4770ae [facility] [id number] [facility] [place] [facility] [id number] 10/22 10/22 Pedi Infectious o84-9456-g /2013 In fect Disease 6ad-048b69 [facility] [id number] [facility] [place] [facility] [id number] 10/22 10/22 Pedi Infectious cf9-4283-a /2013 In fect Disease ee3-f10d09 [facility] [id number] [facility] [place] [facility] [id number] 10/22 10/22 Pedi Infectious ec0-4282-8 /2013 In fect Disease t8f-0gs2m2 [facility] [id number] [facility] [place] [facility] [id number] 10/22 10/22 Pedi Infectious bad-4c5d-a /2013 In fect Disease 731-[id number] [facility] [id number] [facility] [place] FU - [id number] 11/19 11/19 Ped i Infectious PILONIDAL 7c5-45mz-9 /2013 Infect Disease CYST 0x3-04p975 [facility] [id number] [facility] [place] FU - [id number] 11/19 11/19 Ped i Infectious PILONIDAL fa6-4c63-8 /2013 Infect Disease CYST 573-fbe18e [facility] [id number] [facility] [place] FU - [id number] 11/19 11/19 Ped i Infectious PILONIDAL 2ac-4955-a /2013 Infect Disease CYST 318-2e93c3 [facility] [id number] [facility] [place] FU - [id number] 11/19 11/19 Ped i Infectious PILONIDAL z19-3r29-g /2013 Infect Disease CYST 2t9-3p2311 [facility] [id number] [facility] [place] FU - [id number] 11/19 11/19 Ped i Infectious PILONIDAL 115-444f-b /2013 Infect Disease CYST 1bc-g3r577 [facility] [id number] [facility] [place] FU - [id number] 11/19 11/19 Ped i Infectious PILONIDAL 9t2-5o11-e /2013 Infect Disease CYST 093-a1a61a [facility] [id number] [facility] [place] FU - [id number] 11/19 11/19 Ped i Infectious PILONIDAL 6ea-40c8-b /2013 Infect Disease CYST 754-37b94e [facility] [id number] [facility] [place] FU - [id number] 11/19 11/19 Ped i Infectious PILONIDAL 643-4d47-b /2013 Infect Disease CYST 2d8-2a8xq7 [facility] [id number] [facility] [place] Unknown [id number] 12/11 12/11 Pe di Infectious 490-456d-9 /2014 In fect Disease q10-32f0t6 [facility] [id number] [facility] [place] Unknown [id number] 12/11 12/11 Pe di Infectious 50b-42a1-a In fect Disease 995-rb664u [facility] [id number] [facility] [place] Unknown [id number] 12/11 12/11 Pe di Infectious 7m1-65m3-9 In fect Disease 920-4rf889 [facility] [id number] [facility] [place] Unknown [id number] 12/11 12/11 Pe di Infectious de7-4c4f- In fect Disease 945-2aebd0 [facility] [id number] [facility] [place] Unknown [id number] 12/11 12/11 Pe di Infectious h6e-374v-7 In fect Disease ab2-8e65d9 [facility] [id number] [facility] [place] Unknown [id number] 12/11 12/11 Pe di Infectious 459-43f5- In fect Disease aee-33b8fd [facility] [id number] [facility] [place] Follow-Up [id number] 01/02 01/02 Pedi Infectious Pilonidal af5-4ef1-b /2014 Infect Disease cyst 55f-37b0d6 [facility] [id number] [facility] [place] [id number] 01/02 01/02 Pedi Infectious Pilonidal ddb-4f8b- Infect Disease cyst e3i-m360g7 [facility] [id number] [facility] [place] Follow-Up [id number] 01/02 01/02 Pedi Infectious Pilonidal 140-43fd- Infect Disease cyst 364-2311e8 [facility] [id number] [facility] [place] [facility] Follow-Up [id number] 01/02 01/02 Pedi Infectious Pilonidal cad-4517- Infect Disease cyst s68-pm4c71 [facility] [id number] [facility] [place] Follow-Up [id number] 02/05 02/05 Pedi Infectious Pilonidal 766-43da-a /2014 Infect Disease cyst t24-0bn4u7 [facility] [id number] [facility] [place] [facility] [place] [id number] 01/13 01/13 Pedi Infectious Pilonidal w31-300u-j /2014 Infect Disease cyst 1n8-465391 [facility] [id number] [facility] [place] [facility] [place] [id number] 01/13 01/13 Pedi Infectious Pilonidal 614-46ec-b /2014 Infect Disease cyst 01b-79ea4a [facility] [id number] [facility] [place] [facility] [place] [id number] 01/13 01/13 Pedi Infectious Pilonidal 4c7-4l12-y /2014 Infect Disease cyst q8c-6z7oc6 [facility] [id number] [facility] [place] [facility] [place] [id number] 01/13 01/13 Pedi Infectious Pilonidal 51e-414e-8 /2014 Infect Disease cyst 0p8-243d61 [facility] [id number] [facility] [place] [facility] [place] [id number] 01/13 01/13 Pedi Infectious Pilon[place] 876-4809-b /2014 Infect Disease cyst h18-05wf94 [facility] [id number] [facility] [place] [facility] [place] [id number] 01/21 01/21 Pedi Infectious ea9-4042-a /2014 In fect Disease d15-93874v [facility] [id number] [facility] [id number] 01/21 01/21 Pedi Infectious 05f-4638-9 /2014 In fect Disease d0o-td01s7 [facility] [id number] [facility] [id number] 02/04 02/04 Pedi Infectious Pilonidal daf-45f8-9 /2014 Infect Disease cyst [id number] [id number] [id number] 02/04 02/04 Pedi Infectious Pilonidal [id number] /2014 Infect Disease cyst [id number] [facility] [id number] [facility] [id number] 02/18 02/18 Pedi Infectious Pilonidal [id number] /2014 Infect Disease cyst and [id number] [facility] Laser hair [id number] o f of [place], [facility] [place] Pediatric Follow-Up [id number] 02/18 02/18 Pedi Infectious Pilonidal [id number] Infect Disease cyst and [id number] [facility] hair [id number] o f of [place], [facility] [place] [facility] [place] [id number] 05/06 05/06 Pedi Infectious Pilonidal [id number] Infect Disease cyst [id number] [facility] [id number] [facility] [id number] 05/06 05/06 Pedi Infectious Pilonidal [id number] /2014 Infect Disease cyst [id number] [facility] [id number] [facility] Test [id number] 05/12 05/12 Ped i Infectious results [id number] I nfect Disease [id number] [facility] [id number] [facility] [id number] 05/12 05/12 Ped i Infectious results [id number] /2014 I nfect Disease [id number] [facility] [id number] [facility] [id number] 05/16 05/16 Pedi Infectious Pilonidal [id number] Infect Disease Cyst [id number] [facility] [id number] [facility] [id number] 05/16 05/16 Pedi Infectious Pilonidal [id number] /2014 Infect Disease Cyst [id number] [facility] [id number] [facility] [id number] 05/26 05/26 Pedi Infectious Pilonidal [id number] /2014 Infect Disease cyst [id number] [facility] [id number] [facility] [id number] 05/26 05/26 Pedi Infectious Pilonidal [id number] /2014 Infect Disease cyst [id number] [facility] [id number] [facility] [id number] 07/10 07/10 Pedi Infectious Pilonidal [id number] Infect Disease cyst [id number] [facility] [id number] [facility] [id number] 07/10 07/10 Pedi Infectious Pilonidal [id number] /2014 Infect Disease cyst [id number] [facility] [id number] [facility] [id number] 08/07 08/07 Pedi Infectious Pilonidal [id number] /2014 Infect Disease cyst [id number] [facility] [id number] [facility] [id number] 08/07 08/07 Pedi Infectious Pilonidal [id number] /2014 Infect Disease cyst [id number] [facility] [id number] [facility] [id number] 08/11 08/11 Ped i Infectious results [id number] I nfect Disease [id number] [facility] [id number] [facility] [id number] 08/11 08/11 Ped i Infectious results [id number] I nfect Disease [id number] [facility] [id number] [facility] [id number] 01/16 01/16 Pedi Infectious - Check [id number] /2015 I nfect Disease wound [id number] [facility] [id number] [facility] [place] Procedures No Data Provided for This Section Assessment and Plan No Data Provided for This Section Plan of Care No Data Provided for This Section Social History Social History Date Source Social History ElementQualifiersDate Reported 01/18/2016 Pedi Infect Disease of Tobacco Use: [place] . Are you a: never smoker Jan 18, 2016 Family History Value Date Source QualifierDescriptionCommentDate Reported 08/09/2015 Pedi Infect Disease of Maternal Grandmother [place] Comment not available Aug 07, 2015 Paternal [...]
[2020-10-19 12:59] LABS: Absolute Lymphocytes (CBC) 2.1 K/uL (0.7-4.9); Basophils % 1.3 % (0-1.3); Hematocrit 43.2 % (39.6-49.0); Lymphocytes % 31.5 % (15.3-44.8); MPV 7.2 fL (7.6-11.3); RBC Red Blood Cell Count 5.24 M/uL (4.33-5.43)
[2020-10-19] MEDS ORDERED: ONDANSETRON 4 MG/2 ML VIAL ONE (13:07)
[2020-10-19] MEDS ORDERED: NA CHLORIDE 0.9% 1,000 ML ONE (13:07)
[2020-10-19] MEDS ORDERED: FAMOTIDINE 20 MG/2 ML VIAL IV ONE (13:07)
[2020-10-19 13:11] LABS: ALT/SGPT 40 U/L (12-78); AST/SGOT 21 U/L (15-37); Albumin 4.2 g/dL (3.4-5.0); Alkaline Phosphatase 90 U/L (45-117); BUN Blood Urea Nitrogen 11 mg/dL (7-18); Bicarbonate 29 mmol/L (21-32); Bilirubin Direct < 0.1 mg/dL (0-0.2); Bilirubin Total 0.5 mg/dL (0.2-1.0); Glucose Level 112 mg/dL (74-106); Lipase 73 U/L (73-393); Potassium 4.6 mmol/L (3.5-5.1); Protein, Total 7.8 g/dL (6.4-8.2); Sodium Level 139 mmol/L (136-145)
--- NOTE | 2020-10-19 14:07 | RAD REPORT ---
EXAM DESCRIPTION: CTAbdomen Pelvis W Contrast - 10/19/2020 1:53 pm CLINICAL HISTORY: Abdominal pain. ABD PAIN COMPARISON: Abdomen Pelvis W Contrast dated 05/09/2020; Abdomen Pelvis W Contrast dated 08/20/2019 TECHNIQUE: Biphasic CT imaging of the abdomen and pelvis was performed with 100 ml non-ionic IV cont rast. All CT scans are performed using dose optimization technique as appropriate and may include automated exposure control or mA/KV adjustment according to patient size. FINDINGS: The lung bases are clear. Mild diffuse fatty liver. Cholecystectomy clips. The spleen, pancreas, adrenal glands and kidneys are within normal limits. No bowel obstruction, free air, free fluid or abscess. The appendix is normal. No evidence of signi ficant lymphadenopathy. Mild circumferential thickening the rectum is noted. No suspicious bony findings. IMPRESSION: No acute intra-abdominal or pelvic finding. Fatty liver. Circumferential wall thickening of the rectum is noted. Significance of this finding is unclear.
--- NOTE | 2020-10-19 14:25 | ER ---
Nurse's Notes [facility] Name: Keo Hardin Age: 25 yrs Sex: Male : 1995 Arrival Date: 10/19/2020 Time: 12:29 Bed 13 Private MD: Shaun Manzo C Diagnosis: Diarrhea, unspecified;Nausea and vomiting Presentation: 10/19 12:36 Chief complaint: Patient states: abd pain, more so right after eating, headache, sv vomiting, AMS x 2 days. Denies SOB. Coronavirus screen: Client denies travel out of the [place] in the last 14 days. At this time, the client does not indicate any symptoms associated with coronavirus-19. Ebola Screen: No symptoms or risks identified at this time. Risk Assessment: Do you want to hurt yourself or someone else? Patient reports no desire to harm self or others. Onset of symptoms was October 17, 2020. 12:36 Method Of Arrival: Ambulatory sv 12:36 Acuity: ROBERTH 2 sv 12:38 Initial Sepsis Screen: Does the patient meet any 2 criteria? HR > 90 bpm. No. Patient's sv initial sepsis screen is negative. Does the patient have a suspected source of infection? No. Patient's initial sepsis screen is negative. Historical: - Allergies: 12:38 Haldol; sv - PMHx: 12:38 Anxiety; Hypertension; Hyperlipidemia; Bipolar disorder; Depression; GERD; insomnia; sv MRSA; Panic Attacks; - PSHx: 12:38 Cholecystectomy; sv - Immunization history:: Flu vaccine is up to date. - Social history:: Smoking status: Patient/guardian denies using tobacco, Stopped _ months ago 8. Screenin:50 Abuse screen: Denies threats or abuse. Denies injuries from another. Nutritional zb screening: No deficits noted. Tuberculosis screening: No symptoms or risk factors identified. Fall Risk None identified. Assessment: 12:50 General: Appears in no apparent distress. uncomfortable, ill, Behavior is calm, zb cooperative, appropriate for age, Reports chills for 2-3 days, fever for feeling ill for 2-3 days, fatigue for 2-3 days. Pain: Complains of pain in right upper quadrant and left upper quadrant. Neuro: Level of Consciousness is awake, alert, obeys commands. Cardiovascular: Capillary refill < 3 seconds is sluggish in bilateral fingers. Respiratory: Airway is patent Respiratory effort is even, unlabored. GI: Abdomen is obese, Abdomen is tender to palpation in right upper quadrant and left upper quadrant Reports upper abdominal pain, cramping, diarrhea, intolerance of food, nausea. : No signs and/or symptoms were reported regarding the genitourinary system. EENT: Reports nasal congestion. Derm: Skin is intact, is healthy with good turgor, Skin is pale. Musculoskeletal: Circulation, motion, and sensation intact. 13:45 Reassessment: Patient appears in no apparent distress at this time. Patient and/or zb family updated on plan of care and expected duration. Pain level reassessed. Patient is alert, oriented x 3, equal unlabored respirations, skin warm/dry/pink. 14:45 Reassessment: Patient appears in no apparent distress at this time. Patient and/or zb family updated on plan of care and expected duration. Pain level reassessed. Patient is alert, oriented x 3, equal unlabored respirations, skin warm/dry/pink. Patient states feeling better. Patient states symptoms have improved. Vital Signs: 12:36 BP 126 / 112; Pulse 101; Resp 20; Temp 99(O); Pulse Ox 99% ; Weight 136.08 kg; Height 5 sv ft. 8 in. (172.72 cm); 13:15 BP 119 / 81; Pulse 81; Resp 20; Pulse Ox 97% on R/A; zb 14:15 BP 120 / 80; Pulse 79; Resp 18; Pulse Ox 99% on R/A; zb 12:36 Body Mass Index 45.62 (136.08 kg, 172.72 cm) sv ED Course: 12:29 Patient arrived in ED. mr 12:29 Shaun Manzo MD is Private Physician. mr 12:31 Wilber Whaley PA is PHCP. cp 12:31 Ricardo Gonzalez MD is Attending Physician. cp 12:33 Beatrice Pichardo, WILL is Primary Nurse. zb 12:37 Triage completed. sv 12:41 Arm band placed on. sv 12:45 Initial lab(s) drawn, by la, sent to lab. Inserted saline lock: 22 gauge in left jp3 forearm, using aseptic technique. Blood collected. 12:45 Patient maintains SpO2 saturation greater than 95% on room air. jp3 13:09 Patient has correct armband on for positive identification. Bed in low position. Call zb light in reach. Pulse ox on. NIBP on. Door closed. Noise minimized. 13:54 CT Abd/Pelvis - IV Contrast Only In Process Unspecified. EDMS 14:24 Boubacar Franklin MD is Referral Physician. cp 14:45 No provider procedures requiring assistance completed. zb 15:00 IV discontinued, intact, bleeding controlled, No redness/swelling at site. Pressure zb dressing applied. Administered Medications: 12:55 Drug: NS 0.9% 1000 ml Route: IV; Rate: 1 bolus; Site: left forearm; zb 14:00 Follow up: Response: No adverse reaction; IV Status: Completed infusion; IV Intake: zb 1000ml 12:55 Drug: Zofran (Ondansetron) 4 mg Route: IVP; Site: left femoral; zb 13:00 Follow up: Response: No adverse reaction; Nausea is decreased zb 12:55 Drug: Pepcid 20 mg Route: IVP; Site: left femoral; zb 13:00 Follow up: Response: No adverse reaction zb 14:33 Not Given (Patient Refused; states he's had a pass reaction ): Cipro 500 mg PO once zb 14:33 Drug: metroNIDAZOLE 500 mg Route: PO; zb 14:40 Follow up: Response: No adverse reaction zb Intake: 14:00 IV: 1000ml; Total: 1000ml. zb Outcome: 14:24 Discharge ordered by MD. cp 15:08 Patient left the ED. zb 19:19 Discharged to home ambulatory. zb 19:19 Condition: stable 19:19 Discharge instructions given to patient, Instructed on discharge instructions, follow up and referral plans. medication usage, Demonstrated understanding of instructions, follow-up care, medications, Prescriptions given X 3. Signatures: Dispatcher [employer] EDMS Debbie Khan RN RN Meaghan Alvarenga Corey, PA PA cp Pisarski, Jacob jp3 Beatrice Pichardo RN RN zb Corrections: (The following items were deleted from the chart) 12:39 12:36 BP 126 / 112; Pulse 101bpm; Resp 20bpm; Pulse Ox 99%; Temp 96.1F; 136.08 kg; sv Height 5 ft. 8 in.; BMI: 45.6; sv 12:41 12:36 BP 126 / 112; Pulse 101bpm; Resp 20bpm; Pulse Ox 99%; 136.08 kg; Height 5 ft. 8 sv in.; BMI: 45.6; sv 12:41 12:38 Initial Sepsis Screen: Does the patient meet any 2 criteria? sv sv
--- NOTE | 2020-10-19 14:25 | EDPHYS ---
Physician Documentation [facility] Name: Keo Hardin Age: 25 yrs Sex: Male : 1995 Arrival Date: 10/19/2020 Time: 12:29 Bed 13 Private MD: Shaun Manzo C ED Physician Ricardo Gonzalez HPI: 10/19 12:35 This 25 yrs old Male presents to ER via Ambulatory with complaints of cp Abdominal Pain, Vomiting. 12:35 The patient presents with abdominal pain that is diffuse. Onset: The symptoms/episode cp began/occurred 2 day(s) ago. The symptoms do not radiate. Associated signs and symptoms: Pertinent positives: nausea and vomiting, anorexia, diarrhea, Pertinent negatives: constipation, dysuria, fever, testicular pain. The symptoms are described as waxing/waning. Modifying factors: the symptoms are aggravated by food. Severity of pain: in the emergency department the pain has improved. Historical: - Allergies: 12:38 Haldol; sv - PMHx: 12:38 Anxiety; Hypertension; Hyperlipidemia; Bipolar disorder; Depression; GERD; insomnia; sv MRSA; Panic Attacks; - PSHx: 12:38 Cholecystectomy; sv - Immunization history:: Flu vaccine is up to date. - Social history:: Smoking status: Patient/guardian denies using tobacco, Stopped _ months ago 8. ROS: 12:40 Constitutional: Positive for poor PO intake, Negative for body aches, chills, fever. cp 12:40 Eyes: Negative for injury, pain, redness, and discharge. cp 12:40 ENT: Negative for ear pain, sore throat, difficulty swallowing, difficulty handling secretions. 12:40 Cardiovascular: Negative for chest pain, edema, palpitations. 12:40 Respiratory: Negative for cough, shortness of breath, wheezing. 12:40 Abdomen/GI: Positive for abdominal pain, nausea, vomiting, and diarrhea, anorexia, Negative for constipation, hematemesis, black/tarry stool, rectal bleeding. 12:40 Back: Negative for radiated pain. 12:40 : Negative for urinary symptoms, testicular pain 12:40 Neuro: Negative for altered mental status, headache, weakness. 12:40 All other systems are negative. Exam: 13:50 Head/Face: Normocephalic, atraumatic. cp 13:50 Constitutional: The patient appears in no acute distress, alert, awake, non-toxic, well developed, well nourished, obese. 13:50 Eyes: Periorbital structures: appear normal, Conjunctiva: normal, no exudate, no injection, Sclera: no appreciated abnormality, Lids and lashes: appear normal, bilaterally. 13:50 ENT: External ear(s): are unremarkable, Nose: is normal, Posterior pharynx: Airway: no evidence of obstruction, patent. 13:50 Chest/axilla: Inspection: normal, Palpation: is normal, no crepitus, no tenderness. 13:50 Cardiovascular: Rate: tachycardic, Rhythm: regular. 13:50 Respiratory: the patient does not display signs of respiratory distress, Respirations: normal, no use of accessory muscles, no retractions, labored breathing, is not present, Breath sounds: are clear throughout, no decreased breath sounds, no stridor, no wheezing. 13:50 Abdomen/GI: Inspection: obese Bowel sounds: active, all quadrants, Palpation: soft, in all quadrants, mild abdominal tenderness, in the right upper quadrant, left upper quadrant, right lower quadrant and left lower quadrant, rebound tenderness, is not appreciated, involuntary guarding, is not appreciated. 13:50 Back: CVA tenderness, is absent. Vital Signs: 12:36 BP 126 / 112; Pulse 101; Resp 20; Temp 99(O); Pulse Ox 99% ; Weight 136.08 kg; Height 5 sv ft. 8 in. (172.72 cm); 13:15 BP 119 / 81; Pulse 81; Resp 20; Pulse Ox 97% on R/A; zb 14:15 BP 120 / 80; Pulse 79; Resp 18; Pulse Ox 99% on R/A; zb 12:36 Body Mass Index 45.62 (136.08 kg, 172.72 cm) sv MDM: 12:48 Patient medically screened. cp 14:23 Data reviewed: vital signs, nurses notes, lab test result(s), radiologic studies, CT cp scan. 14:23 Counseling: I had a detailed discussion with the patient and/or guardian regarding: the cp historical points, exam findings, and any diagnostic results supporting the discharge/admit diagnosis, lab results, radiology results. Response to treatment: the patient's symptoms have markedly improved after treatment. Special discussion: Based on the patient's Hx, exam, and Dx evaluation, there is no indication for emergent surgery or inpatient Tx. It is understood by the patient/guardian that if the Sx's persist or worsen they need to return immediately for re-evaluation. 10/19 12:33 Order name: Basic Metabolic Panel; Complete Time: 14:11 cp 10/19 14:11 Interpretation: Normal except: GLUC 112. cp 10/19 12:33 Order name: CBC with Diff; Complete Time: 14:11 cp 10/19 14:11 Interpretation: Normal except: MPV 7.2. cp 10/19 12:33 Order name: Hepatic Function; Complete Time: 14:11 cp 10/19 14:11 Interpretation: Normal except: GLOB 3.6. cp 10/19 12:33 Order name: Lipase; Complete Time: 14:11 cp 10/19 12:49 Order name: UDS 10/19 14:34 Order name: Urine Dipstick--Ancillary (enter results) mt 10/19 12:33 Order name: IV Saline Lock; Complete Time: 12:49 cp 10/19 12:49 Order name: CT Abd/Pelvis - IV Contrast Only; Complete Time: 14:11 cp 10/19 14:35 Order name: Urine Dipstick-Ancillary EDMS 10/19 12:33 Order name: Labs collected and sent; Complete Time: 12:49 cp 10/19 12:33 Order name: Urine Dipstick-Ancillary (obtain specimen); Complete Time: 14:37 cp 10/19 14:12 Order name: PO challenge; Complete Time: 14:31 cp Administered Medications: 12:55 Drug: NS 0.9% 1000 ml Route: IV; Rate: 1 bolus; Site: left forearm; zb 14:00 Follow up: Response: No adverse reaction; IV Status: Completed infusion; IV Intake: zb 1000ml 12:55 Drug: Zofran (Ondansetron) 4 mg Route: IVP; Site: left femoral; zb 13:00 Follow up: Response: No adverse reaction; Nausea is decreased zb 12:55 Drug: Pepcid 20 mg Route: IVP; Site: left femoral; zb 13:00 Follow up: Response: No adverse reaction zb 14:33 Not Given (Patient Refused; states he's had a pass reaction ): Cipro 500 mg PO once zb 14:33 Drug: metroNIDAZOLE 500 mg Route: PO; zb 14:40 Follow up: Response: No adverse reaction zb Disposition: 15:16 Co-signature as Attending Physician, Ricardo Gonzalez MD. rn Disposition: 10/19/20 14:24 Discharged to Home. Impression: Diarrhea, unspecified, Nausea and vomiting. - Condition is Stable. - Discharge Instructions: Food Choices to Help Relieve Diarrhea, Adult, Diarrhea, Adult, Nausea and Vomiting, Adult. - Prescriptions for Bentyl 20 mg Oral Tablet - take 1 tablet by ORAL route every 6 hours As needed; 20 tablet. Zofran 4 mg Oral Tablet - take 1 tablet by ORAL route every 12 hours As needed; 20 tablet. Augmentin 875- 125 mg Oral Tablet - take 1 tablet by ORAL route every 12 hours for 10 days; 20 tablet. - Medication Reconciliation Form, Thank You Letter, Antibiotic Education, Prescription Opioid Use form. - Follow up: Boubacar Franklin MD; When: 2 - 3 days; Reason: Recheck today's complaints. - Problem is new. - Symptoms have improved. Signatures: Dispatcher [employer] Debbie Hatfield, RN RN Ricardo Eid MD MD rn Page, Corey, PA PA cp Brown, Zipporah, RN RN zb Corrections: (The following items were deleted from the chart) 15:08 14:24 10/19/2020 14:24 Discharged to Home. Impression: Diarrhea, unspecified; Nausea zb and vomiting. Condition is Stable. Forms are Medication Reconciliation Form, Thank You Letter, Antibiotic Education, Prescription Opioid Use. Follow up: Boubacar Franklin; When: 2 - 3 days; Reason: Recheck today's complaints. Problem is new. Symptoms have improved. cp
[2020-10-19] MEDS ORDERED: metroNIDAZOLE 500 MG TABLET ONE (14:39)
[2020-10-19] MEDS ORDERED: CIPROFLOXACIN HCL 500 MG TAB ONE (14:39)
[2020-10-19 14:50] LABS: Urine Blood NEGATIVE (NEG); Urine Glucose NEGATIVE (NEG); Urine Protein NEGATIVE (NEG); Urine Specific Gravity 1.015 (1.005-1.030)
[2020-10-19 15:20] LABS: Barbiturates NEGATIVE (NEGATIVE); Benzodiazepines NEGATIVE (NEGATIVE); Cocaine NEGATIVE (NEGATIVE); METHAMPHETAM NEGATIVE (NEGATIVE); Methadone NEGATIVE (NEGATIVE); Opiates NEGATIVE (NEGATIVE); Phencyclidine NEGATIVE (NEGATIVE); THC Cannibis POSITIVE (NEGATIVE)
[2020-10-19 19:18] VITALS: TEMP 99
[2020-10-19 19:21] VITALS: BP 119/81; O2SAT 97
== END 2020-10-19 15:08 | disposition home or self-care (01) ==
LOC: ER 12:26
DX: R19.7 Diarrhea, unspecified (principal); I10 Essential (primary) hypertension; Z88.5 Allergy status to narcotic agent
CPT/HCPCS: 96361; 85025; 80048; 36415; 80076; 80307 ×8; 81003; 83690; 74177; 96375; 96374; 99284; Q9967; J7030; J2405

== ENCOUNTER 2020-10-20 15:57 | Emergency (ER) | payer OTHER ==
--- OUTSIDE RECORDS SUMMARY | 2020-10-20 16:17 | XMS REPORT | Continuity of Care Document ---
:1995 Author Organization [facility] Care Team Providers Name Role Phone [facility] Unavailable Un available Problems Problem Status Onset Classification Date Comments Sourc e Date Reported Pseudomonas Active Problem 01/19/2016 Pedi infection in Infect conditions Disease o f classified [place] elsewhere and of unspecified site Methicillin Active Problem 01/19/2016 Pedi resistant Infect Staphylococcus Disea se of aureus [place] Pilonidal cyst Active Problem 01/19/2016 Pedi with abscess Infect Disease of [place] Other chronic Active Problem 01/19/2016 Pedi postoperative pain I nfect Disease of [place] Other atopic Active Problem 01/19/2016 Pedi dermatitis and Infec t related conditions D isease of [place] Open wound of Active Problem 01/19/2016 Pedi buttock, Infect complicated Disease of [place] Cutaneous abscess Active Problem 01/19/2016 P luis carlos of buttock Infect Disease of [place] Open wound of Active Problem 01/19/2016 Pedi buttock, without Inf ect mention of Disease o f complication [place] Pilonidal cyst Active Problem 01/19/2016 Pedi with abscess Infect Disease of [place] Klebsiella Active Problem 01/19/2016 Pedi pneumoniae Infect infection Disease of [place] Cellulitis and Active Problem 01/19/2016 Pedi abscess of buttock I nfect Disease of [place] Medications Medication Details Route Status Patient Ordering Order Source Instructions Provider Date Augmentin 1 tablet PO Active 500 mg PO Three Lacey 09/17/20 Pedi times a day 14 Infect Disease of [place] Paxil Unknown NA Active [facility] Pedi Infect [facility] of [place] Celexa Unknown NA Active L[facility] Pedi Infect [facility] of [place] Seroquel Unknown NA Active [facility] Pedi Infect [facility] of [place] Augmentin Unknown NA Active [facility] Pedi Infect [facility] [place] Clonidine HCl Unknown NA Active [facility] Pedi Infect [facility] of [place] Citalopram Unknown NA Active [facility] Pedi Hydrobromide Infect Disease of [place] Doxepin HCl Unknown NA Active [facility] Pedi Infect [facility] of [place] BuPROPion HCl Unknown NA Active [facility] Pedi Infect Disease of [place] Quetiapine Unknown NA Active L[facility] Pedi Fumarate Infect Disease of [place] Allergies, Adverse Reactions, Alerts Substance Category Reaction Severity Reaction Status Date Comments S ource type Reported N.K.D.A. Adverse Info Not Adverse Active Pedi Reaction Available Reaction [address] Disease of [place] Immunizations No Data Provided for This Section [...] Weight 323 01/16/2016 Pedi Infect Disease of [place] Height 68 01/16/2016 Pedi Infect Disease of [place] Temperature Oral (F) 98 F 01/16/2016 Pedi In fect Disease of [place] Heart Rate 128 01/16/2016 Pedi Infect Disease of [place] Weight 295 08/07/2015 Pedi Infect Disease of [place] Height 68 08/07/2015 Pedi Infect Disease of [place] Temperature Oral (F) 98 F 08/07/2015 Pedi In fect Disease of [place] Heart Rate 108 08/07/2015 Pedi Infect Disease of [place] Weight 263 01/13/2015 Pedi Infect Disease of [facility] 68 01/13/2015 Pedi Infect Disease of [place] Temperature Oral (F) 97.6 F 01/13/2015 Pedi In fect Disease of [place] Heart Rate 101 01/13/2015 Pedi Infect Disease of [place] Weight 260 01/02/2015 Pedi Infect Disease of [place] Height 68 01/02/2015 Pedi Infect Disease of [place] Temperature Oral (F) 97.8 F 01/02/2015 Pedi In fect Disease of [place] Heart Rate 102 01/02/2015 Pedi Infect Disease of [place] Weight 247.2 10/22/2014 Pedi Infect Disease of [place] Height 66 10/22/2014 Pedi Infect Disease of [place] Temperature Oral (F) 97.5 F 10/22/2014 Pedi In fect Disease of [place] Weight 248 10/09/2014 Pedi Infect Disease of [place] Height 66 10/09/2014 Pedi Infect Disease of [place] Temperature Oral (F) 97.6 F 10/09/2014 Pedi In fect Disease of [place] Heart Rate 77 10/09/2014 Pedi Infect Disease of [place] Weight 245 09/24/2014 Pedi Infect Disease of [place] Height 66 09/24/2014 Pedi Infect Disease of [place] Temperature Oral (F) 98.9 F 09/24/2014 Pedi In fect Disease of [place] Heart Rate 91 09/24/2014 Pedi Infect Disease of [place] Weight 241 09/18/2014 Pedi Infect Disease of [place] Height 66 09/18/2014 Pedi Infect Disease of [place] Temperature Oral (F) 97.6 F 09/18/2014 Pedi In fect Disease of [place] Heart Rate 89 09/18/2014 Pedi Infect Disease of [place] Weight 241 09/11/2014 Pedi Infect Disease of [place] Height 66 09/11/2014 Pedi Infect Disease of [place] Temperature Oral (F) 97.5 F 09/11/2014 Pedi In fect Disease of [place] Heart Rate 81 09/11/2014 Pedi Infect Disease of [place] Encounters Location Location Encounter Encounter Reason Attending ADM [facility] Source Details Type Number For Provider Date Date Visit Pediatric Unknown [id number] 09/11 09/11 Pe di Infectious [id number] In fect Disease [id number] [facility] [id number] [facility] [place] Unknown [id number] 09/11 09/11 Pe di Infectious ef6-4ba4- In fect Disease [id number] [facility] [id number] [facility] [place] Unknown [id number] 09/11 09/11 Pe di Infectious 8f6-2ewb-3 In fect Disease [id number] [facility] [id number] of [facility] [place] Unknown [id number] 09/11 09/11 Pe di Infectious 930-4e88- In fect Disease [id number] [facility] [id number] of [facility] [place] Unknown [id number] 09/11 09/11 Pe di Infectious 10f-4643-a /2013 In fect Disease 00f-7bab3c [facility] [id number] of [facility] [place] Unknown [id number] 09/11 09/11 Pe di Infectious 6i1-0393-h /2013 In fect Disease ff1-92b48f [facility] [id number] of [facility] [place] Unknown [id number] 09/11 09/11 Pe di Infectious dfa-488e-8 In fect Disease 686-a84a04 [facility] [id number] of [facility] [place] Unknown [id number] 09/11 09/11 Pe di Infectious 6s9-71pq-1 In fect Disease w85-b2w11u [facility] [id number] of [facility] [place] Unknown [id number] 09/11 09/11 Pe di Infectious 6a9-38n8-t In fect Disease a41-w6sz21 [facility] [id number] of [facility] [place] Unknown [id number] 09/11 09/11 Pe di Infectious 8k0-7534-9 In fect Disease c02-4766zl [facility] [id number] of [facility] [place] Unknown [id number] 09/11 09/11 Pe di Infectious 971-446c- In fect Disease 814-4dbacf [facility] [id number] of [facility] [place] Unknown [id number] 09/11 09/11 Pe di Infectious 391-4f25-a In fect Disease 285-cs4399 [facility] [id number] of [facility] [place] Unknown [id number] 09/11 09/11 Pe di Infectious 6s4-9k75-q In fect Disease 35a-bm854z [facility] [id number] of [facility] [place] Unknown [id number] 09/11 09/11 Pe di Infectious 56e-4a56-a In fect Disease 714-[id number] [facility] [id number] of [facility] [place] Provider [id number] 09/17 09/17 P luis carlos Infectious told s16-7a9c-3 In fect Disease patient to [id number]-[id number] [facility] call [id number] of [facility] [place] [id number] 09/17 09/17 P luis carlos Infectious told 740-4185-9 /2013 In fect Disease patient to fc7-7n8506 [id number] [id number] 09/17 09/17 P luis carlos Infectious told g61-7610-m /2013 In fect Disease patient to 215-b796e2 [id number] [id number] 09/17 09/17 P luis carlos Infectious told q61-3kfy-1 In fect Disease patient to 2fd-1sr800 [id number] [facility] [id number] 09/17 09/17 Ped i Infectious results 39a-4529-a /2013 I nfect Disease l4i-22j8rq [id number] [facility] [id number] 09/17 09/17 Ped i Infectious results 940-4cf0-b /2013 I nfect Disease bbd-052dd4 [id number] [facility] [id number] 09/17 09/17 Ped i Infectious results 298-418a-a /2013 I nfect Disease 45d-jv0267 [facility] [id number] [facility] [id number] 09/17 09/17 Ped i Infectious results 4k4-69o4-y /2013 I nfect Disease fd6-4906f2 [facility] [id number] [facility] [id number] 09/17 09/17 P luis carlos Infectious told bd5-4b86- In fect Disease patient to 650-4ad6f4 [facility] [id number] [facility] [id number] 09/17 09/17 P luis carlos Infectious told 824-463f-a In fect Disease patient to 30f-8e64cb [facility] [id number] [facility] [id number] 09/17 09/17 P luis carlos Infectious told 868-4bf8- In fect Disease patient to 5be-[id number] [facility] [id number] [facility] [id number] 09/17 09/17 P luis carlos Infectious told 40f-4dfa- In fect Disease patient to 567-91f06a [id number] [facility] [id number] 09/17 09/17 P luis carlos Infectious told 513-46d1- In fect Disease patient to [id number] [id number] [id number] 09/17 09/17 P luis carlos Infectious told o69-72l7-b In fect Disease patient to 558-[id number] [id number] [facility] [id number] 09/17 09/17 P luis carlos Infectious told g1j-174h-c In fect Disease patient to [id number] [id number] [facility] [id number] 09/17 09/17 P luis carlos Infectious told k3p-2a3w-8 In fect Disease patient to cb5-1d7626 [id number] [facility] [id number] 09/17 09/17 P luis carlos Infectious told 6ea-4f71- In fect Disease patient to 54b-010c78 [id number] [facility] [id number] 09/17 09/17 P luis carlos Infectious told 439-49f6- In fect Disease patient to fe3-k8427g [id number] [facility] [place] [facility] [id number] 09/17 09/17 Ped i Infectious results [id number]-[id number] /2013 I nfect Disease afa-0ef54a [facility] [id number] [facility] [place] Test [id number] 09/17 09/17 Ped i Infectious results 321-4105-a /2013 I nfect Disease 033-5fc2a4 [facility] [id number] [facility] [place] Test [id number] 09/17 09/17 Ped i Infectious results 744-4d7f-a /2013 I nfect Disease 509-7350cc [facility] [id number] [facility] [place] Test [id number] 09/17 09/17 Ped i Infectious results fd7-4768-b /2013 I nfect Disease 34c-5314cd [facility] [id number] [facility] [place] Test [id number] 09/17 09/17 Ped i Infectious results 747-490c-8 I nfect Disease p0s-533322 [facility] [id number] [facility] [place] Test [id number] 09/17 09/17 Ped i Infectious results 1c2-7428-5 I nfect Disease e77-2sz8j7 [facility] [id number] of [facility] [place] Test [id number] 09/17 09/17 Ped i Infectious results 8h8-0672-5 /2013 I nfect Disease cca-59edf5 [facility] [id number] of [facility] [place] Test [id number] 09/17 09/17 Ped i Infectious results o52-9q3i-i /2013 I nfect Disease 432-849e0f [facility] [id number] [facility] [place] Test [id number] 09/17 09/17 Ped i Infectious results dd1-4c00- I nfect Disease 23e-70d07e [facility] [id number] of [facility] [place] Test [id number] 09/17 09/17 Ped i Infectious results j40-68h6-x /2013 I nfect Disease 4e7-a8u819 [facility] [id number] [facility] [place] Follow-Up [id number] 09/18 09/18 Pedi Infectious Pilonidal 00b-4b97-a /2013 Infect Disease Cyst 34f-bc1cc5 [facility] [id number] [facility] [place] [id number] 09/18 09/18 Pedi Infectious Pilonidal ca6-471b-a /2013 Infect Disease Cyst 4y1-rp219q [facility] [id number] of [facility] [place] [id number] 09/18 09/18 Pedi Infectious Pilonidal d6j-614o-x /2013 Infect Disease Cyst 433-75cb33 [facility] [id number] [facility] [id number] 09/18 09/18 Pedi Infectious Pilonidal q5a-9jyp-6 /2013 Infect Disease Cyst 1f2-m61m98 [facility] [id number] [facility] [place] [facility] [id number] 09/18 09/18 Pedi Infectious Pilonidal i90-2622-7 /2013 Infect Disease Cyst 846-00971r [facility] [id number] [facility] [place] [facility] [id number] 09/18 09/18 Pedi Infectious Pilonidal 7a4-2287-8 /2013 Infect Disease Cyst eb2-a2d1d4 [facility] [id number] [facility] [place] [facility] [id number] 09/18 09/18 Pedi Infectious Pilonidal 709-41ab-b /2013 Infect Disease Cyst 690-a2a3e7 [facility] [id number] [facility] [place] [facility] [id number] 09/18 09/18 Pedi Infectious Pilonidal 16f-4422-a /2013 Infect Disease Cyst 53a-3b5dfc [facility] [id number] [facility] [place] Follow-[place] [id number] 09/18 09/18 Pedi Infectious Pilonidal 145-41c4-b /2013 Infect Disease Cyst 98c-82c78f [facility] [id number] of [facility] [place] Follow-[place] [id number] 09/18 09/18 Pedi Infectious Pilonidal 98d-4b19-b /2013 Infect Disease Cyst 846-f15e95 [facility] [id number] [facility] [place] Follow-Up [id number] 09/18 09/18 Pedi Infectious Pilon[place] cf3-4a2f-b /2013 Infect Disease Cyst aa5-48a13b [facility] [id number] [facility] [place] [id number] 09/24 09/24 Pedi Infectious Pilon[place] y8y-6f74-w /2013 Infect Disease Cyst 5j0-6nb604 [facility] [id number] [facility] [place] Follow-Up [id number] 09/24 09/24 Pedi Infectious [place] bc0-4c7b-9 Infect Disease Cyst 83a-588839 [facility] [id number] of [facility] [place] Follow-Up [id number] 09/24 09/24 Pedi Infectious Pilonidal 171-4d6a-b /2013 Infect Disease Cyst 922-350114 [facility] [id number] [facility] [place]-Up [id number] 09/24 09/24 Pedi Infectious Pilonidal 786-4d38-b /2013 Infect Disease Cyst 00a-9f5fa2 [facility] [id number] [facility] [id number] 09/24 09/24 Pedi Infectious Pilonidal 5d3-1ae2-6 Infect Disease Cyst 528-7f2ac2 [facility] [id number] [facility] [id number] 09/24 09/24 Pedi Infectious Pilonidal 7y5-221x-r /2013 Infect Disease Cyst 80e-1bbfcb [facility] [id number] [facility] [id number] 09/24 09/24 Pedi Infectious Pilonidal 994-4c53-9 /2013 Infect Disease Cyst 6de-f4ed9e [facility] [id number] [facility] [id number] 09/24 09/24 Pedi Infectious Pilonidal 24b-451a-8 /2013 Infect Disease Cyst 82c-662bd2 [id number] [facility] [id number] 09/24 09/24 Pedi Infectious Pilon[place] ed8-4e55-b /2013 Infect Disease Cyst 376-777cde [facility] [id number] [facility] [id number] 09/24 09/24 Pedi Infectious Pilonidal 8ed-4898-b /2013 Infect Disease Cyst cee-ulv111 [facility] [id number] [facility] [id number] 09/24 09/24 Pedi Infectious Pilonidal 26d-400d-a /2013 Infect Disease Cyst 7k2-8572tl [facility] [id number] [facility] [id number] 10/09 10/09 Pedi Infectious [place] ca5-4f38- /2013 Infect Disease Cyst 73a-1b7d56 [facility] [id number] [facility] [id number] 10/09 10/09 Pedi Infectious Pilonidal 636-40e6- Infect Disease Cyst 947-y1486r [facility] [id number] [facility] [id number] 10/09 10/09 Pedi Infectious [place]ilon[place] r0h-116b-4 /2013 Infect Disease Cyst p93-d57803 [facility] [id number] of [facility] [place] Follow-Up [id number] 10/09 10/09 Pedi Infectious Pilonidal 66c-4459-a /2013 Infect Disease Cyst e70-070025 [facility] [id number] of [facility] [place] Follow-Up [id number] 10/09 10/09 Pedi Infectious Pilonidal 2dd-467d-8 /2013 Infect Disease Cyst 6r7-597501 [facility] [id number] of [facility] [place] Follow-Up [id number] 10/09 10/09 Pedi Infectious Pilon[place] 201-45fb-b /2013 Infect Disease Cyst 3c2-1l0k89 [facility] [id number] of [facility] [place] Follow-Up [id number] 10/09 10/09 Pedi Infectious Pilon[place] i3j-5l55-j /2013 Infect Disease Cyst bed-8fceb1 [facility] [id number] of [facility] [place] Follow-Up [id number] 10/09 10/09 Pedi Infectious Pilonidal k4l-5366-r /2013 Infect Disease Cyst bc1-612e32 [facility] [id number] of [facility] [place] Follow-Up [id number] 10/09 10/09 Pedi Infectious Pilon[place] 1i4-8y4p-7 /2013 Infect Disease Cyst f1o-cp9480 [facility] [id number] of [facility] [place] Follow-Up [id number] 10/09 10/09 Pedi Infectious Pilonidal 9ed-4f4b-8 /2013 Infect Disease Cyst 2fb-43eadf [facility] [id number] of [facility] [place] Follow-Up [id number] 10/09 10/09 Pedi Infectious Pilonidal 6h4-7i79-4 /2013 Infect Disease Cyst j68-01619o [facility] [id number] [facility] [place] [facility] W[facility]CARE [id number] 10/22 10/22 Pedi Infectious 0b9-6g62-8 /2013 In fect Disease 48c-370164 [facility] [id number] of [facility] [place] [facility] [id number] 10/22 10/22 Pedi Infectious 442-4426-9 /2013 In fect Disease z9b-9j0vq4 [facility] [id number] of [facility] [place] [facility] [id number] 10/22 10/22 Pedi Infectious ba4-494c-b /2013 In fect Disease 92f-643769 [facility] [id number] of [facility] [place] [facility] [id number] 10/22 10/22 Pedi Infectious afc-4b99-b /2013 In fect Disease 449-4770ae [facility] [id number] of [facility] [place] [facility] [id number] 10/22 10/22 Pedi Infectious i64-3380-y /2013 In fect Disease 6ad-048b69 [facility] [id number] of [facility] [place] [facility] [id number] 10/22 10/22 Pedi Infectious cf9-4283-a /2013 In fect Disease ee3-f10d09 [facility] [id number] of [facility] [place] [facility] [id number] 10/22 10/22 Pedi Infectious ec0-4282-8 /2013 In fect Disease i1l-6gt1x4 [facility] [id number] of [facility] [place] [facility] [id number] 10/22 10/22 Pedi Infectious bad-4c5d-a /2013 In fect Disease 731-a3872d [facility] [id number] of [facility] [place] FU - [id number] 11/19 11/19 Ped i Infectious PILONIDAL 7r9-25xz-2 /2013 Infect Disease CYST 8j0-90v971 [facility] [id number] of [facility] [place] FU - [id number] 11/19 11/19 Ped i Infectious PILONIDAL fa6-4c63-8 /2013 Infect Disease CYST 573-fbe18e [facility] [id number] of [facility] [place] FU - [id number] 11/19 11/19 Ped i Infectious PILONIDAL 2ac-4955-a /2013 Infect Disease CYST 318-2e93c3 [facility] [id number] of [facility] [place] FU - [id number] 11/19 11/19 Ped i Infectious PILONIDAL v35-5h28-p /2013 Infect Disease CYST 2f2-5l6792 [facility] [id number] of [facility] [place] FU - [id number] 11/19 11/19 Ped i Infectious PILONIDAL 115-444f-b /2013 Infect Disease CYST 1bc-o8f082 [facility] [id number] [facility] [place] FU - [id number] 11/19 11/19 Ped i Infectious PILONIDAL 5z3-4q91-u /2013 Infect Disease CYST 093-a1a61a [facility] [id number] [facility] [place] FU - [id number] 11/19 11/19 Ped i Infectious PILONIDAL 6ea-40c8-b /2013 Infect Disease CYST 754-37b94e [facility] [id number] of [facility] [place] FU - [id number] 11/19 11/19 Ped i Infectious PILONIDAL 643-4d47-b /2013 Infect Disease CYST 2z7-2w6yl6 [facility] [id number] of [facility] [place] Unknown [id number] 12/11 12/11 Pe di Infectious 490-456d-9 /2014 In fect Disease b43-31v7d1 [facility] [id number] of [facility] [place] Unknown [id number] 12/11 12/11 Pe di Infectious 50b-42a1-a In fect Disease 995-ro235e [facility] [id number] of [facility] [place] Unknown [id number] 12/11 12/11 Pe di Infectious 8i1-87p7-0 In fect Disease 920-2ro761 [facility] [id number] of [facility] [place] Unknown [id number] 12/11 12/11 Pe di Infectious de7-4c4f- In fect Disease 945-2aebd0 [facility] [id number] of [facility] [place] Unknown [id number] 12/11 12/11 Pe di Infectious l8d-229f-1 In fect Disease ab2-8e65d9 [facility] [id number] of [facility] [place] Unknown [id number] 12/11 12/11 Pe di Infectious 459-43f5- In fect Disease aee-33b8fd [facility] [id number] [facility] [place] Follow-Up [id number] 01/02 01/02 Pedi Infectious Pilonidal af5-4ef1-b /2014 Infect Disease cyst 55f-37b0d6 [facility] [id number] of [facility] [place] [id number] 01/02 01/02 Pedi Infectious Pilonidal ddb-4f8b- Infect Disease cyst t9q-k076r7 [facility] [id number] of [facility] [place] Follow-Up [id number] 01/02 01/02 Pedi Infectious Pilonidal 140-43fd- Infect Disease cyst 364-2311e8 [facility] [id number] of [facility] [place] Follow-Up [id number] 01/02 01/02 Pedi Infectious Pilonidal cad-4517- Infect Disease cyst d32-uk6u48 [facility] [id number] [facility] [place] Follow-Up [id number] 02/05 02/05 Pedi Infectious Pilonidal 766-43da-a /2014 Infect Disease cyst y41-5mj9d2 [facility] [id number] [facility] [place] [id number] 01/13 01/13 Pedi Infectious [place]ilon[place] y29-394g-y /2014 Infect Disease cyst 7o5-322337 [facility] [id number] of [facility] [place] [facility] [place]Up [id number] 01/13 01/13 Pedi Infectious Pilonidal 614-46ec-b /2014 Infect Disease cyst 01b-79ea4a [facility] [id number] [facility] [place] Pediatric Follow-Up [id number] 01/13 01/13 Pedi Infectious Pilonidal [id number] /2014 Infect Disease cyst [id number] [facility] [id number] of [facility] [place] Pediatric Follow-Up [id number] 01/13 01/13 Pedi Infectious Pilonidal [id number] /2014 Infect Disease cyst [id number] [facility] [id number] of [facility] [place] Pediatric Follow-Up [id number] 01/13 01/13 Pedi Infectious Pilonidal [id number] /2014 Infect Disease cyst [id number] [facility] [id number] of [facility] [place] Pediatric Follow-Up [id number] 01/21 01/21 Pedi Infectious [id number] /2014 In fect Disease [id number] [facility] [id number] [facility] [id number] 01/21 01/21 Pedi Infectious [id number] /2014 In fect Disease [id number] [facility] [id number] [facility] [id number] 02/04 02/04 Pedi Infectious Pilonidal [id number] /2014 Infect Disease cyst [id number] [id number] [facility] [id number] 02/04 02/04 Pedi Infectious Pilonidal [id number] /2014 Infect Disease cyst [id number] [facility] [id number] [facility] [id number] 02/18 02/18 Pedi Infectious Pilonidal [id number] /2014 Infect Disease cyst and [id number] [facility] Laser hair [id number] o f of [place], [facility] [place] Pediatric Follow-Up [id number] 02/18 02/18 Pedi Infectious Pilonidal [id number] Infect Disease cyst and [id number] [facility] hair [id number] o f of [place], [facility] [place] Pediatric Follow-Up [id number] 05/06 05/06 Pedi Infectious Pilonidal [id number] Infect Disease cyst [id number] [facility] [id number] [facility] [id number] 05/06 05/06 Pedi Infectious Pilonidal [id number] /2014 Infect Disease cyst [id number] [id number] [facility] Test [id number] 05/12 05/12 Ped i Infectious results [id number] I nfect Disease [id number] [facility] [id number] [facility] [id number] 05/12 05/12 Ped i Infectious results [id number] /2014 I nfect Disease [id number] [id number] [facility] [id number] 05/16 05/16 Pedi Infectious Pilonidal [id number] Infect Disease Cyst [id number] [facility] [id number] [facility] [id number] 05/16 05/16 Pedi Infectious Pilonidal [id number] /2014 Infect Disease Cyst [id number] [facility] [id number] [facility] [id number] 05/26 05/26 Pedi Infectious Pilonidal [id number] /2014 Infect Disease cyst [id number] [facility] [id number] [facility] [id number] 05/26 05/26 Pedi Infectious Pilonidal [id number] /2014 Infect Disease cyst [id number] [facility] [id number] [facility] [id number] 07/10 07/10 Pedi Infectious Pilonidal [id number]- Infect Disease cyst [id number] [facility] [id number] [facility] [id number] 07/10 07/10 Pedi Infectious Pilonidal [id number] /2014 Infect Disease cyst [id number] [facility] [id number] [facility] [id number] 08/07 08/07 Pedi Infectious Pilonidal [id number] /2014 Infect Disease cyst [id number] [facility] [id number] [facility] [id number] 08/07 08/07 Pedi Infectious Pilonidal [id number] /2014 Infect Disease cyst [id number] [facility] [id number] [facility] [id number] 08/11 08/11 Ped i Infectious results [id number] I nfect Disease [id number] [facility] [id number] [facility] [id number] 08/11 08/11 Ped i Infectious results [id number] I nfect Disease [id number] [facility] [id number] of [place] Pediatric Follow-Up [id number] 01/16 01/16 Pedi Infectious - Check [id number] /2015 I nfect Disease wound [id number] [facility] [id number] [place] Procedures No Data Provided for This Section Assessment and Plan No Data Provided for This Section Plan of Care No Data Provided for This Section Social History Social History Date Source Social History ElementQualifiersDate Reported 01/18/2016 Pedi Infect Disease of Tobacco Use: [place] . Are you a: never smoker Jan 18, 2016 Family History Value Date Source QualifierDescriptionCommentDate Reported 08/09/2015 Pedi Infect Disease of Maternal Grandmother [place] Comment not available Aug 07, 2015 Paternal [...]
--- NOTE | 2020-10-20 17:49 | ER ---
Nurse's Notes [facility] Name: Keo Hardin Age: 25 yrs Sex: Male : 1995 Arrival Date: 10/20/2020 Time: 15:58 Bed 4 Private MD: Shaun Manzo C Diagnosis: Encounter for screening for other viral diseases;Acute upper respiratory infection, unspecified Presentation: 10/20 16:17 Chief complaint: Patient states: was here yesterday for n/v/d, overnight he started iw having headache and higher fever, n/v/d has resolved, was not swabbed for COVID last night. Coronavirus screen: chills, diarrhea, fatigue, fever, headache, nausea, vomiting. Client presents with at least one sign or symptom that may indicate coronavirus-19. Standard/surgical mask placed on the client. Provider contacted for isolation considerations. Ebola Screen: Patient negative for fever greater than or equal to 101.5 degrees Fahrenheit, and additional compatible Ebola Virus Disease symptoms Patient denies exposure to infectious person. Patient denies travel to an Ebola-affected area in the 21 days before illness onset. No symptoms or risks identified at this time. Initial Sepsis Screen: Does the patient meet any 2 criteria? No. Patient's initial sepsis screen is negative. Does the patient have a suspected source of infection? No. Patient's initial sepsis screen is negative. Risk Assessment: Do you want to hurt yourself or someone else? Patient reports no desire to harm self or others. Onset of symptoms was October 17, 2020. 16:17 Method Of Arrival: Ambulatory iw 16:17 Acuity: ROBERTH 3 iw 16:24 Note pt took 600 mg Ibuprofen 2 hours ago. iw Triage Assessment: 16:46 Pain: Pain began this morning. vg1 16:46 Pain: Also complains of no other associated symptoms. vg1 Historical: - Allergies: 16:22 Haldol; iw - Home Meds: 16:22 Wellbutrin 150 mg Oral daily [Active]; Seroquel 50 mg Oral tab daily [Active]; iw omeprazole 40 mg Oral cpDR 1 cap once daily [Active]; lisinopril 10 mg Oral tab 1 tab once daily [Active]; Augmentin 875-125 mg Oral tab 1 tab every 12 hours [Active]; Zofran (as hydrochloride) 4 mg Oral tab 2 tabs every 8 hours [Active]; - PMHx: 16:22 Anxiety; Bipolar disorder; Depression; GERD; Hyperlipidemia; Hypertension; insomnia; iw MRSA; Panic Attacks; ADD/ADHD; - PSHx: 16:22 Cholecystectomy; pilonidal cyst; iw - Immunization history:: Adult Immunizations. - Social history:: Smoking status: Patient/guardian denies using tobacco, Stopped _ months ago [address], marijuana. Screenin:30 Abuse screen: Denies threats or abuse. Nutritional screening: No deficits noted. vg1 Tuberculosis screening: No symptoms or risk factors identified. Fall Risk No fall in past 12 months (0 pts). No secondary diagnosis (0 pts). No IV (0 pts). Ambulatory Aid- Crutches/Cane/Walker (15 pts). Gait- Weak (10 pts.). Mental Status- Oriented to own ability (0 pts). Total Charles Fall Scale indicates No Risk (0-24 pts). Assessment: 16:33 General: Appears in no apparent distress. Behavior is calm, cooperative. Pain: vg1 Complains of pain in head Pain currently is 6 out of 10 on a pain scale. Neuro: Level of Consciousness is awake, alert, obeys commands, Oriented to person, place, time, situation. Cardiovascular: Patient's skin is warm and dry. Respiratory: Reports Patient reports 'sometimes when taking a deep breath chest will hurt'. Airway is patent Respiratory effort is even, unlabored, Respiratory pattern is regular, symmetrical, Breath sounds are clear bilaterally. GI: Patient currently denies diarrhea, nausea, vomiting. : No signs and/or symptoms were reported regarding the genitourinary system. EENT: No signs and/or symptoms were reported regarding the EENT system. Derm: Skin is pink, warm \T\ dry. Musculoskeletal: Range of motion: intact in all extremities. 17:19 Reassessment: Patient appears in no apparent distress at this time. Patient is alert, vg1 oriented x 3, equal unlabored respirations, skin warm/dry/pink. Patient states is having left lower abdominal pain that is intermittent; rates pain 3/10. Notified Provider. Vital Signs: 16:17 BP 130 / 82; Pulse 96; Resp 18; Temp 99.0; Pulse Ox 100% on R/A; Weight 136.08 kg; iw Height 5 ft. 8 in. (172.72 cm); Pain 4/10; 16:35 BP 134 / 74; Pulse 93; Resp 18; Pulse Ox 100% on R/A; vg1 17:00 BP 111 / 53; Pulse 82; Resp 16; Pulse Ox 96% on R/A; vg1 17:30 BP 128 / 75; Pulse 83; Resp 14; Pulse Ox 97% on R/A; vg1 16:17 Body Mass Index 45.61 (136.08 kg, 172.72 cm) ED Course: 15:58 Patient arrived in ED. ag5 16:00 Shaun Manzo MD is Private Physician. ag5 16:20 Triage completed. iw 16:22 Arm band placed on. iw 16:30 Patient has correct armband on for positive identification. Bed in low position. Call vg1 light in reach. Pulse ox on. NIBP on. 16:32 Gerardo Figueroa PA is PHCP. jr8 16:32 Wilber Blake MD is Attending Physician. jr8 16:34 Emilie Shore, WILL is Primary Nurse. vg1 17:17 COVID-19 Sent. vg1 17:17 Influenza Screen (a \T\ B) Sent. vg1 17:47 Shaun Manzo MD is Referral Physician. jr8 17:50 No provider procedures requiring assistance completed. Patient did not have IV access vg1 during this emergency room visit. Administered Medications: No medications were administered Outcome: 17:48 Discharge ordered by . jr8 17:50 Discharged to home ambulatory. vg1 17:50 Condition: stable 17:50 Discharge instructions given to patient, Instructed on discharge instructions, follow up and referral plans. Demonstrated understanding of instructions, follow-up care. 17:54 Patient left the ED. vg1 Addendum: 10/24/2020 10:27 Addendum: COVID-19 Result: Negative result given to RN to notify pt. Attempted to i w contact pt regarding negative COVID-19 swab results. Left voice mail. Signatures: Quita Pablo RN RN Gerardo Figueroa PA PA jrSilvia Go 5 Emilie Shore RN RN 1
--- NOTE | 2020-10-20 17:49 | EDPHYS ---
Physician Documentation [facility] Name: Keo Hardin Age: 25 yrs Sex: Male : 1995 Arrival Date: 10/20/2020 Time: 15:58 Bed 4 Private MD: Shaun Manzo C ED Physician Wilber Blake HPI: 10/20 17:11 This 25 yrs old Male presents to ER via Ambulatory with complaints of Fever, jr8 Headache. 17:11 The patient reports fever, not measured (subjective). Onset: The symptoms/episode jr8 began/occurred acutely, today. Modifying factors: there are no obvious modifying factors. Associated signs and symptoms: Pertinent positives: headache. Severity of symptoms: At their worst the symptoms were moderate in the emergency department the symptoms have improved mildly. The patient has not experienced similar symptoms in the past. The patient has been recently seen by a physician:. Patient stated that he was seen recently for abdominal pain and diarrhea. Doing better but last night started with fever and headache. Stated that he is concerned for COVID based on symptoms today with what he had a couple of days ago. Did not get swabbed at that time . Historical: - Allergies: 16:22 Haldol; iw - Home Meds: 16:22 Wellbutrin 150 mg Oral daily [Active]; Seroquel 50 mg Oral tab daily [Active]; iw omeprazole 40 mg Oral cpDR 1 cap once daily [Active]; lisinopril 10 mg Oral tab 1 tab once daily [Active]; Augmentin 875-125 mg Oral tab 1 tab every 12 hours [Active]; Zofran (as hydrochloride) 4 mg Oral tab 2 tabs every 8 hours [Active]; - PMHx: 16:22 Anxiety; Bipolar disorder; Depression; GERD; Hyperlipidemia; Hypertension; insomnia; iw MRSA; Panic Attacks; ADD/ADHD; - PSHx: 16:22 Cholecystectomy; pilonidal cyst; iw - Immunization history:: Adult Immunizations. - Social history:: Smoking status: Patient/guardian denies using tobacco, Stopped _ months ago [address], marijuana. ROS: 17:11 Eyes: Negative for injury, pain, redness, and discharge, ENT: Negative for injury, jr8 pain, and discharge, Neck: Negative for injury, pain, and swelling, Cardiovascular: Negative for chest pain, palpitations, and edema, Respiratory: Negative for shortness of breath, cough, wheezing, and pleuritic chest pain, Abdomen/GI: Negative for abdominal pain, nausea, vomiting, diarrhea, and constipation, Back: Negative for injury and pain, MS/Extremity: Negative for injury and deformity, Skin: Negative for injury, rash, and discoloration. 17:11 Constitutional: Positive for fever. 17:11 Neuro: Positive for headache. Exam: 17:11 Eyes: Pupils equal round and reactive to light, extra-ocular motions intact. Lids and jr8 lashes normal. Conjunctiva and sclera are non-icteric and not injected. Cornea within normal limits. Periorbital areas with no swelling, redness, or edema. ENT: Nares patent. No nasal discharge, no septal abnormalities noted. Tympanic membranes are normal and external auditory canals are clear. Oropharynx with no redness, swelling, or masses, exudates, or evidence of obstruction, uvula midline. Mucous membranes moist. Neck: Trachea midline, no thyromegaly or masses palpated, and no cervical lymphadenopathy. Supple, full range of motion without nuchal rigidity, or vertebral point tenderness. No Meningismus. Cardiovascular: Regular rate and rhythm with a normal S1 and S2. No gallops, murmurs, or rubs. Normal PMI, no JVD. No pulse deficits. Respiratory: Lungs have equal breath sounds bilaterally, clear to auscultation and percussion. No rales, rhonchi or wheezes noted. No increased work of breathing, no retractions or nasal flaring. Abdomen/GI: Soft, non-tender, with normal bowel sounds. No distension or tympany. No guarding or rebound. No evidence of tenderness throughout. Back: No spinal tenderness. No costovertebral tenderness. Full range of motion. Skin: Warm, dry with normal turgor. Normal color with no rashes, no lesions, and no evidence of cellulitis. MS/ Extremity: Pulses equal, no cyanosis. Neurovascular intact. Full, normal range of motion. Neuro: Awake and alert, GCS 15, oriented to person, place, time, and situation. Cranial nerves II-XII grossly intact. Motor strength 5/5 in all extremities. Sensory grossly intact. Cerebellar exam normal. Normal gait. Vital Signs: 16:17 BP 130 / 82; Pulse 96; Resp 18; Temp 99.0; Pulse Ox 100% on R/A; Weight 136.08 kg; iw Height 5 ft. 8 in. (172.72 cm); Pain 4/10; 16:35 BP 134 / 74; Pulse 93; Resp 18; Pulse Ox 100% on R/A; vg1 17:00 BP 111 / 53; Pulse 82; Resp 16; Pulse Ox 96% on R/A; vg1 17:30 BP 128 / 75; Pulse 83; Resp 14; Pulse Ox 97% on R/A; vg1 16:17 Body Mass Index 45.61 (136.08 kg, 172.72 cm) iw MDM: 16:33 Patient medically screened. [facility] 17:45 Data reviewed: vital signs, nurses notes, lab test result(s), and as a result, I will jr8 discharge patient. Data interpreted: Pulse oximetry: on room air is 97 %. Interpretation: normal. Counseling: I had a detailed discussion with the patient and/or guardian regarding: the historical points, exam findings, and any diagnostic results supporting the discharge/admit diagnosis, lab results, the need for outpatient follow up, a family practitioner, to return to the emergency department if symptoms worsen or persist or if there are any questions or concerns that arise at home. 10/20 16:50 Order name: Influenza Screen (a \T\ B) jr8 10/20 16:50 Order name: COVID-19 jr8 Administered Medications: No medications were administered Disposition: 10/21 09:27 Co-signature as Attending Physician, Wilber Blake MD I agree with the assessment and [facility] plan of care. Disposition: 10/20/20 17:48 Discharged to Home. Impression: Encounter for screening for other viral diseases, Acute upper respiratory infection, unspecified. - Condition is Stable. - Discharge Instructions: Upper Respiratory Infection, Adult, COVID-19. - Medication Reconciliation Form, Thank You Letter, Antibiotic Education, Prescription Opioid Use form. - Follow up: Shaun Manzo MD; When: 1 week; Reason: Recheck today's complaints, Continuance of care, Re-evaluation by your physician. - Problem is new. - Symptoms have improved. Signatures: Dispatcher [employer] Wilber Lance MD MD cha Williams, Irene, RN RN Gerardo Figueroa PA PA jr8 Silviano, Emilie, RN RN vg1 Corrections: (The following items were deleted from the chart) 10/20 17:54 17:48 10/20/2020 17:48 Discharged to Home. Impression: Encounter for screening for vg1 other viral diseases; Acute upper respiratory infection, unspecified. Condition is Stable. Forms are Medication Reconciliation Form, Thank You Letter, Antibiotic Education, Prescription Opioid Use. Follow up: A Manzo; When: 1 week; Reason: Recheck today's complaints, Continuance of care, Re-evaluation by your physician. Problem is new. Symptoms have improved. jr8
[2020-10-20 21:44] VITALS: TEMP 99
[2020-10-20 21:53] VITALS: BP 128/75; O2SAT 97
== END 2020-10-20 17:54 | disposition home or self-care (01) ==
LOC: ER 15:57
DX: J06.9 Acute upper respiratory infection, unspecified (principal); Z20.828 Contact with and (suspected) exposure to other viral communicable diseases; I10 Essential (primary) hypertension; F31.9 Bipolar disorder, unspecified; Z88.5 Allergy status to narcotic agent
CPT/HCPCS: 87804 ×2; 99283; U0002

== ENCOUNTER 2020-10-21 17:44 | Emergency (ER) | payer OTHER ==
--- OUTSIDE RECORDS SUMMARY | 2020-10-21 17:48 | XMS REPORT | Continuity of Care Document ---
:1995 Author Organization [facility] Care Team Providers Name Role Phone [facility] Unavailable Un available Problems Problem Status Onset Classification Date Comments Sourc e Date Reported Pseudomonas Active Problem 01/19/2016 Pedi infection in Infect conditions Disease o f classified [place] elsewhere and of unspecified site Methicillin Active Problem 01/19/2016 Pedi resistant Infect Staphylococcus Disea se of aureus [place] Pilonidal cyst Active Problem 01/19/2016 Pedi with abscess Infect Disease of [place] Other chronic Active Problem 01/19/2016 Pedi postoperative pain I nfect Disease of [place] Other atopic Active Problem 01/19/2016 Pedi dermatitis and Infec t related conditions D isease of [place] Open wound of Active Problem 01/19/2016 Pedi buttock, Infect complicated Disease of [place] Cutaneous abscess Active Problem 01/19/2016 P luis carlos of buttock Infect Disease of [place] Open wound of Active Problem 01/19/2016 Pedi buttock, without Inf ect mention of Disease o f complication [place] Pilonidal cyst Active Problem 01/19/2016 Pedi with abscess Infect Disease of [place] Klebsiella Active Problem 01/19/2016 Pedi pneumoniae Infect infection Disease of [place] Cellulitis and Active Problem 01/19/2016 Pedi abscess of buttock I nfect Disease of [place] Medications Medication Details Route Status Patient Ordering Order Source Instructions Provider Date Augmentin 1 tablet PO Active 500 mg PO Three Lacey 09/17/20 Pedi times a day 14 Infect Disease of [place] Paxil Unknown NA Active [facility] Pedi Infect Disease of [place] Celexa Unknown NA Active Lacey Pedi Infect Disease of [place] Seroquel Unknown NA Active [facility]acey Pedi Infect Disease of [place] Augmentin Unknown NA Active [facility] Pedi Infect [facility] of [place] Clonidine HCl Unknown NA Active [facility] Pedi Infect [facility] of [place] Citalopram Unknown NA Active Lacey Pedi Hydrobromide Infect Disease of [place] Doxepin HCl Unknown NA Active [facility] Pedi Infect Disease of [place] BuPROPion HCl Unknown NA Active [place] Pedi Infect Disease of [place] Quetiapine Unknown NA Active Lacey Pedi Fumarate Infect Disease of [place] Allergies, Adverse Reactions, Alerts Substance Category Reaction Severity Reaction Status Date Comments S ource type Reported N.K.D.A. Adverse Info Not Adverse Active Pedi Reaction Available Reaction [address] Infe [address] Disease of [place] Immunizations No Data Provided for This Section [...] Weight 323 01/16/2016 Pedi Infect Disease of [place] Height 68 01/16/2016 Pedi Infect Disease of [place] Temperature Oral (F) 98 F 01/16/2016 Pedi In fect Disease of [place] Heart Rate 128 01/16/2016 Pedi Infect Disease of [place] Weight 295 08/07/2015 Pedi Infect Disease of [place] Height 68 08/07/2015 Pedi Infect Disease of [place] Temperature Oral (F) 98 F 08/07/2015 Pedi In fect Disease of [place] Heart Rate 108 08/07/2015 Pedi Infect Disease of [place] Weight 263 01/13/2015 Pedi Infect Disease of [facility] 68 01/13/2015 Pedi Infect Disease of [place] Temperature Oral (F) 97.6 F 01/13/2015 Pedi In fect Disease of [place] Heart Rate 101 01/13/2015 Pedi Infect Disease of [place] Weight 260 01/02/2015 Pedi Infect Disease of [place] Height 68 01/02/2015 Pedi Infect Disease of [place] Temperature Oral (F) 97.8 F 01/02/2015 Pedi In fect Disease of [place] Heart Rate 102 01/02/2015 Pedi Infect Disease of [place] Weight 247.2 10/22/2014 Pedi Infect Disease of [place] Height 66 10/22/2014 Pedi Infect Disease of [place] Temperature Oral (F) 97.5 F 10/22/2014 Pedi In fect Disease of [place] Weight 248 10/09/2014 Pedi Infect Disease of [place] Height 66 10/09/2014 Pedi Infect Disease of [place] Temperature Oral (F) 97.6 F 10/09/2014 Pedi In fect Disease of [place] Heart Rate 77 10/09/2014 Pedi Infect Disease of [place] Weight 245 09/24/2014 Pedi Infect Disease of [place] Height 66 09/24/2014 Pedi Infect Disease of [place] Temperature Oral (F) 98.9 F 09/24/2014 Pedi In fect Disease of [place] Heart Rate 91 09/24/2014 Pedi Infect Disease of [place] Weight 241 09/18/2014 Pedi Infect Disease of [place] Height 66 09/18/2014 Pedi Infect Disease of [place] Temperature Oral (F) 97.6 F 09/18/2014 Pedi In fect Disease of [place] Heart Rate 89 09/18/2014 Pedi Infect Disease of [place] Weight 241 09/11/2014 Pedi Infect Disease of [place] Height 66 09/11/2014 Pedi Infect Disease of [place] Temperature Oral (F) 97.5 F 09/11/2014 Pedi In fect Disease of [place] Heart Rate 81 09/11/2014 Pedi Infect Disease of [place] Encounters Location Location Encounter Encounter Reason Attending ADM [facility] Source Details Type Number For Provider Date Date Visit Pediatric Unknown [id number] 09/11 09/11 Pe di Infectious [id number] In fect Disease [id number] [facility] [id number] [facility] [place] Unknown [id number] 09/11 09/11 Pe di Infectious ef6-4ba4- In fect Disease [id number] [facility] [id number] [facility] [place] Pediatric Unknown [id number] 09/11 09/11 Pe di Infectious 4j3-4zjt-8 In fect Disease [id number] [facility] [id number] of [facility] [place] Pediatric Unknown [id number] 09/11 09/11 Pe di Infectious 930-4e88- In fect Disease [id number] [facility] [id number] of [facility] [place] Pediatric Unknown [id number] 09/11 09/11 Pe di Infectious 10f-4643-a /2013 In fect Disease 00f-7bab3c [facility] [id number] of [facility] [place] Pediatric Unknown [id number] 09/11 09/11 Pe di Infectious 4q2-1110-y /2013 In fect Disease ff1-92b48f [facility] [id number] of [facility] [place] Pediatric Unknown [id number] 09/11 09/11 Pe di Infectious dfa-488e-8 In fect Disease [id number] [facility] [id number] of [facility] [place] Pediatric Unknown [id number] 09/11 09/11 Pe di Infectious 1p6-49ke-9 In fect Disease l83-[id number] [facility] [id number] of [facility] [place] Pediatric Unknown [id number] 09/11 09/11 Pe di Infectious 8q1-87f1-n In fect Disease [id number] [facility] [id number] of [facility] [place] Pediatric Unknown [id number] 09/11 09/11 Pe di Infectious 7c2-9297-4 In fect Disease [id number] [facility] [id number] of [facility] [place] Unknown [id number] 09/11 09/11 Pe di Infectious 971-446c- In fect Disease 814-4dbacf [facility] [id number] of [facility] [place] Pediatric Unknown [id number] 09/11 09/11 Pe di Infectious 391-4f25-a In fect Disease [id number] [facility] [id number] of [facility] [place] Unknown [id number] 09/11 09/11 Pe di Infectious 2w6-1j24-m In fect Disease 35a-[id number] [facility] [id number] of [facility] [place] Unknown [id number] 09/11 09/11 Pe di Infectious 56e-4a56-a In fect Disease [id number] [facility] [id number] of [facility] [place] Pediatric Provider [id number] 09/17 09/17 P luis carlos Infectious told [id number] In fect Disease patient to [id number]-[id number] [facility] call [id number] of [facility] [place] Provider [id number] 09/17 09/17 P luis carlos Infectious told [id number] /2013 In fect Disease patient to [id number] [id number] [id number] 09/17 09/17 P luis carlos Infectious told n97-6862-[id number] /2013 In fect Disease patient to [id number] [id number] [id number] 09/17 09/17 P luis carlos Infectious told m43-9xha-6 In fect Disease patient to 2fd-4lb833 [id number] [place] [facility] [id number] 09/17 09/17 Ped i Infectious results 39a-4529-a /2013 I nfect Disease v4d-40p8gx [id number] [facility] [place] [facility] [id number] 09/17 09/17 Ped i Infectious results 940-4cf0-b /2013 I nfect Disease bbd-[id number] [id number] [facility] [place] [facility] [id number] 09/17 09/17 Ped i Infectious results 298-418a-a /2013 I nfect Disease 45d-zf6955 [facility] [id number] [facility] [place] [facility] [id number] 09/17 09/17 Ped i Infectious results 5j0-61p4-l /2013 I nfect Disease [id number] [facility] [id number] [facility] [id number] 09/17 09/17 P luis carlos Infectious told bd5-4b86- In fect Disease patient to [id number] [id number] [facility] [id number] 09/17 09/17 P luis carlos Infectious told [id number] In fect Disease patient to [id number]-[id number] [facility] [id number] [facility] [id number] 09/17 09/17 P luis carlos Infectious told 868-4bf8- In fect Disease patient to [id number] [facility] [id number] [facility] [id number] 09/17 09/17 P luis carlos Infectious told 40f-4dfa- In fect Disease patient to [id number] [facility] [id number] [facility] [id number] 09/17 09/17 P luis carlos Infectious told 513-46d1- In fect Disease patient to [id number] [id number] [id number] 09/17 09/17 P luis carlos Infectious told q14-56q0-z In fect Disease patient to [id number] [id number] [facility] [id number] 09/17 09/17 P luis carlos Infectious told [id number] In fect Disease patient to [id number] [id number] [facility] [id number] 09/17 09/17 P luis carlos Infectious told [id number]-[id number] In fect Disease patient to [id number] [id number] [facility] [id number] 09/17 09/17 P luis carlos Infectious told 6ea-4f71- In fect Disease patient to [id number]-[id number] [id number] [facility] [id number] 09/17 09/17 P luis carlos Infectious told 439-49f6- In fect Disease patient to [id number] [id number] [facility] [place] [facility] [id number] 09/17 09/17 Ped i Infectious results [id number]-t /2013 I nfect Disease afa-0ef54a [facility] [id number] of [facility] [place] Test [id number] 09/17 09/17 Ped i Infectious results 321-4105-a /2013 I nfect Disease 033-5fc2a4 [facility] [id number] of [facility] [place] Test [id number] 09/17 09/17 Ped i Infectious results 744-4d7f-a /2013 I nfect Disease 509-7350cc [facility] [id number] of [facility] [place] Test [id number] 09/17 09/17 Ped i Infectious results fd7-4768-b /2013 I nfect Disease 34c-5314cd [facility] [id number] of [facility] [place] Test [id number] 09/17 09/17 Ped i Infectious results 747-490c-8 I nfect Disease [id number]-866225 [facility] [id number] of [facility] [place] Test [id number] 09/17 09/17 Ped i Infectious results 6k9-9566-2 I nfect Disease p01-3uc3b7 [facility] [id number] of [facility] [place] Test [id number] 09/17 09/17 Ped i Infectious results 3z8-1717-2 /2013 I nfect Disease cca-59edf5 [facility] [id number] of [facility] [place] Test [id number] 09/17 09/17 Ped i Infectious results i93-6p4m-x /2013 I nfect Disease 432-849e0f [facility] [id number] of [facility] [place] Test [id number] 09/17 09/17 Ped i Infectious results dd1-4c00- I nfect Disease 23e-70d07e [facility] [id number] of [facility] [place] Test [id number] 09/17 09/17 Ped i Infectious results p33-33l8-e /2013 I nfect Disease 0f2-b3s632 [facility] [id number] of [facility] [place] Follow-Up [id number] 09/18 09/18 Pedi Infectious Pilonidal 00b-4b97-a /2013 Infect Disease Cyst 34f-bc1cc5 [facility] [id number] of [facility] [place] Follow-Up [id number] 09/18 09/18 Pedi Infectious Pilonidal ca6-471b-a /2013 Infect Disease Cyst 6i3-ix117e [facility] [id number] of [facility] [place] Follow-Up [id number] 09/18 09/18 Pedi Infectious Pilonidal t5k-353e-n /2013 Infect Disease Cyst 433-75cb33 [facility] [id number] [facility] [place] [facility] [id number] 09/18 09/18 Pedi Infectious Pilon[place] k3t-8plw-4 /2013 Infect Disease Cyst 4k7-q53i44 [facility] [id number] [facility] [place] [facility] [id number] 09/18 09/18 Pedi Infectious Pilon[place] m07-9197-7 /2013 Infect Disease Cyst 846-01045y [facility] [id number] [facility] [place] [facility] [id number] 09/18 09/18 Pedi Infectious Pilon[place] 8m6-2343-7 /2013 Infect Disease Cyst eb2-a2d1d4 [facility] [id number] [facility] [place] [facility] [id number] 09/18 09/18 Pedi Infectious Pilon[place] 709-41ab-b /2013 Infect Disease Cyst 690-a2a3e7 [facility] [id number] [facility] [place] [facility] [id number] 09/18 09/18 Pedi Infectious Pilonidal 16f-4422-a /2013 Infect Disease Cyst 53a-3b5dfc [facility] [id number] of [facility] [place] Follow-Up [id number] 09/18 09/18 Pedi Infectious Pilonidal 145-41c4-b /2013 Infect Disease Cyst 98c-82c78f [facility] [id number] of [facility] [place] Follow-Up [id number] 09/18 09/18 Pedi Infectious [place]ilon[place] 98d-4b19-b /2013 Infect Disease Cyst 846-f15e95 [facility] [id number] of [facility] [place] Follow-Up [id number] 09/18 09/18 Pedi Infectious [place] cf3-4a2f-b /2013 Infect Disease Cyst aa5-48a13b [facility] [id number] of [facility] [place] [id number] 09/24 09/24 Pedi Infectious [place] r6u-[id number]-u /2013 Infect Disease Cyst 1i7-5jn104 [facility] [id number] of [facility] [place] Follow-Up [id number] 09/24 09/24 Pedi Infectious [place] bc0-4c7b-9 Infect Disease Cyst 83a-385462 [facility] [id number] of [facility] [place] Follow-Up [id number] 09/24 09/24 Pedi Infectious Pilon[place] 171-4d6a-b /2013 Infect Disease Cyst 922-526997 [facility] [id number] of [facility] [place] Follow-Up [id number] 09/24 09/24 Pedi Infectious Pilon[place] 786-4d38-b /2013 Infect Disease Cyst 00a-9f5fa2 [facility] [id number] [facility] [place] [facility] [id number] 09/24 09/24 Pedi Infectious [place]ilon[place] 3g3-4hw1-5 Infect Disease Cyst 528-7f2ac2 [facility] [id number] [facility] [place] [facility] [id number] 09/24 09/24 Pedi Infectious [place] 1f2-194c-f /2013 Infect Disease Cyst 80e-1bbfcb [facility] [id number] [facility] [place] [facility] [id number] 09/24 09/24 Pedi Infectious Pilon[place] 994-4c53-9 /2013 Infect Disease Cyst 6de-f4ed9e [facility] [id number] [facility] [place] [facility] [id number] 09/24 09/24 Pedi Infectious Pilonidal 24b-451a-8 /2013 Infect Disease Cyst 82c-662bd2 [facility] [id number] [facility] [place] [facility] [id number] 09/24 09/24 Pedi Infectious Pilon[place] ed8-4e55-b /2013 Infect Disease Cyst 376-777cde [facility] [id number] [facility] [place] [facility] [id number] 09/24 09/24 Pedi Infectious Pilon[place] 8ed-4898-b /2013 Infect Disease Cyst cee-gzp760 [facility] [id number] [facility] [place] [facility] [id number] 09/24 09/24 Pedi Infectious [place]ilon[place] 26d-400d-a /2013 Infect Disease Cyst 9x9-8135zh [facility] [id number] [facility] [place] [facility] [id number] 10/09 10/09 Pedi Infectious [place] ca5-4f38- /2013 Infect Disease Cyst 73a-1b7d56 [facility] [id number] [facility] [place] [facility] [id number] 10/09 10/09 Pedi Infectious [place]ilon[place] 636-40e6- Infect Disease Cyst 947-s6215s [facility] [id number] [facility] [place] [facility] [id number] 10/09 10/09 Pedi Infectious [place] q0e-346s-5 /2013 Infect Disease Cyst h54-e77454 [facility] [id number] of [facility] [place] Follow-Up [id number] 10/09 10/09 Pedi Infectious Pilon[place] 66c-4459-a /2013 Infect Disease Cyst r90-036855 [facility] [id number] of [facility] [place] Follow-Up [id number] 10/09 10/09 Pedi Infectious [place] 2dd-467d-8 /2013 Infect Disease Cyst 2k4-969432 [facility] [id number] of [facility] [place] Follow-Up [id number] 10/09 10/09 Pedi Infectious Pilon[place] 201-45fb-b /2013 Infect Disease Cyst 7j5-8l3u01 [facility] [id number] of [facility] [place] Follow-Up [id number] 10/09 10/09 Pedi Infectious [place] n9e-2d59-i /2013 Infect Disease Cyst bed-8fceb1 [facility] [id number] of [facility] [place] Follow-Up [id number] 10/09 10/09 Pedi Infectious [place]ilon[place] v3i-2550-y /2013 Infect Disease Cyst bc1-612e32 [facility] [id number] of [facility] [place] Follow-Up [id number] 10/09 10/09 Pedi Infectious [place] 6b5-4w9x-5 /2013 Infect Disease Cyst k0b-cf1252 [facility] [id number] of [facility] [place] Follow-Up [id number] 10/09 10/09 Pedi Infectious [place]ilon[place] 9ed-4f4b-8 /2013 Infect Disease Cyst 2fb-43eadf [facility] [id number] of [facility] [place] Follow-Up [id number] 10/09 10/09 Pedi Infectious Pilon[place] 2k9-2q69-4 /2013 Infect Disease Cyst y19-51569p [facility] [id number] of [facility] [place] WOUNDCARE [id number] 10/22 10/22 Pedi Infectious 1h4-6p08-0 /2013 In fect Disease 48c-036558 [facility] [id number] of [facility] [place] [facility] [id number] 10/22 10/22 Pedi Infectious 442-4426-9 /2013 In fect Disease b9k-7c2jk9 [facility] [id number] of [facility] [place] [facility] [id number] 10/22 10/22 Pedi Infectious ba4-494c-b /2013 In fect Disease 92f-139777 [facility] [id number] of [facility] [place] [facility] [id number] 10/22 10/22 Pedi Infectious afc-4b99-b /2013 In fect Disease 449-4770ae [facility] [id number] of [facility] [place] [facility] [id number] 10/22 10/22 Pedi Infectious n66-4404-x /2013 In fect Disease 6ad-048b69 [facility] [id number] of [facility] [place] [facility] [id number] 10/22 10/22 Pedi Infectious cf9-4283-a /2013 In fect Disease ee3-f10d09 [facility] [id number] of [facility] [place] [facility]OUND[facility] [id number] 10/22 10/22 Pedi Infectious ec0-4282-8 /2013 In fect Disease q0n-4no8b7 [facility] [id number] of [facility] [place] [facility]OUNDC[facility] [id number] 10/22 10/22 Pedi Infectious bad-4c5d-a /2013 In fect Disease 731-[id number] [facility] [id number] of [facility] [place] FU - [id number] 11/19 11/19 Ped i Infectious PILONIDAL 2l1-25lf-3 /2013 Infect Disease CYST 2g7-40n347 [facility] [id number] of [facility] [place] FU - [id number] 11/19 11/19 Ped i Infectious PILONIDAL fa6-4c63-8 /2013 Infect Disease CYST 573-fbe18e [facility] [id number] of [facility] [place] FU - [id number] 11/19 11/19 Ped i Infectious PILONIDAL 2ac-4955-a /2013 Infect Disease CYST 318-2e93c3 [facility] [id number] of [facility] [place] FU - [id number] 11/19 11/19 Ped i Infectious PILONIDAL [id number]-a /2013 Infect Disease CYST [id number] [facility] [id number] of [facility] [place] FU - [id number] 11/19 11/19 Ped i Infectious PILONIDAL 115-444f-b /2013 Infect Disease CYST 1bc-d9e335 [facility] [id number] of [facility] [place] FU - [id number] 11/19 11/19 Ped i Infectious PILONIDAL 5i7-8o02-p /2013 Infect Disease CYST 093-[id number] [facility] [id number] of [facility] [place] FU - [id number] 11/19 11/19 Ped i Infectious PILONIDAL 6ea-40c8-b /2013 Infect Disease CYST [id number] [facility] [id number] of [facility] [place] FU - [id number] 11/19 11/19 Ped i Infectious PILONIDAL 643-4d47-b /2013 Infect Disease CYST [id number] [facility] [id number] of [facility] [place] Unknown [id number] 12/11 12/11 Pe di Infectious 490-456d-9 /2014 In fect Disease p99-45j5s4 [facility] [id number] of [facility] [place] Unknown [id number] 12/11 12/11 Pe di Infectious 50b-42a1-a In fect Disease 995-hg926f [facility] [id number] of [facility] [place] Unknown [id number] 12/11 12/11 Pe di Infectious 4i6-56s3-1 In fect Disease 920-7mk123 [facility] [id number] of [facility] [place] Unknown [id number] 12/11 12/11 Pe di Infectious de7-4c4f- In fect Disease 945-2aebd0 [facility] [id number] of [facility] [place] Unknown [id number] 12/11 12/11 Pe di Infectious y2q-694r-6 In fect Disease ab2-8e65d9 [facility] [id number] of [facility] [place] Unknown [id number] 12/11 12/11 Pe di Infectious 459-43f5- In fect Disease aee-33b8fd [facility] [id number] [facility] [place] Follow-Up [id number] 01/02 01/02 Pedi Infectious Pilonidal af5-4ef1-b /2014 Infect Disease cyst 55f-37b0d6 [facility] [id number] of [facility] [place] Follow-Up [id number] 01/02 01/02 Pedi Infectious Pilon[place] ddb-4f8b- Infect Disease cyst [id number]-u603p0 [facility] [id number] of [facility] [place] Follow-Up [id number] 01/02 01/02 Pedi Infectious Pilon[place] 140-43fd- Infect Disease cyst 364-2311e8 [facility] [id number] of [facility] [place] Follow-Up [id number] 01/02 01/02 Pedi Infectious Pilonidal cad-4517- Infect Disease cyst s20-lh7w60 [facility] [id number] [facility] [place] Follow-Up [id number] 02/05 02/05 Pedi Infectious Pilonidal 766-43da-a /2014 Infect Disease cyst h50-3ny8o1 [facility] [id number] of [facility] [place] Follow-Up [id number] 01/13 01/13 Pedi Infectious Pilonidal u34-553h-f /2014 Infect Disease cyst [id number] [facility] [id number] of [facility]Up [id number] 01/13 01/13 Pedi Infectious Pilonidal [id number] /2014 Infect Disease cyst [id number] [facility] [id number] of [facility] [id number] 01/13 01/13 Pedi Infectious Pilonidal [id number] /2014 Infect Disease cyst [id number] [facility] [id number] of [facility] [id number] 01/13 01/13 Pedi Infectious Pilonidal [id number] /2014 Infect Disease cyst [id number] [facility] [id number] of [facility] [id number] 01/13 01/13 Pedi Infectious Pilonidal [id number] /2014 Infect Disease cyst [id number] [facility] [id number] of [facility] [id number] 01/21 01/21 Pedi Infectious [id number] /2014 In fect Disease [id number] [facility] [id number] [facility] [id number] 01/21 01/21 Pedi Infectious [id number] /2014 In fect Disease [id number] [facility] [id number] [facility] [id number] 02/04 02/04 Pedi Infectious Pilonidal [id number] /2014 Infect Disease cyst [id number] [id number] [facility] [id number] 02/04 02/04 Pedi Infectious Pilonidal [id number] /2014 Infect Disease cyst [id number] [facility] [id number] [facility] [id number] 02/18 02/18 Pedi Infectious Pilonidal [id number] /2014 Infect Disease cyst and [id number] [facility] hair [id number] o f of [place], [facility] [place] Pediatric Follow-Up [id number] 02/18 02/18 Pedi Infectious Pilonidal [id number] Infect Disease cyst and [id number] [facility] Laser hair [id number] o f of [place], [facility] [place] Follow-[place] [id number] 05/06 05/06 Pedi Infectious Pilonidal [id number] Infect Disease cyst [id number] [facility] [id number] [facility] [id number] 05/06 05/06 Pedi Infectious Pilonidal [id number] /2014 Infect Disease cyst [id number] [id number] [facility] [place] [facility] Test [id number] 05/12 05/12 Ped i Infectious results [id number] I nfect Disease [id number] [facility] [id number] [facility] [place] [facility] [id number] 05/12 05/12 Ped i Infectious results [id number] /2014 I nfect Disease [id number] [id number] [facility] [id number] 05/16 05/16 Pedi Infectious Pilonidal [id number] Infect Disease Cyst [id number] [facility] [id number] [facility] [place] [facility] [id number] 05/16 05/16 Pedi Infectious Pilonidal [id number] /2014 Infect Disease Cyst [id number] [facility] [id number] [facility] [id number] 05/26 05/26 Pedi Infectious Pilonidal [id number] /2014 Infect Disease cyst [id number] [facility] [id number] [facility] [id number] 05/26 05/26 Pedi Infectious Pilonidal [id number] /2014 Infect Disease cyst [id number] [facility] [id number] [facility] [id number] 07/10 07/10 Pedi Infectious Pilonidal [id number]- Infect Disease cyst [id number] [facility] [id number] [facility] [id number] 07/10 07/10 Pedi Infectious Pilonidal [id number] /2014 Infect Disease cyst [id number] [facility] [id number] [facility] [id number] 08/07 08/07 Pedi Infectious Pilonidal [id number] /2014 Infect Disease cyst [id number] [facility] [id number] [facility] [id number] 08/07 08/07 Pedi Infectious Pilonidal [id number] /2014 Infect Disease cyst [id number] [facility] [id number] [facility] [place] [facility] [id number] 08/11 08/11 Ped i Infectious results [id number] I nfect Disease [id number] [facility] [id number] [facility] [place] [facility] [id number] 08/11 08/11 Ped i Infectious results [id number]- I nfect Disease [id number] [facility] [id number] of [place] [id number] 01/16 01/16 Pedi Infectious - Check [id number] /2015 I nfect Disease wound [id number] [facility] [id number] [place] Procedures No Data Provided for This Section Assessment and Plan No Data Provided for This Section Plan of Care No Data Provided for This Section Social History Social History Date Source Social History ElementQualifiersDate Reported 01/18/2016 Pedi Infect Disease of Tobacco Use: [place] . Are you a: never smoker Jan 18, 2016 Family History Value Date Source QualifierDescriptionCommentDate Reported 08/09/2015 Pedi Infect Disease of Maternal Grandmother [place] Comment not available Aug 07, 2015 Paternal [...]
[2020-10-21] MEDS ORDERED: NA CHLORIDE 0.9% 1,000 ML ONE (19:48)
[2020-10-21 19:49] LABS: Protime INR 1.08
--- NOTE | 2020-10-21 19:52 | RAD REPORT ---
EXAM DESCRIPTION: RAD - Chest Single View - 10/21/2020 7:35 pm CLINICAL HISTORY: CHEST PAIN Chest pain. COMPARISON: Chest Single View dated 05/09/2020; Chest Pa And Lat (2 Views) dated 09/26/2019; Chest Pa And Lat (2 Views) dated 08/15/2019; Chest Single View dated 08/22/2017 FINDINGS: Portable technique limits examination quality. The lungs are grossly clear. The heart is normal in size. No displaced fractures. IMPRESSION: No acute intrathoracic process suspected.
[2020-10-21 19:55] LABS: Absolute Lymphocytes (CBC) 2.9 K/uL (0.7-4.9); Basophils % 1.4 % (0-1.3); Hematocrit 46.7 % (39.6-49.0); Lymphocytes % 35.5 % (15.3-44.8); MPV 7.3 fL (7.6-11.3); RBC Red Blood Cell Count 5.74 M/uL (4.33-5.43)
[2020-10-21 20:18] LABS: ALT/SGPT 38 U/L (12-78); AST/SGOT 16 U/L (15-37); Albumin 4.6 g/dL (3.4-5.0); Alkaline Phosphatase 93 U/L (45-117); BUN Blood Urea Nitrogen 17 mg/dL (7-18); Bicarbonate 24 mmol/L (21-32); Bilirubin Direct 0.2 mg/dL (0-0.2); Bilirubin Total 0.6 mg/dL (0.2-1.0); Glucose Level 97 mg/dL (74-106); Magnesium 2.3 mg/dL (1.8-2.4); NT PRO-BNP 10 pg/mL (<125); Potassium 4.1 mmol/L (3.5-5.1); Protein, Total 8.4 g/dL (6.4-8.2); Sodium Level 138 mmol/L (136-145); Troponin (Emerg Dept Use Only) < 0.02 ng/mL (0.0-0.045)
--- NOTE | 2020-10-21 20:41 | EDPHYS ---
Physician Documentation [facility] Name: Keo Hardin Age: 25 yrs Sex: Male : 1995 Arrival Date: 10/21/2020 Time: 17:45 Bed 7 Private MD: ED Physician Munir Joe HPI: 10/21 19:10 This 25 yrs old Male presents to ER via Ambulatory with complaints of Fever, pm1 Fatigue. 19:10 The patient or guardian reports chest pain that is located primarily in the mid-sternal pm1 area. The pain does not radiate. Associated signs and symptoms: Pertinent positives: cough, shortness of breath, diarrhea x 1 today, subjective fever, fatigue. The chest pain is described as sharp. Duration: The patient or guardian reports multiple episodes. Modifying factors: The symptoms are alleviated by nothing. the symptoms are aggravated by Emotional stress of being ill. The patient has been recently seen at the [facility] Emergency Department, for similar complaints 2 days ago and yesterday. Patient presents to the ER today with complaints of fever, fatigue, chest pain, and diarrhea x 1. Patient was seen here two days ago for similar complaint. At that time he had [address] and labs were performed and he was discharged home with Augmentin. Hi diarrhea has decreased to the point that he had only 1 diarrhea movement today. Patient is anxious and report s that today he is experiencing some chest pain which is new to the other symptoms that he has presented with. Yesterday he was swabbed for flu and covid. Covid result is pending. Historical: - Allergies: 18:05 Haldol; ca1 - Home Meds: 18:05 Augmentin 875-125 mg Oral tab 1 tab every 12 hours [Active]; omeprazole 40 mg Oral cpDR ca1 1 cap once daily [Active]; Wellbutrin 450 mg Oral tab 1 tab daily [Active]; lisinopril 10 mg Oral tab 1 tab once daily [Active]; Wellbutrin 150 mg Oral daily [Active]; Zofran (as hydrochloride) 4 mg Oral tab 2 tabs every 8 hours [Active]; - PMHx: 18:05 ADD/ADHD; Anxiety; Bipolar disorder; Depression; GERD; Hyperlipidemia; insomnia; ca1 Hypertension; MRSA; Panic Attacks; - PSHx: 18:05 Cholecystectomy; pilonidal cyst; ca1 - Immunization history:: Adult Immunizations up to date, Flu vaccine is up to date. - Social history:: Smoking status: Patient/guardian denies using tobacco, the patient reports quitting approximately 9 years ago. ROS: 19:10 Eyes: Negative for injury, pain, redness, and discharge, ENT: Negative for injury, pm1 pain, and discharge, Neck: Negative for injury, pain, and swelling. 19:10 Back: Negative for injury and pain, : Negative for injury, bleeding, discharge, and swelling, MS/Extremity: Negative for injury and deformity, Skin: Negative for injury, rash, and discoloration, Neuro: Negative for headache, weakness, numbness, tingling, and seizure. 19:10 Constitutional: Positive for fatigue, fever, malaise. 19:10 Cardiovascular: Positive for chest pain, Negative for edema. 19:10 Respiratory: Positive for cough, shortness of breath. 19:10 Abdomen/GI: Positive for abdominal pain, diarrhea, of the epigastric area, Negative for vomiting, constipation. 19:10 Psych: Positive for anxiety. Exam: 19:10 Constitutional: This is a well developed, well nourished patient who is awake, alert, pm1 and in no acute distress. Head/Face: Normocephalic, atraumatic. Chest/axilla: Normal chest wall appearance and motion. Nontender with no deformity. No lesions are appreciated. Cardiovascular: Regular rate and rhythm with a normal S1 and S2. No gallops, murmurs, or rubs. Normal PMI, no JVD. No pulse deficits. Respiratory: Lungs have equal breath sounds bilaterally, clear to auscultation and percussion. No rales, rhonchi or wheezes noted. No increased work of breathing, no retractions or nasal flaring. 19:10 Back: No spinal tenderness. No costovertebral tenderness. Full range of motion. Skin: Warm, dry with normal turgor. Normal color with no rashes, no lesions, and no evidence of cellulitis. MS/ Extremity: Pulses equal, no cyanosis. Neurovascular intact. Full, normal range of motion. 19:10 Abdomen/GI: Inspection: obese Palpation: abdomen is soft and non-tender, in all quadrants. 19:10 Neuro: Exam negative for acute changes, Orientation: is normal, Mentation: is normal, Motor: is normal, moves all fours. 19:10 Psych: Behavior/mood is anxious, Affect is animated, Oriented to person, place, time, Patient has no thoughts/intents to harm self or others. Vital Signs: 17:58 BP 137 / 92; Pulse 94; Resp 18 S; Temp 99.1(TE); Pulse Ox 100% on R/A; Weight 136.08 kg ca1 (R); Height 5 ft. 8 in. (172.72 cm) (R); Pain 5/10; 20:00 BP 132 / 95; Pulse 84; Resp 16; Pulse Ox 96% ; ll2 21:00 BP 135 / 92; Pulse 88; Resp 19; Pulse Ox 96% ; ll2 17:58 Body Mass Index 45.61 (136.08 kg, 172.72 cm) ca1 MDM: 18:58 Patient medically screened. pm1 20:39 Data reviewed: vital signs. Data interpreted: Pulse oximetry: on room air is 100 %. pm1 Interpretation: normal. Counseling: I had a detailed discussion with the patient and/or guardian regarding: the historical points, exam findings, and any diagnostic results supporting the discharge/admit diagnosis, lab results, radiology results, the need for outpatient follow up, to return to the emergency department if symptoms worsen or persist or if there are any questions or concerns that arise at home. 20:39 ED course: pending covid results that were swabbed from ER visit yesterday. pm1 10/21 19:09 Order name: Basic Metabolic Panel; Complete Time: 20:29 pm10/21 19:09 Order name: CBC with Diff; Complete Time: 20:03 pm10/21 19:09 Order name: LFT's; Complete Time: 20:29 pm1 10/21 19:09 Order name: Magnesium; Complete Time: 20:29 pm10/21 19:09 Order name: NT PRO-BNP; Complete Time: 20:29 pm10/21 19:09 Order name: PT-INR; Complete Time: 20:03 pm10/21 19:09 Order name: Troponin (emerg Dept Use Only); Complete Time: 20:29 pm1 10/21 19:09 Order name: XRAY Chest (1 view); Complete Time: 20:03 pm1 10/21 19:09 Order name: EKG; Complete Time: 19:10 pm1 10/21 19:09 Order name: Cardiac monitoring; Complete Time: :44 pm1 10/21 19:09 Order name: EKG - Nurse/Tech; Complete Time: :44 pm1 10/21 19:09 Order name: IV Saline Lock; Complete Time: :44 pm1 10/21 19:09 Order name: Labs collected and sent; Complete Time: :44 pm1 10/21 19:09 Order name: O2 Per Protocol; Complete Time: :44 pm1 10/21 19:09 Order name: O2 Sat Monitoring; Complete Time: :44 pm1 Administered Medications: 19:43 Drug: NS 0.9% 1000 ml Route: IV; Rate: 1000 ml; Site: right hand; ea Disposition: 10/21/20 20:41 Discharged to Home. Impression: Chest pain, unspecified. - Condition is Stable. - Discharge Instructions: Nonspecific Chest Pain. - Medication Reconciliation Form, Thank You Letter, Antibiotic Education, Prescription Opioid Use form. - Follow up: Emergency Department; When: As needed; Reason: Worsening of condition. Follow up: Private Physician; When: 2 - 3 days; Reason: Recheck today's complaints, Continuance of care, Re-evaluation by your physician. - Problem is new. - Symptoms have improved. Addendum: 10/26/2020 21:04 Co-signature as Attending Physician, Munir Joe MD Did not see or evaluate patient. p s1 Signature for administrative purposes. . Signatures: Dispatcher [employer] EDLA Rafat Galvan, NATURALIST NATURALIST pm1 Alejandra Gifford RN RN ea Singer, Phillip, MD MD ps1 Marina Young RN RN ca1 Jena Solorzano RN RN ll2 Corrections: (The following items were deleted from the chart) 10/21 21:13 20:41 10/21/2020 20:41 Discharged to Home. Impression: Chest pain, unspecified. ll2 Condition is Stable. Forms are Medication Reconciliation Form, Thank You Letter, Antibiotic Education, Prescription Opioid Use. Follow up: Emergency Department; When: As needed; Reason: Worsening of condition. Follow up: Private Physician; When: 2 - 3 days; Reason: Recheck today's complaints, Continuance of care, Re-evaluation by your physician. Problem is new. Symptoms have improved. pm1 21:25 19:10 Associated signs and symptoms: Pertinent positives: cough, diarrhea x 1 today, pm1 subjective fever, fatigue, Pertinent negatives: shortness of breath, pm1
--- NOTE | 2020-10-21 20:41 | ER ---
Nurse's Notes [facility] Name: Keo Hardin Age: 25 yrs Sex: Male : 1995 Arrival Date: 10/21/2020 Time: 17:45 Bed 7 Private MD: Diagnosis: Chest pain, unspecified Presentation: 10/21 17:58 Chief complaint: Patient states: This is my 3rd time to come here, I was here yesterday ca1 and the day before. The first day, I was diagnosed with infection of the Colon, was prescribed Augmentin. The nausea has gotten better. Right now I have upper abdominal pain that feels like pressure. I am also having chest pains and palpitations, I am seeing lights that is not there and like everting's brighter. I feel really really weak and I have trouble concentrating and remembering things. Reports fever. Coronavirus screen: Client denies travel out of the [place] in the last 14 days. fatigue, fever, Client presents with at least one sign or symptom that may indicate coronavirus-19. Standard/surgical mask placed on the client. Provider contacted for isolation considerations. The client indicates previous COVID test results are pending. Date of collection: October 20, 2020. Ebola Screen: Patient negative for fever greater than or equal to 101.5 degrees Fahrenheit, and additional compatible Ebola Virus Disease symptoms Patient denies exposure to infectious person. Patient denies travel to an Ebola-affected area in the 21 days before illness onset. No symptoms or risks identified at this time. Initial Sepsis Screen: Does the patient meet any 2 criteria? No. Patient's initial sepsis screen is negative. Does the patient have a suspected source of infection? No. Patient's initial sepsis screen is negative. Risk Assessment: Do you want to hurt yourself or someone else? Patient reports no desire to harm self or others. Onset of symptoms was October 21, 2020. 17:58 Method Of Arrival: Ambulatory ca1 17:58 Method Of Arrival: Ambulatory ca1 17:58 Acuity: ROBERTH 3 ca1 Historical: - Allergies: 18:05 Haldol; ca1 - Home Meds: 18:05 Augmentin 875-125 mg Oral tab 1 tab every 12 hours [Active]; omeprazole 40 mg Oral cpDR ca1 1 cap once daily [Active]; Wellbutrin 450 mg Oral tab 1 tab daily [Active]; lisinopril 10 mg Oral tab 1 tab once daily [Active]; Wellbutrin 150 mg Oral daily [Active]; Zofran (as hydrochloride) 4 mg Oral tab 2 tabs every 8 hours [Active]; - PMHx: 18:05 ADD/ADHD; Anxiety; Bipolar disorder; Depression; GERD; Hyperlipidemia; insomnia; ca1 Hypertension; MRSA; Panic Attacks; - PSHx: 18:05 Cholecystectomy; pilonidal cyst; ca1 - Immunization history:: Adult Immunizations up to date, Flu vaccine is up to date. - Social history:: Smoking status: Patient/guardian denies using tobacco, the patient reports quitting approximately 9 years ago. Screenin:44 Abuse screen: Denies threats or abuse. Nutritional screening: No deficits noted. ea Tuberculosis screening: No symptoms or risk factors identified. Fall Risk IV access (20 points). Assessment: 19:40 General: Appears in no apparent distress. Behavior is cooperative, appropriate for age, ll2 anxious. Pain: Denies pain. Neuro: Level of Consciousness is awake, alert, obeys commands, Oriented to person, place, time, situation. Cardiovascular: Patient's skin is warm and dry. Respiratory: Airway is patent Respiratory effort is even, unlabored, Respiratory pattern is regular, symmetrical. GI: No signs and/or symptoms were reported involving the gastrointestinal system. : No signs and/or symptoms were reported regarding the genitourinary system. EENT: No signs and/or symptoms were reported regarding the EENT system. Derm: Skin is intact, is healthy with good turgor, Skin is dry, Skin is pink, warm \T\ dry. Skin temperature is warm. Musculoskeletal: Circulation, motion, and sensation intact. Range of motion: intact in all extremities. 20:53 Reassessment: Patient and/or family updated on plan of care and expected duration. Pain ll2 level reassessed. Patient is alert, oriented x 3, equal unlabored respirations, skin warm/dry/pink. Vital Signs: 17:58 BP 137 / 92; Pulse 94; Resp 18 S; Temp 99.1(TE); Pulse Ox 100% on R/A; Weight 136.08 kg ca1 (R); Height 5 ft. 8 in. (172.72 cm) (R); Pain 5/10; 20:00 BP 132 / 95; Pulse 84; Resp 16; Pulse Ox 96% ; ll2 21:00 BP 135 / 92; Pulse 88; Resp 19; Pulse Ox 96% ; ll2 17:58 Body Mass Index 45.61 (136.08 kg, 172.72 cm) ca1 ED Course: 17:45 Patient arrived in ED. ds1 18:04 Triage completed. ca1 18:05 Arm band placed on right wrist. ca1 18:18 Rafat Galvan NP is PHCP. pm1 18:18 Munir Joe MD is Attending Physician. pm1 19:05 Jena Solorzano, WILL is Primary Nurse. ll2 19:33 Inserted saline lock: 22 gauge in right hand, using aseptic technique. Blood collected. ea 19:36 XRAY Chest (1 view) In Process Unspecified. EDMS 19:45 Patient has correct armband on for positive identification. Bed in low position. Call ea light in reach. Side rails up X2. 21:12 No provider procedures requiring assistance completed. IV discontinued, intact, ll2 bleeding controlled, No redness/swelling at site. Pressure dressing applied. Administered Medications: 19:43 Drug: NS 0.9% 1000 ml Route: IV; Rate: 1000 ml; Site: right hand; ea Outcome: 20:41 Discharge ordered by MD. pm1 21:13 Discharged to home ambulatory. ll2 21:13 Condition: stable 21:13 Discharge instructions given to patient, Instructed on discharge instructions, follow up and referral plans. Demonstrated understanding of instructions, follow-up care. 21:13 Patient left the ED. ll2 Signatures: Dispatcher [employer] [facility] Rosi Arevalo ds1 Rafat Galvan NP ENGINEERING TEAM SUPERVISOR pm1 Alejandra Gifford RN RN ea Acob, Cheryl, RN RN ca1 Jena Solorzano, WILL RN ll2 Corrections: (The following items were deleted from the chart) 21:12 20:00 BP 135 / 92; Pulse 88bpm; Resp 19bpm; Pulse Ox 96%; ll2 ll2
[2020-10-22 04:20] VITALS: TEMP 99.1
[2020-10-22 04:23] VITALS: O2SAT 96
[2020-10-22 04:29] VITALS: BP 135/92
== END 2020-10-21 21:13 | disposition home or self-care (01) ==
LOC: ER 17:44
DX: R07.9 Chest pain, unspecified (principal); F31.9 Bipolar disorder, unspecified; I10 Essential (primary) hypertension; Z88.5 Allergy status to narcotic agent
CPT/HCPCS: 93005; 85025; 80048; 36415; 83735; 85610; 80076; 84484; 83880; 71045; 99284; J7030

== ENCOUNTER 2020-11-17 17:57 | Emergency (ER) | payer OTHER ==
--- OUTSIDE RECORDS SUMMARY | 2020-11-17 18:01 | XMS REPORT | Continuity of Care Document ---
:1995 Author Organization [employer] Care Team Providers Name Role Phone [employer] Unavailable Un available Problems Problem Status Onset Classification Date Comments Sourc e Date Reported Pseudomonas Active Problem 01/19/2016 Pedi infection in Infect conditions Disease o f classified [facility]vis elsewhere and of unspecified site Methicillin Active Problem 01/19/2016 Pedi resistant Infect Staphylococcus Disea se of aureus Avis Pilonidal cyst Active Problem 01/19/2016 Pedi with abscess Infect Disease of [facility] Other chronic Active Problem 01/19/2016 Pedi postoperative pain I nfect Disease of [place] Other atopic Active Problem 01/19/2016 Pedi dermatitis and Infec t related conditions D isease of [place] Open wound of Active Problem 01/19/2016 Pedi buttock, Infect complicated Disease of [facility] Cutaneous abscess Active Problem 01/19/2016 P luis carlos of buttock Infect Disease of [place] Open wound of Active Problem 01/19/2016 Pedi buttock, without Inf ect mention of Disease o f complication [facility] Pilonidal cyst Active Problem 01/19/2016 Pedi with abscess Infect Disease of [facility] Klebsiella Active Problem 01/19/2016 Pedi pneumoniae Infect infection Disease of [facility] Cellulitis and Active Problem 01/19/2016 Pedi abscess of buttock I nfect Disease of [facility] Medications Medication Details Route Status Patient Ordering Order Source Instructions Provider Date Augmentin 1 tablet PO Active 500 mg PO Three Lacey 09/17/20 Pedi times a day 14 Infect Disease of [facility] Paxil Unknown NA Active [facility] Pedi Infect Disease of [facility] Celexa Unknown NA Active Lacey Pedi Infect Disease of [facility] Seroquel Unknown NA Active Lacey Pedi Infect Disease of [facility] Augmentin Unknown NA Active Lacey Pedi Infect Disease of [facility] Clonidine HCl Unknown NA Active Lacey Pedi Infect Disease of [place] Citalopram Unknown NA Active Lacey Pedi Hydrobromide Infect Disease of [place] Doxepin HCl Unknown NA Active Lacey Pedi Infect Disease of [facility] BuPROPion HCl Unknown NA Active Lacey Pedi Infect Disease of [facility] Quetiapine Unknown NA Active Lacey Pedi Fumarate Infect Disease of [facility] Allergies, Adverse Reactions, Alerts Substance Category Reaction Severity Reaction Status Date Comments S ource type Reported N.K.D.A. Adverse Info Not Adverse Active Pedi Reaction Available Reaction [address]fe [address] Disease of Avis Immunizations No Data Provided for This Section [...] Weight 323 01/16/2016 Pedi Infect Disease of [facility] Height 68 01/16/2016 Pedi Infect Disease of [facility] Temperature Oral (F) 98 F 01/16/2016 Pedi In fect Disease of [facility] Heart Rate 128 01/16/2016 Pedi Infect Disease of [place] Weight 295 08/07/2015 Pedi Infect Disease of [place] Height 68 08/07/2015 Pedi Infect Disease of [place] Temperature Oral (F) 98 F 08/07/2015 Pedi In fect Disease of [place] Heart Rate 108 08/07/2015 Pedi Infect Disease of [place] Weight 263 01/13/2015 Pedi Infect Disease of [facility] 68 01/13/2015 Pedi Infect Disease of [place] Temperature Oral (F) 97.6 F 01/13/2015 Pedi In fect Disease of [place] Heart Rate 101 01/13/2015 Pedi Infect Disease of [place] Weight 260 01/02/2015 Pedi Infect Disease of [place] Height 68 01/02/2015 Pedi Infect Disease of [place] Temperature Oral (F) 97.8 F 01/02/2015 Pedi In fect Disease of [place] Heart Rate 102 01/02/2015 Pedi Infect Disease of [place] Weight 247.2 10/22/2014 Pedi Infect Disease of [place] Height 66 10/22/2014 Pedi Infect Disease of [place] Temperature Oral (F) 97.5 F 10/22/2014 Pedi In fect Disease of [place] Weight 248 10/09/2014 Pedi Infect Disease of [place] Height 66 10/09/2014 Pedi Infect Disease of [place] Temperature Oral (F) 97.6 F 10/09/2014 Pedi In fect Disease of [place] Heart Rate 77 10/09/2014 Pedi Infect Disease of [facility] Weight 245 09/24/2014 Pedi Infect Disease of [place] Height 66 09/24/2014 Pedi Infect Disease of [place] Temperature Oral (F) 98.9 F 09/24/2014 Pedi In fect Disease of [place] Heart Rate 91 09/24/2014 Pedi Infect Disease of [facility] Weight 241 09/18/2014 Pedi Infect Disease of [facility] Height 66 09/18/2014 Pedi Infect Disease of [place] Temperature Oral (F) 97.6 F 09/18/2014 Pedi In fect Disease of [place] Heart Rate 89 09/18/2014 Pedi Infect Disease of [place] Weight 241 09/11/2014 Pedi Infect Disease of [place] Height 66 09/11/2014 Pedi Infect Disease of [place] Temperature Oral (F) 97.5 F 09/11/2014 Pedi In fect Disease of [place] Heart Rate 81 09/11/2014 Pedi Infect Disease of [facility] Encounters Location Location Encounter Encounter Reason Attending [facility] Source Details Type Number For Provider Date Date Visit Pediatric Unknown [id number] 09/11 09/11 Pe di Infectious [id number]-[id number] In fect Disease [id number] [facility] [id number] [facility] [place] Unknown [id number] 09/11 09/11 Pe di Infectious ef6-4ba4- In fect Disease [id number] [facility] [id number] [facility] [place] Pediatric Unknown [id number] 09/11 09/11 Pe di Infectious 9s2-4zam-5 In fect Disease t42-5pir3e [facility] [id number] [facility] [place] Unknown [id number] 09/11 09/11 Pe di Infectious 930-4e88- In fect Disease [id number] [facility] [id number] [facility] [place] Unknown [id number] 09/11 09/11 Pe di Infectious 10f-4643-a /2013 In fect Disease 00f-7bab3c [facility] 4dbcaf [facility] [place] Unknown [id number] 09/11 09/11 Pe di Infectious 0t2-4162-i /2013 In fect Disease ff1-92b48f [facility] [id number] [facility] [place] Unknown [id number] 09/11 09/11 Pe di Infectious dfa-488e-8 In fect Disease [id number] [facility] [id number] [facility] [place] Unknown [id number] 09/11 09/11 Pe di Infectious 4u3-26yw-6 In fect Disease p34-u6e50m [facility] 210cda [facility] [place] Unknown [id number] 09/11 09/11 Pe di Infectious 2a2-57r0-c In fect Disease e29-x1lc37 [facility] [id number] [facility] [place] Unknown [id number] 09/11 09/11 Pe di Infectious 9n1-0990-5 In fect Disease f13-5806sv [facility] [id number] [facility] [place] Unknown [id number] 09/11 09/11 Pe di Infectious 971-446c- In fect Disease 814-4dbacf [facility] [id number] [facility] [place] Unknown [id number] 09/11 09/11 Pe di Infectious 391-4f25-a In fect Disease 285-ok2014 [facility] 005af3 [facility] [place] Unknown [id number] 09/11 09/11 Pe di Infectious 2d2-1v54-z In fect Disease 35a-ih322k [facility] [id number] [facility] [place] Unknown [id number] 09/11 09/11 Pe di Infectious 56e-4a56-a In fect Disease [id number] [facility] [id number] [facility] [place] Provider [id number] 09/17 09/17 P luis carlos Infectious told [id number]-[id number] In fect Disease patient to [id number]-31vl35 [facility] call 154a76 [facility] [place] [id number] 09/17 09/17 P luis carlos Infectious told [id number] /2013 In fect Disease patient to fc7-7p0525 [id number] [id number] 09/17 09/17 P luis carlos Infectious told b64-1275-g /2013 In fect Disease patient to [id number] [id number] [id number] 09/17 09/17 P luis carlos Infectious told c60-7xtn-7 In fect Disease patient to 2fd-5gp977 [id number] Test [id number] 09/17 09/17 Ped i Infectious results 39a-4529-a /2013 I nfect Disease l2f-94j9ze [facility]7e4 [facility] [id number] 09/17 09/17 Ped i Infectious results 940-4cf0-b /2013 I nfect Disease bbd-052dd4 [id number] [facility] [id number] 09/17 09/17 Ped i Infectious results 298-418a-a /2013 I nfect Disease 45d-uu0576 [facility] [id number] [facility] [id number] 09/17 09/17 Ped i Infectious results 5t6-75m1-r /2013 I nfect Disease fd6-4906f2 [facility] [id number] [facility] [id number] 09/17 09/17 P luis carlos Infectious told bd5-4b86- In fect Disease patient to [id number] [id number] [facility] [id number] 09/17 09/17 P luis carlos Infectious told [phone] In fect Disease patient to 30f-8e64cb [facility] [id number] [facility] [id number] 09/17 09/17 P luis carlos Infectious told 868-4bf8- In fect Disease patient to 5be-6p8871 [facility] [id number] [facility] [id number] 09/17 09/17 P luis carlos Infectious told 40f-4dfa- In fect Disease patient to [id number] [id number] [facility] [id number] 09/17 09/17 P luis carlos Infectious told 513-46d1- In fect Disease patient to [id number] [id number] [id number] 09/17 09/17 P luis carlos Infectious told i38-92y6-v In fect Disease patient to 558-[id number] [id number] [id number] 09/17 09/17 P luis carlos Infectious told p4n-282k-c In fect Disease patient to [id number] [facility] [id number] 09/17 09/17 P luis carlos Infectious told x4x-3n7p-5 In fect Disease patient to cb5-4p8709 [id number] [id number] 09/17 09/17 P luis carlos Infectious told 6ea-4f71- In fect Disease patient to 54b-010c78 [id number] [facility] [id number] 09/17 09/17 P luis carlos Infectious told 439-49f6- In fect Disease patient to fe3-[id number] [id number] [facility] [id number] 09/17 09/17 Ped i Infectious results [id number]-j /2013 I nfect Disease afa-0ef54a [facility] c30f53 [facility] [place] Test [id number] 09/17 09/17 Ped i Infectious results 321-4105-a /2013 I nfect Disease 033-5fc2a4 [facility] [id number] [facility] [place] Test [id number] 09/17 09/17 Ped i Infectious results 744-4d7f-a /2013 I nfect Disease 509-7350cc [facility] 1c6b2b [facility] [place] Test [id number] 09/17 09/17 Ped i Infectious results fd7-4768-b /2013 I nfect Disease 34c-5314cd [facility] 0a7eb4 [facility] [place] Test [id number] 09/17 09/17 Ped i Infectious results 747-490c-8 I nfect Disease [id number]-640551 [facility] 76e9dc [facility] [place] Test [id number] 09/17 09/17 Ped i Infectious results 2c1-6522-0 I nfect Disease t44-0io6e5 [facility] 30c1bf [facility] [place] Test [id number] 09/17 09/17 Ped i Infectious results 5e0-0590-7 /2013 I nfect Disease cca-59edf5 [facility] 33efe1 [facility] [place] Test [id number] 09/17 09/17 Ped i Infectious results g84-0q3m-p /2013 I nfect Disease 432-849e0f [facility] 75999r [facility] [place] Test [id number] 09/17 09/17 Ped i Infectious results dd1-4c00- I nfect Disease 23e-70d07e [facility] f1z696 [facility] [place] Test [id number] 09/17 09/17 Ped i Infectious results o73-83w5-z /2013 I nfect Disease 2o4-v8d582 [facility] [id number] [facility] [place] Follow-Up [id number] 09/18 09/18 Pedi Infectious Pilonidal 00b-4b97-a /2013 Infect Disease Cyst 34f-bc1cc5 [facility] 2a66cc [facility] [place] [id number] 09/18 09/18 Pedi Infectious Pilonidal ca6-471b-a /2013 Infect Disease Cyst 7j7-un532p [facility] [id number] [facility] [place] [id number] 09/18 09/18 Pedi Infectious Pilonidal t9v-305w-h /2013 Infect Disease Cyst 433-75cb33 [facility] [id number] [facility] [id number] 09/18 09/18 Pedi Infectious Pilonidal r3w-8gyc-0 /2013 Infect Disease Cyst 6l9-v85m71 [facility] [id number] [facility] [id number] 09/18 09/18 Pedi Infectious Pilonidal c21-1178-4 /2013 Infect Disease Cyst 846-10881x [facility] [id number] [facility] [id number] 09/18 09/18 Pedi Infectious Pilonidal 1a7-8647-2 /2013 Infect Disease Cyst eb2-a2d1d4 [facility] 83024v [facility] [id number] 09/18 09/18 Pedi Infectious Pilonidal 709-41ab-b /2013 Infect Disease Cyst 690-a2a3e7 [facility] [id number] [facility] [id number] 09/18 09/18 Pedi Infectious Pilonidal 16f-4422-a /2013 Infect Disease Cyst 53a-3b5dfc [facility] 07804x [facility] [place] Follow[place] [id number] 09/18 09/18 Pedi Infectious Pilonidal 145-41c4-b /2013 Infect Disease Cyst 98c-82c78f [facility] a78b9c [facility] [place] Follow[place] [id number] 09/18 09/18 Pedi Infectious Pilonidal 98d-4b19-b /2013 Infect Disease Cyst 846-f15e95 [facility] [id number] [facility] [place] Follow-Up [id number] 09/18 09/18 Pedi Infectious Pilonidal cf3-4a2f-b /2013 Infect Disease Cyst aa5-48a13b [facility] 3abe4f [facility] [place] [facility] [place] [id number] 09/24 09/24 Pedi Infectious Pilonidal t6r-9d19-v /2013 Infect Disease Cyst 4u3-5cf586 [facility] [id number] [facility] [place] [facility] [place] [id number] 09/24 09/24 Pedi Infectious Pilon[place] bc0-4c7b-9 Infect Disease Cyst 83a-108366 [facility] [id number] [facility] [place] [facility] [place] [id number] 09/24 09/24 Pedi Infectious Pilonidal 171-4d6a-b /2013 Infect Disease Cyst 922-435912 [facility] 0667fa [facility] [place] [facility] [place] [id number] 09/24 09/24 Pedi Infectious Pilonidal 786-4d38-b /2013 Infect Disease Cyst 00a-9f5fa2 [facility] 79d40a [facility] [id number] 09/24 09/24 Pedi Infectious Pilonidal 0i9-6vm4-1 Infect Disease Cyst 528-7f2ac2 [facility] [id number] [facility] [id number] 09/24 09/24 Pedi Infectious Pilonidal 0a7-990n-t /2013 Infect Disease Cyst 80e-1bbfcb [facility] 7803a6 [facility] [id number] 09/24 09/24 Pedi Infectious Pilonidal 994-4c53-9 /2013 Infect Disease Cyst 6de-f4ed9e [facility] 8ae54d [facility] [id number] 09/24 09/24 Pedi Infectious Pilonidal 24b-451a-8 /2013 Infect Disease Cyst 82c-662bd2 [id number] [facility] [id number] 09/24 09/24 Pedi Infectious Pilonidal ed8-4e55-b /2013 Infect Disease Cyst 376-777cde [facility] [id number] [facility] [id number] 09/24 09/24 Pedi Infectious Pilonidal 8ed-4898-b /2013 Infect Disease Cyst cee-fcr193 [facility] [id number] [facility] [id number] 09/24 09/24 Pedi Infectious Pilonidal 26d-400d-a /2013 Infect Disease Cyst 3e3-9920po [facility] 6596ce [facility] [id number] 10/09 10/09 Pedi Infectious Pilonidal ca5-4f38- /2013 Infect Disease Cyst 73a-1b7d56 [facility] 4e73d8 [facility] [id number] 10/09 10/09 Pedi Infectious Pilonidal 636-40e6- Infect Disease Cyst 947-m9425d [facility] 7c55a9 [facility] [id number] 10/09 10/09 Pedi Infectious Pilonidal x7g-356k-5 /2013 Infect Disease Cyst c33-i23813 [facility] c8f2cd [facility] [place] [facility] Follow-Up [id number] 10/09 10/09 Pedi Infectious Pilonidal 66c-4459-a /2013 Infect Disease Cyst v94-464941 [facility] 77d7f1 [facility] [place] [facility] Follow-Up [id number] 10/09 10/09 Pedi Infectious Pilonidal 2dd-467d-8 /2013 Infect Disease Cyst 9w7-071673 [facility] 735aa6 [facility] [place] [facility] Follow-Up [id number] 10/09 10/09 Pedi Infectious Pilonidal 201-45fb-b /2013 Infect Disease Cyst 7l2-4v0a09 [facility] 30971i [facility] [place] [facility] Follow-Up [id number] 10/09 10/09 Pedi Infectious Pilonidal o9q-9m85-v /2013 Infect Disease Cyst bed-8fceb1 [facility] [id number] [facility] [place] [facility] Follow-Up [id number] 10/09 10/09 Pedi Infectious Pilonidal x5m-6282-t /2013 Infect Disease Cyst bc1-612e32 [facility] 895dc8 [facility] [place] [facility] Follow-Up [id number] 10/09 10/09 Pedi Infectious Pilonidal 4c4-4q6n-3 /2013 Infect Disease Cyst s6r-yn3813 [facility] 7d4bd8 [facility] [place] [facility] Follow-Up [id number] 10/09 10/09 Pedi Infectious Pilonidal 9ed-4f4b-8 /2013 Infect Disease Cyst 2fb-43eadf [facility] 51ebb3 [facility] [place] [facility] Follow-Up [id number] 10/09 10/09 Pedi Infectious Pilonidal 4g9-2r97-9 /2013 Infect Disease Cyst v87-84229a [facility] 332487 [facility] [place] [facility] WOUNDCARE [id number] 10/22 10/22 Pedi Infectious 8w0-3i75-6 /2013 In fect Disease 48c-458537 [facility] ba6df4 [facility] [place] [facility] [id number] 10/22 10/22 Pedi Infectious 442-4426-9 /2013 In fect Disease j1f-8y8qf6 [facility] 0a6ad3 [facility] [place] [facility] [id number] 10/22 10/22 Pedi Infectious ba4-494c-b /2013 In fect Disease 92f-593431 [facility] 068a71 [facility] [place] [facility] [id number] 10/22 10/22 Pedi Infectious afc-4b99-b /2013 In fect Disease 449-4770ae [facility] 00d72a [facility] [place] [facility] [id number] 10/22 10/22 Pedi Infectious c47-4264-x /2013 In fect Disease 6ad-048b69 [facility] a05af0 [facility] [place] [facility] [id number] 10/22 10/22 Pedi Infectious cf9-4283-a /2013 In fect Disease ee3-f10d09 [facility] 15e118 [facility] [place] [facility] [id number] 10/22 10/22 Pedi Infectious ec0-4282-8 /2013 In fect Disease b9s-7lb3r6 [facility] 2761d4 [facility] [place] [facility] [id number] 10/22 10/22 Pedi Infectious bad-4c5d-a /2013 In fect Disease 731-k3825t [facility] [id number] [facility] [place] [facility] FU - [id number] 11/19 11/19 Ped i Infectious PILONIDAL 6t5-08kv-6 /2013 Infect Disease CYST 6w6-65w919 [facility] 213e84 [facility] [place] [facility] FU - [id number] 11/19 11/19 Ped i Infectious PILONIDAL fa6-4c63-8 /2013 Infect Disease CYST 573-fbe18e [facility] 69a3c9 [facility] [place] FU - [id number] 11/19 11/19 Ped i Infectious PILONIDAL 2ac-4955-a /2013 Infect Disease CYST 318-2e93c3 [facility] [id number] [facility] [place] [facility] FU - [id number] 11/19 11/19 Ped i Infectious PILONIDAL c30-1p49-h /2013 Infect Disease CYST 6g3-4i1162 [facility] 7ba9da [facility] [place] [facility] FU - [id number] 11/19 11/19 Ped i Infectious PILONIDAL 115-444f-b /2013 Infect Disease CYST 1bc-m1p169 [facility] 2v858e [facility] [place] FU - [id number] 11/19 11/19 Ped i Infectious PILONIDAL 9e5-5h57-m /2013 Infect Disease CYST 093-a1a61a [facility] [id number] [facility] [place] [facility] FU - [id number] 11/19 11/19 Ped i Infectious PILONIDAL 6ea-40c8-b /2013 Infect Disease CYST 754-37b94e [facility] c20cbd [facility] [place] [facility] FU - [id number] 11/19 11/19 Ped i Infectious PILONIDAL 643-4d47-b /2013 Infect Disease CYST 2e2-6v8bo1 [facility] [id number] [facility] [place] [facility] Unknown [id number] 12/11 12/11 Pe di Infectious 490-456d-9 /2014 In fect Disease x18-23f1u4 [facility] 8bb5f0 [facility] [place] [facility] Unknown [id number] 12/11 12/11 Pe di Infectious 50b-42a1-a In fect Disease 995-oy468f [facility] eda22c [facility] [place] [facility] Unknown [id number] 12/11 12/11 Pe di Infectious 9y3-03n9-8 In fect Disease 920-7oj066 [facility] 3596e3 [facility] [place] [facility] Unknown [id number] 12/11 12/11 Pe di Infectious de7-4c4f- In fect Disease 945-2aebd0 [facility] 55ad38 [facility] [place] [facility] Unknown [id number] 12/11 12/11 Pe di Infectious t5s-310z-4 In fect Disease ab2-8e65d9 [facility] 71ac79 [facility] [place] [facility] Unknown [id number] 12/11 12/11 Pe di Infectious 459-43f5- In fect Disease aee-33b8fd [facility] [id number] [facility] [place] [facility] Follow-Up [id number] 01/02 01/02 Pedi Infectious Pilonidal af5-4ef1-b /2014 Infect Disease cyst 55f-37b0d6 [facility] [id number] [facility] [place] [facility] Follow-Up [id number] 01/02 01/02 Pedi Infectious [place]ilon[place] ddb-4f8b- Infect Disease cyst t3m-s878c7 [facility] 932b26 [facility] [place] [facility] Follow-Up [id number] 01/02 01/02 Pedi Infectious [place]ilon[place] 140-43fd- Infect Disease cyst 364-2311e8 [facility] [id number] [facility] [place] [facility] Follow-Up [id number] 01/02 01/02 Pedi Infectious Pilonidal cad-4517- Infect Disease cyst n92-mh7v92 [facility] [id number] [facility] [place] [facility] Follow-Up [id number] 02/05 02/05 Pedi Infectious Pilon[place] 766-43da-a /2014 Infect Disease cyst w97-5bx5j2 [facility] 5d8d08 [facility] [place] [facility] [place] [id number] 01/13 01/13 Pedi Infectious [place]ilon[place] c86-048v-w /2014 Infect Disease cyst 9c3-116374 [facility] [id number] [facility] [place] [facility] [place] [id number] 01/13 01/13 Pedi Infectious [place]ilon[place] 614-46ec-b /2014 Infect Disease cyst 01b-79ea4a [facility] d88ab6 [facility] [place] [facility] [place] [id number] 01/13 01/13 Pedi Infectious [place]ilon[place] 8j2-5t52-u /2014 Infect Disease cyst g9z-9c0tf8 [facility] 86d7be [facility] [place] [facility] [place] [id number] 01/13 01/13 Pedi Infectious [place]ilon[place] 51e-414e-8 /2014 Infect Disease cyst 1u0-339q25 [facility] b62c00 [facility] [place] [facility] [place] [id number] 01/13 01/13 Pedi Infectious [place]ilon[place] 876-4809-b /2014 Infect Disease cyst c26-71vy68 [facility] 0f3c63 [facility] [place] [facility] [place] [id number] 01/21 01/21 Pedi Infectious ea9-4042-a /2014 In fect Disease o99-67762s [facility] 7702b6 [facility] [id number] 01/21 01/21 Pedi Infectious 05f-4638-9 /2014 In fect Disease o4e-yd12k7 [facility] h0564d [facility] [id number] 02/04 02/04 Pedi Infectious [place]ilon[place] daf-45f8-9 /2014 Infect Disease cyst 4fe-656efd [facility] 4dbae2 [facility] [id number] 02/04 02/04 Pedi Infectious [place] ba7-4a1b-b /2014 Infect Disease cyst 32e-wct885 [facility] 39r822 [facility] [id number] 02/18 02/18 Pedi Infectious Pilonidal w11-2749-c /2014 Infect Disease cyst and 904-r4272l [facility] Laser hair [id number] o f of [facility] [place] Pediatric Follow-Up [id number] 02/18 02/18 Pedi Infectious Pilonidal [id number] Infect Disease cyst and [id number] [facility] Laser hair [id number] o f of [place], [facility] [place] Pediatric Follow-Up [id number] 05/06 05/06 Pedi Infectious Pilonidal [id number] Infect Disease cyst [id number] [id number] [id number] 05/06 05/06 Pedi Infectious Pilonidal [id number] /2014 Infect Disease cyst [id number] [id number] [facility] Test [id number] 05/12 05/12 Ped i Infectious results [id number] I nfect Disease [id number] [facility] [id number] [facility] [id number] 05/12 05/12 Ped i Infectious results [id number] /2014 I nfect Disease [id number] [facility] [id number] [facility] [id number] 05/16 05/16 Pedi Infectious Pilonidal [id number] Infect Disease Cyst [id number] [facility] [id number] [id number] 05/16 05/16 Pedi Infectious Pilonidal [id number] /2014 Infect Disease Cyst [id number] [facility] [id number] [facility] [id number] 05/26 05/26 Pedi Infectious Pilonidal [id number] /2014 Infect Disease cyst [id number] [facility] [id number] [facility] [id number] 05/26 05/26 Pedi Infectious Pilonidal [id number] /2014 Infect Disease cyst [id number] [facility] [id number] [facility] [id number] 07/10 07/10 Pedi Infectious Pilonidal [id number] Infect Disease cyst [id number] [facility] [id number] [facility] [id number] 07/10 07/10 Pedi Infectious Pilonidal [id number] /2014 Infect Disease cyst [id number] [facility] [id number] [facility] [id number] 08/07 08/07 Pedi Infectious Pilonidal [id number] /2014 Infect Disease cyst [id number] [facility] [id number] [facility] [id number] 08/07 08/07 Pedi Infectious Pilonidal [id number] /2014 Infect Disease cyst [id number] [facility] [id number] [facility] Test [id number] 08/11 08/11 Ped i Infectious results [id number] I nfect Disease [id number] [facility] [id number] [facility] Test [id number] 08/11 08/11 Ped i Infectious results [id number] I nfect Disease [id number] [facility] [id number] [facility] [place] [facility] Follow-Up [id number] 01/16 01/16 Pedi Infectious - Check [id number] /2015 I nfect Disease wound [id number] [facility] [id number] [facility] [place] Procedures No Data Provided for This Section Assessment and Plan No Data Provided for This Section Plan of Care No Data Provided for This Section Social History Social History Date Source Social History ElementQualifiersDate Reported 01/18/2016 Pedi Infect Disease of Tobacco Use: [facility] . Are you a: never smoker Jan 18, 2016 Family History Value Date Source QualifierDescriptionCommentDate Reported 08/09/2015 Pedi Infect Disease of Maternal Grandmother Avis Comment not available Aug 07, 2015 Paternal [...]
[2020-11-17] MEDS ORDERED: METOCLOPRAMIDE 10 MG/2mL INJ ONE (19:39)
[2020-11-17] MEDS ORDERED: lisinopriL 10 MG TAB ONE (19:40)
[2020-11-17] MEDS ORDERED: LORazepam 2 MG/ML VIAL ONE (19:40)
[2020-11-17] MEDS ORDERED: NA CHLORIDE 0.9% 1,000 ML ONE (19:40)
[2020-11-17 20:00] LABS: Absolute Lymphocytes (CBC) 2.3 K/uL (0.7-4.9); Basophils % 0.9 % (0-1.3); Hematocrit 42.7 % (39.6-49.0); Lymphocytes % 31.4 % (15.3-44.8); MPV 7.3 fL (7.6-11.3); RBC Red Blood Cell Count 5.17 M/uL (4.33-5.43)
[2020-11-17 20:02] LABS: ALT/SGPT 37 U/L (12-78); AST/SGOT 16 U/L (15-37); Albumin 4.3 g/dL (3.4-5.0); Alkaline Phosphatase 87 U/L (45-117); BUN Blood Urea Nitrogen 17 mg/dL (7-18); Bicarbonate 29 mmol/L (21-32); Bilirubin Direct 0.2 mg/dL (0-0.2); Bilirubin Total 0.5 mg/dL (0.2-1.0); Glucose Level 86 mg/dL (74-106); Lipase 63 U/L (73-393); Potassium 3.8 mmol/L (3.5-5.1); Protein, Total 7.8 g/dL (6.4-8.2); Sodium Level 141 mmol/L (136-145)
--- NOTE | 2020-11-17 20:48 | ER ---
Nurse's Notes [facility] Name: Keo Hardin Age: 25 yrs Sex: Male : 1995 Arrival Date: 11/17/2020 Time: 17:59 Bed 7 Private MD: Shaun Manzo C Diagnosis: Essential (primary) hypertension Presentation: 11/17 18:06 Chief complaint: Patient states: Was here 2 weeks for same symptoms, N/V/D, said I had ca1 a stomach bug and had antibiotics. I got better. But 2 days, N/V/D and upper abdominal pain radiating to the back started again. Also, I ran out of BP meds 4 days, and I have headache and everything seems flashing. Coronavirus screen: Client denies travel out of the [place] in the last 14 days. diarrhea, nausea, vomiting. Client presents with at least one sign or symptom that may indicate coronavirus-19. Standard/surgical mask placed on the client. Provider contacted for isolation considerations. Ebola Screen: Patient negative for fever greater than or equal to 101.5 degrees Fahrenheit, and additional compatible Ebola Virus Disease symptoms Patient denies exposure to infectious person. Patient denies travel to an Ebola-affected area in the 21 days before illness onset. No symptoms or risks identified at this time. Initial Sepsis Screen: Does the patient meet any 2 criteria? No. Patient's initial sepsis screen is negative. Does the patient have a suspected source of infection? No. Patient's initial sepsis screen is negative. Risk Assessment: Do you want to hurt yourself or someone else? Patient reports no desire to harm self or others. Onset of symptoms was November 17, 2020. 18:06 Method Of Arrival: Ambulatory ca1 18:06 Acuity: ROBERTH 3 ca1 Historical: - Allergies: 18:12 Haldol; ca1 - Home Meds: 18:12 lisinopril 10 mg Oral tab 1 tab once daily [Active]; omeprazole 40 mg Oral cpDR 1 cap ca1 once daily [Active]; Wellbutrin 450 mg Oral tab 1 tab daily [Active]; Wellbutrin 150 mg Oral daily [Active]; Zofran (as hydrochloride) 4 mg Oral tab 2 tabs every 8 hours [Active]; - PMHx: 18:12 ADD/ADHD; Anxiety; Bipolar disorder; Depression; GERD; Hyperlipidemia; Hypertension; ca1 insomnia; MRSA; Panic Attacks; - PSHx: 18:12 pilonidal cyst; Cholecystectomy; ca1 - Immunization history:: Adult Immunizations up to date, Flu vaccine is up to date. - Social history:: Smoking status: Patient/guardian denies using tobacco, Stopped _ months ago [address], marijuana. - Family history:: not pertinent. Screenin:21 Abuse screen: Denies threats or abuse. Nutritional screening: No deficits noted. ea Tuberculosis screening: No symptoms or risk factors identified. Fall Risk None identified. Assessment: 19:41 General: Appears in no apparent distress. Behavior is appropriate for age. Pain: ea Complains of pain in abdomen. Neuro: Level of Consciousness is awake, alert, obeys commands, Oriented to person, place, time, situation. Respiratory: Airway is patent Respiratory effort is even, unlabored, Respiratory pattern is regular, symmetrical. GI: Bowel sounds present X 4 quads. Abd is soft and non tender X 4 quads. Derm: Skin is pink, warm \T\ dry. 20:22 Reassessment: Patient and/or family updated on plan of care and expected duration. Pain ea level reassessed. Patient is alert, oriented x 3, equal unlabored respirations, skin warm/dry/pink. Patient states feeling better. 21:12 Reassessment: Patient and/or family updated on plan of care and expected duration. Pain ea level reassessed. Patient is alert, oriented x 3, equal unlabored respirations, skin warm/dry/pink. Discharge instruction given to patient verbalized the understanding of instruction. Pt left ED ambulatory family awaiting for pt in the lobby. Patient states feeling better. Vital Signs: 18:06 BP 149 / 86; Pulse 105; Resp 18 S; Temp 97.5(TE); Pulse Ox 98% on R/A; Weight 142.88 kg ca1 (R); Height 5 ft. 8 in. (172.72 cm) (R); Pain 7/10; 21:10 BP 104 / 56; Pulse 80; Resp 18; Temp 97.8; Pulse Ox 98% ; ea 18:06 Body Mass Index 47.90 (142.88 kg, 172.72 cm) ca1 ED Course: 17:59 Patient arrived in ED. ag5 17:59 Shaun Manzo MD is Private Physician. ag5 18:11 Triage completed. ca1 18:12 Arm band placed on right wrist. ca1 19:06 Ant North MD is Attending Physician. ma2 19:21 Alejandra Gifford, RN is Primary Nurse. ea 19:21 Patient has correct armband on for positive identification. Placed in gown. Bed in low ea position. Side rails up X 1. 19:30 Inserted saline lock: 20 gauge in right antecubital area, using aseptic technique. ea Blood collected. 21:11 No provider procedures requiring assistance completed. IV discontinued, intact, ea bleeding controlled, No redness/swelling at site. Pressure dressing applied. Administered Medications: 19:32 Drug: NS 0.9% 1000 ml Route: IV; Rate: 1 bolus; Site: right antecubital; ea 21:00 Follow up: Response: No adverse reaction; IV Status: Completed infusion; IV Intake: ea 1000ml 19:32 Drug: Ativan 2 mg Route: IVP; Site: right antecubital; ea 21:00 Follow up: Response: No adverse reaction ea 19:42 Drug: Lisinopril 10 mg Route: PO; ea 21:00 Follow up: Response: No adverse reaction ea 19:43 Drug: Reglan 20 mg Route: IVP; Site: right antecubital; ea 21:00 Follow up: Response: No adverse reaction ea Intake: 21:00 IV: 1000ml; Total: 1000ml. ea Outcome: 20:47 Discharge ordered by . ma2 21:11 Discharged to home ambulatory, with family. ea 21:11 Condition: stable 21:11 Discharge instructions given to patient, Instructed on discharge instructions, follow up and referral plans. medication usage, Demonstrated understanding of instructions, follow-up care, medications, Prescriptions given X 1. 21:18 Patient left the ED. rr5 Signatures: Alejandra Gifford, RN RN Ant Weber MD MD la2 Kennedy Boyle RN RN rr5 Marina Young RN RN ca1 Silvia Koo ag5
--- NOTE | 2020-11-17 20:48 | EDPHYS ---
Physician Documentation [facility] Name: Keo Hardin Age: 25 yrs Sex: Male : 1995 Arrival Date: 11/17/2020 Time: 17:59 Bed 7 Private MD: Shaun Manzo C ED Physician Ant North HPI: 11/17 19:40 This 25 yrs old Male presents to ER via Ambulatory with complaints of ma2 Abdominal Pain, Vision Problem, Back Pain, Nausea/Vomiting/Diarrhea. 19:40 The patient presents with pain that is chronic. Onset: The symptoms/episode ma2 began/occurred gradually, 3 week(s) ago. Associated signs and symptoms: Pertinent negatives: chest pain, dysuria. Severity of symptoms: At their worst the symptoms were mild, in the emergency department the symptoms are unchanged. The patient has experienced similar episodes in the past. has chronic epigastric abdominal pain and anxiety disorder . Historical: - Allergies: 18:12 Haldol; ca1 - Home Meds: 18:12 lisinopril 10 mg Oral tab 1 tab once daily [Active]; omeprazole 40 mg Oral cpDR 1 cap ca1 once daily [Active]; Wellbutrin 450 mg Oral tab 1 tab daily [Active]; Wellbutrin 150 mg Oral daily [Active]; Zofran (as hydrochloride) 4 mg Oral tab 2 tabs every 8 hours [Active]; - PMHx: 18:12 ADD/ADHD; Anxiety; Bipolar disorder; Depression; GERD; Hyperlipidemia; Hypertension; ca1 insomnia; MRSA; Panic Attacks; - PSHx: 18:12 pilonidal cyst; Cholecystectomy; ca1 - Immunization history:: Adult Immunizations up to date, Flu vaccine is up to date. - Social history:: Smoking status: Patient/guardian denies using tobacco, Stopped _ months ago [address], marijuana. - Family history:: not pertinent. ROS: 19:40 Constitutional: Negative for fever, chills, and weight loss. ma2 19:40 All other systems are negative. Exam: 19:40 Constitutional: This is a well developed, well nourished patient who is awake, alert, ma2 and in no acute distress. Head/Face: Normocephalic, atraumatic. Eyes: Pupils equal round and reactive to light, extra-ocular motions intact. Lids and lashes normal. Conjunctiva and sclera are non-icteric and not injected. Cornea within normal limits. Periorbital areas with no swelling, redness, or edema. ENT: Nares patent. No nasal discharge, no septal abnormalities noted. Tympanic membranes are normal and external auditory canals are clear. Oropharynx with no redness, swelling, or masses, exudates, or evidence of obstruction, uvula midline. Mucous membranes moist. Neck: Trachea midline, no thyromegaly or masses palpated, and no cervical lymphadenopathy. Supple, full range of motion without nuchal rigidity, or vertebral point tenderness. No Meningismus. Chest/axilla: Normal chest wall appearance and motion. Nontender with no deformity. No lesions are appreciated. Cardiovascular: Regular rate and rhythm with a normal S1 and S2. No gallops, murmurs, or rubs. Normal PMI, no JVD. No pulse deficits. Respiratory: Lungs have equal breath sounds bilaterally, clear to auscultation and percussion. No rales, rhonchi or wheezes noted. No increased work of breathing, no retractions or nasal flaring. Abdomen/GI: Soft, non-tender, with normal bowel sounds. No distension or tympany. No guarding or rebound. No evidence of tenderness throughout. Back: No spinal tenderness. No costovertebral tenderness. Full range of motion. Skin: Warm, dry with normal turgor. Normal color with no rashes, no lesions, and no evidence of cellulitis. MS/ Extremity: Pulses equal, no cyanosis. Neurovascular intact. Full, normal range of motion. Neuro: Awake and alert, GCS 15, oriented to person, place, time, and situation. Cranial nerves II-XII grossly intact. Motor strength 5/5 in all extremities. Sensory grossly intact. Cerebellar exam normal. Normal gait. Psych: Awake, alert, with orientation to person, place and time. Behavior, mood, and affect are within normal limits. Vital Signs: 18:06 BP 149 / 86; Pulse 105; Resp 18 S; Temp 97.5(TE); Pulse Ox 98% on R/A; Weight 142.88 kg ca1 (R); Height 5 ft. 8 in. (172.72 cm) (R); Pain 7/10; 21:10 BP 104 / 56; Pulse 80; Resp 18; Temp 97.8; Pulse Ox 98% ; ea 18:06 Body Mass Index 47.90 (142.88 kg, 172.72 cm) ca1 MDM: 19:06 Patient medically screened. ma2 19:40 Differential diagnosis: sprain, gastritis vs GERD vs anxiety, has HTN out of his [facility] medication. 20:47 Data reviewed: vital signs, nurses notes. Counseling: I had a detailed discussion with [facility] the patient and/or guardian regarding: the historical points, exam findings, and any diagnostic results supporting the discharge/admit diagnosis, the presence of at least one elevated blood pressure reading (>120/80) during this emergency department visit, the need for outpatient follow up. Response to treatment: the patient's symptoms have resolved after treatment. 11/17 19:17 Order name: Basic Metabolic Panel; Complete Time: 20:18 sd2 11/17 19:17 Order name: CBC with Diff; Complete Time: 20:18 [facility] 11/17 19:17 Order name: Hepatic Function; Complete Time: 20:18 [facility] 11/17 19:17 Order name: Lipase; Complete Time: 20:18 sd2 11/17 19:17 Order name: IV Saline Lock; Complete Time: 19:43 sd2 11/17 19:17 Order name: Labs collected and sent; Complete Time: 19:43 [facility] Administered Medications: 19:32 Drug: NS 0.9% 1000 ml Route: IV; Rate: 1 bolus; Site: right antecubital; ea 21:00 Follow up: Response: No adverse reaction; IV Status: Completed infusion; IV Intake: ea 1000ml 19:32 Drug: Ativan 2 mg Route: IVP; Site: right antecubital; ea 21:00 Follow up: Response: No adverse reaction ea 19:42 Drug: Lisinopril 10 mg Route: PO; ea 21:00 Follow up: Response: No adverse reaction ea 19:43 Drug: Reglan 20 mg Route: IVP; Site: right antecubital; ea 21:00 Follow up: Response: No adverse reaction Disposition: 11/17/20 20:47 Discharged to Home. Impression: Essential (primary) hypertension. - Condition is Stable. - Discharge Instructions: Hypertension. - Prescriptions for Reglan 10 mg Oral Tablet - take 1 tablet by ORAL route every 6 hours . take 30 minutes before meals and at bedtime; 100 tablet. - Medication Reconciliation Form, Thank You Letter, Antibiotic Education, Prescription Opioid Use form. - Follow up: Private Physician; When: Tomorrow; Reason: If symptoms return, Continuance of care. Signatures: Dispatcher [employer] Alejandra Montoya RN Ant York ea, MD MD ma2 Kennedy Boyle RN RN rr5 Marina Young RN RN ca1 Corrections: (The following items were deleted from the chart) 21:18 20:47 11/17/2020 20:47 Discharged to Home. Impression: Essential (primary) rr5 hypertension. Condition is Stable. Prescriptions for Reglan 10 mg Oral Tablet - take 1 tablet by ORAL route every 6 hours . take 30 minutes before meals and at bedtime; 100 tablet. and Forms are Medication Reconciliation Form, Thank You Letter, Antibiotic Education, Prescription Opioid Use. Follow up: Private Physician; When: Tomorrow; Reason: If symptoms return, Continuance of care. ma2
[2020-11-19 02:43] VITALS: O2SAT 98
[2020-11-19 02:44] VITALS: BP 104/56; TEMP 97.8
== END 2020-11-17 21:18 | disposition home or self-care (01) ==
LOC: ER 17:57
DX: I10 Essential (primary) hypertension (principal); E78.5 Hyperlipidemia, unspecified; F31.9 Bipolar disorder, unspecified; Z88.5 Allergy status to narcotic agent
CPT/HCPCS: 96361; 85025; 80048; 36415; 80076; 83690; 96375; 96374; 99284; J2765; J7030

== ENCOUNTER 2020-11-18 23:04 | Emergency (ER) | payer OTHER ==
--- OUTSIDE RECORDS SUMMARY | 2020-11-18 23:07 | XMS REPORT | Continuity of Care Document ---
:1995 Author Organization [facility] Care Team Providers Name Role Phone [facility] Unavailable Un available Problems Problem Status Onset Classification Date Comments Sourc e Date Reported Pseudomonas Active Problem 01/19/2016 Pedi infection in Infect conditions Disease o f classified [place] elsewhere and of unspecified site Methicillin Active Problem 01/19/2016 Pedi resistant Infect Staphylococcus Disea se of aureus [place] Pilonidal cyst Active Problem 01/19/2016 Pedi with abscess [facility] [place] Other chronic Active Problem 01/19/2016 Pedi postoperative pain I nfect Disease of [place] Other atopic Active Problem 01/19/2016 Pedi dermatitis and Infec t related conditions D isease of [place] Open wound of Active Problem 01/19/2016 Pedi buttock, Infect complicated [facility] of [place] Cutaneous abscess Active Problem 01/19/2016 P luis carlos of buttock Infect [facility] [place] Open wound of Active Problem 01/19/2016 Pedi buttock, without Inf ect mention of Disease o f complication [place] Pilonidal cyst Active Problem 01/19/2016 Pedi with abscess Infect [facility] [place] Klebsiella Active Problem 01/19/2016 Pedi pneumoniae Infect infection [facility] [place] Cellulitis and Active Problem 01/19/2016 Pedi abscess of buttock I nfect [facility] of [place] Medications Medication Details Route Status Patient Ordering Order Source Instructions Provider Date Augmentin 1 tablet PO Active 500 mg PO Three Lacey 09/17/20 Pedi times a day 14 [facility] [place] Paxil Unknown NA Active [facility] Pedi [facility] [place] Celexa Unknown NA Active [facility] Pedi [facility] [place] Seroquel Unknown NA Active L[facility] Pedi [facility] [place] Augmentin Unknown NA Active [facility] Pedi [facility] [place] Clonidine HCl Unknown NA Active [facility] Pedi [facility] [place] Citalopram Unknown NA Active L[facility] Pedi Hydrobromide [facility] [place] Doxepin HCl Unknown NA Active [facility] Pedi [facility] [place] BuPROPion HCl Unknown NA Active [facility] Pedi [facility] [place] Quetiapine Unknown NA Active [facility] Pedi Fumarate [facility] [place] Allergies, Adverse Reactions, Alerts Substance Category Reaction Severity Reaction Status Date Comments S ource type Reported N.K.D.A. Adverse Info Not Adverse Active Pedi Reaction Available Reaction [address]fe [address] Disease of [place] Immunizations No Data Provided for This Section [...] Weight 323 01/16/2016 Pedi [facility] [place] Height 68 01/16/2016 Pedi Infect [facility] [place] Temperature Oral (F) 98 F 01/16/2016 Pedi In fect Disease of [place] Heart Rate 128 01/16/2016 Pedi Infect [facility] [place] Weight 295 08/07/2015 Pedi Infect [facility] of [place] Height 68 08/07/2015 Pedi Infect [facility] of [place] Temperature Oral (F) 98 F 08/07/2015 Pedi In fect Disease of [place] Heart Rate 108 08/07/2015 Pedi Infect [facility] of [place] Weight 263 01/13/2015 Pedi Infect Disease of [facility] 68 01/13/2015 Pedi Infect Disease of [place] Temperature Oral (F) 97.6 F 01/13/2015 Pedi In fect Disease of [place] Heart Rate 101 01/13/2015 Pedi Infect [facility] of [place] Weight 260 01/02/2015 Pedi Infect [facility] of [place] Height 68 01/02/2015 Pedi Infect [facility] of [place] Temperature Oral (F) 97.8 F 01/02/2015 Pedi In fect Disease of [place] Heart Rate 102 01/02/2015 Pedi Infect [facility] of [place] Weight 247.2 10/22/2014 Pedi Infect [facility] of [place] Height 66 10/22/2014 Pedi Infect [facility] of [place] Temperature Oral (F) 97.5 F 10/22/2014 Pedi In fect Disease of [place] Weight 248 10/09/2014 Pedi Infect [facility] of [place] Height 66 10/09/2014 Pedi Infect [facility] of [place] Temperature Oral (F) 97.6 F 10/09/2014 Pedi In fect Disease of [place] Heart Rate 77 10/09/2014 Pedi Infect [facility] of [place] Weight 245 09/24/2014 Pedi Infect [facility] of [place] Height 66 09/24/2014 Pedi Infect [facility] of [place] Temperature Oral (F) 98.9 F 09/24/2014 Pedi In fect Disease of [place] Heart Rate 91 09/24/2014 Pedi Infect [facility] of [place] Weight 241 09/18/2014 Pedi Infect [facility] of [place] Height 66 09/18/2014 Pedi Infect [facility] of [place] Temperature Oral (F) 97.6 F 09/18/2014 Pedi In fect Disease of [place] Heart Rate 89 09/18/2014 Pedi Infect [facility] of [place] Weight 241 09/11/2014 Pedi Infect [facility] of [place] Height 66 09/11/2014 Pedi Infect [facility] of [place] Temperature Oral (F) 97.5 F 09/11/2014 Pedi In fect Disease of [place] Heart Rate 81 09/11/2014 Pedi Infect [facility] of [place] Encounters Location Location Encounter Encounter Reason Attending ADM [facility] Source Details Type Number For Provider Date Date Visit Pediatric Unknown [id number] 09/11 09/11 Pe di Infectious [id number] In fect Disease [id number] [facility] [id number] [facility] [place] Unknown [id number] 09/11 09/11 Pe di Infectious ef6-4ba4- In fect Disease [id number] [facility] [id number] [facility] [place] Pediatric Unknown [id number] 09/11 09/11 Pe di Infectious 2e6-1ynk-7 In fect Disease [id number] [facility] [id number] [facility] [place] Unknown [id number] 09/11 09/11 Pe di Infectious 930-4e88- In fect Disease [id number] [facility] [id number] [facility] [place] Pediatric Unknown [id number] 09/11 09/11 Pe di Infectious 10f-4643-a /2013 In fect Disease 00f-7bab3c [facility] [id number] of [facility] [place] Pediatric Unknown [id number] 09/11 09/11 Pe di Infectious 6v1-9073-g /2013 In fect Disease ff1-92b48f [facility] [id number] of [facility] [place] Unknown [id number] 09/11 09/11 Pe di Infectious dfa-488e-8 In fect Disease [id number] [facility] [id number] of [facility] [place] Pediatric Unknown [id number] 09/11 09/11 Pe di Infectious 2o9-91ok-1 In fect Disease p78-i8y06b [facility] [id number] [facility] [place] Unknown [id number] 09/11 09/11 Pe di Infectious 1b8-18d5-z In fect Disease l47-w3rd68 [facility] [id number] [facility] [place] Unknown [id number] 09/11 09/11 Pe di Infectious 7p9-6413-8 In fect Disease [id number] [facility] [id number] [facility] [place] Unknown [id number] 09/11 09/11 Pe di Infectious 971-446c- In fect Disease 814-4dbacf [facility] [id number] [facility] [place] Unknown [id number] 09/11 09/11 Pe di Infectious 391-4f25-a In fect Disease [id number]-hw4141 [facility] [id number] of [facility] [place] Unknown [id number] 09/11 09/11 Pe di Infectious 2t2-3a91-e In fect Disease 35a-mm115x [facility] [id number] of [facility] [place] Unknown [id number] 09/11 09/11 Pe di Infectious 56e-4a56-a In fect Disease [id number] [facility] [id number] [facility] [place] Provider [id number] 09/17 09/17 P luis carlos Infectious told [id number] In fect Disease patient to [id number]-03li14 [facility] call [id number] [facility] [place] [id number] 09/17 09/17 P luis carlos Infectious told [id number] /2013 In fect Disease patient to [id number] [id number] [id number] 09/17 09/17 P luis carlos Infectious told d37-0913-l /2013 In fect Disease patient to [id number] [id number] [id number] 09/17 09/17 P luis carlos Infectious told m96-1fgo-3 In fect Disease patient to 2fd-2eg202 [id number] [id number] 09/17 09/17 Ped i Infectious results 39a-4529-a /2013 I nfect Disease r8i-37b2fi [id number] [facility] [id number] 09/17 09/17 Ped i Infectious results 940-4cf0-b /2013 I nfect Disease bbd-052dd4 [id number] [facility] [id number] 09/17 09/17 Ped i Infectious results 298-418a-a /2013 I nfect Disease 45d-bp2743 [facility] sw446p [facility] [id number] 09/17 09/17 Ped i Infectious results 0s6-46q7-n /2013 I nfect Disease fd6-4906f2 [facility] [id number] [facility] [id number] 09/17 09/17 P luis carlos Infectious told bd5-4b86- In fect Disease patient to [id number] [facility] [id number] [facility] [id number] 09/17 09/17 P luis carlos Infectious told [phone]-a In fect Disease patient to 30f-8e64cb [facility] [id number] [facility] [id number] 09/17 09/17 P luis carlos Infectious told 868-4bf8- In fect Disease patient to [id number] [facility] [id number] [facility] [id number] 09/17 09/17 P luis carlos Infectious told 40f-4dfa- In fect Disease patient to [id number] [facility] [id number] [facility] [id number] 09/17 09/17 P luis carlos Infectious told 513-46d1- In fect Disease patient to [id number] [id number] [id number] 09/17 09/17 P luis carlos Infectious told w36-24r8-h In fect Disease patient to [id number]-[id number] [id number] [id number] 09/17 09/17 P luis carlos Infectious told [id number]-[id number]-k In fect Disease patient to [id number] [id number] [id number] 09/17 09/17 P luis carlos Infectious told w6e-[id number] In fect Disease patient to [id number] [id number] [facility] [id number] 09/17 09/17 P luis carlos Infectious told 6ea-4f71- In fect Disease patient to [id number]-010c78 [id number] [facility] [id number] 09/17 09/17 P luis carlos Infectious told 439-49f6- In fect Disease patient to [id number]-e5870m [id number] [facility] [id number] 09/17 09/17 Ped i Infectious results p78-8757-q /2013 I nfect Disease afa-0ef54a [facility] [id number] [facility] [place] Test [id number] 09/17 09/17 Ped i Infectious results 321-4105-a /2013 I nfect Disease 033-5fc2a4 [facility] [id number] [facility] [place] Test [id number] 09/17 09/17 Ped i Infectious results 744-4d7f-a /2013 I nfect Disease 509-7350cc [facility] [id number] [facility] [place] Test [id number] 09/17 09/17 Ped i Infectious results fd7-4768-b /2013 I nfect Disease 34c-5314cd [facility] [id number] [facility] [place] Test [id number] 09/17 09/17 Ped i Infectious results 747-490c-8 I nfect Disease [id number]-420006 [facility] [id number] [facility] [place] Test [id number] 09/17 09/17 Ped i Infectious results 8f9-2436-5 I nfect Disease o93-4lg4v2 [facility] [id number] [facility] [place] Test [id number] 09/17 09/17 Ped i Infectious results 6h4-7553-1 /2013 I nfect Disease cca-59edf5 [facility] [id number] [facility] [place] Test [id number] 09/17 09/17 Ped i Infectious results c31-9p1x-o /2013 I nfect Disease 432-849e0f [facility] [id number] [facility] [place] Test [id number] 09/17 09/17 Ped i Infectious results dd1-4c00- I nfect Disease 23e-70d07e [facility] [id number] [facility] [place] Test [id number] 09/17 09/17 Ped i Infectious results c07-27o8-v /2013 I nfect Disease 1s7-l9t190 [facility] [id number] [facility] [place] Follow-Up [id number] 09/18 09/18 Pedi Infectious Pilonidal 00b-4b97-a /2013 Infect Disease Cyst 34f-bc1cc5 [facility] [id number] [facility] [place] [id number] 09/18 09/18 Pedi Infectious Pilonidal ca6-471b-a /2013 Infect Disease Cyst 0r1-km274e [facility] [id number] of [facility] [place] [id number] 09/18 09/18 Pedi Infectious Pilonidal f2e-106l-i /2013 Infect Disease Cyst 433-75cb33 [facility] [id number] [facility] [id number] 09/18 09/18 Pedi Infectious Pilonidal p7c-1rxb-9 /2013 Infect Disease Cyst 9y6-h23t88 [facility] [id number] [facility] [id number] 09/18 09/18 Pedi Infectious Pilonidal o42-3056-4 /2013 Infect Disease Cyst [id number] [facility] [id number] [facility] [id number] 09/18 09/18 Pedi Infectious Pilonidal 0e5-0875-4 /2013 Infect Disease Cyst eb2-a2d1d4 [facility] [id number] [facility] [id number] 09/18 09/18 Pedi Infectious Pilonidal 709-41ab-b /2013 Infect Disease Cyst 690-a2a3e7 [facility] [id number] [facility] [id number] 09/18 09/18 Pedi Infectious Pilonidal 16f-4422-a /2013 Infect Disease Cyst 53a-3b5dfc [facility] [id number] [facility] [place] [id number] 09/18 09/18 Pedi Infectious Pilonidal 145-41c4-b /2013 Infect Disease Cyst 98c-82c78f [facility] [id number] [facility] [place] [id number] 09/18 09/18 Pedi Infectious Pilon[place] 98d-4b19-b /2013 Infect Disease Cyst 846-f15e95 [facility] [id number] [facility] [place]Up [id number] 09/18 09/18 Pedi Infectious [place]ilon[place] cf3-4a2f-b /2013 Infect Disease Cyst aa5-48a13b [facility] [id number] [facility] [place] [id number] 09/24 09/24 Pedi Infectious [place]ilon[place] t0g-6o14-i /2013 Infect Disease Cyst [id number] [facility] [id number] [facility] [place] [id number] 09/24 09/24 Pedi Infectious [place] bc0-4c7b-9 Infect Disease Cyst 83a-529487 [facility] [id number] [facility] [place] [facility] [place] [id number] 09/24 09/24 Pedi Infectious [place]ilon[place] 171-4d6a-b /2013 Infect Disease Cyst 922-472379 [facility] [id number] [facility] [place] [facility] [place] [id number] 09/24 09/24 Pedi Infectious Pilon[place] 786-4d38-b /2013 Infect Disease Cyst 00a-9f5fa2 [facility] [id number] [facility] [id number] 09/24 09/24 Pedi Infectious [place]ilon[place] 5s6-5cl6-5 Infect Disease Cyst 528-7f2ac2 [facility] [id number] [facility] [id number] 09/24 09/24 Pedi Infectious Pilon[place] 9l7-267u-e /2013 Infect Disease Cyst 80e-1bbfcb [facility] [id number] [facility] [id number] 09/24 09/24 Pedi Infectious Pilonidal 994-4c53-9 /2013 Infect Disease Cyst 6de-f4ed9e [facility] [id number] [facility] [id number] 09/24 09/24 Pedi Infectious Pilon[place] 24b-451a-8 /2013 Infect Disease Cyst 82c-662bd2 [facility] [id number] [facility] [id number] 09/24 09/24 Pedi Infectious [place]ilon[place] ed8-4e55-b /2013 Infect Disease Cyst 376-777cde [facility] [id number] [facility] [id number] 09/24 09/24 Pedi Infectious [place]ilon[place] 8ed-4898-b /2013 Infect Disease Cyst cee-bpe189 [facility] [id number] [facility] [id number] 09/24 09/24 Pedi Infectious Pilon[place] 26d-400d-a /2013 Infect Disease Cyst 1w4-4209wt [facility] [id number] [facility] [id number] 10/09 10/09 Pedi Infectious [place]ilon[place] ca5-4f38- /2013 Infect Disease Cyst 73a-1b7d56 [facility] [id number] [facility] [id number] 10/09 10/09 Pedi Infectious Pilon[place] 636-40e6- Infect Disease Cyst 947-[id number] [facility] [id number] [facility] [id number] 10/09 10/09 Pedi Infectious [place]ilon[place] w6d-187m-9 /2013 Infect Disease Cyst x26-[id number] [facility] [id number] [facility] [place] [facility] Follow-Up [id number] 10/09 10/09 Pedi Infectious [place]ilon[place] 66c-4459-a /2013 Infect Disease Cyst j22-916304 [facility] [id number] [facility] [place] [facility] Follow-Up [id number] 10/09 10/09 Pedi Infectious [place] 2dd-467d-8 /2013 Infect Disease Cyst 6a7-735204 [facility] [id number] [facility] [place] [facility] Follow-Up [id number] 10/09 10/09 Pedi Infectious [place]ilon[place] 201-45fb-b /2013 Infect Disease Cyst 8b8-4l0z35 [facility] [id number] [facility] [place] [facility] Follow-Up [id number] 10/09 10/09 Pedi Infectious [place]ilon[place] x4q-0t25-w /2013 Infect Disease Cyst bed-8fceb1 [facility] [id number] [facility] [place] [facility] Follow-Up [id number] 10/09 10/09 Pedi Infectious [place]ilon[place] n0b-4863-w /2013 Infect Disease Cyst bc1-612e32 [facility] [id number] [facility] [place] [facility] Follow-Up [id number] 10/09 10/09 Pedi Infectious [place]ilon[place] 4t3-4t0h-5 /2013 Infect Disease Cyst z2b-xb8439 [facility] [id number] [facility] [place] [facility] Follow-Up [id number] 10/09 10/09 Pedi Infectious Pilon[place] 9ed-4f4b-8 /2013 Infect Disease Cyst 2fb-43eadf [facility] [id number] [facility] [place] [facility] Follow-Up [id number] 10/09 10/09 Pedi Infectious [place]ilon[place] 7k4-2q85-5 /2013 Infect Disease Cyst b80-51121p [facility] [id number] [facility] [place] [facility] WOUNDCARE [id number] 10/22 10/22 Pedi Infectious 3v6-8u40-3 /2013 In fect Disease 48c-967425 [facility] [id number] [facility] [place] [facility] [id number] 10/22 10/22 Pedi Infectious 442-4426-9 /2013 In fect Disease i3u-1l2sm7 [facility] [id number] [facility] [place] [facility] [id number] 10/22 10/22 Pedi Infectious ba4-494c-b /2013 In fect Disease 92f-887078 [facility] [id number] [facility] [place] [facility] [id number] 10/22 10/22 Pedi Infectious afc-4b99-b /2013 In fect Disease 449-4770ae [facility] [id number] [facility] [place] [facility] [id number] 10/22 10/22 Pedi Infectious u50-8569-l /2013 In fect Disease 6ad-048b69 [facility] [id number] [facility] [place] [facility] [id number] 10/22 10/22 Pedi Infectious cf9-4283-a /2013 In fect Disease ee3-f10d09 [facility] [id number] [facility] [place] [facility] [id number] 10/22 10/22 Pedi Infectious ec0-4282-8 /2013 In fect Disease v0s-6pt1q8 [facility] [id number] [facility] [place] [facility] [id number] 10/22 10/22 Pedi Infectious bad-4c5d-a /2013 In fect Disease 731-[id number] [facility] [id number] [facility] [place] FU - [id number] 11/19 11/19 Ped i Infectious PILONIDAL 3g6-29ka-8 /2013 Infect Disease CYST 5a3-17v876 [facility] [id number] [facility] [place] FU - [id number] 11/19 11/19 Ped i Infectious PILONIDAL fa6-4c63-8 /2013 Infect Disease CYST 573-fbe18e [facility] [id number] [facility] [place] FU - [id number] 11/19 11/19 Ped i Infectious PILONIDAL 2ac-4955-a /2013 Infect Disease CYST [id number] [facility] [id number] [facility] [place] FU - [id number] 11/19 11/19 Ped i Infectious PILONIDAL p32-4w38-d /2013 Infect Disease CYST 5t5-3f4984 [facility] [id number] [facility] [place] FU - [id number] 11/19 11/19 Ped i Infectious PILONIDAL 115-444f-b /2013 Infect Disease CYST 1bc-i5d347 [facility] [id number] [facility] [place] FU - [id number] 11/19 11/19 Ped i Infectious PILONIDAL 3n9-5r59-l /2013 Infect Disease CYST 093-[id number] [facility] [id number] [facility] [place] FU - [id number] 11/19 11/19 Ped i Infectious PILONIDAL 6ea-40c8-b /2013 Infect Disease CYST [id number] [facility] [id number] [facility] [place] FU - [id number] 11/19 11/19 Ped i Infectious PILONIDAL 643-4d47-b /2013 Infect Disease CYST 0m0-2y0vj7 [facility] [id number] [facility] [place] Unknown [id number] 12/11 12/11 Pe di Infectious 490-456d-9 /2014 In fect Disease y10-44y2k7 [facility] [id number] [facility] [place] Unknown [id number] 12/11 12/11 Pe di Infectious 50b-42a1-a In fect Disease 995-tx151b [facility] [id number] [facility] [place] Unknown [id number] 12/11 12/11 Pe di Infectious 5t6-37w7-8 In fect Disease 920-3jc979 [facility] [id number] [facility] [place] Unknown [id number] 12/11 12/11 Pe di Infectious de7-4c4f- In fect Disease 945-2aebd0 [facility] [id number] [facility] [place] Unknown [id number] 12/11 12/11 Pe di Infectious b5x-073m-6 In fect Disease ab2-8e65d9 [facility] [id number] [facility] [place] Unknown [id number] 12/11 12/11 Pe di Infectious 459-43f5- In fect Disease aee-33b8fd [facility] [id number] [facility] [place] [facility] Follow-Up [id number] 01/02 01/02 Pedi Infectious Pilon[place] af5-4ef1-b /2014 Infect Disease cyst 55f-37b0d6 [facility] [id number] [facility] [place] [facility] [place] [id number] 01/02 01/02 Pedi Infectious Pilon[place] ddb-4f8b- Infect Disease cyst c1v-p133o6 [facility] [id number] [facility] [place] [facility] Follow-Up [id number] 01/02 01/02 Pedi Infectious [place]ilon[place] 140-43fd- Infect Disease cyst 364-2311e8 [facility] [id number] [facility] [place] [facility] Follow-Up [id number] 01/02 01/02 Pedi Infectious Pilonidal cad-4517- Infect Disease cyst i46-vj6n86 [facility] [id number] [facility] [place] [facility] Follow-Up [id number] 02/05 02/05 Pedi Infectious Pilonidal 766-43da-a /2014 Infect Disease cyst m26-7hb4q2 [facility] [id number] [facility] [place] [facility] [place] [id number] 01/13 01/13 Pedi Infectious [place]ilon[place] a95-361j-n /2014 Infect Disease cyst [id number] [facility] [id number] [facility] [place] [facility] [place] [id number] 01/13 01/13 Pedi Infectious [place]ilon[place] 614-46ec-b /2014 Infect Disease cyst 01b-79ea4a [facility] [id number] [facility] [place] [facility] [place] [id number] 01/13 01/13 Pedi Infectious [place]ilon[place] 2b9-3c25-x /2014 Infect Disease cyst z6p-6u8jl7 [facility] [id number] [facility] [place] [facility] [place] [id number] 01/13 01/13 Pedi Infectious Pilon[place] 51e-414e-8 /2014 Infect Disease cyst 0h1-319b89 [facility] [id number] [facility] [place] [facility] [place]-Up [id number] 01/13 01/13 Pedi Infectious [place]ilon[place] 876-4809-b /2014 Infect Disease cyst n43-20wl02 [facility] [id number] [facility] [place] [facility] [place] [id number] 01/21 01/21 Pedi Infectious ea9-4042-a /2014 In fect Disease g36-22447f [facility] [id number] [facility] Pediatric Follow-Up [id number] 01/21 01/21 Pedi Infectious [id number] /2014 In fect Disease [id number] [id number] [id number] 02/04 02/04 Pedi Infectious Pilonidal [id number] /2014 Infect Disease cyst [id number] [facility] [id number] [facility] [id number] 02/04 02/04 Pedi Infectious Pilonidal [id number] /2014 Infect Disease cyst [id number] [facility] [id number] [facility] [id number] 02/18 02/18 Pedi Infectious Pilonidal [id number] /2014 Infect Disease cyst and [id number] [facility] Laser hair [id number] o f of [place], [facility] [place] Pediatric Follow-Up [id number] 02/18 02/18 Pedi Infectious Pilonidal [id number] Infect Disease cyst and [id number] [facility] Laser hair [id number] o f of [place], [facility] [place] Pediatric Follow-Up [id number] 05/06 05/06 Pedi Infectious Pilonidal [id number] Infect Disease cyst [id number] [facility] [id number] [facility] [id number] 05/06 05/06 Pedi Infectious Pilonidal [id number] /2014 Infect Disease cyst [id number] [facility] [id number] [facility] Test [id number] 05/12 05/12 Ped i Infectious results [id number] I nfect Disease [id number] [facility] [id number] [facility] [id number] 05/12 05/12 Ped i Infectious results [id number] /2014 I nfect Disease [id number] [facility] [id number] [facility] [id number] 05/16 05/16 Pedi Infectious Pilonidal [id number] Infect Disease Cyst [id number] [facility] [id number] [facility] [id number] 05/16 05/16 Pedi Infectious Pilonidal [id number] /2014 Infect Disease Cyst [id number] [facility] [id number] [facility] [id number] 05/26 05/26 Pedi Infectious Pilonidal [id number] /2014 Infect Disease cyst [id number] [facility] [id number] [facility] [id number] 05/26 05/26 Pedi Infectious Pilonidal [id number] /2014 Infect Disease cyst [id number] [facility] [id number] [facility] [id number] 07/10 07/10 Pedi Infectious Pilonidal [id number]- Infect Disease cyst [id number] [facility] [id number] [facility] [id number] 07/10 07/10 Pedi Infectious Pilonidal [id number] /2014 Infect Disease cyst [id number] [facility] [id number] [facility] [id number] 08/07 08/07 Pedi Infectious Pilonidal [id number] /2014 Infect Disease cyst [id number] [facility] [id number] [facility] [id number] 08/07 08/07 Pedi Infectious Pilonidal [id number] /2014 Infect Disease cyst [id number] [facility] [id number] [facility] Test [id number] 08/11 08/11 Ped i Infectious results [id number] I nfect Disease [id number] [facility] [id number] [facility] [id number] 08/11 08/11 Ped i Infectious results [id number] I nfect Disease [id number] [facility] [id number] [facility] [place] Pediatric Follow-Up [id number] 01/16 01/16 Pedi Infectious - Check [id number] /2015 I nfect Disease wound [id number] [facility] [id number] [facility] [place] Procedures No Data Provided for This Section Assessment and Plan No Data Provided for This Section Plan of Care No Data Provided for This Section Social History Social History Date Source Social History ElementQualifiersDate Reported 01/18/2016 Pedi Infect Disease of Tobacco Use: [place] . Are you a: never smoker Jan 18, 2016 Family History Value Date Source QualifierDescriptionCommentDate Reported 08/09/2015 Pedi Infect Disease of Maternal Grandmother [place] Comment not available Aug 07, 2015 Paternal [...]
[2020-11-18] MEDS ORDERED: ONDANSETRON 4 MG/2 ML VIAL ONE (23:58)
[2020-11-19] MEDS ORDERED: MORPHINE 2 MG/ML SYR ONE ×2 (00:13→00:43)
[2020-11-19] MEDS ORDERED: FAMOTIDINE 20 MG/2 ML VIAL IV ONE (00:14)
[2020-11-19] MEDS ORDERED: ONDANSETRON 4 MG/2 ML VIAL ONE (00:14)
[2020-11-19 00:33] LABS: Absolute Lymphocytes (CBC) 2.4 K/uL (0.7-4.9); Hematocrit 43.6 % (39.6-49.0); Lymphocytes % 31.3 % (15.3-44.8); MPV 7.6 fL (7.6-11.3); RBC Red Blood Cell Count 5.28 M/uL (4.33-5.43)
[2020-11-19 00:33] LABS: Protime INR 1.16
[2020-11-19 00:47] LABS: ALT/SGPT 39 U/L (12-78); AST/SGOT 18 U/L (15-37); Albumin 4.4 g/dL (3.4-5.0); Alkaline Phosphatase 92 U/L (45-117); BUN Blood Urea Nitrogen 13 mg/dL (7-18); Bicarbonate 26 mmol/L (21-32); Bilirubin Direct 0.2 mg/dL (0-0.2); Bilirubin Total 0.7 mg/dL (0.2-1.0); Glucose Level 96 mg/dL (74-106); Lipase 75 U/L (73-393); Magnesium 2.2 mg/dL (1.8-2.4); NT PRO-BNP 26 pg/mL (<125); Potassium 3.6 mmol/L (3.5-5.1); Protein, Total 8.1 g/dL (6.4-8.2); Sodium Level 141 mmol/L (136-145); Troponin (Emerg Dept Use Only) < 0.02 ng/mL (0.0-0.045)
[2020-11-19] MEDS ORDERED: PROMETHAZINE INJ 25 MG/ML AMP ONE (00:48)
--- NOTE | 2020-11-19 04:27 | ER ---
Nurse's Notes [facility] Name: Keo Hardin Age: 25 yrs Sex: Male : 1995 Arrival Date: 11/18/2020 Time: 23:09 Bed 5 Private MD: Diagnosis: Vomiting;Abdominal tenderness;Functional dyspepsia;Obesity, unspecified Presentation: 11/18 23:20 Chief complaint: Patient states: pt complaining of abdominal cramping with n/v, denies sg fever/chills at this time, pt states having pain for a day or two, worsening tonight. Coronavirus screen: Client denies travel out of the [place] in the last 14 days. At this time, the client does not indicate any symptoms associated with coronavirus-19. Ebola Screen: Patient negative for fever greater than or equal to 101.5 degrees Fahrenheit, and additional compatible Ebola Virus Disease symptoms Patient denies exposure to infectious person. Patient denies travel to an Ebola-affected area in the 21 days before illness onset. No symptoms or risks identified at this time. Initial Sepsis Screen: Does the patient meet any 2 criteria? No. Patient's initial sepsis screen is negative. Does the patient have a suspected source of infection? Yes: Acute abdominal pain. Risk Assessment: Do you want to hurt yourself or someone else? Patient reports no desire to harm self or others. Onset of symptoms was November 18, 2020. Care prior to arrival: None. Transition of care: patient was not received from another setting of care. 23:20 Acuity: ROBERTH 3 sg 23:20 Method Of Arrival: Ambulatory 11/19 00:05 Note reports currently on colon cleanse for colonoscopy tomorrow. sg Triage Assessment: 00:05 General: Appears. GI: Reports lower abdominal pain, upper abdominal pain. rv Historical: - Allergies: 11/18 23:23 Haldol; sg - PMHx: 23:23 ADD/ADHD; Anxiety; Bipolar disorder; Depression; GERD; Hyperlipidemia; Hypertension; sg insomnia; MRSA; Panic Attacks; - PSHx: 23:23 pilonidal cyst; Cholecystectomy; sg - Immunization history:: Adult Immunizations up to date. - Social history:: Smoking status: Patient denies any tobacco usage or history of. - Family history:: not pertinent. Screenin:40 Abuse screen: Denies threats or abuse. Nutritional screening: No deficits noted. ea Tuberculosis screening: No symptoms or risk factors identified. Fall Risk IV access (20 points). Assessment: 11/19 00:04 General: Appears uncomfortable, Behavior is calm, cooperative. Pain: Complains of pain rv in left upper quadrant. Neuro: Level of Consciousness is awake, alert, obeys commands, Oriented to person, place, time, situation. Cardiovascular: Patient's skin is warm and dry. Respiratory: Airway is patent Respiratory effort is even, unlabored. GI: Pt is actively vomiting bile. Derm: Skin is intact. 01:15 Reassessment: Dr.Siddiqi cormier, answering service on phone with at this sg time. 02:39 Reassessment: Patient and/or family updated on plan of care and expected duration. Pain ea level reassessed. Patient is alert, oriented x 3, equal unlabored respirations, skin warm/dry/pink. Pt awaiting on CT. 04:45 Reassessment: Patient and/or family updated on plan of care and expected duration. Pain ea level reassessed. Patient is alert, oriented x 3, equal unlabored respirations, skin warm/dry/pink. Discharge instruction given to patient verbalized the understanding of instruction, left ED ambulatory accompanied by mother, pt tolerating well. Vital Signs: 11/18 23:20 BP 144 / 89; Pulse 102; Resp 18; Temp 97.8; Pulse Ox 100% on R/A; Pain 10/10; sg 11/19 00:00 BP 130 / 73; Pulse 97; Resp 17; Pulse Ox 97% on R/A; rv 01:00 BP 125 / 70; Pulse 96; Resp 18; Pulse Ox 100% on R/A; rv 02:41 BP 120 / 60; Pulse 73; Resp 18; Pulse Ox 95% ; ea 03:26 BP 126 / 86; Pulse 77; Resp 18; Pulse Ox 97% ; ea 04:19 BP 119 / 67; Pulse 87; Resp 17; Pulse Ox 95% ; ea ED Course: 11/18 23:09 Patient arrived in ED. cf2 23:20 Arm band placed on. sg 23:21 Wilber Blake MD is Attending Physician. jameel 23:22 Triage completed. sg 23:34 Galileo Pleitez RN is Primary Nurse. rv 23:39 Inserted saline lock: 20 gauge in right antecubital area, using aseptic technique. ea 23:40 Patient has correct armband on for positive identification. Bed in low position. Call ea light in reach. Side rails up X 1. Pulse ox on. NIBP on. 11/19 00:15 XRAY Chest (1 view) In Process Unspecified. EDMS 01:27 No provider procedures requiring assistance completed. rv 03:22 CT Abd/Pelvis - PO and IV Contrast In Process Unspecified. EDMS 04:27 Amari Pelayo MD is Referral Physician. jameel 04:51 IV discontinued, intact, bleeding controlled, No redness/swelling at site. Pressure ea dressing applied. Administered Medications: 11/18 23:45 Drug: Zofran (Ondansetron) 4 mg Route: IVP; Site: right antecubital; ea 11/19 00:00 Follow up: Response: No adverse reaction; Nausea unchanged ea 00:02 Drug: Pepcid 20 mg Route: IVP; Site: right antecubital; ea 01:30 Follow up: Response: No adverse reaction ea 00:02 Drug: Zofran (Ondansetron) 4 mg Route: IVP; Site: right antecubital; ea 00:30 Follow up: Response: No adverse reaction; Nausea unchanged ea 00:20 Drug: morphine 2 mg Route: IVP; Site: right antecubital; rv 01:30 Follow up: Response: No adverse reaction ea 00:36 Drug: Phenergan 12.5 mg Route: IVP; Site: right forearm; ea 01:30 Follow up: Response: No adverse reaction; Nausea is decreased ea Outcome: 04:27 Discharge ordered by . jameel 04:50 Discharged to home ambulatory, with family. ea 04:50 Condition: stable 04:50 Discharge instructions given to patient, Instructed on discharge instructions, follow up and referral plans. medication usage, Demonstrated understanding of instructions, follow-up care, medications, Prescriptions given X 3. 04:53 Patient left the ED. ea Signatures: Dispatcher [employer] EDMS Molina Mccall RN RN sg Anderson, Corey, MD MD cha Antunez, Elena, RN RN ea Vicente, Ronaldo, RN RN rv Frazier, Celesta cf2
--- NOTE | 2020-11-19 04:27 | EDPHYS ---
Physician Documentation [facility] Name: Keo Hardin Age: 25 yrs Sex: Male : 1995 Arrival Date: 11/18/2020 Time: 23:09 Bed 5 Private MD: ED Physician Wilber Blake HPI: 11/18 23:48 This 25 yrs old Male presents to ER via Ambulatory with complaints of jameel Vomiting. 23:48 The patient presents to the emergency department with nausea, vomiting, that is jameel continuous, described as bilious. Onset: The symptoms/episode began/occurred just prior to arrival. Possible causes: unknown. The symptoms are aggravated by food . Associated signs and symptoms: Pertinent positives: abdominal pain. Severity of symptoms: At their worst the symptoms were mild in the emergency department the symptoms are unchanged. The patient has not experienced similar symptoms in the past. Historical: - Allergies: 23:23 Haldol; sg - PMHx: 23:23 ADD/ADHD; Anxiety; Bipolar disorder; Depression; GERD; Hyperlipidemia; Hypertension; sg insomnia; MRSA; Panic Attacks; - PSHx: 23:23 pilonidal cyst; Cholecystectomy; sg - Immunization history:: Adult Immunizations up to date. - Social history:: Smoking status: Patient denies any tobacco usage or history of. - Family history:: not pertinent. ROS: 23:48 Constitutional: Negative for fever, chills, and weight loss, Eyes: Negative for injury, jameel pain, redness, and discharge, ENT: Negative for injury, pain, and discharge, Neck: Negative for injury, pain, and swelling, Cardiovascular: Negative for chest pain, palpitations, and edema, Respiratory: Negative for shortness of breath, cough, wheezing, and pleuritic chest pain, Back: Negative for injury and pain, : Negative for injury, bleeding, discharge, and swelling, MS/Extremity: Negative for injury and deformity, Skin: Negative for injury, rash, and discoloration, Neuro: Negative for headache, weakness, numbness, tingling, and seizure, Psych: Negative for depression, anxiety, suicide ideation, homicidal ideation, and hallucinations, Allergy/Immunology: Negative for hives, rash, and allergies, Endocrine: Negative for neck swelling, polydipsia, polyuria, polyphagia, and marked weight changes, Hematologic/Lymphatic: Negative for swollen nodes, abnormal bleeding, and unusual bruising. 23:48 Abdomen/GI: Positive for abdominal pain, nausea and vomiting, abdominal cramps, of the epigastric area and left upper quadrant. Exam: 23:48 Constitutional: This is a well developed, well nourished patient who is awake, alert, jameel and in no acute distress. Head/Face: Normocephalic, atraumatic. Eyes: Pupils equal round and reactive to light, extra-ocular motions intact. Lids and lashes normal. Conjunctiva and sclera are non-icteric and not injected. Cornea within normal limits. Periorbital areas with no swelling, redness, or edema. ENT: Nares patent. No nasal discharge, no septal abnormalities noted. Tympanic membranes are normal and external auditory canals are clear. Oropharynx with no redness, swelling, or masses, exudates, or evidence of obstruction, uvula midline. Mucous membranes moist. Neck: Trachea midline, no thyromegaly or masses palpated, and no cervical lymphadenopathy. Supple, full range of motion without nuchal rigidity, or vertebral point tenderness. No Meningismus. Chest/axilla: Normal chest wall appearance and motion. Nontender with no deformity. No lesions are appreciated. Cardiovascular: Regular rate and rhythm with a normal S1 and S2. No gallops, murmurs, or rubs. Normal PMI, no JVD. No pulse deficits. Respiratory: Lungs have equal breath sounds bilaterally, clear to auscultation and percussion. No rales, rhonchi or wheezes noted. No increased work of breathing, no retractions or nasal flaring. Back: No spinal tenderness. No costovertebral tenderness. Full range of motion. Male : Normal genitalia with no discharge or lesions. Skin: Warm, dry with normal turgor. Normal color with no rashes, no lesions, and no evidence of cellulitis. MS/ Extremity: Pulses equal, no cyanosis. Neurovascular intact. Full, normal range of motion. Neuro: Awake and alert, GCS 15, oriented to person, place, time, and situation. Cranial nerves II-XII grossly intact. Motor strength 5/5 in all extremities. Sensory grossly intact. Cerebellar exam normal. Normal gait. Psych: Awake, alert, with orientation to person, place and time. Behavior, mood, and affect are within normal limits. 23:48 Abdomen/GI: Inspection: distension, Bowel sounds: normal, Palpation: mild abdominal tenderness, moderate abdominal tenderness, in the epigastric area and left upper quadrant, Liver: no appreciated palpable abnormalities, Hernia: not appreciated. 23:48 Musculoskeletal/extremity: DVT Exam: No signs of deep vein thrombosis. no pain, no swelling, no tenderness, negative Homans' sign noted on exam, no appreciated bluish discoloration, no erythema, no increased warmth. 11/19 00:04 ECG was reviewed by the Attending Physician. jameel Vital Signs: 11/18 23:20 BP 144 / 89; Pulse 102; Resp 18; Temp 97.8; Pulse Ox 100% on R/A; Pain 10/10; sg 11/19 00:00 BP 130 / 73; Pulse 97; Resp 17; Pulse Ox 97% on R/A; rv 01:00 BP 125 / 70; Pulse 96; Resp 18; Pulse Ox 100% on R/A; rv 02:41 BP 120 / 60; Pulse 73; Resp 18; Pulse Ox 95% ; ea 03:26 BP 126 / 86; Pulse 77; Resp 18; Pulse Ox 97% ; ea 04:19 BP 119 / 67; Pulse 87; Resp 17; Pulse Ox 95% ; ea MDM: 11/18 23:21 Patient medically screened. jameel 23:50 Differential diagnosis: Nonspecific abd pain, gastritis, pancreatitis, diverticulitis, jameel viral gastroenteritis, gastroenteritis. Data reviewed: vital signs, nurses notes, lab test result(s), EKG, radiologic studies, plain films. Data interpreted: youth nutritional monitor: rate is 102 beats/min, Pulse oximetry: is not applicable for this patient encounter. Test interpretation: by ED physician or midlevel provider: ECG, plain radiologic studies. Counseling: I had a detailed discussion with the patient and/or guardian regarding: the historical points, exam findings, and any diagnostic results supporting the discharge/admit diagnosis, lab results, radiology results. 11/18 23:45 Order name: PT-INR; Complete Time: 01:12 jameel 11/18 23:45 Order name: Basic Metabolic Panel; Complete Time: :12 jameel 11/18 23:45 Order name: CBC with Diff; Complete Time: 01:12 [facility] 11/18 23:45 Order name: LFT's; Complete Time: 01: [facility] 11/18 23:45 Order name: Magnesium; Complete Time: 01:12 [facility] 11/18 23:45 Order name: NT PRO-BNP; Complete Time: 01:12 [facility] 11/18 23:45 Order name: Troponin (emerg Dept Use Only); Complete Time: 01:12 [facility] 11/18 23:45 Order name: XRAY Chest (1 view) [facility] 11/18 23:45 Order name: Lipase; Complete Time: 01:12 [facility] 11/18 23:45 Order name: CT Abd/Pelvis - PO and IV Contrast [facility] 11/18 23:45 Order name: EKG; Complete Time: 23:46 [facility] 11/18 23:45 Order name: Cardiac monitoring; Complete Time: 00:00 [facility] 11/18 23:45 Order name: EKG - Nurse/Tech; Complete Time: 00:00 [facility] 11/18 23:45 Order name: IV Saline Lock; Complete Time: 23:56 [facility] 11/18 23:45 Order name: Labs collected and sent; Complete Time: 23:56 [facility] 11/18 23:45 Order name: O2 Per Protocol; Complete Time: 23:56 [facility] 11/18 23:45 Order name: O2 Sat Monitoring; Complete Time: 23:56 [facility] EC/23 00:04 Rate is 96 beats/min. Rhythm is regular. QRS [place] is Normal. MT interval is normal. QRS jameel interval is normal. QT interval is normal. No Q waves. T waves are Normal. No ST changes noted. Clinical impression: Normal ECG and No evidence of ischemia. Interpreted by me. Reviewed by me. Administered Medications: 11/18 23:45 Drug: Zofran (Ondansetron) 4 mg Route: IVP; Site: right antecubital; ea 11/19 00:00 Follow up: Response: No adverse reaction; Nausea unchanged ea 00:02 Drug: Pepcid 20 mg Route: IVP; Site: right antecubital; ea 01:30 Follow up: Response: No adverse reaction ea 00:02 Drug: Zofran (Ondansetron) 4 mg Route: IVP; Site: right antecubital; ea 00:30 Follow up: Response: No adverse reaction; Nausea unchanged ea 00:20 Drug: morphine 2 mg Route: IVP; Site: right antecubital; rv 01:30 Follow up: Response: No adverse reaction ea 00:36 Drug: Phenergan 12.5 mg Route: IVP; Site: right forearm; ea 01:30 Follow up: Response: No adverse reaction; Nausea is decreased ea Disposition: 11/19/20 04:27 Discharged to Home. Impression: Vomiting, Abdominal tenderness, Functional dyspepsia, Obesity, unspecified. - Condition is Stable. - Discharge Instructions: Abdominal Pain, Adult, Nausea and Vomiting, Adult, Obesity, Adult, Nausea and Vomiting, Adult, Wsgb-jx-Buxy, Abdominal Pain, Adult, Bqdl-tc-Yipk, Obesity, Adult, Azui-re-Svhq. - Prescriptions for Bentyl 20 mg Oral Tablet - take 1 tablet by ORAL route every 6 hours As needed; 20 tablet. Pepcid 20 mg Oral Tablet - take 1 tablet by ORAL route every 12 hours for 10 days; 20 tablet. Zofran 4 mg Oral Tablet - take 1 tablet by ORAL route every 12 hours As needed; 20 tablet. - Medication Reconciliation Form, Thank You Letter, Antibiotic Education, Prescription Opioid Use form. - Follow up: Private Physician; When: 2 - 3 days; Reason: Recheck today's complaints, Continuance of care, Re-evaluation by your physician. Follow up: Amari Pelayo; When: Upon discharge from the Emergency Department; Reason: Recheck today's complaints, Continuance of care, Re-evaluation by your physician. - Problem is new. - Symptoms have improved. Signatures: Dispatcher [employer] EDMS Molina Mccall RN Wilber Stevens MD MD cha Attema, Lee, HEARING AID REPAIRER-C HEARING AID REPAIRER-Cla1 Alejandra Gifford RN RN ea Vicente, Ronaldo RN RN rv Corrections: (The following items were deleted from the chart) 04:53 04:27 11/19/2020 04:27 Discharged to Home. Impression: Vomiting; Abdominal tenderness; ea Functional dyspepsia; Obesity, unspecified. Condition is Stable. Discharge Instructions: Abdominal Pain, Adult, Nausea and Vomiting, Adult, Obesity, Adult, Nausea and Vomiting, Adult, Zunb-hw-Dmid, Abdominal Pain, Adult, Pgve-hx-Omfu, Obesity, Adult, Ujtk-kw-Trni. Prescriptions for Bentyl 20 mg Oral Tablet - take 1 tablet by ORAL route every 6 hours As needed; 20 tablet, Pepcid 20 mg Oral Tablet - take 1 tablet by ORAL route every 12 hours for 10 days; 20 tablet, Zofran 4 mg Oral Tablet - take 1 tablet by ORAL route every 12 hours As needed; 20 tablet. and Forms are Medication Reconciliation Form, Thank You Letter, Antibiotic Education, Prescription Opioid Use. Follow up: Private Physician; When: 2 - 3 days; Reason: Recheck today's complaints, Continuance of care, Re-evaluation by your physician. Follow up: Amari Pelayo; When: Upon discharge from the Emergency Department; Reason: Recheck today's complaints, Continuance of care, Re-evaluation by your physician. Problem is new. Symptoms have improved. jameel
--- NOTE | 2020-11-19 08:02 | RAD REPORT ---
EXAM DESCRIPTION: RAD - Chest Single View - 11/19/2020 12:14 am CLINICAL HISTORY: ABDOMINAL DISTENTION COMPARISON: October 21 TECHNIQUE: AP portable chest image was obtained 11/19/2020 12:14 am . FINDINGS: Lungs are clear. Heart and vasculature are normal. No measurable pleural effusion and no p neumothorax. No acute bony abnormality seen. No acute aortic findings suspected. IMPRESSION: No acute cardiopulmonary process. No significant change from comparison study.
--- NOTE | 2020-11-19 13:22 | RAD REPORT ---
EXAM DESCRIPTION: CT - Abdomen Pelvis W Contrast - 11/19/2020 6:37 am CLINICAL HISTORY: ABD PAIN COMPARISON: 05/09/2020 TECHNIQUE: CT of the abdomen and pelvis performed following IV administration of iodinated contras t. FINDINGS: Lung Bases: The visualized lung bases are clear. Bones: No destructive bone lesions identified. Abdomen: Liver: The liver has normal size and decreased density. No intrahepatic biliary dilatation. Gallbladder: Prior cholecystectomy. Spleen, Pancreas, and Adrenal Glands: The spleen, pancreas, and adrenal glands are unremarkable. Kidneys: No hydronephrosis or obstructing calculus. Vasculature: The aorta and IVC have normal caliber and position. The portal vein is patent. The pro ximal visceral and renal arteries are patent. Stomach: Small hiatal hernia. Other: No free intraperitoneal air. No free fluid or lymphadenopathy. Pelvis: Bladder: Urinary bladder is unremarkable. Bowel: No dilated loops of large or small bowel. Fluid-filled descending and sigmoid colon. Appendix: Not identified. Pelvis: Prostate is not enlarged. IMPRESSION: 1. Fluid-filled descending and sigmoid colon. This could be seen with diarrhea illness. 2. Hepatic steatosis. This exam was performed according to our departmental dose-optimization program, which includes autom ated exposure control, adjustment of the mA and/or kV according to patient size and/or use of iterati ve reconstruction technique. Electronically signed by: Tan Hardwick 11/19/2020 4:06 AM FORESTRY EXTENSION SPECIALIST Due to temporary technical issues with the PACS/Fluency reporting system, reports are being signed by the in house radiologist without review as a courtesy to ensure prompt reporting. The interpreting r adiologist is fully responsible for the content of the report.
[2020-11-19 15:53] VITALS: TEMP 97.8
[2020-11-19 16:00] VITALS: BP 119/67; O2SAT 95
== END 2020-11-19 04:53 | disposition home or self-care (01) ==
LOC: ER 23:04
DX: K30 Functional dyspepsia (principal); R11.10 Vomiting, unspecified; E66.9 Obesity, unspecified; I10 Essential (primary) hypertension; F31.9 Bipolar disorder, unspecified; Z88.5 Allergy status to narcotic agent
CPT/HCPCS: 93005; 85025; 80048; 36415; 83735; 85610; 80076; 84484; 83690; 83880; 74177; 71045; 99284; Q9967; J2550; J2405; J2270

== ENCOUNTER 2021-11-13 11:03 | Emergency (ER) | payer OTHER ==
[2021-11-13 11:59] LABS: Absolute Lymphocytes (CBC) 0.8 K/uL (0.7-4.9); Basophils % 0.7 % (0-1.3); Hematocrit 46.6 % (39.6-49.0); Lymphocytes % 12.6 % (15.3-44.8); MPV 7.2 fL (7.6-11.3); RBC Red Blood Cell Count 5.61 M/uL (4.33-5.43)
[2021-11-13] MEDS ORDERED: NA CHLORIDE 0.9% 1,000 ML ONE ×2 (12:07→14:16)
[2021-11-13] MEDS ORDERED: ONDANSETRON 4 MG/2 ML VIAL ONE (12:08)
[2021-11-13 12:15] LABS: ALT/SGPT 97 U/L (12-78); AST/SGOT 42 U/L (15-37); Albumin 4.6 g/dL (3.4-5.0); Alkaline Phosphatase 102 U/L (45-117); BUN Blood Urea Nitrogen 15 mg/dL (7-18); Bicarbonate 23 mmol/L (21-32); Bilirubin Direct 0.2 mg/dL (0-0.2); Bilirubin Total 0.8 mg/dL (0.2-1.0); Glucose Level 129 mg/dL (74-106); Lipase 68 U/L (73-393); Potassium 3.9 mmol/L (3.5-5.1); Protein, Total 8.1 g/dL (6.4-8.2); Sodium Level 139 mmol/L (136-145)
--- NOTE | 2021-11-13 13:09 | RAD REPORT ---
EXAM DESCRIPTION: CTAbdomen Pelvis W Contrast - 11/13/2021 12:53 pm CLINICAL HISTORY: ABD PAIN COMPARISON: Abdomen Pelvis W Contrast dated 11/19/2020; Abdomen Pelvis W Contrast dated 10/19/20 20; Abdomen Pelvis W Contrast dated 05/09/2020; Abdomen Pelvis W Contrast dated 08/20/2019 TECHNIQUE: CT of the abdomen and pelvis was performed. All CT scans are performed using dose optimization technique as appropriate and may include automated exposure control or mA/KV adjustment according to patient size. FINDINGS: Lower chest: No acute abnormality. Liver: No acute abnormality or suspicious lesions. Biliary: Cholecystectomy. Stomach: No significant focal abnormality. Duodenum: No significant focal abnormality. Pancreas: No significant abnormality. Spleen: No significant abnormality. Adrenal: No suspicious lesions. Kidney/ureter: No hydronephrosis. No renal calculi. Retroperitoneum: No retroperitoneal adenopathy. Vascular: No aneurysm. Bowel: No significant focal abnormality. Appendix not identified. Peritoneum: No ascites or free air. Bladder: Circumferential bladder wall thickening. Reproductive: No adnexal masses. Bones: No acute fracture. Other: n/a IMPRESSION: No acute intra-abdominal or pelvic finding. Cholecystectomy. No appendix identified. Circumferential bladder wall thickening which could indicate cystitis. Correlate with urinalysis.
[2021-11-13 13:51] LABS: Urine Blood Negative (Negative); Urine Glucose Negative (Negative); Urine Protein Negative (Negative); Urine Specific Gravity <=1.005 (1.005-1.030); Urine pH 6.5 (5.0-7.0)
--- NOTE | 2021-11-13 14:21 | EDPHYS ---
Physician Documentation [facility] – [place], [place] Name: Keo Hardin Age: 26 yrs Sex: Male : 1995 Arrival Date: 11/13/2021 Time: 11:06 Bed 18 Private MD: Shaun Manzo C ED Physician Hema Bradford HPI: 11/13 13:50 This 26 yrs old Male presents to ER via Ambulatory with complaints of Vomiting. kb 13:50 The patient presents to the emergency department with nausea, vomiting, abdominal pain. kb Onset: The symptoms/episode began/occurred yesterday, at 23:30. Possible causes: unknown. The symptoms are aggravated by nothing. The symptoms are alleviated by nothing. Associated signs and symptoms: Pertinent positives: abdominal pain, nausea, vomiting, Pertinent negatives: diarrhea, fever. Severity of symptoms: At their worst the symptoms were moderate in the emergency department the symptoms are unchanged. The patient has not experienced similar symptoms in the past. The patient has not recently seen a physician. Historical: - Allergies: 11:39 Haldol; iw - PMHx: 11:39 ADD/ADHD; Bipolar disorder; Anxiety; Depression; GERD; Hyperlipidemia; Hypertension; iw insomnia; MRSA; Panic Attacks; - Immunization history:: Client reports receiving the Adriano \T\ Adriano single-dose vaccine. - Social history:: Smoking status: Reported history of juuling and/or vaping. ROS: 13:50 Constitutional: Negative for fever, chills, and weight loss. kb 13:50 Abdomen/GI: Positive for abdominal pain, nausea and vomiting, Negative for diarrhea. 13:50 All other systems are negative. Exam: 13:50 Constitutional: This is a well developed, well nourished patient who is awake, alert, kb and in no acute distress. Head/Face: Normocephalic, atraumatic. ENT: Moist Mucous membranes Respiratory: Respirations even and unlabored. No increased work of breathing. Talking in full sentences Abdomen/GI: Soft, non-tender. No distention Skin: Warm, dry with normal turgor. Normal color. MS/ Extremity: Pulses equal, no cyanosis. Neurovascular intact. Full, normal range of motion. Neuro: Awake and alert, GCS 15, oriented to person, place, time, and situation. Moves all extremities. Normal gait. Psych: Awake, alert, with orientation to person, place and time. Behavior, mood, and affect are within normal limits. Vital Signs: 11:40 BP 151 / 95; Pulse 107; Resp 20; Pulse Ox 100% on R/A; Weight 115.21 kg; Height 5 ft. 8 iw in. (172.72 cm); 12:14 BP 109 / 71; Pulse 73; Resp 18; Pulse Ox 99% ; vg1 13:12 BP 138 / 73; Pulse 85; Resp 16; Pulse Ox 97% ; vg1 14:14 BP 125 / 69; Pulse 77; Resp 16; Pulse Ox 97% ; vg1 11:40 Body Mass Index 38.62 (115.21 kg, 172.72 cm) iw MDM: 11:40 Patient medically screened. kb 13:49 Data reviewed: vital signs, nurses notes. Data interpreted: Pulse oximetry: on room air kb is 97 %. Interpretation: normal. Counseling: I had a detailed discussion with the patient and/or guardian regarding: the historical points, exam findings, and any diagnostic results supporting the discharge/admit diagnosis, lab results, radiology results, the need for outpatient follow up, a family practitioner, to return to the emergency department if symptoms worsen or persist or if there are any questions or concerns that arise at home. 11/13 11:40 Order name: Basic Metabolic Panel kb 11/13 11:40 Order name: CBC with Diff; Complete Time: 12:18 kb 11/13 11:40 Order name: Hepatic Function; Complete Time: 12:17 kb 11/13 11:40 Order name: Lipase; Complete Time: 12:17 kb 11/13 11:41 Order name: Basic Metabolic Panel; Complete Time: 12:17 EDMS 11/13 13:51 Order name: Urine Dipstick-Ancillary; Complete Time: 14:14 EDMS 11/13 11:40 Order name: IV Saline Lock; Complete Time: 11:56 kb 11/13 11:40 Order name: Labs collected and sent; Complete Time: 11:56 kb 11/13 11:40 Order name: CT Abd/Pelvis - IV Contrast Only; Complete Time: 13:14 kb 11/13 13:15 Order name: Urine Dipstick-Ancillary (obtain specimen); Complete Time: 13:56 kb Administered Medications: 12:09 Drug: NS 0.9% 1000 ml Route: IV; Rate: 1000 ml; Site: right antecubital; vg1 14:13 Follow up: IV Status: Completed infusion; IV Intake: 1000ml vg1 12:10 Drug: Zofran (Ondansetron) 4 mg Route: IVP; Site: right antecubital; vg1 13:14 Follow up: Response: No adverse reaction; Marked relief of symptoms vg1 14:19 Drug: NS 0.9% 1000 ml Route: IV; Rate: 1000 ml; Site: right antecubital; vg1 15:00 Follow up: IV Status: Completed infusion; IV Intake: 200ml vg1 Disposition: 17:00 Co-signature as Attending Physician, Hema Bradford MD I agree with the assessment and kdr plan of care. Disposition Summary: 11/13/21 14:20 Discharge Ordered Location: Home kb Condition: Stable kb Diagnosis - Nausea with vomiting, unspecified kb Followup: kb - With: Emergency Department - When: As needed - Reason: Worsening of condition Followup: kb - With: Private Physician - When: 2 - 3 days - Reason: Recheck today's complaints, Continuance of care, Re-evaluation by your physician Discharge Instructions: - Discharge Summary Sheet kb - Nausea and Vomiting, Adult, [id number] kb Forms: - Medication Reconciliation Form kb - Thank You Letter kb - Antibiotic Education kb - Prescription Opioid Use kb - Work release form eb Prescriptions: - Zofran 4 mg Oral Tablet - take 1 tablet by ORAL route every 6 hours As needed; 20 tablet; Refills: 0, kb Product Selection Permitted Signatures: Dispatcher [employer] Nettie Medrano, TRAFFIC CONTROL TECHNICIAN-C TRAFFIC CONTROL TECHNICIAN-Hema Ledesma MD MD kdr Williams, Irene, RN WILL Emilie Shore RN RN vg1
--- NOTE | 2021-11-13 14:21 | ER ---
Nurse's Notes [facility] Name: Keo Hardin Age: 26 yrs Sex: Male : 1995 Arrival Date: 11/13/2021 Time: 11:06 Bed 18 Private MD: Shaun Manzo C Diagnosis: Nausea with vomiting, unspecified Presentation: 11/13 11:38 Chief complaint: Patient states: upper abd pain last night and then has been vomiting iw since then, abd pain has resolved. Coronavirus screen: Client presents with at least one sign or symptom that may indicate coronavirus-19. Ebola Screen: Patient negative for fever greater than or equal to 101.5 degrees Fahrenheit, and additional compatible Ebola Virus Disease symptoms Patient denies exposure to infectious person. Patient denies travel to an Ebola-affected area in the 21 days before illness onset. No symptoms or risks identified at this time. Initial Sepsis Screen: Does the patient meet any 2 criteria? No. Patient's initial sepsis screen is negative. Does the patient have a suspected source of infection? No. Patient's initial sepsis screen is negative. Risk Assessment: Do you want to hurt yourself or someone else? Patient reports no desire to harm self or others. Onset of symptoms was November 13, 2021. 11:38 Method Of Arrival: Ambulatory iw 11:38 Acuity: ROBERTH 3 iw Historical: - Allergies: 11:39 Haldol; iw - PMHx: 11:39 ADD/ADHD; Bipolar disorder; Anxiety; Depression; GERD; Hyperlipidemia; Hypertension; iw insomnia; MRSA; Panic Attacks; - Immunization history:: Client reports receiving the Adriano \T\ Adriano single-dose vaccine. - Social history:: Smoking status: Reported history of juuling and/or vaping. Screenin:14 Abuse screen: Denies threats or abuse. Nutritional screening: No deficits noted. vg1 Tuberculosis screening: No symptoms or risk factors identified. Fall Risk No fall in past 12 months (0 pts). No secondary diagnosis (0 pts). IV access (20 points). Ambulatory Aid- None/Bed Rest/Nurse Assist (0 pts). Gait- Normal/Bed Rest/Wheelchair (0 pts) Mental Status- Oriented to own ability (0 pts). Total Charles Fall Scale indicates No Risk (0-24 pts). Assessment: 12:12 General: Appears in no apparent distress. uncomfortable, Behavior is calm, cooperative. vg1 Pain: Complains of pain in epigastric area Pain currently is 6 out of 10 on a pain scale. Pain began 1 day ago. Also complains of nausea. Neuro: Level of Consciousness is awake, alert, obeys commands, Oriented to person, place, time, situation. Cardiovascular: Patient's skin is warm and dry. Respiratory: Airway is patent Respiratory effort is even, unlabored. GI: Abdomen is round non-distended, Pt is actively vomiting Reports nausea, vomiting. : No signs and/or symptoms were reported regarding the genitourinary system. EENT: No signs and/or symptoms were reported regarding the EENT system. Derm: Skin is intact, is healthy with good turgor. Musculoskeletal: Circulation, motion, and sensation intact. 13:12 Reassessment: Patient appears in no apparent distress at this time. Patient and/or vg1 family updated on plan of care and expected duration. Pain level reassessed. Patient is alert, oriented x 3, equal unlabored respirations, skin warm/dry/pink. Patient states feeling better. Vital Signs: 11:40 BP 151 / 95; Pulse 107; Resp 20; Pulse Ox 100% on R/A; Weight 115.21 kg; Height 5 ft. 8 iw in. (172.72 cm); 12:14 BP 109 / 71; Pulse 73; Resp 18; Pulse Ox 99% ; vg1 13:12 BP 138 / 73; Pulse 85; Resp 16; Pulse Ox 97% ; vg1 14:14 BP 125 / 69; Pulse 77; Resp 16; Pulse Ox 97% ; vg1 11:40 Body Mass Index 38.62 (115.21 kg, 172.72 cm) iw ED Course: 11:06 Patient arrived in ED. mr 11:06 Shaun Manzo MD is Private Physician. mr 11:26 [facility]C [facility] kb 11:26 Hema Bradford MD is Attending Physician. kb 11:39 Triage completed. iw 11:40 Arm band placed on. iw 11:41 Patient has correct armband on for positive identification. Bed in low position. Call mh5 light in reach. Side rails up X 1. Pulse ox on. NIBP on. 11:55 Initial lab(s) drawn, by me, sent to lab. Inserted saline lock: 22 gauge in right [facility] antecubital area, using aseptic technique. Blood collected. 11:56 Basic Metabolic Panel Sent. [facility] 11:56 CBC with Diff Sent. [facility] 11:56 Hepatic Function Sent. [facility] 11:56 Lipase Sent. [facility] 11:56 Basic Metabolic Panel Sent. [facility] 12:06 Emilie Shore, RN is Primary Nurse. vg1 12:14 No provider procedures requiring assistance completed. vg1 12:53 CT Abd/Pelvis - IV Contrast Only In Process Unspecified. EDMS 15:00 IV discontinued, intact, bleeding controlled, No redness/swelling at site. Pressure vg1 dressing applied. Administered Medications: 12:09 Drug: NS 0.9% 1000 ml Route: IV; Rate: 1000 ml; Site: right antecubital; vg1 14:13 Follow up: IV Status: Completed infusion; IV Intake: 1000ml vg1 12:10 Drug: Zofran (Ondansetron) 4 mg Route: IVP; Site: right antecubital; vg1 13:14 Follow up: Response: No adverse reaction; Marked relief of symptoms vg1 14:19 Drug: NS 0.9% 1000 ml Route: IV; Rate: 1000 ml; Site: right antecubital; vg1 15:00 Follow up: IV Status: Completed infusion; IV Intake: 200ml vg1 Intake: 14:13 IV: 1000ml; Total: 1000ml. vg1 15:00 IV: 200ml; Total: 1200ml. vg1 Outcome: 14:20 Discharge ordered by . carlie 15:00 Discharged to home ambulatory. vg1 15:00 Condition: good 15:00 Discharge instructions given to patient, Instructed on discharge instructions, follow up and referral plans. medication usage, Demonstrated understanding of instructions, follow-up care, medications, Prescriptions given X 1. 15:00 Patient left the ED. vg1 Signatures: Dispatcher [employer] EDNettie Horton, NANDO MIRELES-Meaghan Mcconnell Irene, RN Nina King [facility] Emilie Shore, WILL RN vg1
[2021-11-13 15:09] VITALS: O2SAT 97
[2021-11-13 15:11] VITALS: BP 125/69
== END 2021-11-13 15:00 | disposition home or self-care (01) ==
LOC: ER 11:03
DX: R11.2 Nausea with vomiting, unspecified (principal); I10 Essential (primary) hypertension; Z88.5 Allergy status to narcotic agent
CPT/HCPCS: 96361; 85025; 80048; 36415; 80076; 81003; 83690; 74177; 96374; 99284; Q9967; J7030 ×2; J2405

== ENCOUNTER 2021-11-14 09:20 | Emergency (ER) | payer OTHER ==
[2021-11-14] MEDS ORDERED: NA CHLORIDE 0.9% 1,000 ML ONE (10:13)
[2021-11-14] MEDS ORDERED: ONDANSETRON 4 MG/2 ML VIAL ONE (10:13)
[2021-11-14] MEDS ORDERED: PANTOPRAZOLE 40 MG INJ ONE (10:13)
--- NOTE | 2021-11-14 11:27 | EDPHYS ---
Physician Documentation [facility] Name: Keo Hardin Age: 26 yrs Sex: Male : 1995 Arrival Date: 11/14/2021 Time: 09:23 Bed Waiting Private MD: Shaun Manzo C ED Physician Ricardo Gonzalez HPI: 11/14 12:00 This 26 yrs old Male presents to ER via Ambulatory with complaints of Vomiting. kb 12:00 The patient presents to the emergency department with nausea, vomiting. Onset: The kb symptoms/episode began/occurred 2 day(s) ago. Possible causes: unknown. The symptoms are aggravated by nothing. The symptoms are alleviated by nothing. Associated signs and symptoms: Pertinent positives: nausea, vomiting. Severity of symptoms: At their worst the symptoms were mild moderate in the emergency department the symptoms are unchanged. The patient has experienced similar episodes in the past. The patient has been recently seen at the [facility] Emergency Department, yesterday, for similar complaints. Pt was seen by me in ER yesterday for abd pain, n/v. Labs and CT showed no acute findings, pt was tolerating po intake upon discharge. States he did ok until last night when he started vomiting again and was unable to tolerate PO zofran. Came in this morning to see if he could get the dissolving zofran. States this happens to him once a year. Denies abd pain at this time. Historical: - Allergies: 10:10 Haldol; ss - Home Meds: 10:10 lisinopril 10 mg Oral tab 1 tab once daily [Active]; omeprazole 40 mg Oral cpDR 1 cap ss once daily [Active]; Seroquel 50 mg Oral tab 1 tab daily [Active]; - PMHx: 10:10 ADD/ADHD; Anxiety; Bipolar disorder; Depression; GERD; Hyperlipidemia; Hypertension; ss insomnia; MRSA; Panic Attacks; - Immunization history:: Adult Immunizations up to date, Client reports receiving the Adriano \T\ Adriano single-dose vaccine. - Social history:: Smoking status: Reported history of juuling and/or vaping. ROS: 11:59 Constitutional: Negative for fever, chills, and weight loss. kb 11:59 Abdomen/GI: Positive for nausea and vomiting, Negative for abdominal pain. 11:59 All other systems are negative. Exam: 11:59 Constitutional: This is a well developed, well nourished patient who is awake, alert, kb and in no acute distress. Head/Face: Normocephalic, atraumatic. ENT: Moist Mucous membranes Respiratory: Respirations even and unlabored. No increased work of breathing. Talking in full sentences Abdomen/GI: Soft, non-tender. No distention Skin: Warm, dry with normal turgor. Normal color. MS/ Extremity: Pulses equal, no cyanosis. Neurovascular intact. Full, normal range of motion. Neuro: Awake and alert, GCS 15, oriented to person, place, time, and situation. Moves all extremities. Normal gait. Psych: Awake, alert, with orientation to person, place and time. Behavior, mood, and affect are within normal limits. Vital Signs: 10:05 BP 150 / 92; Pulse 100; Resp 17; Temp 98.0(TE); Pulse Ox 100% on R/A; Weight 115.21 kg; ss Height 5 ft. 8 in. (172.72 cm); Pain 4/10; 10:05 Body Mass Index 38.62 (115.21 kg, 172.72 cm) ss MDM: 10:07 Patient medically screened. kb 11:26 Data reviewed: vital signs, nurses notes. Data interpreted: Pulse oximetry: on room air kb is 100 %. Interpretation: normal. Counseling: I had a detailed discussion with the patient and/or guardian regarding: the historical points, exam findings, and any diagnostic results supporting the discharge/admit diagnosis, the need for outpatient follow up, a family practitioner, to return to the emergency department if symptoms worsen or persist or if there are any questions or concerns that arise at home. ED course: Pt tolerating po intake after treatment. 11/14 10:10 Order name: IV Start; Complete Time: 10:27 kb 11/14 11:05 Order name: PO challenge; Complete Time: 11:30 kb Administered Medications: 10:23 Drug: NS 0.9% 1000 ml Route: IV; Rate: 1000 ml; Site: right hand; ss 11:30 Follow up: IV Status: Completed infusion; IV Intake: 1000ml ss 10:23 Drug: Zofran (Ondansetron) 4 mg Route: IVP; Site: right hand; ss 11:30 Follow up: Response: No adverse reaction; Nausea is decreased ss 10:27 Drug: ProTONIX (pantoprazole) 40 mg Route: IVP; Site: right hand; ss 11:30 Follow up: Response: No adverse reaction; Marked relief of symptoms ss Disposition: 16:46 Co-signature as Attending Physician, Ricardo Gonzalez MD I agree with the assessment and rn plan of care. Attestation: The patient's history, exam findings, diagnostics, and a summary of any interventions or procedures was reviewed in detail with Nettie COLLIER. Disposition Summary: 11/14/21 11:27 Discharge Ordered Location: Home kb Condition: Stable kb Diagnosis - Nausea with vomiting, unspecified kb Followup: kb - With: Emergency Department - When: As needed - Reason: Worsening of condition Followup: kb - With: Private Physician - When: 2 - 3 days - Reason: Recheck today's complaints, Continuance of care, Re-evaluation by your physician Discharge Instructions: - Discharge Summary Sheet kb - Nausea and Vomiting, Adult, [id number] kb Forms: - Medication Reconciliation Form kb - Thank You Letter kb - Antibiotic Education kb - Prescription Opioid Use kb Prescriptions: - Zofran 4 mg Oral Tablet - take 1 tablet by ORAL route every 6 hours As needed; 20 tablet; Refills: 0, kb Product Selection Permitted Signatures: Nettie Mendoza, NANDO MIRELES-Ricardo Le MD MD rn Smirch, Shelby, RN RN
--- NOTE | 2021-11-14 11:27 | ER ---
Nurse's Notes [facility] [place] Name: Keo Hardin Age: 26 yrs Sex: Male : 1995 Arrival Date: 11/14/2021 Time: 09:23 Bed Waiting Private MD: Shaun Manzo C Diagnosis: Nausea with vomiting, unspecified Presentation: 11/14 10:05 Chief complaint: Patient states: Seen in ER yesterday for N/V. Was feeling better and ss was given prescription for Zofran to go home with but can not keep it down. Coronavirus screen: Client denies travel out of the [place] in the last 14 days. Ebola Screen: Patient denies exposure to infectious person. Patient denies travel to an Ebola-affected area in the 21 days before illness onset. Initial Sepsis Screen: Does the patient meet any 2 criteria? No. Patient's initial sepsis screen is negative. Does the patient have a suspected source of infection? No. Patient's initial sepsis screen is negative. Risk Assessment: Do you want to hurt yourself or someone else? Patient reports no desire to harm self or others. Onset of symptoms was November 12, 2021. 10:05 Method Of Arrival: Ambulatory ss 10:05 Acuity: ROBERTH 3 ss Historical: - Allergies: 10:10 Haldol; ss - Home Meds: 10:10 lisinopril 10 mg Oral tab 1 tab once daily [Active]; omeprazole 40 mg Oral cpDR 1 cap ss once daily [Active]; Seroquel 50 mg Oral tab 1 tab daily [Active]; - PMHx: 10:10 ADD/ADHD; Anxiety; Bipolar disorder; Depression; GERD; Hyperlipidemia; Hypertension; ss insomnia; MRSA; Panic Attacks; - Immunization history:: Adult Immunizations up to date, Client reports receiving the Adriano \\T\\ Adriano single-dose vaccine. - Social history:: Smoking status: Reported history of juuling and/or vaping. Screenin:27 Abuse screen: Denies threats or abuse. Denies injuries from another. Nutritional ss screening: No deficits noted. Tuberculosis screening: Never had TB. Fall Risk None identified. Assessment: 10:27 General: Appears uncomfortable, Behavior is calm, cooperative, Reports feeling ill for ss 1-2 days, Denies fever. Pain: Complains of pain in abdomen Pain currently is 4 out of 10 on a pain scale. Quality of pain is described as "nausea/ from retching". Neuro: Level of Consciousness is awake, alert, obeys commands, Oriented to person, place, time, situation. Respiratory: Respiratory effort is even, unlabored. GI: Abdomen is non-distended, Reports nausea, vomiting. Derm: Skin is intact, is healthy with good turgor, Skin is pink, warm \\T\\ dry. normal. 11:31 Reassessment: Patient appears in no apparent distress at this time. Patient and/or ss family updated on plan of care and expected duration. Pain level reassessed. Patient is alert, oriented x 3, equal unlabored respirations, skin warm/dry/pink. Pt drank approximately 140 mL of Divine sofiya. Awaiting disposition Patient states feeling better. Patient states symptoms have improved. 12:05 Reassessment: Patient and/or family updated on plan of care and expected duration. Pain as6 level reassessed. Patient is alert, oriented x 3, equal unlabored respirations, skin warm/dry/pink. Vital Signs: 10:05 BP 150 / 92; Pulse 100; Resp 17; Temp 98.0(TE); Pulse Ox 100% on R/A; Weight 115.21 kg; ss Height 5 ft. 8 in. (172.72 cm); Pain 4/10; 10:05 Body Mass Index 38.62 (115.21 kg, 172.72 cm) ED Course: 09:23 Patient arrived in ED. mr 09:24 Shaun Manzo MD is Private Physician. mr 10:07 Nettie [facility]endoza FNP-C [facility]. kb 10:07 Ricardo Gonzalez MD is Attending Physician. kb 10:09 Triage completed. ss 10:10 Arm band placed on right wrist. ss 10:22 Inserted saline lock: 22 gauge in right hand, using aseptic technique. ss 10:27 Patient has correct armband on for positive identification. ss 12:05 No provider procedures requiring assistance completed. IV discontinued, intact, as6 bleeding controlled, No redness/swelling at site. Pressure dressing applied. Administered Medications: 10:23 Drug: NS 0.9% 1000 ml Route: IV; Rate: 1000 ml; Site: right hand; ss 11:30 Follow up: IV Status: Completed infusion; IV Intake: 1000ml ss 10:23 Drug: Zofran (Ondansetron) 4 mg Route: IVP; Site: right hand; ss 11:30 Follow up: Response: No adverse reaction; Nausea is decreased ss 10:27 Drug: ProTONIX (pantoprazole) 40 mg Route: IVP; Site: right hand; ss 11:30 Follow up: Response: No adverse reaction; Marked relief of symptoms ss Intake: 11:30 IV: 1000ml; Total: 1000ml. ss Outcome: 11:27 Discharge ordered by . carlie 12:05 Discharged to home ambulatory. as6 12:05 Condition: stable 12:05 Discharge instructions given to patient, Instructed on discharge instructions, follow up and referral plans. medication usage, Demonstrated understanding of instructions, follow-up care, medications, Prescriptions given X 1. 12:06 Patient left the ED. as6 Signatures: Nettie Mendoza, INSPECTOR OPTICAL INSTRUMENT-C INSPECTOR OPTICAL INSTRUMENT-Meaghan Mcconnell Shelby, RN RN Ray Samuel RN RN as6
[2021-11-14 12:26] VITALS: BP 150/92; TEMP 98; O2SAT 100
== END 2021-11-14 12:06 | disposition home or self-care (01) ==
LOC: ER 09:20
DX: R11.2 Nausea with vomiting, unspecified (principal); I10 Essential (primary) hypertension; Z88.5 Allergy status to narcotic agent
CPT/HCPCS: 96361; 96375; 96374; 99283; C9113; J7030; J2405

== ENCOUNTER 2022-05-20 16:29 | Emergency (ER) | payer OTHER ==
[2022-05-20] MEDS ORDERED: DIPHENHYDRAMINE 50 MG/ML VIAL ONE (16:53)
[2022-05-20] MEDS ORDERED: METHYLPREDNISOLONE 125 MG INJ ONE (16:53)
--- NOTE | 2022-05-20 17:25 | EDPHYS ---
Physician Documentation [facility] Name: Keo Hardin Age: 26 yrs Sex: Male : 1995 Arrival Date: 05/20/2022 Time: 16:30 Bed 9 Private MD: ED Physician Hema Bradford HPI: 05/20 16:43 This 26 yrs old Male presents to ER via Ambulatory with complaints of Left Foot Pain. cp 16:43 The patient presents with pain, that is acute. The complaints affect the left foot. cp 16:43 Onset: The symptoms/episode began/occurred just prior to arrival. cp 16:43 Context: while walking outside barefoot, patient reports he felt like he stepped on cp nail, noticed sharp sudden pain to left foot. 16:43 Associated signs and symptoms: Pertinent positives: shortness of breath, Pertinent cp negatives: fever. Historical: - Allergies: 16:33 Haldol; ss - PMHx: 16:33 ADD/ADHD; Anxiety; Bipolar disorder; Depression; GERD; Hyperlipidemia; Hypertension; ss insomnia; MRSA; Panic Attacks; ROS: 16:45 MS/extremity: Positive for erythema, pain, swelling, tenderness, of the left foot. cp 16:45 Constitutional: Negative for body aches, chills, fever, poor PO intake. cp 16:45 Respiratory: Negative for cough, shortness of breath, wheezing. 16:45 Abdomen/GI: Negative for abdominal pain, nausea, vomiting, and diarrhea. 16:45 Neuro: Negative for altered mental status, headache, weakness. 16:45 All other systems are negative. Exam: 16:50 Constitutional: The patient appears in no acute distress, alert, awake, cp non-diaphoretic, non-toxic, well developed, well nourished. 16:50 Head/Face: Normocephalic, atraumatic. cp 16:50 ENT: Mouth: Lips: moist, Oral mucosa: moist, Posterior pharynx: Airway: no evidence of obstruction, patent. 16:50 Chest/axilla: Inspection: normal. 16:50 Cardiovascular: Rate: tachycardic, Rhythm: regular. 16:50 Respiratory: the patient does not display signs of respiratory distress, Respirations: shallow respirations, that is mild, Breath sounds: are clear throughout, no decreased breath sounds, no stridor, no wheezing. 16:50 Abdomen/GI: Exam negative for discomfort, distension, guarding, Inspection: abdomen appears normal. 16:50 Skin: small punctate wound noted medial side of left second toe, mild erythema and swelling advancing proximally, no puncture type wounds observed. Vital Signs: 16:34 BP 172 / 81; Pulse 118; Resp 26 S; Temp 98.2(TE); Pulse Ox 100% on R/A; Weight 90.72 kg aa5 (R); Height 5 ft. 8 in. (172.72 cm) (R); 17:33 BP 123 / 81; Pulse 86; Resp 18; Pulse Ox 99% on R/A; jb4 16:34 Body Mass Index 30.41 (90.72 kg, 172.72 cm) aa5 MDM: 16:36 Patient medically screened. cp 17:25 Data reviewed: vital signs, nurses notes. cp 17:25 Differential diagnosis: fracture, sprain, penetrating trauma, cellulitis, insect bite. cp Counseling: I had a detailed discussion with the patient and/or guardian regarding: the historical points, exam findings, and any diagnostic results supporting the discharge/admit diagnosis, to return to the emergency department if symptoms worsen or persist or if there are any questions or concerns that arise at home. Response to treatment: the patient's symptoms have markedly improved after treatment, and as a result, I will discharge patient. Administered Medications: 16:54 Drug: SOLU-Medrol (methylPREDNISolone sodium succinate) 125 mg Route: IM; Site: right jb4 gluteus; 17:25 Follow up: Response: No adverse reaction; Marked relief of symptoms jb4 16:54 Drug: Benadryl (diphenhydrAMINE) 50 mg Route: IM; Site: right deltoid; jb4 17:25 Follow up: Response: No adverse reaction jb4 Disposition Summary: 05/20/22 17:25 Discharge Ordered Location: Home cp Problem: new cp Symptoms: have improved cp Condition: Stable cp Diagnosis - Insect bite (nonvenomous), left lesser toe(s), initial encounter cp Followup: cp - With: Private Physician - When: 1 - 2 days - Reason: Worsening of condition Discharge Instructions: - Discharge Summary Sheet cp - Insect Bite, Adult cp Forms: - Medication Reconciliation Form cp - Thank You Letter cp - Antibiotic Education cp - Prescription Opioid Use cp Prescriptions: - Prednisone 20 mg Oral Tablet - take 2 tablets by ORAL route once daily for 5 days; 10 tablet; Refills: 0, cp Product Selection Permitted Signatures: Cathie Mccord RN RN ss Wilber Whaley PA PA cp Bryson, James, RN RN jb4 Corrections: (The following items were deleted from the chart) 17:25 17:03 Wound Care ordered. cp jb4
--- NOTE | 2022-05-20 17:25 | ER ---
Nurse's Notes [facility] Name: Keo Hardin Age: 26 yrs Sex: Male : 1995 Arrival Date: 05/20/2022 Time: 16:30 Bed 9 Private MD: Diagnosis: Insect bite (nonvenomous), left lesser toe(s), initial encounter Presentation: 05/20 16:30 Chief complaint: Patient states: "I stepped on something in my back yard and my toe ss feels numb. I think there is something in there.". Coronavirus screen: Client denies travel out of the [place] in the last 14 days. Ebola Screen: Patient denies exposure to infectious person. Patient denies travel to an Ebola-affected area in the 21 days before illness onset. Initial Sepsis Screen: Does the patient meet any 2 criteria? No. Patient's initial sepsis screen is negative. Does the patient have a suspected source of infection? No. Patient's initial sepsis screen is negative. Risk Assessment: Do you want to hurt yourself or someone else? Patient reports no desire to harm self or others. 16:30 Method Of Arrival: Ambulatory 16:32 Onset of symptoms was May 20, 2022. ss 16:32 Acuity: ROBERTH 4 ss Historical: - Allergies: 16:33 Haldol; ss - PMHx: 16:33 ADD/ADHD; Anxiety; Bipolar disorder; Depression; GERD; Hyperlipidemia; Hypertension; ss insomnia; MRSA; Panic Attacks; Screenin:55 Abuse screen: Denies threats or abuse. Nutritional screening: No deficits noted. jb4 Tuberculosis screening: No symptoms or risk factors identified. Fall Risk None identified. Assessment: 16:55 General: Appears in no apparent distress. uncomfortable, Behavior is calm, cooperative, jb4 appropriate for age. Pain: Complains of pain in ball of left foot Pain does not radiate. Pain currently is 6 out of 10 on a pain scale. Neuro: Level of Consciousness is awake, alert, obeys commands, Oriented to person, place, time, situation. Cardiovascular: Patient's skin is warm and dry. Respiratory: Airway is patent Respiratory effort is even, unlabored, Respiratory pattern is regular, symmetrical. Derm: Skin is intact, Skin is pink, warm \\T\\ dry. Musculoskeletal: Circulation, motion, and sensation intact. Range of motion: intact in all extremities. 17:33 Reassessment: Patient appears in no apparent distress at this time. Patient and/or jb4 family updated on plan of care and expected duration. Pain level reassessed. Patient is alert, oriented x 3, equal unlabored respirations, skin warm/dry/pink. Patient states feeling better. Vital Signs: 16:34 BP 172 / 81; Pulse 118; Resp 26 S; Temp 98.2(TE); Pulse Ox 100% on R/A; Weight 90.72 kg aa5 (R); Height 5 ft. 8 in. (172.72 cm) (R); 17:33 BP 123 / 81; Pulse 86; Resp 18; Pulse Ox 99% on R/A; jb4 16:34 Body Mass Index 30.41 (90.72 kg, 172.72 cm) aa5 ED Course: 16:30 Patient arrived in ED. ss 16:31 Wilber Whaley PA is PHCP. cp 16:31 Hema Bradford MD is Attending Physician. cp 16:33 Triage completed. ss 16:33 Arm band placed on right wrist. ss 16:38 Garett Fernández, WILL is Primary Nurse. jb4 16:55 Patient has correct armband on for positive identification. Bed in low position. Call jb4 light in reach. Side rails up X 1. 17:33 No provider procedures requiring assistance completed. Patient did not have IV access jb4 during this emergency room visit. Administered Medications: 16:54 Drug: SOLU-Medrol (methylPREDNISolone sodium succinate) 125 mg Route: IM; Site: right jb4 gluteus; 17:25 Follow up: Response: No adverse reaction; Marked relief of symptoms jb4 16:54 Drug: Benadryl (diphenhydrAMINE) 50 mg Route: IM; Site: right deltoid; jb4 17:25 Follow up: Response: No adverse reaction jb4 Medication: 16:55 VIS not applicable for this client. jb4 Outcome: 17:25 Discharge ordered by . cp 17:33 Discharged to home ambulatory. jb4 17:33 Condition: stable 17:33 Discharge instructions given to patient, Instructed on discharge instructions, follow up and referral plans. medication usage, Demonstrated understanding of instructions, follow-up care, medications, Prescriptions given X 1. 17:35 Patient left the ED. jb4 Signatures: Iveth Quigley, RN RN aa5 Cathie Mccord, RN RN ss Wilber Whaley PA PA cp Bryson, James, RN RN jb4
[2022-05-20 17:46] VITALS: TEMP 98.2
[2022-05-20 17:48] VITALS: BP 123/81; O2SAT 99
== END 2022-05-20 17:35 | disposition home or self-care (01) ==
LOC: ER 16:29
DX: S90.465A Insect bite (nonvenomous), left lesser toe(s), initial encounter (principal); I10 Essential (primary) hypertension; Z88.5 Allergy status to narcotic agent
CPT/HCPCS: J1200; J2930; 96372; 99283

== ENCOUNTER 2022-08-02 03:45 | Emergency (ER) | payer OTHER ==
--- NOTE | 2022-08-02 04:35 | EDPHYS ---
Physician Documentation [facility] Name: Keo Hardin Age: 27 yrs Sex: Male : 1995 Arrival Date: 08/02/2022 Time: 03:49 Bed 13 Private MD: ED Physician Wilber Blake HPI: 08/02 04:30 This 27 yrs old Male presents to ER via Ambulatory with complaints of Foreign jameel Body In Ear. 04:30 The patient presents with a foreign body sensation, pain. The complaints affect the jameel left ear. Onset: The symptoms/episode began/occurred just prior to arrival. Modifying factors: The symptoms are alleviated by nothing, the symptoms are aggravated by nothing. Associated signs and symptoms: The patient has no apparent associated signs or symptoms. Severity of symptoms: At their worst the symptoms were mild in the emergency department the symptoms have resolved. The patient has not experienced similar symptoms in the past. Historical: - Allergies: 04:01 Haldol; as6 - PMHx: 04:01 ADD/ADHD; Anxiety; Bipolar disorder; Depression; GERD; Hyperlipidemia; Hypertension; as6 insomnia; MRSA; Panic Attacks; - PSHx: 04:01 Cholecystectomy; as6 - Immunization history:: Client reports receiving the Adriano \T\ Adriano single-dose vaccine. - Social history:: Smoking status: Patient denies any tobacco usage or history of. Patient uses street drugs, marijuana. ROS: 04:32 Constitutional: Negative for fever, chills, and weight loss, Eyes: Negative for injury, jameel pain, redness, and discharge, Neck: Negative for injury, pain, and swelling, Cardiovascular: Negative for chest pain, palpitations, and edema, Respiratory: Negative for shortness of breath, cough, wheezing, and pleuritic chest pain, Abdomen/GI: Negative for abdominal pain, nausea, vomiting, diarrhea, and constipation, Back: Negative for injury and pain, : Negative for injury, bleeding, discharge, and swelling, MS/Extremity: Negative for injury and deformity, Skin: Negative for injury, rash, and discoloration, Neuro: Negative for headache, weakness, numbness, tingling, and seizure, Psych: Negative for depression, anxiety, suicide ideation, homicidal ideation, and hallucinations, Allergy/Immunology: Negative for hives, rash, and allergies, Endocrine: Negative for neck swelling, polydipsia, polyuria, polyphagia, and marked weight changes, Hematologic/Lymphatic: Negative for swollen nodes, abnormal bleeding, and unusual bruising. 04:32 ENT: Positive for ear pain. Exam: 04:32 Constitutional: This is a well developed, well nourished patient who is awake, alert, jameel and in no acute distress. Head/Face: Normocephalic, atraumatic. Eyes: Pupils equal round and reactive to light, extra-ocular motions intact. Lids and lashes normal. Conjunctiva and sclera are non-icteric and not injected. Cornea within normal limits. Periorbital areas with no swelling, redness, or edema. Neck: Trachea midline, no thyromegaly or masses palpated, and no cervical lymphadenopathy. Supple, full range of motion without nuchal rigidity, or vertebral point tenderness. No Meningismus. Chest/axilla: Normal chest wall appearance and motion. Nontender with no deformity. No lesions are appreciated. Cardiovascular: Regular rate and rhythm with a normal S1 and S2. No gallops, murmurs, or rubs. Normal PMI, no JVD. No pulse deficits. Respiratory: Lungs have equal breath sounds bilaterally, clear to auscultation and percussion. No rales, rhonchi or wheezes noted. No increased work of breathing, no retractions or nasal flaring. Abdomen/GI: Soft, non-tender, with normal bowel sounds. No distension or tympany. No guarding or rebound. No evidence of tenderness throughout. Back: No spinal tenderness. No costovertebral tenderness. Full range of motion. Male : Normal genitalia with no discharge or lesions. Skin: Warm, dry with normal turgor. Normal color with no rashes, no lesions, and no evidence of cellulitis. MS/ Extremity: Pulses equal, no cyanosis. Neurovascular intact. Full, normal range of motion. Neuro: Awake and alert, GCS 15, oriented to person, place, time, and situation. Cranial nerves II-XII grossly intact. Motor strength 5/5 in all extremities. Sensory grossly intact. Cerebellar exam normal. Normal gait. Psych: Awake, alert, with orientation to person, place and time. Behavior, mood, and affect are within normal limits. 04:32 ENT: Ear canal(s): foreign body, ear bud, in the right external ear canal. Vital Signs: 04:00 BP 154 / 90; Pulse 64; Resp 18 S; Temp 98.3(O); Pulse Ox 100% on R/A; Weight 86.18 kg as6 (R); Height 5 ft. 7 in. (170.18 cm) (R); Pain 4/10; 04:00 Body Mass Index 29.76 (86.18 kg, 170.18 cm) as6 MDM: 03:57 Patient medically screened. jameel 04:33 Differential diagnosis: foreign body. Data reviewed: vital signs, nurses notes, lab jameel test result(s). Data interpreted: environmental monitoring technician: rate is 64 beats/min, rhythm is regular, Pulse oximetry: on room air. Counseling: I had a detailed discussion with the patient and/or guardian regarding: the historical points, exam findings, and any diagnostic results supporting the discharge/admit diagnosis, the need for outpatient follow up, for definitive care, a family practitioner. Administered Medications: No medications were administered Disposition Summary: 08/02/22 04:34 Discharge Ordered Location: Home jaemel Problem: new jameel Symptoms: have improved jameel Condition: Stable jameel Diagnosis - Foreign body in left ear - removed jameel Followup: jameel - With: Private Physician - When: 2 - 3 days - Reason: Recheck today's complaints, Continuance of care, Re-evaluation by your physician Discharge Instructions: - Discharge Summary Sheet jameel - Ear Foreign Body jameel - Ear Foreign Body, [id number] jameel - Foreign Body jameel Forms: - Medication Reconciliation Form jameel - Thank You Letter jameel - Antibiotic Education jameel - Prescription Opioid Use jameel Signatures: Wilber Blake MD MD cha Slawson, Ashby, RN RN as6
--- NOTE | 2022-08-02 04:35 | ER ---
Nurse's Notes [facility] Name: Keo Hardin Age: 27 yrs Sex: Male : 1995 Arrival Date: 08/02/2022 Time: 03:49 Bed 13 Private MD: Diagnosis: Foreign body in left ear-removed Presentation: 08/02 04:00 Chief complaint: Patient states: "I fell asleep with my ear bud in my ear and the as6 plastic part is stuck". Coronavirus screen: At this time, the client does not indicate any symptoms associated with coronavirus-19. Ebola Screen: No symptoms or risks identified at this time. Initial Sepsis Screen: Does the patient meet any 2 criteria? No. Patient's initial sepsis screen is negative. Does the patient have a suspected source of infection? No. Patient's initial sepsis screen is negative. Risk Assessment: Do you want to hurt yourself or someone else? Patient reports no desire to harm self or others. Onset of symptoms was August 02, 2022. 04:00 Method Of Arrival: Ambulatory as6 04:00 Acuity: ROBERTH 4 as6 Historical: - Allergies: 04:01 Haldol; as6 - PMHx: 04:01 ADD/ADHD; Anxiety; Bipolar disorder; Depression; GERD; Hyperlipidemia; Hypertension; as6 insomnia; MRSA; Panic Attacks; - PSHx: 04:01 Cholecystectomy; as6 - Immunization history:: Client reports receiving the Adriano \\T\\ Adriano single-dose vaccine. - Social history:: Smoking status: Patient denies any tobacco usage or history of. Patient uses street drugs, marijuana. Screenin:02 Abuse screen: Denies threats or abuse. Denies injuries from another. Nutritional as6 screening: No deficits noted. Tuberculosis screening: No symptoms or risk factors identified. Fall Risk None identified. Assessment: 04:02 General: Appears in no apparent distress. Behavior is calm, cooperative. Pain: as6 Complains of pain in left ear. Neuro: Level of Consciousness is awake, alert. Respiratory: Respiratory effort is even, unlabored. EENT: Ear canal w/ foreign body noted from left ear. Vital Signs: 04:00 BP 154 / 90; Pulse 64; Resp 18 S; Temp 98.3(O); Pulse Ox 100% on R/A; Weight 86.18 kg as6 (R); Height 5 ft. 7 in. (170.18 cm) (R); Pain 4/10; 04:00 Body Mass Index 29.76 (86.18 kg, 170.18 cm) as6 ED Course: 03:49 Patient arrived in ED. bp1 03:56 Ray Smauel, RN is Primary Nurse. as6 03:57 Wilber Blake MD is Attending Physician. [facility] 04:01 Triage completed. as6 04:02 Arm band placed on. as6 04:02 Bed in low position. Call light in reach. Side rails up X 1. as6 04:37 Assist provider with foreign body removal of ear bud from left ear canal. using as6 alligator clamps, Set up for procedure. Performed by Wilber Blake MD Patient tolerated well. Patient did not have IV access during this emergency room visit. Administered Medications: No medications were administered Medication: 04:38 VIS not applicable for this client. as6 Outcome: 04:34 Discharge ordered by . [facility] 04:38 Discharged to home ambulatory. as6 04:38 Condition: stable 04:38 Discharge instructions given to patient, Instructed on discharge instructions, follow up and referral plans. Demonstrated understanding of instructions, follow-up care. 04:38 Patient left the ED. as6 Signatures: Wilber Blake MD MD cha [place], [facility] Ray Samuel, RN RN as6
[2022-08-02 04:57] VITALS: BP 154/90; TEMP 98.3; O2SAT 100
== END 2022-08-02 04:38 | disposition home or self-care (01) ==
LOC: ER 03:45
PROC: 09C4XZZ Extirpation of Matter from Left External Auditory Canal, External Approach (ICD-10-PCS; principal; 2022-08-02)
DX: T16.2XXA Foreign body in left ear, initial encounter (principal); Z88.5 Allergy status to narcotic agent
CPT/HCPCS: 99283

== ENCOUNTER 2025-01-01 16:39 | Emergency (ER) | payer OTHER ==
[2025-01-01] MEDS ORDERED: TDAP (DIPHTH,PERTUSS(ACELL),TET VAC) 0.5 ML VIAL IMVAC ONE (18:13)
[2025-01-01] MEDS ORDERED: LIDOCAINE 1% MPF 5 ML VIAL ONE (18:13)
--- NOTE | 2025-01-01 20:01 | ER ---
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 ko1 Coronavirus screen: At this time, the client does not indicate any symptoms associated with coronavirus-19. Ebola Screen: No symptoms or risks identified at this time. Complicating Factors: There are no complicating factors for this patient. Initial Sepsis Screen: Does the patient meet any 2 criteria? No. Patient's initial sepsis screen is negative. Does the patient have a suspected source of infection? No. Patient's initial sepsis screen is negative. Risk Assessment: Do you want to hurt yourself or someone else? Patient reports no desire to harm self or others. Onset of symptoms was January 01, 2025. 16:52 Method Of Arrival: Ambulatory ko1 16:52 Acuity: ROBERTH 3 ko1 Triage Assessment: 16:54 General: Appears in no apparent distress. Behavior is calm, cooperative, appropriate ko1 for age. Pain: Complains of pain in Left first web space. Injury Description: Laceration sustained to Left first web space. Historical: - Allergies: 16:54 Haldol; ko1 - PMHx: 16:54 ADD/ADHD; Anxiety; Bipolar disorder; Depression; GERD; Hyperlipidemia; Hypertension; ko1 insomnia; MRSA; Panic Attacks; - PSHx: 16:54 Cholecystectomy; ko1 - Immunization history:: Adult Immunizations unknown, Last tetanus immunization: unknown. - Infectious Disease History:: Denies. - Social history:: Smoking status: Patient denies any tobacco usage or history of. Screenin:30 [facility] ED Fall Risk Assessment (Adult) History of falling in the last 3 months, ph including since admission No falls in past 3 months (0 pts) Confusion or Disorientation No (0 pts) Intoxicated or Sedated No (0 pts) Impaired Gait No (0 pts) Mobility Assist Device Used No (0 pt) Altered Elimination No (0 pt) Score/Fall Risk Level 0 - 2 = Low Risk Oriented to surroundings, Maintained a safe environment, Hourly rounding (assess needs \T\ fall precautionary measures) done. Abuse screen: Denies threats or abuse. Denies injuries from another. Nutritional screening: No deficits noted. Tuberculosis screening: No symptoms or risk factors identified. Assessment: 18:31 General: Appears in no apparent distress. Behavior is calm, cooperative. Pain: ph Complains of pain in Left first web space. Neuro: Level of Consciousness is awake, alert, obeys commands, Oriented to person, place, time, situation. Cardiovascular: Capillary refill < 3 seconds in bilateral fingers. Respiratory: Airway is compromised Respiratory effort is even, unlabored. Musculoskeletal: Circulation, motion, and sensation intact. Range of motion: intact in all extremities. Injury Description: Laceration sustained to Left first web space is 0.5 to 2.5 cm long, was sustained 30-60 minutes ago. is bleeding a small amount. 19:15 Reassessment: Patient appears in no apparent distress at this time. Patient and/or kj2 family updated on plan of care and expected duration. Pain level reassessed. Patient is alert, oriented x 3, equal unlabored respirations, skin warm/dry/pink. Vital Signs: 16:52 BP 165 / 89; Pulse 79; Resp 18; Temp 97.9; Pulse Ox 100% on R/A; ko1 20:11 BP 158 / 88; Pulse 78; Resp 20; Temp 98; Pulse Ox 100% on R/A; kj2 ED Course: 16:42 Patient arrived in ED. mr 16:43 Nettie Mendoza, [facility] kb 16:43 Néstor Abbott DO is Attending Physician. kb 16:54 Triage completed. ko1 16:54 Arm band placed on right wrist. Patient placed in waiting room, Patient notified of ko1 wait time. 18:08 Leslie Albarado, RN is Primary Nurse. ph 18:33 Patient has correct armband on for positive identification. Bed in low position. Call ph light in reach. Side rails up X 1. Door closed. Noise minimized. PO fluids given. 19:15 Provided Education on: call light. kj2 20:09 No provider procedures requiring assistance completed. Patient did not have IV access kj2 during this emergency room visit. Administered Medications: 18:32 Drug: Boostrix Tdap IM 0.5 ml IM once; as a single dose Route: IM; Site: left deltoid; ph 20:08 Follow up: Response: No adverse reaction kj2 20:08 Drug: Lidocaine Infiltration (1 %) 1 vials 5 ml Infiltration once; to bedside {Note: kj2 administered by provider.} Volume: 5 ml; Route: Infiltration; Medication: 18:32 Vaccine Information Statement (VIS) provided today. Questions and/or concerns ph addressed. VIS edition date: June 2021. Outcome: 20:01 Discharge ordered by . carlie 20:09 Discharged to home ambulatory, kj2 20:09 Condition: stable 20:09 Discharge instructions given to patient, Instructed on discharge instructions, follow up and referral plans. Demonstrated understanding of instructions, follow-up care, medications, 20:37 Patient left the ED. kj2 Signatures: Nettie Mendoza, IT COMPLIANCE MANAGER-C IT COMPLIANCE MANAGER-CkMeaghan Pate, Reg Reg mr AlbaradoLeslie, RN RN Renate Vaca, RN RN ko1 Estela Armando RN RN kj2
--- NOTE | 2025-01-01 20:01 | EDPHYS ---
Physician Documentation [facility] Name: Keo Hardin Age: 29 yrs Sex: Male : 1995 Arrival Date: 01/01/2025 Time: 16:39 Bed 12 Private MD: ED Physician Néstor Abbott HPI: 01/01 20:04 This 29 yrs old Male presents to ER via Ambulatory with complaints of Laceration To kb Hand. 20:04 Pt is a 29 year old male who presents for laceration to left hand that occurred just kb [place]. States he was opening boxes with a icebox man and accidentally cut his hand. Denies any other injuries. . Historical: - Allergies: 16:54 Haldol; ko1 - PMHx: 16:54 ADD/ADHD; Anxiety; Bipolar disorder; Depression; GERD; Hyperlipidemia; Hypertension; ko1 insomnia; MRSA; Panic Attacks; - PSHx: 16:54 Cholecystectomy; ko1 - Immunization history:: Adult Immunizations unknown, Last tetanus immunization: unknown. - Infectious Disease History:: Denies. - Social history:: Smoking status: Patient denies any tobacco usage or history of. ROS: 20:03 Constitutional: As per HPI kb Exam: 20:03 Constitutional: This is a well developed, well nourished patient who is awake, alert, kb and in no acute distress. Head/Face: Normocephalic, atraumatic. ENT: Moist Mucous membranes Cardiovascular: Regular rate Respiratory: Respirations even and unlabored. No increased work of breathing. Talking in full sentences MS/ Extremity: Pulses equal, no cyanosis. Neurovascular intact. Full, normal range of motion. Neuro: Awake and alert, GCS 15, oriented to person, place, time, and situation. 20:03 Skin: injury, laceration(s), the wound is approximately 3 cm(s), of the Left first web space, that can be described as clean, no foreign body, linear, without bleeding, Vital Signs: 16:52 BP 165 / 89; Pulse 79; Resp 18; Temp 97.9; Pulse Ox 100% on R/A; ko1 20:11 BP 158 / 88; Pulse 78; Resp 20; Temp 98; Pulse Ox 100% on R/A; kj2 Laceration: 20:00 Wound Repair of 3cm ( 1.2in ) subcutaneous laceration to Left first web space. Linear kb shaped.. Distal neuro/vascular/tendon intact. Anesthesia: Local anesthetic administered with 5 mls of 1% lidocaine. Wound prep: Extensive cleansing with hibiclenz by me, Wound irrigation with saline by me, Wound explored moderately. Skin closed with 5 5-0 Prolene using simple sutures and sterile technique. Patient tolerated well. MDM: 16:43 Medical Screening Exam initiated kb 20:04 Differential diagnosis: superficial laceration, tendon injury, vascular injury. Data kb reviewed: vital signs, nurses notes. Test considered but Not performed: X-ray: xray considered but pt has full rom of hand and fingers. Counseling: I had a detailed discussion with the patient and/or guardian regarding the historical points, exam findings, and any diagnostic results supporting the discharge/admit diagnosis, the need for outpatient follow up, a family practitioner, to return to the emergency department if symptoms worsen or persist or if there are any questions or concerns that arise at home. 01/01 18:03 Order name: Dressing - Wound; Complete Time: 18:32 kb 01/01 18:03 Order name: Gloves, Sterile; Complete Time: 18:32 kb 01/01 18:03 Order name: Prolene, Sutures; Complete Time: 18:32 kb 01/01 18:03 Order name: Setup Suture Tray; Complete Time: 18:32 kb Administered Medications: 18:32 Drug: Boostrix Tdap IM 0.5 ml IM once; as a single dose Route: IM; Site: left deltoid; ph 20:08 Follow up: Response: No adverse reaction kj2 20:08 Drug: Lidocaine Infiltration (1 %) 1 vials 5 ml Infiltration once; to bedside {Note: kj2 administered by provider.} Volume: 5 ml; Route: Infiltration; Disposition: 20:12 I was immediately available on-site in the Emergency Department for consultation in the ms3 care of the patient. Disposition Summary: 01/01/25 20:01 Discharge Ordered Notes: Location: Home kb Condition: Stable kb Diagnosis - Laceration without foreign body of left hand kb Followup: kb - With: Emergency Department - When: As needed - Reason: Worsening of condition Followup: kb - With: Private Physician - When: 2 - 3 days - Reason: Recheck today's complaints, Continuance of care, Re-evaluation by your physician Discharge Instructions: - Discharge Summary Sheet kb - Laceration Care, Adult, [id number] kb Forms: - Medication Reconciliation Form kb - Antibiotic Education kb - Prescription Opioid Use kb - Patient Portal Instructions kb - Leadership Thank You Letter kb Signatures: Nettie Mendoza, ALINE-Robert MIRELES-Leslie Villalobos, RN RN Néstor Abbott DO DO ms3 Renate Caro RN RN ko1 Estela Armando RN RN kj2
[2025-01-01 20:55] VITALS: O2SAT 100
[2025-01-01 20:57] VITALS: BP 158/88; TEMP 98
== END 2025-01-01 20:37 | disposition home or self-care (01) ==
LOC: ER 16:39
DX: S61.412A Laceration without foreign body of left hand, initial encounter (principal)
CPT/HCPCS: 12042; J2003